=== PATIENT | male | born 1955 | race Caucasian/White ===

== ENCOUNTER 2018-05-26 10:53 | Emergency (ER) | payer MEDICAID, SELFPAY ==
[2018-05-26 10:54] VITALS: BP 149/95; PULSE 96; RESP 16; TEMP 36.6; O2SAT 98; BMI 25.0
--- NOTE | 2018-05-26 11:01 | RAD_ITS ---
STUDY: X-RAY - LEFT HAND REASON FOR EXAM: Cut hand this morning. TECHNIQUE: 3 view(s) of the hand. COMPARISON: None. FINDINGS: Normal radiocarpal articulation. Normal distal radioulnar joint. Normal visualized carpal bones. Normal carpal articulations Normal carpometacarpal articulation of the thumb. Normal second through fifth carpometacarpal joints. Normal metacarpi. Normal metacarpophalangeal joint of the thumb. Normal interphalangeal joint of the thumb. Normal proximal and distal phalanges of the thumb. Normal metacarpophalangeal joints of the second through fifth fingers. There are small marginal osteophytes and mild joint space narrowing of the second and third distal interphalangeal joints. Normal phalanges of the second through fifth fingers. There is a small metallic foreign body at the radial aspect of the fourth distal interphalangeal joint. RAD/Hand Min 3 Views IMPRESSION: Small metallic foreign body in the fourth digit. Mild arthrosis of the second and third distal interphalangeal joints. Electronically Signed: Louis Zepeda MD at 13:00 EDT Tel , Service support ,
--- NOTE | 2018-05-26 11:04 | ED.VISSUMM ---
- ER Visit Summary Date of Service: 05/26/18 Chief Complaint: Left hand injury History of Present Illness: The patient is a 63 M who is right-hand dominant presents with injury to his left thumb. Patient was using a table saw to cut through countertop. The blade went through and then incised his thumb. His tetanus is up-to-date. He is not on anticoagulants. He presented here immediately. He denies other injury. He is otherwise healthy. Physical Examination: Exam relatively unremarkable. Patient does have a flap style laceration distal aspect of the thumb. It is mostly involving the pad of the finger. His pulses are normal. Flexion and extension are intact. Test Results: [] Emergency Department Course and Treatment: The patient has a avulsion of the distal pad of his thumb. There is no evidence of nailbed injury. Plain films are unremarkable. Patient's tetanus is up-to-date. Digital block was performed. I did explore the flap. It does not communicate with the nail bed at all. The flap is devascularized, but given the amount of tissue loss I am going to use it to cover the exposed tissue. It was cleaned and aggressively irrigated. It was closed loosely. Patient was placed in a AlumaFoam splint with bacitracin dressing. I will place him on Keflex. I did correctional counselor/case manager him this needs to be reevaluated within 48 hours and if he cannot get into see his primary care physician to come back to the emergency department. He is comfortable with this plan of care. Treatment Plan: [] Disposition: Discharge Impression: 1. 1 cm ovoid fingertip avulsion with repair This note was generated with [employer] dictation software. It may contain incorrect words, spelling, and punctuation that were not noted in review of the chart prior to signing ED Disposition - Plan for ED Patient: Instructions: ED Laceration Hand Prescriptions: Cephalexin [Keflex] 500 mg PO Q6 #40 cap Referrals: Renan Joel MD [Primary Care Provider] - 2 Days for wound check
[2018-05-26] MEDS: Bupivacaine Mpf 0.5% 30 ML VIAL INFILT (11:17)
[2018-05-26 12:07] VITALS: BP 142/79; PULSE 82; RESP 16; O2SAT 100
== END 2018-05-26 12:20 | disposition home or self-care (01) ==
LOC: ED 12:15
PROVIDERS: Emergency Provider Emergency Medicine; Family Provider Family Medicine; PCP Family Medicine
DX: S61.012A Laceration without foreign body of left thumb without damage to nail, initial encounter (principal); W29.8XXA Contact with other powered hand tools and household machinery, initial encounter; Y93.9 Activity, unspecified; Y92.9 Unspecified place or not applicable; Y99.9 Unspecified external cause status; I10 Essential (primary) hypertension; Z79.899 Other long term (current) drug therapy
CPT/HCPCS: 12001; 73130; 99284

== ENCOUNTER 2018-08-25 16:56 | Inpatient (IN) | payer MEDICAID, SELFPAY ==
[2018-08-25 17:26] VITALS: BMI 22.6
[2018-08-25 17:27] VITALS: BP 107/66; PULSE 128; RESP 18; TEMP 36.8; O2SAT 96
--- NOTE | 2018-08-25 18:43 | PCM.HP.STD ---
<Sybil Cho - Last Filed: 08/25/18 19:04> Problem List (1) HTN (hypertension) Status: Chronic (2) Depression Status: Chronic (3) Tobacco dependence Status: Chronic (4) Alcohol abuse Status: Acute History of Present Illness Date of Admission: 08/25/18 Chief Complaint: Alcohol withdrawal. The patient is a 63 year old M who presents through [facility] service requesting detox for alcohol withdrawal. He reports he was sober for 19 months and relapsed 2 weeks ago where he has been drinking 24 beers a day since that time. He had 5 beers this morning with his last drink at 10 AM. He states he has a counselor at [facility] and also follows with AA. He states he has been under increased stress lately as he is taking care of his mother who recently had a knee replacement and also has dementia. 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 He reports history of multiple detox programs. He has had seizures in the past due to alcohol withdrawal although he reports this was a long time ago. He reports he has been drinking alcohol heavily since he was a teenager. His recent 19-month sobriety was the longest he has ever gone without drinking alcohol. He currently complains of tremors, anxiety and abdominal cramping. He is a current pack per day smoker and also has a past medical history of hypertension, anxiety and depression. Past Medical History Past Medical History (Chronic Problems): Chronic Problems HTN (hypertension) (Chronic) Depression (Chronic) Tobacco dependence (Chronic) Allergies No Known Allergies Allergy (Verified 05/26/18 10:54) Home Medications: Ambulatory Orders Medication Instructions Recorded Lisinopril [Zestril] 10 mg PO DAILY 06/22/16 Sertraline HCl [Zoloft] 100 mg PO DAILY 06/22/16 Surgical History: - - Right ankle repair following traumatic injury, left shoulder rotator cuff surgery, right wrist surgery. Lives: - - With his mother Smoking Status: Current every day smoker Tobacco Use: Cigarettes - 1 pack/day Alcohol: Heavy Drugs: None - *Family History Maternal History Items: Dementia, - - Hypothyroidism Paternal History Items: - - States he does not know his father or any of his father's medical history. Review of Systems Constitutional: Reports: Chills. Denies: Fever HEENT: Denies: Head Aches, Sinus Congestion, Sinus Drainage Cardiovascular: Denies: Chest Pain, Palpitations Respiratory: Denies: Cough, Shortness of breath at rest, Sputum production Gastrointestinal: Reports: Nausea, - - Abdominal cramping. Denies: Abdominal Pain, Vomiting Genitourinary: Denies: Dysuria Musculoskeletal: Denies: Joint Pain, Joint Tenderness Skin: Denies: Rash, Wounds Neurological: Denies: Numbness, Tingling, Focal weakness Psychiatric: Reports: Anxiety, Depression Hematologic/ Lymphatic: Denies: Easy Bruising, Easy Bleeding VTE Information - Inpt Only VTE Present on Admission: No VTE Mechan Device Prophylaxis: None VTE Pharm Prophylaxis ordered?: No Reason prophylaxis not ordered:: Treatment Not Indicated Patient Problems: Active and Suspected Problems Alcohol abuse (Acute) - Physical Exam General: Alert, Oriented x3, Cooperative HEENT: Atraumatic, PERRLA, EOMI, Normocephalic Neck: Supple, No JVD, Negative Carotid Bruits Lungs: Clear to auscultation, Normal air movement Cardiovascular: Regular rate, Regular Rhythm, Normal S1, Normal S2, No murmurs Abdomen: Bowel Sounds Present, Soft, Non Tender, Non-Distended Extremities: No clubbing, No cyanosis, No edema, Capillary Refill Less than 3 Seconds Skin: No rashes, No breakdown Musculoskeletal: No Tenderness to Palpation of Joints or Extremities Neurological: Cranial nerves II-XII grossly intact, Neuro grossly intact Psych/Mental Status: Normal Affect, Appropriate Vital Signs Temp Pulse Resp BP Pulse Ox 98.2 F 128 H 18 107/66 96 08/25/18 17:27 08/25/18 17:27 08/25/18 17:27 08/25/18 17:27 08/25/18 17:27 Oxygen Delivery Method Room Air Weight: 140 lb Body Mass Index (BMI) 22.6 Assessment/Plan All Active Problems Alcohol abuse (Acute) 1. Acute alcohol withdrawal on chronic alcohol abuse-medical stabilization per [facility] protocol. CIWA/Ativan protocol. Folic acid, thiamine, multivitamin supplementation. PRN regimen for somatic complaints. Obtain EtOH level, tox screen, CMP, CBC. 2. Tobacco dependence-encourage smoking cessation. Nicotine replacement patch. 3. Hypertension-continue home lisinopril regimen. 4. Depression/anxiety-continue home sertraline regimen. DVT prophylaxis-not indicated, encourage early ambulation. This patient was seen by AGUSTÍN Sinclair under the supervision of Dr. Jones. <Gauri Jones - Last Filed: 08/25/18 21:41> History of Present Illness The patient is a 63 year old M [] Past Medical History Allergies No Known Allergies Allergy (Verified 05/26/18 10:54) - Physical Exam Vital Signs Temp Pulse Resp BP Pulse Ox 98.2 F 128 H 18 107/66 96 08/25/18 17:27 08/25/18 17:27 08/25/18 17:27 08/25/18 17:27 08/25/18 17:27 Oxygen Delivery Method Room Air Weight: 63.503 kg Body Mass Index (BMI) 22.6 Assessment/Plan This patient was seen in conjunction with Sybil Cho. I have independently interviewed and examined the patient and reviewed pertinent historical, laboratory, and other data. I have reviewed her note and concur with her documentation CC: Alcohol withdrawal HPI: 63-year-old male with past medical history of chronic heavy alcohol use disorder, comes in with complaints of tremors, anxiety, agitation, nausea, diarrhea for medical stabilization the [facility] protocol. Admits to drinking about 24 beers a day. He last drank at 10 AM this morning and had 5 beers. He follows up with AA and has a counselor at [facility]. He last was sober for 19 months. Admitting CIWA score was 24 PMHX: History of hypertension, depression, nicotine dependence PSHx: Right ankle repair status post trauma, left shoulder rotator cuff surgery as well as right wrist surgery FHX: Mother has hypothyroidism SHX: As above in HPI, smokes 1 pack a day, denies any illicit drug use Physical Exam: Vitals: 90 8.2F, heart rate 128, blood pressure 107 over 60s, respiratory rate 18, SPO2 96% on room air. Gen: Appears anxious, tremors in upper extremity, not pale, not jaundiced CVS:HS I +II, regular, no murmurs RESP: Clinically clear to auscultation GI: BS present and normal, soft, nontender, no palpable organs EXT:No edema Labs: Pending ASSESSMENT: 1. Acute alcohol withdrawal 2. Nicotine dependence 3. Hypertension 4. Anxiety/depression 5. DVT PPx- early ambulation Plan: Admit to [facility], [facility] protocol, Continue home medications Code Visit Inpatient E&M: 32582 Init Hosp L2
[2018-08-25] MEDS: LORazepam 1 MG Tablet PO ×2 (19:57→23:24)
[2018-08-25] MEDS: Thiamine Hydrochloride 100 MG Tablet PO ×2 (19:58)
[2018-08-25] MEDS: Ibuprofen 600 MG Tablet PO (19:58)
[2018-08-25] MEDS: Multivitamins,Therapeutic Tablet 1 TABLET PO ×2 (19:58)
[2018-08-25] MEDS: Dicyclomine 10 MG Capsule 20 MG PO (19:59)
[2018-08-25] MEDS: Folic Acid 1 MG Tablet PO ×2 (19:59)
[2018-08-25 22:02] VITALS: BP 118/80; PULSE 89; RESP 16; TEMP 37
[2018-08-25] MEDS: traZODone 50 MG Tablet PO (22:05)
[2018-08-25 22:21] LABS: Absolute Lymphocyte Count 2.63 X10^3/ul (0.83-4.51); Absolute Neutrophil Count 3.7 X10^3/uL (2.0-7.7); Basophil# 0.03 X10^3/uL; Basophil% 0.4 % (0-1); Eosinophils% 2.8 % (0-5); Hematocrit 38.6 % (40-54); Lymphocyte # 2.63 X10^3/ul (4.0); Lymphocyte % 36.5 % (19-41); Mean Corp Hgb Conc 36.3 g/gl (32-36); Mean Corpuscular Volume 88.3 fL (80-94); Mean Platelet Vol. 8.8 fl (6.2-12.0); Monocyte% 8.3 % (0-10); Neutrophil # 3.73 X10^3/uL (2.7-7.7); Neutrophil % 51.9 % (47-70); POSITIVE COUNT NO; POSITIVE DIFFERENTIAL NO; POSITIVE MORPHOLOGY NO; Platelet Count 207 K/mm3 (150-450); RBC Distribution Width CV 15.7 % (11.6-14.6); RBC Distribution Width SD 50.3 fl (35.1-43.9); Red Blood Count 4.37 M/mm3 (4.6-6.2); White Blood Count 7.2 K/mm3 (4.4-11.0)
[2018-08-25 22:32] LABS: Anion Gap 4 (5-15); BUN 15 mg/dL (7-18); BUN/Creat Ratio 15.6 RATIO (10-20); Calcium,Total 8.5 mg/dL (8.5-10.1); Chloride 103 mmol/L (98-107); Creatinine, Serum 0.96 mg/dL (0.70-1.30); EST Glomerular Filtration Rate 84 mL/min (>60); Est Glom Filt Rate - Afr Amer 102 mL/min (>60); Estimated Creatinine Clearance 72.58 ml/min; Glucose 94 mg/dL (74-106); Potassium 4.4 mmol/L (3.5-5.1); Sodium Level 133 mmol/L (136-145)
[2018-08-26 02:04] VITALS: BP 107/76; PULSE 69; RESP 14; TEMP 36.3
[2018-08-26] MEDS: LORazepam 1 MG Tablet PO ×5 (02:06→21:54)
[2018-08-26 06:00] VITALS: BP 124/73; PULSE 84; RESP 16; TEMP 36.9
[2018-08-26 09:28] VITALS: BP 128/78; PULSE 92; RESP 20; TEMP 36.5
[2018-08-26] MEDS: Multivitamins,Therapeutic Tablet 1 TABLET PO (09:37)
[2018-08-26] MEDS: Folic Acid 1 MG Tablet PO (09:37)
[2018-08-26] MEDS: Thiamine Hydrochloride 100 MG Tablet PO (09:37)
[2018-08-26] MEDS: Lisinopril 10 MG Tablet PO (09:37)
[2018-08-26] MEDS: Sertraline 100 MG Tablet PO (09:38)
--- NOTE | 2018-08-26 13:39 | PN_ITS ---
<Sybil Cho - Last Filed: 08/26/18 13:39> Patient Problems: Active and Suspected Problems Alcohol abuse (Acute) Subjective: Patient seen and examined. Reports he slept well overnight. Denies current significant withdrawal symptoms. Denies nausea, vomiting. - Physical Exam General: Alert, Oriented x3, Cooperative HEENT: Atraumatic, PERRLA, EOMI, Normocephalic Neck: Supple, No JVD, Negative Carotid Bruits Lungs: Clear to auscultation, Normal air movement Cardiovascular: Regular rate, Regular Rhythm, Normal S1, Normal S2, No murmurs Abdomen: Bowel Sounds Present, Soft, Non Tender, Non-Distended Extremities: No clubbing, No cyanosis, No edema, Capillary Refill Less than 3 Seconds Skin: No rashes, No breakdown Musculoskeletal: No Tenderness to Palpation of Joints or Extremities Neurological: Cranial nerves II-XII grossly intact, Neuro grossly intact Psych/Mental Status: Anxious, Flat Affect Vital Signs Temp Pulse Resp BP Pulse Ox 97.7 F L 92 20 H 128/78 H 96 08/26/18 09:28 08/26/18 09:28 08/26/18 09:28 08/26/18 09:28 08/25/18 17:27 Oxygen Delivery Method Room Air Weight: 139 lb 15.896 oz Body Mass Index (BMI) 22.6 Intake and Output for Last 24 Hours 08/24/18 08/25/18 08/26/18 23:59 23:59 23:59 Intake Total 900 / 900 Balance 900 / 900 Laboratory Tests Past 24 Hrs 08/25/18 08/25/18 21:10 21:10 WBC 7.2 RBC 4.37 L Hgb 14.0 Hct 38.6 L MCV 88.3 MCH 32.0 MCHC 36.3 H RDW 15.7 H RDW Differential 50.3 H Plt Count 207 MPV 8.8 Immature Gran % (Auto) 0.100 Neut % (Auto) 51.9 Lymph % (Auto) 36.5 [place] % (Auto) 8.3 Eos % (Auto) 2.8 Baso % (Auto) 0.4 Absolute Neuts (auto) 3.7 Absolute Lymphs (auto) 2.63 Total Counted Not Reportable Sodium 133 L Potassium 4.4 Chloride 103 Carbon Dioxide 26.0 Anion Gap 4 L BUN 15 Creatinine 0.96 Estim Creat Clear Calc 72.58 Est GFR (MDRD) Af Amer 102 Est GFR (MDRD) Non-Af 84 BUN/Creatinine Ratio 15.6 Glucose 94 Calcium 8.5 Medical Necessity - Tobacco Use Smoking Status: Current every day smoker Tobacco Use: Cigarettes Assessment/Plan All Active Problems Alcohol abuse (Acute) 1. Acute alcohol withdrawal on chronic alcohol abuse-medical stabilization per [facility] protocol. CIWA/Ativan protocol. Folic acid, thiamine, multivitamin supplementation. PRN regimen for somatic complaints. CBC, BMP unremarkable. 2. Tobacco dependence-encourage smoking cessation. Nicotine replacement patch. 3. Hypertension-continue home lisinopril regimen. 4. Depression/anxiety-continue home sertraline regimen. This patient was seen by AGUSTÍN Sinclair under the supervision of Dr. Downey. <Wilfredo Downey E - Last Filed: 08/26/18 13:59> - Physical Exam Vital Signs Temp Pulse Resp BP Pulse Ox 97.7 F L 92 20 H 128/78 H 96 08/26/18 09:28 08/26/18 09:28 08/26/18 09:28 08/26/18 09:28 08/25/18 17:27 Oxygen Delivery Method Room Air Weight: 139 lb 15.896 oz Body Mass Index (BMI) 22.6 Intake and Output for Last 24 Hours 08/24/18 08/25/18 08/26/18 23:59 23:59 23:59 Intake Total 900 / 900 Balance 900 / 900 Laboratory Tests Past 24 Hrs 08/25/18 08/25/18 08/25/18 21:10 21:10 21:10 WBC 7.2 RBC 4.37 L Hgb 14.0 Hct 38.6 L MCV 88.3 MCH 32.0 MCHC 36.3 H RDW 15.7 H RDW Differential 50.3 H Plt Count 207 MPV 8.8 Immature Gran % (Auto) 0.100 Neut % (Auto) 51.9 Lymph % (Auto) 36.5 [place] % (Auto) 8.3 Eos % (Auto) 2.8 Baso % (Auto) 0.4 Absolute Neuts (auto) 3.7 Absolute Lymphs (auto) 2.63 Total Counted Not Reportable Sodium 133 L Potassium 4.4 Chloride 103 Carbon Dioxide 26.0 Anion Gap 4 L BUN 15 Creatinine 0.96 Estim Creat Clear Calc 72.58 Est GFR (MDRD) Af Amer 102 Est GFR (MDRD) Non-Af 84 BUN/Creatinine Ratio 15.6 Glucose 94 Calcium 8.5 Total Bilirubin Pending Direct Bilirubin Pending AST Pending ALT Pending Alkaline Phosphatase Pending Total Protein Pending Albumin Pending Assessment/Plan Hospitalist note: I am seeing this patient in conjunction with Sybil Cho. I independently seen and examined the patient. Progress note above, laboratory data reviewed and I agree with the above treatment plan. Patient seen and examined. No acute events overnight. He reported that his tremors and anxiety is getting better compared to last night. He mentioned that he was able to sleep last night. Denied abdominal pain, nausea or vomiting. His vital signs are stable. - Physical Exam General: Alert, Oriented x3, Cooperative, No apparent distress. HEENT: Atraumatic, PERRLA, EOMI. Neck: Supple, No JVD, Negative Carotid Bruits, Trachea Midline, Thyroid Normal. Lungs: Clear to auscultation, Normal air movement, No rhonchi, No wheeze, No rales. Cardiovascular: Regular rate, Regular Rhythm, Normal S1, Normal S2, PMI Normal. Abdomen: Bowel Sounds Present, Soft, Non Tender, Non-Distended, No Hepato- splenomegaly. Extremities: No clubbing, No cyanosis, No edema Skin: No rashes, No breakdown Neurological: Neuro grossly intact Vital Signs are stable. Assessment and plan: #1 acute alcohol withdrawal: He is on tapering course of Ativan, folic acid and thiamine supplement as well as multivitamins, on PRN Bentyl, Imodium, methocarbamol, Zofran and trazodone. Routine blood work reviewed, unremarkable. LFTs pending. Plan to continue same treatment. #2 other chronic medical problems: Stable, continue current medications as above. This note was generated with [employer] dictation software. It may contain incorrect words, spelling, and punctuation that were not noted in checking the note before signing. Code Visit Inpatient E&M: 78128 Subs Hosp L2
[2018-08-26 13:59] VITALS: BP 121/71; PULSE 91; RESP 18; TEMP 36.6
[2018-08-26 14:04] LABS: AST(SGOT) 23 U/L (15-37); Alanine Aminotransfer ALT/SGPT 26 U/L (16-61); Albumin, Serum 3.2 g/dL (3.2-5.0); Alkaline Phosphatase 58 U/L (45-117); Bilirubin, Direct 0.14 mg/dL (0.00-0.30); Globulin 3.7 g/dL (2.2-4.2); Protein, Total 6.9 g/dL (6.4-8.2)
[2018-08-26] MEDS: Methocarbamol 750 MG Tablet PO (14:05)
[2018-08-26] MEDS: hydrOXYzine PAM 25 MG Capsule 50 MG PO (14:05)
[2018-08-26] MEDS: Ibuprofen 600 MG Tablet PO (14:05)
[2018-08-26 21:52] VITALS: BP 127/80; PULSE 81; RESP 18; TEMP 36.6; O2SAT 96
[2018-08-26] MEDS: traZODone 50 MG Tablet PO (21:54)
[2018-08-27 02:35] VITALS: BP 108/64; PULSE 74; RESP 18; TEMP 36.5
[2018-08-27] MEDS: LORazepam 1 MG Tablet PO ×4 (02:37→23:05)
[2018-08-27 08:11] VITALS: BP 122/85; PULSE 87; RESP 18; TEMP 36.4
[2018-08-27] MEDS: Sertraline 100 MG Tablet PO (08:15)
[2018-08-27] MEDS: Folic Acid 1 MG Tablet PO (08:15)
[2018-08-27] MEDS: Lisinopril 10 MG Tablet PO (08:15)
[2018-08-27] MEDS: Multivitamins,Therapeutic Tablet 1 TABLET PO (08:15)
[2018-08-27] MEDS: Thiamine Hydrochloride 100 MG Tablet PO (08:15)
--- NOTE | 2018-08-27 09:30 | NEWVISION ---
Patient has two post discharge appointments for mental health/medications at [facility] on 08/31/18 at 9:15am, and with his [facility] counselor on 09/02/18 at 11am, or sooner if need of urgent peer support services.
[2018-08-27 11:54] VITALS: BP 136/84; PULSE 93; RESP 18; TEMP 36.4
[2018-08-27] MEDS: hydrOXYzine PAM 25 MG Capsule 50 MG PO (11:56)
--- NOTE | 2018-08-27 13:51 | PN_ITS ---
<Manuel Carrasco - Last Filed: 08/27/18 13:47> Patient Problems: Active and Suspected Problems Alcohol abuse (Acute) Subjective: Pt resting comfortably in bed NAD. He feels that his symptoms are much better today. Less anxiety, less tremor, no further diarrhea. No f/c. Pt planning for DC tomorrow - Physical Exam General: Alert, Oriented x3, Cooperative HEENT: Atraumatic, PERRLA, EOMI, Normocephalic Neck: Supple, No JVD, Negative Carotid Bruits Lungs: Clear to auscultation, Normal air movement Cardiovascular: Regular rate, No murmurs Abdomen: Bowel Sounds Present, Soft, Non Tender Extremities: No edema, Capillary Refill Less than 3 Seconds Skin: No rashes, No breakdown Musculoskeletal: No Tenderness to Palpation of Joints or Extremities Neurological: Cranial nerves II-XII grossly intact Psych/Mental Status: Normal Affect, Appropriate, Alert and oriented to time, place, person, mood and affect Vital Signs Temp Pulse Resp BP Pulse Ox 97.5 F L 93 18 136/84 H 96 08/27/18 11:54 08/27/18 11:54 08/27/18 11:54 08/27/18 11:54 08/26/18 21:52 Oxygen Delivery Method Room Air Weight: 139 lb 15.896 oz Body Mass Index (BMI) 22.6 Intake and Output for Last 24 Hours 08/25/18 08/26/18 08/27/18 23:59 23:59 23:59 Intake Total 900 / 900 524 / 524 Balance 900 / 900 524 / 524 Laboratory Tests Past 24 Hrs 08/25/18 21:10 Total Bilirubin 0.40 Direct Bilirubin 0.14 AST 23 ALT 26 Alkaline Phosphatase 58 Total Protein 6.9 Albumin 3.2 Globulin 3.7 Medical Necessity - Tobacco Use Smoking Status: Current every day smoker Tobacco Use: Cigarettes Assessment/Plan All Active Problems Alcohol abuse (Acute) 1. Alcoholism with acute withdrawal - continue medical stabilization protocol. Symptoms well controlled. Ativan taper. 2. Nicotine abuse - patch 3. HTN -stable 4. Depression - zoloft. Med stabilization day 3 of 4. DC planning: home tmrw, f/u [facility], AA, has sponsor. This patient was seen by Manuel Carrasco PA-C under the supervision of Dr. Downey <Wilfredo Downey E - Last Filed: 08/27/18 14:06> - Physical Exam Vital Signs Temp Pulse Resp BP Pulse Ox 97.5 F L 93 18 136/84 H 96 08/27/18 11:54 08/27/18 11:54 08/27/18 11:54 08/27/18 11:54 08/26/18 21:52 Oxygen Delivery Method Room Air Weight: 139 lb 15.896 oz Body Mass Index (BMI) 22.6 Intake and Output for Last 24 Hours 08/25/18 08/26/18 08/27/18 23:59 23:59 23:59 Intake Total 900 / 900 524 / 524 Balance 900 / 900 524 / 524 Laboratory Tests Past 24 Hrs 08/25/18 21:10 Total Bilirubin 0.40 Direct Bilirubin 0.14 AST 23 ALT 26 Alkaline Phosphatase 58 Total Protein 6.9 Albumin 3.2 Globulin 3.7 Assessment/Plan Hospitalist note: I am seeing this patient in conjunction with Manuel Carrasco patient is feeling better,. I independently seen and examined the patient. Progress note above reviewed and I agree with the above treatment plan. Patient seen and examined. Tremors almost gone, was able to sleep last night. His vital signs are stable. - Physical Exam General: Alert, Oriented x3, Cooperative, No apparent distress. HEENT: Atraumatic, PERRLA, EOMI. Neck: Supple, No JVD, Negative Carotid Bruits, Trachea Midline, Thyroid Normal. Lungs: Clear to auscultation, Normal air movement, No rhonchi, No wheeze, No rales. Cardiovascular: Regular rate, Regular Rhythm, Normal S1, Normal S2, PMI Normal. Abdomen: Bowel Sounds Present, Soft, Non Tender, Non-Distended, No Hepato- splenomegaly. Extremities: No clubbing, No cyanosis, No edema Skin: No rashes, No breakdown Neurological: Neuro grossly intact Vital Signs are stable. Assessment and plan: #1 acute alcohol withdrawal: Remained on tapering course of Ativan, folic acid and thiamine supplement as well as multivitamins, on PRN Bentyl, Imodium, methocarbamol, Zofran and trazodone. LFT was unremarkable. Plan to continue same treatment, DC home tomorrow. #2 other chronic medical problems: Stable, continue current medications as above. This note was generated with [employer] software. It may contain incorrect words, spelling, and punctuation that were not noted in checking the note before signing. Code Visit Inpatient E&M: 06066 Subs Hosp L2
[2018-08-27 15:15] VITALS: BP 137/91; PULSE 81; RESP 18
[2018-08-27 21:39] VITALS: BP 142/96; PULSE 75; RESP 18; TEMP 36.6; O2SAT 100
[2018-08-27 21:40] VITALS: BP 142/96; PULSE 75; RESP 18; TEMP 36.6
[2018-08-27] MEDS: traZODone 50 MG Tablet PO (21:43)
[2018-08-28 06:23] VITALS: BP 136/87; PULSE 93; RESP 18; TEMP 36.6
[2018-08-28] MEDS: LORazepam 1 MG Tablet PO (06:24)
[2018-08-28] MEDS: Multivitamins,Therapeutic Tablet 1 TABLET PO (08:35)
[2018-08-28] MEDS: Sertraline 100 MG Tablet PO (08:36)
[2018-08-28] MEDS: Folic Acid 1 MG Tablet PO (08:36)
[2018-08-28] MEDS: Thiamine Hydrochloride 100 MG Tablet PO (08:36)
[2018-08-28] MEDS: Lisinopril 10 MG Tablet PO (08:36)
--- NOTE | 2018-08-28 09:26 | DCINST_ITS ---
- Discharge Diagnoses Current Active Problems: Current Active and Chronic Problems HTN (hypertension) (Chronic) Depression (Chronic) Tobacco dependence (Chronic) Alcohol abuse (Acute) You will use the following diet at home:: Other - no alcohol at all Your food should be the consistency of: Regular Your liquids should be the consistency of: Regular/Thin Discharge Activity: Return to Normal Activity Allergies/Adverse Reactions: Allergies No Known Allergies Allergy (Verified 05/26/18 10:54) Medications to take at Discharge Lisinopril [Zestril] 10 mg PO DAILY 06/22/16 Sertraline HCl [Zoloft] 100 mg PO DAILY 06/22/16 Primary Care Physician: Renan Joel MD [Primary Care Provider] - Please follow up with your Primary Care Physician in: 1-2 weeks Test Results: Test results from this visit will be discussed in further detail at your follow- up appointment, if applicable. Please Follow Up With: [facility] Proposed Discharge Date: 08/28/18
[2018-08-28 10:13] VITALS: BP 150/90; PULSE 82; RESP 14; TEMP 36.5; O2SAT 97
--- NOTE | 2018-08-28 13:40 | PCM.DC.SUM ---
<Manuel Carrasco - Last Filed: 08/28/18 13:40> Discharge Date and Diagnosis Date of Admission: 08/25/18 Date of Discharge: 08/28/18 - Primary Discharge Diagnosis Alcoholism with acute withdrawal Nicotine abuse Depression - Secondary Discharge Diagnosis Chronic Problems HTN (hypertension) (Chronic) Depression (Chronic) Tobacco dependence (Chronic) Hospital Course and Treatment Operations: None Procedures: None Summary of Care Provided: Hospital Course: The patient is a 63 year old M past medical history of alcoholism, depression, hypertension, nicotine abuse, who presented to the hospital in alcohol withdrawal requesting assistance with detox. He had been sober for 19 months however relapsed 2 weeks prior, was drinking 24 beers per day. His last drink was 5 beers the morning of presentation at 10 AM. He reported a history of withdrawal seizure. He complained of tremors, anxiety, abdominal cramps. He was admitted to the general medical floor and started on the CIWA/Ativan protocol with folic acid, thiamine, multivitamin supplementation. He completed the program with few issues. He was discharged home after completing the medication taper. He plans to follow-up with the [facility], he has a sponsor through [employer] already. He was discharged home in stable condition. He will need to follow-up with his PCP in 1 to 2 weeks. This patient was seen by Manuel Carrasco PA-C under the supervision of Doctor Downey. [] - Physical Exam General: Alert, Oriented x3, Cooperative HEENT: Atraumatic, PERRLA, EOMI, Normocephalic Neck: Supple, No JVD, Negative Carotid Bruits Lungs: Clear to auscultation, Normal air movement Cardiovascular: Regular rate, No murmurs Abdomen: Bowel Sounds Present, Soft, Non Tender Extremities: No edema, Capillary Refill Less than 3 Seconds Skin: No rashes, No breakdown Musculoskeletal: No Tenderness to Palpation of Joints or Extremities Neurological: Cranial nerves II-XII grossly intact Psych/Mental Status: Normal Affect, Appropriate Vital Signs Temp Pulse Resp BP Pulse Ox 97.7 F L 82 14 150/90 H 97 08/28/18 10:13 08/28/18 10:13 08/28/18 10:13 08/28/18 10:13 08/28/18 10:13 Oxygen Delivery Method Room Air Weight: 139 lb 15.896 oz Body Mass Index (BMI) 22.6 Intake and Output for Last 24 Hours 08/26/18 08/27/18 08/28/18 23:59 23:59 23:59 Intake Total 900 / 900 824 / 824 200 / 200 Balance 900 / 900 824 / 824 200 / 200 Discharge Diet: - - no alcohol Discharge Activity: Return to Normal Activity Home Medications: Medications to take at Discharge Lisinopril [Zestril] 10 mg PO DAILY 06/22/16 Sertraline HCl [Zoloft] 100 mg PO DAILY 06/22/16 Primary Care Physician: Renan Joel MD [Primary Care Provider] - Please follow up with your Primary Care Physician in: 1-2 weeks Please Follow Up With: [facility] Disposition: Home Minutes spent on discharge:: 35 Patient Condition:: Stable Medical Necessity - Tobacco Use Smoking Status: Current every day smoker Tobacco Use: Cigarettes Meaningful Use Info Meaningful Use Diagnoses (Choose all that apply): None applicable <Wilfredo Downey E - Last Filed: 08/28/18 13:48> Discharge Date and Diagnosis - Secondary Discharge Diagnosis Chronic Problems HTN (hypertension) (Chronic) Depression (Chronic) Tobacco dependence (Chronic) Hospital Course and Treatment Summary of Care Provided: Hospitalist note: Discharge summary above reviewed and I concur with the above discharge and treatment plan. Patient was admitted for acute alcohol withdrawal and he was treated with [facility] protocol for alcohol withdrawal. He was treated with tapering course of Ativan, folic acid and thiamine supplement as well as multivitamins, PRN Imodium, Bentyl, Zofran and trazodone. His routine blood work was unremarkable as well as LFT. His vital signs were stable throughout admission. On admission, patient had a significant hand tremors, shakiness and restlessness as well as anxiety. With treatment, patient symptoms improved and he was able to sleep at night. He mentioned that he felt significantly better. Patient discharged home in a stable medical condition, he started back on his previous home medications without any changes, recommended follow-up with [facility] as outpatient, follow-up with PCP in 1 to 2 weeks. - Physical Exam General: Alert, Oriented x3, Cooperative, No apparent distress. HEENT: Atraumatic, PERRLA, EOMI. Neck: Supple, No JVD, Negative Carotid Bruits, Trachea Midline, Thyroid Normal. Lungs: Clear to auscultation, Normal air movement, No rhonchi, No wheeze, No rales. Cardiovascular: Regular rate, Regular Rhythm, Normal S1, Normal S2, PMI Normal. Abdomen: Bowel Sounds Present, Soft, Non Tender, Non-Distended, No Hepato-splenomegaly. Extremities: No clubbing, No cyanosis, No edema Skin: No rashes, No breakdown Neurological: Neuro grossly intact Vital Signs are stable. This note was generated with [employer] dictation software. It may contain incorrect words, spelling, and punctuation that were not noted in checking the note before signing. - Physical Exam Vital Signs Temp Pulse Resp BP Pulse Ox 97.7 F L 82 14 150/90 H 97 08/28/18 10:13 08/28/18 10:13 08/28/18 10:13 08/28/18 10:13 08/28/18 10:13 Oxygen Delivery Method Room Air Weight: 139 lb 15.896 oz Body Mass Index (BMI) 22.6 Intake and Output for Last 24 Hours 08/26/18 08/27/18 08/28/18 23:59 23:59 23:59 Intake Total 900 / 900 824 / 824 200 / 200 Balance 900 / 900 824 / 824 200 / 200 Disposition: Home Minutes spent on discharge:: 24 Patient Condition:: Stable Meaningful Use Info Meaningful Use Diagnoses (Choose all that apply): None applicable Code Visit Inpatient E&M: 96974 Disch Hosp
== END 2018-08-28 10:15 | disposition home or self-care (01) | DRG 775 ==
PROVIDERS: Nurse Practitioner Family; Admitting Provider Internal Medicine; Family Provider Family Medicine; PCP Family Medicine; Referring Provider Internal Medicine; Visit Provider Hospitalist
DX: F10.239 Alcohol dependence with withdrawal, unspecified (principal); F17.210 Nicotine dependence, cigarettes, uncomplicated; I10 Essential (primary) hypertension; F32.9 Major depressive disorder, single episode, unspecified
CPT/HCPCS: 36415; 80048; 80076; 85025; 97802; 99406

== ENCOUNTER 2019-08-24 13:25 | Inpatient (IN) | payer MEDICAID, SELFPAY ==
[2018-08-25 17:26] VITALS: BMI 22.6
[2019-08-24 13:25] VITALS: BP 115/71; PULSE 103; RESP 16; TEMP 36.6; O2SAT 95; BMI 25.0
[2019-08-24 14:37] LABS: Absolute Lymphocyte Count 2.83 X10^3/uL (0.83-4.51); Absolute Neutrophil Count 2.5 X10^3/uL (2.0-7.7); Basophil# 0.02 X10^3/uL; Basophil% 0.3 % (0-1); Eosinophil# 0.19 X10^3/uL; Eosinophils% 3.1 % (0-5); Hemoglobin 15.1 g/dL (13.0-16.5); Lymphocyte # 2.83 X10^3/ul (4.0); Lymphocyte % 46.3 % (19-41); Mean Corp Hgb Conc 36.8 g/dL (32-36); Mean Corpuscular Hgb 34.9 pg (27.0-32.0); Mean Corpuscular Volume 94.7 fL (80-94); Mean Platelet Vol. 8.6 fl (6.2-12.0); Monocyte# 0.54 X10^3/uL; Monocyte% 8.8 % (0-10); NRBC Flagged by Analyzer 0 % (0-5); Neutrophil # 2.52 X10^3/uL (2.7-7.7); Neutrophil % 41.3 % (47-70); Platelet Count 297 K/mm3 (150-450); RBC Distribution Width CV 14.4 % (11.6-14.6); RBC Distribution Width SD 50.4 fl (35.1-43.9); Red Blood Count 4.33 M/mm3 (4.6-6.2); White Blood Count 6.1 K/mm3 (4.4-11.0)
[2019-08-24 14:54] LABS: ALB/GLOB Ratio 0.9 RATIO (0.9-2.4); AST(SGOT) 24 U/L (15-37); Alanine Aminotransfer ALT/SGPT 26 U/L (16-61); Albumin, Serum 3.5 g/dL (3.2-5.0); Alkaline Phosphatase 44 U/L (45-117); Anion Gap 9 (5-15); BUN 6 mg/dL (7-18); BUN/Creat Ratio 8.3 RATIO (10-20); Calcium,Total 8.2 mg/dL (8.5-10.1); Chloride 94 mmol/L (98-107); Creatinine, Serum 0.72 mg/dL (0.70-1.30); EST Glomerular Filtration Rate 117 mL/min (>60); Est Glom Filt Rate - Afr Amer 142 mL/min (>60); Estimated Creatinine Clearance 99.46 ml/min; Glucose 84 mg/dL (74-106); Potassium 4.2 mmol/L (3.5-5.1); Protein, Total 7.5 g/dL (6.4-8.2); Sodium Level 129 mmol/L (136-145)
--- NOTE | 2019-08-24 14:54 | ED.VISSUMM ---
- ER Visit Summary Date of Service: 08/24/19 Chief Complaint: [Requesting detox from alcohol] History of Present Illness: The patient is a 64 M [presents to the emergency department requesting detox from alcohol. Patient states that his last drink was around 10 AM. Patient states that currently he drinks about 12-14 beers per day but at one point had been up to over 30 beers a day. Patient states that in the past he has had seizures when trying to detox or withdrawal from alcohol. Patient states that he has not gone through detox in many years. Patient has history of hypertension as well as depression. He denies any suicidal ideation.] Physical Examination: [HEENT-PERRLA, EOMI. Cranial nerves II through XII grossly intact. TMs clear. Mucous membranes moist. No adenopathy. Cardiovascular-regular rate and rhythm without murmur or ectopy Lungs-clear to auscultation, chest wall stable without crepitus or subcu emphysema Abdomen-normoactive bowel sounds, soft, nontender, no rebound or rigidity, no peritoneal signs. Extremities-intact ?4, normal range of motion, normal pulses, atraumatic] Test Results: [Alcohol came back at over 300. Chemistries unremarkable. LFTs were minimally elevated. CBC with differential unremarkable.] Emergency Department Course and Treatment: [An IV line established. Patient was given a dose of Librium 50 mg p.o.] Treatment Plan: [Admit] Disposition: [Admit] Impression: [Alcohol intoxication Alcohol abuse Request for detox] This note was generated with [employer] dictation software. It may contain incorrect words, spelling, and punctuation that were not noted in review of the chart prior to signing ED Disposition - Plan for ED Patient:
[2019-08-24 15:11] VITALS: BP 142/89; PULSE 88; RESP 16; O2SAT 99
--- NOTE | 2019-08-24 15:52 | NURSING ---
DR JANELLE JOSÉ
--- NOTE | 2019-08-24 15:54 | NURSING ---
MED SURG [facility] ETOH INTOXICATION, ETOH ABUSE
--- NOTE | 2019-08-24 16:10 | PCM.HP.STD ---
<Sybil Cho - Last Filed: 08/24/19 16:26> Problem List (1) HTN (hypertension) Status: Chronic (2) Depression Status: Chronic (3) Tobacco dependence Status: Chronic (4) Alcohol abuse Status: Acute History of Present Illness Date of Admission: 08/24/19 Chief Complaint: Alcohol withdrawal. The patient is a 64 year old M who presents to the emergency room due to alcohol withdrawal. Patient reports his last drink was around noon today. He typically drinks 12-14 beers per day. Denies any additional liquor. Patient was admitted 1 year ago for alcohol withdrawal in August 2018. He reports he was sober for approximately 6 months and relapsed in April due to stress. Patient states he lives with his mom and is helping care for her as she has dementia. He reports history of seizures due to alcohol withdrawal. Denies current withdrawal symptoms. He is a pack per day smoker. His other past medical history includes hypertension, depression, anxiety. Past Medical History Past Medical History (Chronic Problems): Chronic Problems HTN (hypertension) (Chronic) Depression (Chronic) Tobacco dependence (Chronic) Allergies No Known Allergies Allergy (Verified 08/24/19 13:27) Home Medications: Ambulatory Orders Medication Instructions Recorded Lisinopril [Zestril] 10 mg PO DAILY 06/22/16 Sertraline HCl [Zoloft] 100 mg PO DAILY 06/22/16 Surgical History: - - Right ankle repair following traumatic injury, left shoulder rotator cuff surgery, right wrist surgery. Lives: With Family - With his mother Smoking Status: Current every day smoker Alcohol: None Drugs: None - *Family History Maternal History Items: Dementia, - - Hypothyroidism Paternal History Items: - - States he does not know his father or any of his father's medical history. Review of Systems Constitutional: Denies: Chills, Fever, Weight Change HEENT: Denies: Head Aches, Sinus Congestion, Sinus Drainage Cardiovascular: Denies: Chest Pain, Palpitations Respiratory: Denies: Cough, Shortness of breath at rest, Sputum production Gastrointestinal: Denies: Abdominal Pain, Nausea, Vomiting Genitourinary: Denies: Dysuria Musculoskeletal: Denies: Joint Pain, Joint Tenderness Skin: Denies: Rash, Wounds Neurological: Denies: Numbness, Tingling, Focal weakness Psychiatric: Denies: Anxiety, Depression, Homicidal Ideations, Suicidal Ideations Hematologic/ Lymphatic: Denies: Easy Bruising, Easy Bleeding VTE Information - Inpt Only VTE Present on Admission: No VTE Mechan Device Prophylaxis: None VTE Pharm Prophylaxis ordered?: Yes - Physical Exam Vitals/I&O's: Vital Signs Temp Pulse Resp BP Pulse Ox 98 F 88 16 142/89 H 99 08/24/19 13:25 08/24/19 15:11 08/24/19 15:11 08/24/19 15:11 08/24/19 15:11 Oxygen Delivery Method Room Air Weight: 160 lb Body Mass Index (BMI) 25.0 General: Alert, Oriented x3, Cooperative HEENT: Atraumatic, PERRLA, EOMI, Normocephalic Neck: Supple, No JVD, Negative Carotid Bruits Lungs: Clear to auscultation, Normal air movement Cardiovascular: Regular rate, Regular Rhythm, Normal S1, Normal S2, No murmurs Abdomen: Bowel Sounds Present, Soft, Non Tender Extremities: No clubbing, No cyanosis, No edema, Capillary Refill Less than 3 Seconds Skin: No rashes, No breakdown Musculoskeletal: No Tenderness to Palpation of Joints or Extremities Neurological: Cranial nerves II-XII grossly intact, Neuro grossly intact Psych/Mental Status: Normal Affect, Appropriate Laboratory Results 08/24/19 14:30: WBC 6.1, RBC 4.33 L, Hgb 15.1, Hct 41.0, MCV 94.7 H, MCH 34.9 H, MCHC 36.8 H, RDW Std Deviation 50.4 H, RDW Coeff of Hortencia 14.4, Plt Count 297, MPV 8.6, Immature Gran % (Auto) 0.200, Neut % (Auto) 41.3 L, Lymph % (Auto) 46.3 H, [place] % (Auto) 8.8, Eos % (Auto) 3.1, Baso % (Auto) 0.3, Absolute Neuts (auto) 2.5, Absolute Lymphs (auto) 2.83, Nucleated RBC % 0 08/24/19 14:30: Sodium 129 L, Potassium 4.2, Chloride 94 L, Carbon Dioxide 26.0, Anion Gap 9, BUN 6 L, Creatinine 0.72, Estim Creat Clear Calc 99.46, Est GFR (MDRD) Af Amer 142, Est GFR (MDRD) Non-Af 117, BUN/Creatinine Ratio 8.3 L, Glucose 84, Calcium 8.2 L, Total Bilirubin 0.30, AST 24, ALT 26, Alkaline Phosphatase 44 L, Total Protein 7.5, Albumin 3.5, Globulin 4.0, Albumin/Globulin Ratio 0.9 08/24/19 14:30: Ethyl Alcohol 324.0 H* Assessment/Plan All Active Problems Alcohol abuse (Acute) 1. Acute alcohol withdrawal on chronic alcohol abuse-EtOH level on admission 324. Medical stabilization per protocol. Phenobarbital taper. CIWA/Ativan protocol. PRN regimen for somatic complaints. [employer] consult. 2. Hyponatremia, beer protomania- Gentle IV fluids, trend BMP. 3. Tobacco dependence-encouraged smoking cessation. Nicotine replacement patch. 4. Hypertension-stable, continue lisinopril regimen. 5. Depression/anxiety-continue home sertraline regimen. DVT prophylaxis-not indicated, low risk-encourage ambulation This patient was seen by AGUSTÍN Sinclair under the supervision of Dr. Mejia. <Moraima Mejia - Last Filed: 08/24/19 16:42> History of Present Illness The patient is a 64 year old M [] Past Medical History Allergies No Known Allergies Allergy (Verified 08/24/19 13:27) - Physical Exam Vitals/I&O's: Vital Signs Temp Pulse Resp BP Pulse Ox 97.6 F L 90 18 152/90 H 99 08/24/19 16:31 08/24/19 16:31 08/24/19 16:31 08/24/19 16:31 08/24/19 16:31 Oxygen Delivery Method Room Air Weight: 160 lb Body Mass Index (BMI) 25.0 Laboratory Results 08/24/19 14:30: WBC 6.1, RBC 4.33 L, Hgb 15.1, Hct 41.0, MCV 94.7 H, MCH 34.9 H, MCHC 36.8 H, RDW Std Deviation 50.4 H, RDW Coeff of Hortencia 14.4, Plt Count 297, MPV 8.6, Immature Gran % (Auto) 0.200, Neut % (Auto) 41.3 L, Lymph % (Auto) 46.3 H, [place] % (Auto) 8.8, Eos % (Auto) 3.1, Baso % (Auto) 0.3, Absolute Neuts (auto) 2.5, Absolute Lymphs (auto) 2.83, Nucleated RBC % 0 08/24/19 14:30: Sodium 129 L, Potassium 4.2, Chloride 94 L, Carbon Dioxide 26.0, Anion Gap 9, BUN 6 L, Creatinine 0.72, Estim Creat Clear Calc 99.46, Est GFR (MDRD) Af Amer 142, Est GFR (MDRD) Non-Af 117, BUN/Creatinine Ratio 8.3 L, Glucose 84, Calcium 8.2 L, Total Bilirubin 0.30, AST 24, ALT 26, Alkaline Phosphatase 44 L, Total Protein 7.5, Albumin 3.5, Globulin 4.0, Albumin/Globulin Ratio 0.9 08/24/19 14:30: Ethyl Alcohol 324.0 H* Current Medications Lisinopril (Zestril) 10 mg PO DAILY AMADO Sertraline HCl (Zoloft) 100 mg PO DAILY AMADO Assessment/Plan Patient seen by AGUSTÍN Sinclair under my supervision. Patient is a 65-year-old male with a past medical history of alcohol abuse and nicotine dependence as well as hypertension. He was admitted through the ED on 08/24/2019 for acute alcohol withdrawal. He has been drinking for many years, and says he used to drink 30 cans of beer daily, but has cut down to about 10-12 daily. He had no complaints and denied any tremors, nausea vomiting fever chills. Review of signs otherwise negative. He has been through detox 3 times in the past but after all those times, he subsequently fell off the wagon. Review of systems otherwise negative. o/e: Vital Signs Temp Pulse Resp BP Pulse Ox 97.6 F L 90 18 152/90 H 99 08/24/19 16:31 08/24/19 16:31 08/24/19 16:31 08/24/19 16:31 08/24/19 16:31 General: Alert, Oriented x3, Cooperative HEENT: Atraumatic, PERRLA, EOMI, Normocephalic Neck: Supple, No JVD, Negative Carotid Bruits Lungs: Clear to auscultation, Normal air movement Cardiovascular: Regular rate, Regular Rhythm, Normal S1, Normal S2, No murmurs Abdomen: Bowel Sounds Present, Soft, Non Tender Extremities: No clubbing, No cyanosis, No edema, Capillary Refill Less than 3 Seconds Skin: No rashes, No breakdown Musculoskeletal: No Tenderness to Palpation of Joints or Extremities Neurological: Cranial nerves II-XII grossly intact, Neuro grossly intact Psych/Mental Status: Normal Affect, Appropriate Plan is to admit to manage for acute alcohol withdrawal. Alcohol level was 324. Will put on alcohol withdrawal protocol with phenobarbital. Monitor CIWA score. Nicotine patch 21 mg daily. Continue sertraline for history of depression and anxiety. Patient sodium was 129 and this is chronic and is likely due to be able to mary from alcohol abuse. Continue lisinopril for hypertension. Rest as per AGUSTÍN Sinclair's notes which I have reviewed and endorsed. Inpatient E&M: 93211 Init Hosp L3
[2019-08-24] MEDS: chlordiazePOXIDE 25 MG Capsule 50 MG PO (16:28)
[2019-08-24 16:31] VITALS: BP 152/90; PULSE 90; RESP 18; TEMP 36.4; O2SAT 99
[2019-08-24 16:41] VITALS: BP 111/71; PULSE 95; RESP 18; TEMP 36.8; O2SAT 95; BMI 25.0; BMI 25.1
[2019-08-24] MEDS: Phenobarbital 32.4 MG Tablet 64.8 MG PO ×2 (18:18→20:37)
[2019-08-24] MEDS: 0.9% Saline Lock 10 ML Syringe IV (18:19)
[2019-08-24] MEDS: 0.9% Normal Saline 1,000 ML 125 ML IV (18:19)
[2019-08-24] MEDS: Thiamine Hydrochloride 100 MG Tablet PO (18:19)
[2019-08-24 20:37] VITALS: BP 106/70; PULSE 99; RESP 18; TEMP 36.8; O2SAT 96
[2019-08-25] MEDS: 0.9% Normal Saline 1,000 ML 125 ML IV (00:54)
[2019-08-25] MEDS: Phenobarbital 32.4 MG Tablet 64.8 MG PO ×6 (00:54→21:07)
[2019-08-25 00:56] VITALS: BP 138/95; PULSE 90; RESP 16; TEMP 37.1; O2SAT 94
[2019-08-25 05:27] VITALS: BP 149/93; PULSE 80; RESP 16; TEMP 37.3; O2SAT 94
[2019-08-25 06:45] LABS: Anion Gap 8 (5-15); BUN 11 mg/dL (7-18); BUN/Creat Ratio 14.8 RATIO (10-20); Calcium,Total 8.3 mg/dL (8.5-10.1); Chloride 100 mmol/L (98-107); Creatinine, Serum 0.74 mg/dL (0.70-1.30); EST Glomerular Filtration Rate 114 mL/min (>60); Est Glom Filt Rate - Afr Amer 138 mL/min (>60); Estimated Creatinine Clearance 96.77 ml/min; Glucose 88 mg/dL (74-106); Potassium 4.2 mmol/L (3.5-5.1); Sodium Level 134 mmol/L (136-145)
[2019-08-25 08:30] VITALS: BP 145/81; PULSE 94; RESP 18; TEMP 36.7; O2SAT 95
[2019-08-25] MEDS: Folic Acid 1 MG Tablet PO (08:33)
[2019-08-25] MEDS: Thiamine Hydrochloride 100 MG Tablet PO ×2 (08:33→16:49)
[2019-08-25] MEDS: Multivitamins,Ther W-Minerals Tablet 1 TABLET PO (08:33)
[2019-08-25] MEDS: Lisinopril 10 MG Tablet PO (08:39)
[2019-08-25] MEDS: Sertraline 100 MG Tablet PO (08:41)
--- NOTE | 2019-08-25 09:56 | CASEMGMT ---
Addendum entered by Sakshi Resendiz 08/25/19 16:49: RUFINA received message from Aquilino at [facility] stating he saw pt today, will email assessment. Original Note: Social Work Note Pt is RAMP pt. RUFINA placed a call to Kely at [facility] and left message that pt will need to be seen today by [facility]. Sakshi Resendiz [employer], [employer]ECTIVE SUPERVISOR
--- NOTE | 2019-08-25 10:38 | PN_ITS ---
<Sybil Cho - Last Filed: 08/25/19 10:42> Subjective: Patient seen and examined. Denies significant withdrawal symptoms. Denies nausea, vomiting. - Physical Exam Vitals/I&O's: Vital Signs Temp Pulse Resp BP Pulse Ox 98.1 F 94 18 145/81 H 95 08/25/19 08:30 08/25/19 08:30 08/25/19 08:30 08/25/19 08:30 08/25/19 08:30 Oxygen Delivery Method Room Air Weight: 160 lb 0.008 oz Body Mass Index (BMI) 25.0 Intake and Output for Last 24 Hours 08/23/19 08/24/19 08/25/19 23:59 23:59 23:59 Intake Total 1822.92 / 1822.92 Balance 1822.92 / 1822.92 General: Alert, Oriented x3, Cooperative HEENT: Atraumatic, PERRLA, EOMI, Normocephalic Neck: Supple, No JVD, Negative Carotid Bruits Lungs: Clear to auscultation, Normal air movement Cardiovascular: Regular rate, No murmurs Abdomen: Bowel Sounds Present, Soft, Non Tender Extremities: No clubbing, No cyanosis, No edema, Capillary Refill Less than 3 Seconds Skin: No rashes, No breakdown Musculoskeletal: No Tenderness to Palpation of Joints or Extremities Neurological: Cranial nerves II-XII grossly intact, Neuro grossly intact Psych/Mental Status: Normal Affect, Appropriate Laboratory Results 08/24/19 14:30: WBC 6.1, RBC 4.33 L, Hgb 15.1, Hct 41.0, MCV 94.7 H, MCH 34.9 H, MCHC 36.8 H, RDW Std Deviation 50.4 H, RDW Coeff of Hortencia 14.4, Plt Count 297, MPV 8.6, Immature Gran % (Auto) 0.200, Neut % (Auto) 41.3 L, Lymph % (Auto) 46.3 H, Stone % (Auto) 8.8, Eos % (Auto) 3.1, Baso % (Auto) 0.3, Absolute Neuts (auto) 2.5, Absolute Lymphs (auto) 2.83, Nucleated RBC % 0 08/24/19 14:30: Sodium 129 L, Potassium 4.2, Chloride 94 L, Carbon Dioxide 26.0, Anion Gap 9, BUN 6 L, Creatinine 0.72, Estim Creat Clear Calc 99.46, Est GFR (MDRD) Af Amer 142, Est GFR (MDRD) Non-Af 117, BUN/Creatinine Ratio 8.3 L, Glucose 84, Calcium 8.2 L, Total Bilirubin 0.30, AST 24, ALT 26, Alkaline Phosphatase 44 L, Total Protein 7.5, Albumin 3.5, Globulin 4.0, Albumin/Globulin Ratio 0.9 08/24/19 14:30: Ethyl Alcohol 324.0 H* 08/25/19 06:00: Sodium 134 L, Potassium 4.2, Chloride 100, Carbon Dioxide 26.0, Anion Gap 8, BUN 11, Creatinine 0.74, Estim Creat Clear Calc 96.77, Est GFR (MDRD) Af Amer 138, Est GFR (MDRD) Non-Af 114, BUN/Creatinine Ratio 14.8, Glucose 88, Calcium 8.3 L Current Medications Acetaminophen (Tylenol) 650 mg PO Q6H PRN PRN PRN Reason: Pain Score 1-10/Temp > 100.7 F Dextrose (D50w Syringe) 0 gm IV X1 PRN; Protocol PRN Reason: Hypoglycemia Dicyclomine HCl (Bentyl) 20 mg PO Q6H PRN PRN PRN Reason: abdominal discomfort Folic Acid (Folic Acid) 1 mg PO DAILY@0800 [facility] Stop: 08/27/19 08:01 Last Admin: 08/25/19 08:33 Dose: 1 mg Documented by: Gabapentin (Neurontin) 300 mg PO Q8H PRN PRN PRN Reason: moderate to severe anxiety Glucagon () 1 mg IM .X1 PRN PRN Reason: Hypoglycemia Hydroxyzine Pamoate (Vistaril Pamoate Capsule) 50 mg PO Q4H PRN PRN PRN Reason: mild anxiety Lisinopril (Zestril) 10 mg PO DAILY [facility] Last Admin: 08/25/19 08:39 Dose: 10 mg Documented by: Loperamide HCl (Imodium) 2 mg PO Q4H PRN PRN PRN Reason: LOOSE STOOLS Lorazepam (Ativan) 2 mg PO Q2H PRN PRN; Protocol PRN Reason: CIWA score > 8 but <15 Lorazepam (Ativan) 2 mg PO UD PRN; Protocol PRN Reason: CIWA score >/=15. Lorazepam (Ativan) 2 mg IV Q2H PRN PRN; Protocol PRN Reason: CIWA score > 8 but <15 Lorazepam (Ativan) 2 mg IV UD PRN; Protocol PRN Reason: CIWA score >/=15. Multivitamins/Minerals (Multivitamin With Minerals (Bkc)) 1 tablet PO DAILYCM [facility] Last Admin: 08/25/19 08:33 Dose: 1 tablet Documented by: Nicotine (Nicoderm Cq (Pbkc)) 21 mg TRANSDERM. DAILY [facility] Last Admin: 08/25/19 08:40 Dose: 21 mg Documented by: Ondansetron HCl (Zofran) 4 mg IV Q8H PRN PRN PRN Reason: NAUSEA/VOMITING Phenobarbital (Phenobarbital) 97.2 mg PO Q4H [facility]; Taper Stop: 08/29/19 00:59 Last Admin: 08/25/19 08:39 Dose: 97.2 mg Documented by: Sertraline HCl (Zoloft) 100 mg PO DAILY [facility] Last Admin: 08/25/19 08:41 Dose: 100 mg Documented by: Sodium Chloride () 10 - 40 ml IV UD PRN PRN Reason: SALINE FLUSH Last Admin: 08/24/19 18:19 Dose: 10 ml Documented by: Thiamine HCl (Vitamin B1) 100 mg PO BIDCM [facility] Stop: 08/27/19 08:01 Last Admin: 08/25/19 08:33 Dose: 100 mg Documented by: Trazodone HCl (Desyrel) 100 mg PO QHS PRN PRN Reason: INSOMNIA Medical Necessity - Tobacco Use Smoking Status: Current every day smoker Tobacco Use: Cigarettes Assessment/Plan All Active Problems Alcohol abuse (Acute) 1. Acute alcohol withdrawal on chronic alcohol abuse-EtOH level on admission 324. Medical stabilization per protocol. Phenobarbital taper. CIWA/Ativan protocol. PRN regimen for somatic complaints. [facility] consult. 2. Hyponatremia, beer protomania- Improved with Gentle IV fluids. 3. Tobacco dependence-encouraged smoking cessation. Nicotine replacement patch. 4. Hypertension-stable, continue lisinopril regimen. 5. Depression/anxiety-continue home sertraline regimen. DVT prophylaxis-not indicated, low risk-encourage ambulation This patient was seen by AGUSTÍN Sinclair under the supervision of Dr. Jones. <Gauri Jones - Last Filed: 08/25/19 13:03> - Physical Exam Vitals/I&O's: Vital Signs Temp Pulse Resp BP Pulse Ox 98.1 F 94 18 145/81 H 95 08/25/19 08:30 08/25/19 08:30 08/25/19 08:30 08/25/19 08:30 08/25/19 08:30 Oxygen Delivery Method Room Air Weight: 72.575 kg Body Mass Index (BMI) 25.0 Intake and Output for Last 24 Hours 08/23/19 08/24/19 08/25/19 23:59 23:59 23:59 Intake Total 2272.92 / 2272.92 Balance 2272.92 / 2272.92 Laboratory Results 08/24/19 14:30: WBC 6.1, RBC 4.33 L, Hgb 15.1, Hct 41.0, MCV 94.7 H, MCH 34.9 H, MCHC 36.8 H, RDW Std Deviation 50.4 H, RDW Coeff of Hortencia 14.4, Plt Count 297, MPV 8.6, Immature Gran % (Auto) 0.200, Neut % (Auto) 41.3 L, Lymph % (Auto) 46.3 H, Stone % (Auto) 8.8, Eos % (Auto) 3.1, Baso % (Auto) 0.3, Absolute Neuts (auto) 2.5, Absolute Lymphs (auto) 2.83, Nucleated RBC % 0 08/24/19 14:30: Sodium 129 L, Potassium 4.2, Chloride 94 L, Carbon Dioxide 26.0, Anion Gap 9, BUN 6 L, Creatinine 0.72, Estim Creat Clear Calc 99.46, Est GFR (MDRD) Af Amer 142, Est GFR (MDRD) Non-Af 117, BUN/Creatinine Ratio 8.3 L, Glucose 84, Calcium 8.2 L, Total Bilirubin 0.30, AST 24, ALT 26, Alkaline Phosphatase 44 L, Total Protein 7.5, Albumin 3.5, Globulin 4.0, Albumin/Globulin Ratio 0.9 08/24/19 14:30: Ethyl Alcohol 324.0 H* 08/25/19 06:00: Sodium 134 L, Potassium 4.2, Chloride 100, Carbon Dioxide 26.0, Anion Gap 8, BUN 11, Creatinine 0.74, Estim Creat Clear Calc 96.77, Est GFR (MDRD) Af Amer 138, Est GFR (MDRD) Non-Af 114, BUN/Creatinine Ratio 14.8, Glucose 88, Calcium 8.3 L Current Medications Acetaminophen (Tylenol) 650 mg PO Q6H PRN PRN PRN Reason: Pain Score 1-10/Temp > 100.7 F Dextrose (D50w Syringe) 0 gm IV X1 PRN; Protocol PRN Reason: Hypoglycemia Dicyclomine HCl (Bentyl) 20 mg PO Q6H PRN PRN PRN Reason: abdominal discomfort Folic Acid (Folic Acid) 1 mg PO DAILY@0800 [facility] Stop: 08/27/19 08:01 Last Admin: 08/25/19 08:33 Dose: 1 mg Documented by: Gabapentin (Neurontin) 300 mg PO Q8H PRN PRN PRN Reason: moderate to severe anxiety Glucagon () 1 mg IM .X1 PRN PRN Reason: Hypoglycemia Hydroxyzine Pamoate (Vistaril Pamoate Capsule) 50 mg PO Q4H PRN PRN PRN Reason: mild anxiety Lisinopril (Zestril) 10 mg PO DAILY [facility] Last Admin: 08/25/19 08:39 Dose: 10 mg Documented by: Loperamide HCl (Imodium) 2 mg PO Q4H PRN PRN PRN Reason: LOOSE STOOLS Lorazepam (Ativan) 2 mg PO Q2H PRN PRN; Protocol PRN Reason: CIWA score > 8 but <15 Lorazepam (Ativan) 2 mg PO UD PRN; Protocol PRN Reason: CIWA score >/=15. Lorazepam (Ativan) 2 mg IV Q2H PRN PRN; Protocol PRN Reason: CIWA score > 8 but <15 Lorazepam (Ativan) 2 mg IV UD PRN; Protocol PRN Reason: CIWA score >/=15. Multivitamins/Minerals (Multivitamin With Minerals (Bkc)) 1 tablet PO DAILYCM [facility] Last Admin: 08/25/19 08:33 Dose: 1 tablet Documented by: Nicotine (Nicoderm Cq (Pbkc)) 21 mg TRANSDERM. DAILY [facility] Last Admin: 08/25/19 08:40 Dose: 21 mg Documented by: Ondansetron HCl (Zofran) 4 mg IV Q8H PRN PRN PRN Reason: NAUSEA/VOMITING Phenobarbital (Phenobarbital) 97.2 mg PO Q4H [facility]; Taper Stop: 08/29/19 00:59 Last Admin: 08/25/19 12:49 Dose: 97.2 mg Documented by: Sertraline HCl (Zoloft) 100 mg PO DAILY [facility] Last Admin: 08/25/19 08:41 Dose: 100 mg Documented by: Sodium Chloride () 10 - 40 ml IV UD PRN PRN Reason: SALINE FLUSH Last Admin: 08/24/19 18:19 Dose: 10 ml Documented by: Thiamine HCl (Vitamin B1) 100 mg PO BIDCM [facility] Stop: 08/27/19 08:01 Last Admin: 08/25/19 08:33 Dose: 100 mg Documented by: Trazodone HCl (Desyrel) 100 mg PO QHS PRN PRN Reason: INSOMNIA Assessment/Plan This patient was seen in conjunction with Sybil Cho FURNACE UNLOADER. I have independently interviewed and examined the patient and reviewed pertinent historical, laboratory, and other data. Please refer to her note for patient's presentation, findings, and recommendations. Patient was seen and examined. Denied any new complaints. Denied any tremors or dizziness or palpitations. No acute events overnight. Vitals were reviewed -stable Physical Exam: Gen: Comfortable, not pale, not jaundiced, alert oriented x3 CVS:HS I +II, regular, no murmurs RESP: Diminished at lung bases GI: BS present and normal, nontender, no palpable organs EXT:No edema Labs reviewed: ASSESSMENT: 1. Acute alcohol withdrawal 2. Hyponatremia secondary to beer potomania 3. Hypertension 4. Nicotine dependence 5. Anxiety/depression Meds reviewed Plan: Continue to monitor on the CIWA protocol Inpatient E&M: 80734 Subs Hosp L2
[2019-08-25 14:03] VITALS: BP 143/79; PULSE 85; RESP 18; TEMP 36.7; O2SAT 94
[2019-08-25 16:50] VITALS: BP 145/100; PULSE 85; RESP 18; TEMP 36.5; O2SAT 94
[2019-08-25 20:56] VITALS: BP 144/100; PULSE 80; RESP 18; TEMP 36.6; O2SAT 97
[2019-08-26] MEDS: Phenobarbital 32.4 MG Tablet 64.8 MG PO ×3 (01:15→09:09)
[2019-08-26 03:41] VITALS: BP 130/84; PULSE 80; RESP 18; TEMP 36.8; O2SAT 93
[2019-08-26 09:07] VITALS: BP 130/88; PULSE 83; RESP 18; TEMP 36.1; O2SAT 97
[2019-08-26] MEDS: Sertraline 100 MG Tablet PO (09:10)
[2019-08-26] MEDS: Folic Acid 1 MG Tablet PO (09:10)
[2019-08-26] MEDS: Thiamine Hydrochloride 100 MG Tablet PO ×2 (09:10→17:27)
[2019-08-26] MEDS: Lisinopril 10 MG Tablet PO (09:10)
[2019-08-26] MEDS: Multivitamins,Ther W-Minerals Tablet 1 TABLET PO (09:10)
--- NOTE | 2019-08-26 10:07 | PCM.PROGNOTE ---
<Sybil Cho - Last Filed: 08/26/19 10:08> Subjective: Patient seen and examined. Feels well this morning. Continues to deny withdrawal symptoms. Patient plan for [facility] follow-up as outpatient. - Physical Exam Vitals/I&O's: Vital Signs Temp Pulse Resp BP Pulse Ox 97.0 F L 83 18 130/88 H 97 08/26/19 09:07 08/26/19 09:07 08/26/19 09:07 08/26/19 09:07 08/26/19 09:07 Oxygen Delivery Method Room Air Weight: 160 lb 0.008 oz Body Mass Index (BMI) 25.0 Intake and Output for Last 24 Hours 08/24/19 08/25/19 08/26/19 23:59 23:59 23:59 Intake Total 2622.92 / 2622.92 700 / 700 Balance 2622.92 / 2622.92 700 / 700 General: Alert, Oriented x3, Cooperative HEENT: Atraumatic, PERRLA, EOMI, Normocephalic Neck: Supple, No JVD, Negative Carotid Bruits Lungs: Clear to auscultation, Normal air movement Cardiovascular: Regular rate, Regular Rhythm, Normal S1, Normal S2, No murmurs Abdomen: Bowel Sounds Present, Soft, Non Tender, Non-Distended Extremities: No clubbing, No cyanosis, No edema Skin: No rashes, No breakdown Musculoskeletal: No Tenderness to Palpation of Joints or Extremities Neurological: Cranial nerves II-XII grossly intact, Neuro grossly intact Psych/Mental Status: Normal Affect, Appropriate Current Medications Acetaminophen (Tylenol) 650 mg PO Q6H PRN PRN PRN Reason: Pain Score 1-10/Temp > 100.7 F Dextrose (D50w Syringe) 0 gm IV X1 PRN; Protocol PRN Reason: Hypoglycemia Dicyclomine HCl (Bentyl) 20 mg PO Q6H PRN PRN PRN Reason: abdominal discomfort Folic Acid (Folic Acid) 1 mg PO DAILY@0800 [facility] Stop: 08/27/19 08:01 Last Admin: 08/26/19 09:10 Dose: 1 mg Documented by: Gabapentin (Neurontin) 300 mg PO Q8H PRN PRN PRN Reason: moderate to severe anxiety Glucagon () 1 mg IM .X1 PRN PRN Reason: Hypoglycemia Hydroxyzine Pamoate (Vistaril Pamoate Capsule) 50 mg PO Q4H PRN PRN PRN Reason: mild anxiety Lisinopril (Zestril) 10 mg PO DAILY [facility] Last Admin: 08/26/19 09:10 Dose: 10 mg Documented by: Loperamide HCl (Imodium) 2 mg PO Q4H PRN PRN PRN Reason: LOOSE STOOLS Lorazepam (Ativan) 2 mg PO Q2H PRN PRN; Protocol PRN Reason: CIWA score > 8 but <15 Lorazepam (Ativan) 2 mg PO UD PRN; Protocol PRN Reason: CIWA score >/=15. Lorazepam (Ativan) 2 mg IV Q2H PRN PRN; Protocol PRN Reason: CIWA score > 8 but <15 Lorazepam (Ativan) 2 mg IV UD PRN; Protocol PRN Reason: CIWA score >/=15. Multivitamins/Minerals ([facility] Admin: 08/26/19 09:10 Dose: 1 tablet Documented by: Nicotine (Nicoderm Cq (Pbkc)) 21 mg TRANSDERM. DAILY [facility] Last Admin: 08/26/19 09:10 Dose: 21 mg Documented by: Ondansetron HCl (Zofran) 4 mg IV Q8H PRN PRN PRN Reason: NAUSEA/VOMITING Phenobarbital (Phenobarbital) 64.8 mg PO Q4H [facility]; Taper Stop: 08/29/19 00:59 Last Admin: 08/26/19 09:09 Dose: 64.8 mg Documented by: Sertraline HCl (Zoloft) 100 mg PO DAILY [facility] Last Admin: 08/26/19 09:10 Dose: 100 mg Documented by: Sodium Chloride () 10 - 40 ml IV UD PRN PRN Reason: SALINE FLUSH Last Admin: 08/24/19 18:19 Dose: 10 ml Documented by: Thiamine HCl (Vitamin B1) 100 mg PO BIDCM [facility] Stop: 08/27/19 08:01 Last Admin: 08/26/19 09:10 Dose: 100 mg Documented by: Trazodone HCl (Desyrel) 100 mg PO QHS PRN PRN Reason: INSOMNIA Medical Necessity - Tobacco Use Smoking Status: Current every day smoker Tobacco Use: Cigarettes Assessment/Plan All Active Problems Alcohol abuse (Acute) 1. Acute alcohol withdrawal on chronic alcohol abuse-EtOH level on admission 324. Medical stabilization per protocol. Phenobarbital taper. CIWA/Ativan protocol. PRN regimen for somatic complaints. [facility] consulted, plan for outpatient follow-up. 2. Hyponatremia, beer protomania- Improved with Gentle IV fluids. 3. Tobacco dependence-encouraged smoking cessation. Nicotine replacement patch. 4. Hypertension-stable, continue lisinopril regimen. 5. Depression/anxiety-continue home sertraline regimen. DVT prophylaxis-not indicated, low risk-encourage ambulation Discharge planning: Plan for discharge tomorrow with outpatient follow-up. This patient was seen by AGUSTÍN Sinclair under the supervision of Dr. Jones. <Gauri Jones - Last Filed: 08/26/19 11:43> - Physical Exam Vitals/I&O's: Vital Signs Temp Pulse Resp BP Pulse Ox 97.0 F L 83 18 130/88 H 97 08/26/19 09:07 08/26/19 09:07 08/26/19 09:07 08/26/19 09:07 08/26/19 09:07 Oxygen Delivery Method Room Air Weight: 72.575 kg Body Mass Index (BMI) 25.0 Intake and Output for Last 24 Hours 08/24/19 08/25/19 08/26/19 23:59 23:59 23:59 Intake Total 2622.92 / 2622.92 1180 / 1180 Balance 2622.92 / 2622.92 1180 / 1180 Current Medications Acetaminophen (Tylenol) 650 mg PO Q6H PRN PRN PRN Reason: Pain Score 1-10/Temp > 100.7 F Dextrose (D50w Syringe) 0 gm IV X1 PRN; Protocol PRN Reason: Hypoglycemia Dicyclomine HCl (Bentyl) 20 mg PO Q6H PRN PRN PRN Reason: abdominal discomfort Folic Acid (Folic Acid) 1 mg PO DAILY@0800 [facility] Stop: 08/27/19 08:01 Last Admin: 08/26/19 09:10 Dose: 1 mg Documented by: Gabapentin (Neurontin) 300 mg PO Q8H PRN PRN PRN Reason: moderate to severe anxiety Glucagon () 1 mg IM .X1 PRN PRN Reason: Hypoglycemia Hydroxyzine Pamoate (Vistaril Pamoate Capsule) 50 mg PO Q4H PRN PRN PRN Reason: mild anxiety Lisinopril (Zestril) 10 mg PO DAILY [facility] Last Admin: 08/26/19 09:10 Dose: 10 mg Documented by: Loperamide HCl (Imodium) 2 mg PO Q4H PRN PRN PRN Reason: LOOSE STOOLS Lorazepam (Ativan) 2 mg PO Q2H PRN PRN; Protocol PRN Reason: CIWA score > 8 but <15 Lorazepam (Ativan) 2 mg PO UD PRN; Protocol PRN Reason: CIWA score >/=15. Lorazepam (Ativan) 2 mg IV Q2H PRN PRN; Protocol PRN Reason: CIWA score > 8 but <15 Lorazepam (Ativan) 2 mg IV UD PRN; Protocol PRN Reason: CIWA score >/=15. Multivitamins/Minerals ([facility]ivitamin With Minerals (Bkc)) [facility] Last Admin: 08/26/19 09:10 Dose: 1 tablet Documented by: Nicotine (Nicoderm Cq (Pbkc)) 21 mg TRANSDERM. DAILY [facility] Last Admin: 08/26/19 09:10 Dose: 21 mg Documented by: Ondansetron HCl (Zofran) 4 mg IV Q8H PRN PRN PRN Reason: NAUSEA/VOMITING Phenobarbital (Phenobarbital) 32.4 mg PO TID [facility] Sertraline HCl (Zoloft) 100 mg PO DAILY [facility] Last Admin: 08/26/19 09:10 Dose: 100 mg Documented by: Sodium Chloride () 10 - 40 ml IV UD PRN PRN Reason: SALINE FLUSH Last Admin: 08/24/19 18:19 Dose: 10 ml Documented by: Thiamine HCl (Vitamin B1) 100 mg PO BIDCM [facility] Stop: 08/27/19 08:01 Last Admin: 08/26/19 09:10 Dose: 100 mg Documented by: Trazodone HCl (Desyrel) 100 mg PO QHS PRN PRN Reason: INSOMNIA Assessment/Plan This patient was seen in conjunction with Sybil Cho NP. I have independently interviewed and examined the patient and reviewed pertinent historical, laboratory, and other data. Please refer to her note for patient's presentation, findings, and recommendations. Patient was seen and examined. Denied any new complaints. Denied any tremors or dizziness or palpitations. No acute events overnight. Vitals were reviewed -stable Physical Exam: Gen: Comfortable, not pale, not jaundiced, alert oriented x3 CVS:HS I +II, regular, no murmurs RESP: Diminished at lung bases GI: BS present and normal, nontender, no palpable organs EXT:No edema Labs reviewed: ASSESSMENT: 1. Acute alcohol withdrawal 2. Hyponatremia secondary to beer potomania 3. Hypertension 4. Nicotine dependence 5. Anxiety/depression Meds reviewed Plan: Continue to monitor on the CIWA protocol Inpatient E&M: 30741 Subs Hosp L2
--- NOTE | 2019-08-26 11:37 | NURSING ---
Pt states he does not wish for this nurse to call and give daily update
--- NOTE | 2019-08-26 13:16 | CASEMGMT ---
Social Work Note Pt has outpatient appointment scheduled with [facility] 09/06/2019. Sakshi HERRERA, CAR REPAIRMAN
--- NOTE | 2019-08-26 14:17 | CHAPLAIN ---
Type of Pastoral Visit _x__ Initial Visit ___ Follow-up Visit ___ On-call Visit ___ General Patient Visit ___ Spiritual Assessment ___ Family Conference ___ Bereavement ___ Rapid Response ___ Code Blue ___ Other (describe below) Pastoral Care Referral From _x__ Patient ___ Family ___ Nurse ___ Physician ___ Medical Pathologist ___ Railroad Brake Repairer ___ Other (describe below) Sacrament/Intervention _x__ Active listening ___ Anointing ___ Congregational ___ Bereavement ___ Communion _x__ [place] exploration ___ ___ Life review _x__ Prayer ___ Reconciliation ___ Sacrament of Sick _x__ Supportive presence ___ Wedding ___ Other (describe below) Pastoral Comments patient was welcoming and explained past recovery through help including AA; pt has a faith connection although not active recently; pt has plans to return to AA and his sponsor and will attempt reconnection to his faith; pt presents as optimistic about recovery and states that he has known coping skills but 'just need to use them; spiritual care and prayer welcomed
[2019-08-26] MEDS: Phenobarbital 32.4 MG Tablet PO ×2 (14:30→21:43)
[2019-08-26 14:34] VITALS: BP 130/76; PULSE 80; RESP 16; TEMP 36.8; O2SAT 99
[2019-08-26 21:40] VITALS: BP 124/89; PULSE 73; RESP 16; TEMP 36.6; O2SAT 98
[2019-08-26 21:44] VITALS: BP 124/89; PULSE 73; RESP 16; TEMP 36.6; O2SAT 98
[2019-08-26 21:55] VITALS: PULSE 73; RESP 16; O2SAT 98
[2019-08-27 05:35] VITALS: BP 132/89; PULSE 72; RESP 16; TEMP 36.5; O2SAT 98
[2019-08-27 05:37] VITALS: BP 132/89; PULSE 72; RESP 16; TEMP 36.5; O2SAT 98
[2019-08-27] MEDS: Phenobarbital 32.4 MG Tablet PO ×2 (05:39→13:02)
--- NOTE | 2019-08-27 07:33 | PN_ITS ---
Vitals/I&O's: Vital Signs Temp Pulse Resp BP Pulse Ox 97.7 F L 72 16 132/89 H 98 08/27/19 05:37 08/27/19 05:37 08/27/19 05:37 08/27/19 05:37 08/27/19 05:37 Oxygen Delivery Method Room Air Weight: 72.575 kg Body Mass Index (BMI) 25.0 Intake and Output for Last 24 Hours 08/25/19 08/26/19 08/27/19 23:59 23:59 23:59 Intake Total 2622.92 / 2622.92 1659 840 / 840 Balance 2622.92 / 2622.92 1659 840 / 840 Current Medications Acetaminophen (Tylenol) 650 mg PO Q6H PRN PRN PRN Reason: Pain Score 1-10/Temp > 100.7 F Dextrose (D50w Syringe) 0 gm IV X1 PRN; Protocol PRN Reason: Hypoglycemia Dicyclomine HCl (Bentyl) 20 mg PO Q6H PRN PRN PRN Reason: abdominal discomfort Folic Acid (Folic Acid) 1 mg PO DAILY@0800 [facility] Stop: 08/27/19 08:01 Last Admin: 08/26/19 09:10 Dose: 1 mg Documented by: Gabapentin (Neurontin) 300 mg PO Q8H PRN PRN PRN Reason: moderate to severe anxiety Glucagon () 1 mg IM .X1 PRN PRN Reason: Hypoglycemia Hydroxyzine Pamoate (Vistaril Pamoate Capsule) 50 mg PO Q4H PRN PRN PRN Reason: mild anxiety Lisinopril (Zestril) 10 mg PO DAILY [facility] Last Admin: 08/26/19 09:10 Dose: 10 mg Documented by: Loperamide HCl (Imodium) 2 mg PO Q4H PRN PRN PRN Reason: LOOSE STOOLS Lorazepam (Ativan) 2 mg PO Q2H PRN PRN; Protocol PRN Reason: CIWA score > 8 but <15 Lorazepam (Ativan) 2 mg PO UD PRN; Protocol PRN Reason: CIWA score >/=15. Lorazepam (Ativan) 2 mg IV Q2H PRN PRN; Protocol PRN Reason: CIWA score > 8 but <15 Lorazepam (Ativan) 2 mg IV UD PRN; Protocol PRN Reason: CIWA score >/=15. Multivitamins/Minerals (Multivitamin With Minerals (Bkc)) 1 tablet PO DAILYCM [facility] Last Admin: 08/26/19 09:10 Dose: 1 tablet Documented by: Nicotine (Nicoderm Cq (Pbkc)) 21 mg TRANSDERM. DAILY [facility] Last Admin: 08/26/19 09:10 Dose: 21 mg Documented by: Ondansetron HCl (Zofran) 4 mg IV Q8H PRN PRN PRN Reason: NAUSEA/VOMITING Phenobarbital (Phenobarbital) 32.4 mg PO TID [facility] Last Admin: 08/27/19 05:39 Dose: 32.4 mg Documented by: Sertraline HCl (Zoloft) 100 mg PO DAILY [facility] Last Admin: 08/26/19 09:10 Dose: 100 mg Documented by: Sodium Chloride () 10 - 40 ml IV UD PRN PRN Reason: SALINE FLUSH Last Admin: 08/24/19 18:19 Dose: 10 ml Documented by: Thiamine HCl (Vitamin B1) 100 mg PO BIDCM [facility] Stop: 08/27/19 08:01 Last Admin: 08/26/19 17:27 Dose: 100 mg Documented by: Trazodone HCl (Desyrel) 100 mg PO QHS PRN PRN Reason: INSOMNIA STROKE Vital Signs/Narrative: Vital Signs Temp Pulse Resp BP Pulse Ox 08/27/19 05:37 97.7 F L 72 16 132/89 H 98 08/27/19 05:35 97.7 F L 72 16 132/89 H 98 Medical Necessity - Tobacco Use Smoking Status: Current every day smoker Tobacco Use: Cigarettes Assessment/Plan All Active Problems Alcohol abuse (Acute)
--- NOTE | 2019-08-27 08:11 | DCINST_ITS ---
- Discharge Diagnoses Reason(s) for Visit for Discharge Instructions: Acute alcohol withdrawal You will use the following diet at home:: Cardiac Your food should be the consistency of: Regular Your liquids should be the consistency of: Regular/Thin Discharge Activity: Return to Normal Activity Additional Instructions: You are strongly advised to quit drinking alcohol and smoking. Follow-up with [facility] as scheduled. Allergies/Adverse Reactions: Allergies No Known Allergies Allergy (Verified 08/24/19 13:27) Medications to take at Discharge Lisinopril [Zestril] 10 mg PO DAILY 06/22/16 Sertraline HCl [Zoloft] 100 mg PO DAILY 06/22/16 Multivitamin [Tab-A-German] 1 ea PO DAILY 08/24/19 Nicotine [Nicoderm Cq] 21 mg TRANSDERM. DAILY 30 Days #30 patch 08/27/19 The following prescriptions were given: Nicotine [Nicoderm Cq] 21 mg TRANSDERM. DAILY 30 Days #30 patch Prescription Printed Primary Care Physician: Renan Joel MD [Primary Care Provider] - Please follow up with your Primary Care Physician in: within 1-2 weeks Test Results: Test results from this visit will be discussed in further detail at your follow- up appointment, if applicable. Proposed Discharge Date: 08/27/19
--- NOTE | 2019-08-27 08:14 | DS.PCM_ITS ---
Discharge Date and Diagnosis Date of Admission: 08/24/19 Date of Discharge: 08/27/19 - Primary Discharge Diagnosis Acute Problems: Acute alcohol withdrawal Hyponatremia secondary to beer potomania Nicotine dependence - Secondary Discharge Diagnosis Chronic Problems: Chronic Problems HTN (hypertension) (Chronic) Depression (Chronic) Tobacco dependence (Chronic) Hospital Course and Treatment None Operations: None Procedures: None Summary of Care Provided: The patient is a 64 year old M medical history of chronic alcohol use who drinks about 12-14 beers a day who comes in for medical stabilization for alcohol withdrawal. Also found to be hyponatremic sodium 129 which improved to 134. Patient was admitted to the [facility] floor and managed on the phenobarbital withdrawal protocol with improvement. He was discharged to follow-up with 180. Patient was counseled to quit drinking. Subjective: On the day of discharge, patient was seen and examined. Denied any new complaints. Objective: Physical exam: General: Alert, Oriented x3, Cooperative HEENT: Atraumatic, PERRLA, EOMI, Normocephalic Neck: Supple, No JVD, Negative Carotid Bruits Lungs: Clear to auscultation, Normal air movement Cardiovascular: Regular rate, Regular Rhythm, Normal S1, Normal S2, No murmurs Abdomen: Bowel Sounds Present, Soft, Non Tender, Non-Distended Extremities: No clubbing, No cyanosis, No edema Skin: No rashes, No breakdown Musculoskeletal: No Tenderness to Palpation of Joints or Extremities Neurological: Cranial nerves II-XII grossly intact, Neuro grossly intact Psych/Mental Status: Normal Affect, Appropriate - Physical Exam Vitals/I&O's: Vital Signs Temp Pulse Resp BP Pulse Ox 97.7 F L 72 16 132/89 H 98 08/27/19 05:37 08/27/19 05:37 08/27/19 05:37 08/27/19 05:37 08/27/19 05:37 Oxygen Delivery Method Room Air Weight: 72.575 kg Body Mass Index (BMI) 25.0 Intake and Output for Last 24 Hours 08/25/19 08/26/19 08/27/19 23:59 23:59 23:59 Intake Total 2622.92 / 2622.92 1659 840 / 840 Balance 2622.92 / 2622.92 1659 840 / 840 Current Medications Acetaminophen (Tylenol) 650 mg PO Q6H PRN PRN PRN Reason: Pain Score 1-10/Temp > 100.7 F Dextrose (D50w Syringe) 0 gm IV X1 PRN; Protocol PRN Reason: Hypoglycemia Dicyclomine HCl (Bentyl) 20 mg PO Q6H PRN PRN PRN Reason: abdominal discomfort Gabapentin (Neurontin) 300 mg PO Q8H PRN PRN PRN Reason: moderate to severe anxiety Glucagon () 1 mg IM .X1 PRN PRN Reason: Hypoglycemia Hydroxyzine Pamoate (Vistaril Pamoate Capsule) 50 mg PO Q4H PRN PRN PRN Reason: mild anxiety Lisinopril (Zestril) 10 mg PO DAILY [facility] Last Admin: 08/26/19 09:10 Dose: 10 mg Documented by: Loperamide HCl (Imodium) 2 mg PO Q4H PRN PRN PRN Reason: LOOSE STOOLS Lorazepam (Ativan) 2 mg PO Q2H PRN PRN; Protocol PRN Reason: CIWA score > 8 but <15 Lorazepam (Ativan) 2 mg PO UD PRN; Protocol PRN Reason: CIWA score >/=15. Lorazepam (Ativan) 2 mg IV Q2H PRN PRN; Protocol PRN Reason: CIWA score > 8 but <15 Lorazepam (Ativan) 2 mg IV UD PRN; Protocol PRN Reason: CIWA score >/=15. Multivitamins/Minerals (Multivitamin With Minerals (Bkc)) [facility] Admin: 08/26/19 09:10 Dose: 1 tablet Documented by: Nicotine (Nicoderm Cq (Pbkc)) 21 mg TRANSDERM. DAILY [facility] Last Admin: 08/26/19 09:10 Dose: 21 mg Documented by: Ondansetron HCl (Zofran) 4 mg IV Q8H PRN PRN PRN Reason: NAUSEA/VOMITING Phenobarbital (Phenobarbital) 32.4 mg PO TID [facility] Last Admin: 08/27/19 05:39 Dose: 32.4 mg Documented by: Sertraline HCl (Zoloft) 100 mg PO DAILY [facility] Last Admin: 08/26/19 09:10 Dose: 100 mg Documented by: Sodium Chloride () 10 - 40 ml IV UD PRN PRN Reason: SALINE FLUSH Last Admin: 08/24/19 18:19 Dose: 10 ml Documented by: Trazodone HCl (Desyrel) 100 mg PO QHS PRN PRN Reason: INSOMNIA Discharge Diet: Low fat/ Low Cholesterol, 2000 mg Sodium Diet Discharge Activity: Return to Normal Activity Home Medications: Medications to take at Discharge Lisinopril [Zestril] 10 mg PO DAILY 06/22/16 Sertraline HCl [Zoloft] 100 mg PO DAILY 06/22/16 Multivitamin [Tab-A-German] 1 ea PO DAILY 08/24/19 Nicotine [Nicoderm Cq] 21 mg TRANSDERM. DAILY 30 Days #30 patch 08/27/19 Following Prescrptions Were Given to Patient: Nicotine [Nicoderm Cq] 21 mg TRANSDERM. DAILY 30 Days #30 patch Prescription Printed Primary Care Physician: Renan Joel MD [Primary Care Provider] - Please follow up with your Primary Care Physician in: within 1-2 weeks Disposition: Home Minutes spent on discharge:: 25 Patient Condition:: Stable Medical Necessity - Tobacco Use Smoking Status: Current every day smoker Tobacco Use: Cigarettes Meaningful Use Info Meaningful Use Diagnoses (Choose all that apply): None applicable Inpatient E&M: 78490 Disch Hosp
[2019-08-27] MEDS: Multivitamins,Ther W-Minerals Tablet 1 TABLET PO (08:19)
[2019-08-27] MEDS: Sertraline 100 MG Tablet PO (08:19)
[2019-08-27] MEDS: Lisinopril 10 MG Tablet PO (08:19)
[2019-08-27] MEDS: Folic Acid 1 MG Tablet PO (08:19)
[2019-08-27] MEDS: Thiamine Hydrochloride 100 MG Tablet PO (08:19)
[2019-08-27 08:21] VITALS: BP 135/82; PULSE 82; RESP 19; TEMP 36.8; O2SAT 98
[2019-08-27 13:02] VITALS: BP 131/68; PULSE 72; RESP 18; TEMP 36.8; O2SAT 96
== END 2019-08-27 13:09 | disposition home or self-care (01) | DRG 775 ==
LOC: ED 15:54 → MS3 16:06
PROVIDERS: Nurse Practitioner Family; Admitting Provider Student in an Organized Health Care Education/Training Program; Emergency Provider Emergency Medicine; PCP Family Medicine; Visit Provider Internal Medicine
DX: F10.239 Alcohol dependence with withdrawal, unspecified (principal); F10.229 Alcohol dependence with intoxication, unspecified; Y90.8 Blood alcohol level of 240 mg/100 ml or more; E87.1 Hypo-osmolality and hyponatremia; I10 Essential (primary) hypertension; F32.9 Major depressive disorder, single episode, unspecified; F41.9 Anxiety disorder, unspecified; F17.210 Nicotine dependence, cigarettes, uncomplicated; Z79.899 Other long term (current) drug therapy
CPT/HCPCS: 36415; 80048; 80053; 80320; 85025; 97802; 99285; J7030; A4216; G0480

== ENCOUNTER 2019-09-06 15:10 | Emergency (ER) | payer MEDICAID, SELFPAY ==
[2019-08-24 16:41] VITALS: BMI 25.0
[2019-09-06 15:11] VITALS: BP 145/94; PULSE 98; RESP 18; TEMP 36.6; O2SAT 98; BMI 25.8
--- NOTE | 2019-09-06 15:35 | EKG12_ITS ---
Test Reason : MENTAL CLEARANCE Blood Pressure : / mmHG Vent. Rate : 090 BPM Atrial Rate : 090 BPM P-R Int : 154 ms QRS Dur : 104 ms QT Int : 358 ms P-R-T Axes : 073 092 064 degrees QTc Int : 437 ms Normal sinus rhythm Normal ECG Confirmed by ISMAEL MENDES ([id number]), magazine editor JOSE GARCÍA ([id number]) on 09/14/2019 8:16:47 AM Referred By: [facility] Confirmed By:ISMAEL MENDES
--- NOTE | 2019-09-06 15:45 | RAD_ITS ---
STUDY: X-RAY CHEST REASON FOR EXAM: Male, 64 years old. psych clearance TECHNIQUE: Single AP portable view of the chest. COMPARISON: 01/01/2010 FINDINGS: The lungs are clear and expanded. There is no demonstrated pleural abnormality. Normal size heart. Normal mediastinum and [place]. Normal visualized pulmonary arteries. Normal visualized aortic arch and descending thoracic aorta. Normal visualized thoracic spine. Normal visualized ribs, clavicles, and shoulders. There is no demonstrated abnormality of the visualized soft tissue structures of the upper abdomen. RAD/Chest 1 View (Portable) IMPRESSION: Normal x-ray examination of the chest. Electronically Signed: Sonu Mann MD at 16:01 EDT Tel , Service support ,
[2019-09-06 15:57] LABS: Absolute Lymphocyte Count 3.63 X10^3/uL (0.83-4.51); Absolute Neutrophil Count 4.2 X10^3/uL (2.0-7.7); Basophil# 0.05 X10^3/uL; Basophil% 0.6 % (0-1); Eosinophil# 0.23 X10^3/uL; Eosinophils% 2.7 % (0-5); Hematocrit 43.8 % (40-54); Hemoglobin 15.7 g/dL (13.0-16.5); Lymphocyte # 3.63 X10^3/ul (4.0); Lymphocyte % 42.6 % (19-41); Mean Corp Hgb Conc 35.8 g/dL (32-36); Mean Corpuscular Hgb 33.8 pg (27.0-32.0); Mean Corpuscular Volume 94.2 fL (80-94); Mean Platelet Vol. 8.3 fl (6.2-12.0); Monocyte# 0.44 X10^3/uL; Monocyte% 5.2 % (0-10); NRBC Flagged by Analyzer 0 % (0-5); Neutrophil # 4.16 X10^3/uL (2.7-7.7); Neutrophil % 48.7 % (47-70); Platelet Count 453 K/mm3 (150-450); RBC Distribution Width CV 14.7 % (11.6-14.6); RBC Distribution Width SD 50.7 fl (35.1-43.9); Red Blood Count 4.65 M/mm3 (4.6-6.2); White Blood Count 8.5 K/mm3 (4.4-11.0)
[2019-09-06 16:06] LABS: Anion Gap 6 (5-15); BUN 7 mg/dL (7-18); BUN/Creat Ratio 10.8 RATIO (10-20); Calcium,Total 8.5 mg/dL (8.5-10.1); Chloride 90 mmol/L (98-107); Creatinine, Serum 0.65 mg/dL (0.70-1.30); EST Glomerular Filtration Rate 132 mL/min (>60); Est Glom Filt Rate - Afr Amer 160 mL/min (>60); Estimated Creatinine Clearance 106.33 ml/min; Glucose 100 mg/dL (74-106); Sodium Level 125 mmol/L (136-145)
--- NOTE | 2019-09-06 16:09 | ED.VIS.PSYCH ---
History of Present Illness Chief Complaint: Mental Health Informant: Patient, Family Onset: Days Context: Gradual Onset Timing: Continuous Worsened by: Alcohol intoxication Associated Symptoms: Depressed. Negative for: Hopelessness, Suicidal Thoughts, Agitated, Angry, Visual Hallucinations, Auditory Hallucinations Narrative: Patient is a 64-year-old male history of alcohol abuse presenting with feeling overwhelmed. Patient states he is tired and depressed and feeling is too much pressure on him. Patient states he has a lot of pressure on him about work, taking care of his elderly demented mother and other situations. He states recently his mind just snapped and he feels that he cannot take it anymore. He is seeking psychiatric help. He adamantly denies any depression or suicidal ideations. He does not feel that he would be better off if he was not around anymore. He states he is never felt this way before however. Patient does have a history of alcohol abuse and drinks 8-10 beers daily. He was just in detox at the beginning of this month but then started drinking again. He does not feel like the alcohol is his problem at this point. Patient is hoping to go somewhere with inpatient psychiatric care to help get himself straighten out. Patient has any other complaints at this time. Patient was brought in by family members because he came to them asking for help. Past Medical History - Allergies and Home Meds Allergies/Adverse Reactions: Allergies No Known Allergies Allergy (Verified 09/06/19 15:13) Primary Care Physician: Renan Joel MD [Primary Care Provider] - Past Medical History: - - Alcohol abuse Surgical History: - - Right ankle repair following traumatic injury, left shoulder rotator cuff surgery, right wrist surgery. Lives: With Family Smoking Status: Current every day smoker Alcohol: Heavy Drugs: None - Family History Maternal Family History: Reports: Dementia, - - Hypothyroidism Paternal Family History: Reports: - - States he does not know his father or any of his father's medical history. Review of Systems General: Denies: Chills, Fever, Sweats Eyes: Denies: Visual changes - bilaterally, Diplopia ENT: Denies: Rhinorrhea, Sore throat Cardiovascular: Denies: Chest pain, Palpitations Respiratory: Denies: Dyspnea, Cough, Dyspnea on exertion Gastrointestinal: Denies: Abdominal pain, Nausea, Vomiting, Diarrhea, Melena, Hematochezia Genitourinary: Denies: Dysuria, Hematuria, Frequency Musculoskeletal: Denies: Back pain, Extremity Pain Skin: Denies: Rash, Wounds Neurological: Denies: Headache, Weakness, Numbness Psych: Reports: Depression. Denies: Anxiety, Suicidal thoughts, Suicidal ideations Physical Exam Vital Signs/Narrative: Vital Signs Temp Pulse Resp BP Pulse Ox 09/06/19 15:11 98 F 98 18 145/94 H 98 Inital Vital Signs reviewed: Yes General: Well nourished, Well developed Head: Normocephalic, Atraumatic Eyes: Perrl, EOMI ENT: Moist mucous membranes, No rhinorrhea Neck: Supple, Nontender Cardiovascular: Regular rate, Regular rhythm, No murmurs Respiratory: No distress, CTA bilaterally, Chest nontender Abdomen: Soft, Nontender, Nondistended, Normal bowel sounds Back: Nontender, Normal Inspection Extremities: Nontender, No Edema Skin: Normal color, No rash Neurological: Alert, Oriented x3, Cranial nerves II-XII grossly intact, Normal Strength, Normal Sensation, - - Clear speech Psych: Normal Speech Pattern, Logical sequential goal directed thoughts, Normal Stable Appropriate Affect, Good Insight, Depressed. Negative for: Suicidal thoughts, Hallucinations, Delusions Diagnostic/Tx/Re-eval Clinical Impression(s) from Imaging Studies Chest X-Ray 09/06/19 15:45 IMPRESSION: Normal x-ray examination of the chest. Electronically Signed: Sonu Mann MD at 16:01 EDT Tel , Service support , Laboratory Data 09/06/19 09/06/19 09/06/19 15:26 15:26 15:41 WBC 8.5 RBC 4.65 Hgb 15.7 Hct 43.8 MCV 94.2 H MCH 33.8 H MCHC 35.8 RDW Std Deviation 50.7 H RDW Coeff of Hortencia 14.7 H Plt Count 453 H MPV 8.3 Immature Gran % (Auto) 0.200 Neut % (Auto) 48.7 Lymph % (Auto) 42.6 H [place] % (Auto) 5.2 Eos % (Auto) 2.7 Baso % (Auto) 0.6 Absolute Neuts (auto) 4.2 Absolute Lymphs (auto) 3.63 Nucleated RBC % 0 Sodium 125 L Potassium 4.0 Chloride 90 L Carbon Dioxide 29.0 Anion Gap 6 BUN 7 Creatinine 0.65 L Estim Creat Clear Calc 106.33 Est GFR (MDRD) Af Amer 160 Est GFR (MDRD) Non-Af 132 BUN/Creatinine Ratio 10.8 Glucose 100 Calcium 8.5 Ur Drug Screen Comment - Rhythm Strip Rhythm Strip: Sinus Rhythm Rate: 90 Ectopy: None - EKG Initial EKG Interpretation: Sinus Rhythm, - - Sinus rhythm at a rate of [address] segments Normal axis Patient is evaluated for concern of depression. He states he feels like there is a lot of pressure and he just cannot take it anymore. He does have a history of alcohol abuse but is not concerned about this currently. Patiently will be medically cleared and evaluated by case management to see if he is a candidate for inpatient psychiatric care. Patient is agreeable this plan. He is appropriate while in the emergency room. Patient to be signed out to oncoming provider pending lab results for medical clearance and psych eval for final disposition. ED Disposition - Plan for ED Patient: Diagnosis: Alcohol abuse, Depression Referrals: Renan Joel MD [Primary Care Provider] -
[2019-09-06 16:41] LABS: Amphetamine Urine VISTA NEGATIVE (<1000 ng/mL); Barbiturate Urine VISTA POSITIVE (< 200 ng/mL); Benzodiazepine Urine VISTA NEGATIVE (< 200 ng/mL); Cocaine Urine VISTA NEGATIVE (< 300 ng/mL); Ecstacy Urine VISTA NEGATIVE (< 500 ng/mL); Methadone Urine VISTA NEGATIVE (< 300 ng/mL); PCP Urine VISTA NEGATIVE (< 25 ng/mL); THC Urine VISTA NEGATIVE (< 50 ng/mL); Vista UDS pH Range 6
[2019-09-06 16:43] LABS: Bacteria 0 SEEN /hpf (None Seen); Mucous, Urine 0 SEEN /hpf (<or=2+); Red Blood Cells-Urine 0 SEEN /hpf (0-5); White Blood Cells 0 SEEN /hpf (0-5)
[2019-09-06 17:04] LABS: Color, Urine Straw (Yellow); Glucose, Dipstick Normal (Normal); Ketone-Dipstick Negative (Negative); Leukocyte Esterase-Dipstick Negative /ul (Negative); Nitrite-Dipstick Negative (Negative); Occult Blood-Urine Negative /ul (Negative); Protein-Dipstick Negative (Negative); Urine Bilirubin Dipstick Negative (Negative); Urine Clarity Clear (Clear); Urine Urobilinogen Normal (Normal)
[2019-09-06 17:52] LABS: Squamous Epithelial Cells - UA 0-5 SEEN /hpf (0-5)
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
[2019-09-06 19:35] VITALS: BP 146/90; PULSE 114; RESP 16; O2SAT 96
--- NOTE | 2019-09-06 20:13 | CM.ED ---
SOCIAL WORK Referral has been called and faxed to [facility]. Per worker, if patient accepted, alcohol level must be under 100 for patient to legally consent to treatment. Awaiting acceptance at this time. Erlin Alegria, NEEDLE LEADER, SLUBBER RUNNER
[2019-09-06 20:36] VITALS: RESP 16
--- NOTE | 2019-09-06 21:05 | CM.ED ---
SOCIAL WORK Call to [facility] to check on status of referral. Worker reports still reviewing referral, will call this worker back once reviewed with doctor. Erlin Alegria, PARADICHLOROBENZENE MACHINE OPERATOR, BRAND ANALYST
--- NOTE | 2019-09-06 21:46 | CM.ED ---
SOCIAL WORK Call to [facility] to update on end of shift for this worker and request to call main ED line with any updates. Contact number provided. Erlin Alegria MSW, COLLEGE SCOUTING COORDINATOR
--- NOTE | 2019-09-06 22:00 | CM.ED ---
SOCIAL WORK Received call from Rosibel with [facility]. Patient accepted by Dr. Shaikh to the Dual Diagnosis Unit. Report to be called to option 1. Rosibel reports faxing over voluntary paperwork for patient to fill out and fax back prior to transportation arrangement. Staff and patient updated. Erlin Alegria MSW, SENIOR STATISTICIAN
[2019-09-06 22:26] VITALS: RESP 16
--- NOTE | 2019-09-06 23:11 | ED.RN ---
report called to BEHZAD Warner RN on DDX unit.
[2019-09-07] VITALS (8 sets, daily range): BP systolic 151–165; BP diastolic 97–111; PULSE 88–102; RESP 16; O2SAT 94–97
--- NOTE | 2019-09-07 07:11 | NURSING ---
CALLED PHYSICANS FOR TRANSPORT. NO AVAILABILITY
--- NOTE | 2019-09-07 07:19 | NURSING ---
CALLED [facility], ETA IS FROM [place]
== END 2019-09-07 07:47 ==
LOC: ED 15:42
PROVIDERS: Emergency Provider Emergency Medicine; PCP Family Medicine
DX: F10.129 Alcohol abuse with intoxication, unspecified (principal); Y90.9 Presence of alcohol in blood, level not specified; F32.9 Major depressive disorder, single episode, unspecified; Z79.899 Other long term (current) drug therapy; F17.200 Nicotine dependence, unspecified, uncomplicated
CPT/HCPCS: 36415; 71045; 80048; 80307; 80320; 81001; 85025; 93005; 99283; G0480

== ENCOUNTER 2020-06-01 14:55 | Inpatient (IN) | payer MEDICAID, SELFPAY ==
[2020-06-01 14:56] VITALS: BP 130/83; PULSE 94; RESP 16; TEMP 36.2; O2SAT 97; BMI 24.3
--- NOTE | 2020-06-01 16:01 | ED.DCSUM_ITS ---
History of Present Illness Chief Complaint: Substance Abuse Informant: Patient Onset: Weeks Timing: Continuous Current Severity: Moderate Maximum Severity: Moderate Narrative: Patient is a 65-year-old male with medical history significant for depression and alcohol abuse who presents to the emergency department questing alcohol detox. Patient states he drinks every day. He states he drinks approximately 24 beers daily. He states he has been drinking for years. He last went through detox about a year and a half ago. He states long as he is never been sober has been about 2 years. He does have history of withdrawal seizure. He does admit to drinking today. He denies being suicidal or homicidal. He is otherwise been in his normal state of health. Prior similar symptoms: Yes Recent Illness/Hospitalization: No Past Medical History - Allergies and Home Meds Allergies/Adverse Reactions: Allergies No Known Allergies Allergy (Verified 06/01/20 14:57) Primary Care Physician: Renan Joel MD [Primary Care Provider] - Prior records reviewed: Yes Past Medical History: - - Depression, alcohol abuse Surgical History: - - Right ankle repair following traumatic injury, left shoulder rotator cuff surgery, right wrist surgery. Smoking Status: Current every day smoker Alcohol: Heavy - Family History Maternal Family History: Reports: Dementia, - - Hypothyroidism Paternal Family History: Reports: - - States he does not know his father or any of his father's medical history. Review of Systems General: Denies: Chills, Fever, Sweats Eyes: Denies: Visual changes - bilaterally, Diplopia ENT: Denies: Rhinorrhea, Sore throat Cardiovascular: Denies: Chest pain, Palpitations Respiratory: Denies: Dyspnea, Cough, Dyspnea on exertion Gastrointestinal: Denies: Abdominal pain, Nausea, Vomiting, Diarrhea, Melena, Hematochezia Genitourinary: Denies: Dysuria, Hematuria, Frequency Musculoskeletal: Denies: Back pain, Extremity Pain Skin: Denies: Rash, Wounds Neurological: Denies: Headache, Weakness, Numbness Physical Exam Vital Signs/Narrative: Vital Signs Temp Pulse Resp BP Pulse Ox 06/01/20 14:56 97.2 F L 94 16 130/83 H 97 Inital Vital Signs reviewed: Yes General: Well nourished, Well developed, No Acute Distress Head: Normocephalic, Atraumatic Eyes: Perrl, EOMI ENT: Moist mucous membranes, No rhinorrhea Neck: Supple, Nontender Cardiovascular: Regular rate, Regular rhythm, No murmurs Respiratory: No distress, CTA bilaterally, Chest nontender Abdomen: Soft, Nontender, Nondistended, Normal bowel sounds Back: Nontender, Normal Inspection Extremities: Nontender, No edema Skin: Normal color, No rash Neurological: Alert, Oriented x3, Cranial nerves II-XII grossly intact, Normal Strength, Normal Sensation Psychological: Normal affect, Normal Mood Diagnostic/Tx/Re-eval Abnormal Lab Results 06/01/20 06/01/20 16:25 16:25 WBC 7.8 RBC 4.46 L Hgb 14.9 Hct 41.7 MCV 93.5 MCH 33.4 H MCHC 35.7 RDW Std Deviation 53.5 H RDW Coeff of Hortencia 15.3 H Plt Count 305 MPV 8.4 Immature Gran % (Auto) 0.300 Neut % (Auto) 57.0 Lymph % (Auto) 32.0 [place] % (Auto) 8.6 Eos % (Auto) 1.3 Baso % (Auto) 0.8 Absolute Neuts (auto) 4.5 Absolute Lymphs (auto) 2.50 Nucleated RBC % 0 Sodium 130 L Potassium 4.2 Chloride 96 L Carbon Dioxide 28.0 Anion Gap 6 BUN 5 L Creatinine 0.87 Estim Creat Clear Calc 81.25 Est GFR (MDRD) Af Amer 114 Est GFR (MDRD) Non-Af 95 BUN/Creatinine Ratio 5.8 L Glucose 82 Calcium 8.4 L Total Bilirubin 0.30 AST 32 ALT 33 Alkaline Phosphatase 50 Total Protein 8.3 H Albumin 3.6 Globulin 4.7 H Albumin/Globulin Ratio 0.8 L - Medical Decision Making The patient presents requesting alcohol detox. He is not tremulous. He is not hypertensive. Metabolic work-up was pursued and was unremarkable. Patient was given thiamine and folate. He was discussed with the hospitalist and will be admitted under detox protocol. Impression 1. Alcohol dependence ED Disposition - Plan for ED Patient: Referrals: Renan Joel MD [Primary Care Provider] -
[2020-06-01 16:36] VITALS: BMI 24.4
[2020-06-01 16:44] LABS: Absolute Neutrophil Count 4.5 X10^3/uL (2.0-7.7); Basophil# 0.06 X10^3/uL; Basophil% 0.8 % (0-1); Eosinophils% 1.3 % (0-5); Hematocrit 41.7 % (40-54); Hemoglobin 14.9 g/dL (13.0-16.5); Mean Corp Hgb Conc 35.7 g/dL (32-36); Mean Corpuscular Hgb 33.4 pg (27.0-32.0); Mean Corpuscular Volume 93.5 fL (80-94); Mean Platelet Vol. 8.4 fl (6.2-12.0); Monocyte# 0.67 X10^3/uL; Monocyte% 8.6 % (0-10); NRBC Flagged by Analyzer 0 % (0-5); Neutrophil # 4.47 X10^3/uL (2.7-7.7); Platelet Count 305 K/mm3 (150-450); RBC Distribution Width CV 15.3 % (11.6-14.6); RBC Distribution Width SD 53.5 fl (35.1-43.9); Red Blood Count 4.46 M/mm3 (4.6-6.2); White Blood Count 7.8 K/mm3 (4.4-11.0)
[2020-06-01 16:55] VITALS: BP 141/83; PULSE 82; RESP 20; O2SAT 95
[2020-06-01 17:00] LABS: ALB/GLOB Ratio 0.8 RATIO (0.9-2.4); AST(SGOT) 32 U/L (15-37); Alanine Aminotransfer ALT/SGPT 33 U/L (16-61); Albumin, Serum 3.6 g/dL (3.2-5.0); Alkaline Phosphatase 50 U/L (45-117); Anion Gap 6 (5-15); BUN 5 mg/dL (7-18); BUN/Creat Ratio 5.8 RATIO (10-20); Calcium,Total 8.4 mg/dL (8.5-10.1); Chloride 96 mmol/L (98-107); Creatinine, Serum 0.87 mg/dL (0.70-1.30); EST Glomerular Filtration Rate 95 mL/min (>60); Est Glom Filt Rate - Afr Amer 114 mL/min (>60); Estimated Creatinine Clearance 81.25 ml/min; Globulin 4.7 g/dL (2.2-4.2); Glucose 82 mg/dL (74-106); Potassium 4.2 mmol/L (3.5-5.1); Protein, Total 8.3 g/dL (6.4-8.2); Sodium Level 130 mmol/L (136-145)
[2020-06-01 17:23] VITALS: BP 146/86; PULSE 94; RESP 20; TEMP 36.6; O2SAT 97
--- NOTE | 2020-06-01 17:47 | CM.ED ---
Social Work Consult: Substance Abuse Referral Source: Self referral due to reason for visit Met with patient in room. Introduced self and social services aide role. Patient agreeable to speak with this social services aide. Patient reports to be seeking medical management of withdrawal symptoms, [facility] Patient reports substance of choice as beer. Patient reports to drink 25-30 cans day. Patient denies any mental health history of treatment. Patient reports history of abusing alcohol on and off for the past 50 years. Patient reports prior to 3 months ago patient was sober for 2 years. Patient reports to have support from sponsor and local substance abuse resources, [facility]. Patient verbally agreeing to [facility] contract. Will notify [facility] of patient admission when patient is admitted. Marcela HERRERA, NINA-S
--- NOTE | 2020-06-01 18:16 | CM.ED ---
Social Work Telephone call to Rhiannon Burk. Updated on patient admission to [facility] program. Marcela Jorge MSW, PRECIOUS
[2020-06-01 18:55] VITALS: BP 149/105; PULSE 98; RESP 20; TEMP 36.9; O2SAT 99
[2020-06-01 19:15] VITALS: BP 152/88; PULSE 104; RESP 18; TEMP 36.6; O2SAT 98
[2020-06-01 19:32] VITALS: BMI 22.5
--- NOTE | 2020-06-01 21:19 | PCM.HP.STD ---
Problem List (1) HTN (hypertension) Status: Chronic Qualifiers: Hypertension type: essential hypertension Qualified Code(s): I10 - Essential (primary) hypertension (2) Depression Status: Chronic Qualifiers: Depression Type: unspecified Qualified Code(s): F32.9 - Major depressive disorder, single episode, unspecified (3) Tobacco dependence Status: Chronic (4) Alcohol abuse Status: Chronic History of Present Illness Date of Admission: 06/01/20 Chief Complaint: Alcohol detox The patient is a 65 year old M past medical history of alcohol use disorder, hypertension, nicotine dependence who comes in requesting for medical stabilization. Patient admits that he drinks every day, about 24 beers a day. He was recently here in August 2019 for detox. He said he was sober for 6-1/2 months and relapsed because he allowed things to give to him. He requests for medical stabilization for acute withdrawal. His vitals in the ED were stable except for slight elevation in his blood pressure. His admitting blood work is unremarkable with chronic hyponatremia. Sodium is 130. Admitting alcohol level is 33 4.0. Past Medical History Past Medical History (Chronic Problems): Chronic Problems HTN (hypertension) (Chronic) Depression (Chronic) Tobacco dependence (Chronic) Alcohol abuse (Chronic) Allergies No Known Allergies Allergy (Verified 06/01/20 14:57) Home Medications: Ambulatory Orders Medication Instructions Recorded Lisinopril [Zestril] 10 mg PO DAILY 06/22/16 Esomeprazole Mag Trihydrate 20 mg PO DAILY PRN PRN 06/01/20 [Nexium] Fluoxetine [Prozac] 10 mg PO DAILY 06/01/20 Surgical History: - - Right ankle repair following traumatic injury, left shoulder rotator cuff surgery, right wrist surgery. Psychiatric History: Depression Lives: Alone Smoking Status: Current every day smoker Tobacco Use: Cigarettes Alcohol: Heavy Drugs: None - *Family History Maternal History Items: Dementia, - - Hypothyroidism Paternal History Items: - - States he does not know his father or any of his father's medical history. Review of Systems Constitutional: Denies: Anorexia, Chills, Fever, Malaise, Weakness, Weight Change Eyes: Denies: Blurred vision, Cataracts HEENT: Denies: Dysphasia, Head Aches, Hearing Changes, Sinus Congestion, Sinus Drainage Cardiovascular: Denies: Chest Pain, Claudication, Orthopnea, Palpitations Respiratory: Denies: Cough, Hemoptysis, Shortness of breath at rest, Shortness of breath upon exertion, Sputum production Gastrointestinal: Denies: Abdominal Pain, Hematemesis, Hematochezia, Nausea, Vomiting Genitourinary: Denies: Dysuria, Frequency, Incontinence Musculoskeletal: Denies: Joint Pain, Joint stiffness, Joint swelling, Joint Tenderness Skin: Denies: Rash, Wounds Neurological: Denies: Numbness, Tingling, Focal weakness Psychiatric: Denies: Anxiety, Depression, Homicidal Ideations, Suicidal Ideations Hematologic/ Lymphatic: Denies: Easy Bruising, Easy Bleeding VTE Information - Inpt Only VTE Present on Admission: No VTE Pharm Prophylaxis ordered?: Yes - Physical Exam Vitals/I&O's: Vital Signs Temp Pulse Resp BP Pulse Ox 97.9 F 104 H 18 152/88 H 98 06/01/20 19:15 06/01/20 19:15 06/01/20 19:15 06/01/20 19:15 06/01/20 19:15 Oxygen Delivery Method Room Air Weight: 65.181 kg Body Mass Index (BMI) 22.5 Intake and Output for Last 24 Hours 05/30/20 05/31/20 06/01/20 23:59 23:59 23:59 Intake Total 101.2 / 101.2 Balance 101.2 / 101.2 General: Alert, Oriented x3, Cooperative, No apparent distress HEENT: Atraumatic, PERRLA, EOMI, Normocephalic Oral: Moist Mucosa Neck: Supple Lungs: Clear to auscultation, Normal air movement Cardiovascular: Regular rate, Regular Rhythm, Normal S1, Normal S2, No murmurs Abdomen: Bowel Sounds Present, Soft, Non Tender, Non-Distended, No Hepato-splenomegaly Extremities: No edema Skin: No rashes, No breakdown Musculoskeletal: No Tenderness to Palpation of Joints or Extremities Lymphatic: No Cervical, Supraclavicular, or Inguinal Adenopathy Neurological: Cranial nerves II-XII grossly intact, Neuro grossly intact, - - Slight tremors of the extremities Psych/Mental Status: Normal Affect, Appropriate Laboratory Results 06/01/20 16:25: WBC 7.8, RBC 4.46 L, Hgb 14.9, Hct 41.7, MCV 93.5, MCH 33.4 H, MCHC 35.7, RDW Std Deviation 53.5 H, RDW Coeff of Hortencia 15.3 H, Plt Count 305, MPV 8.4, Immature Gran % (Auto) 0.300, Neut % (Auto) 57.0, Lymph % (Auto) 32.0, [place] % (Auto) 8.6, Eos % (Auto) 1.3, Baso % (Auto) 0.8, Absolute Neuts (auto) 4.5, Absolute Lymphs (auto) 2.50, Nucleated RBC % 0 06/01/20 16:25: Sodium 130 L, Potassium 4.2, Chloride 96 L, Carbon Dioxide 28.0, Anion Gap 6, BUN 5 L, Creatinine 0.87, Estim Creat Clear Calc 81.25, Est GFR (MDRD) Af Amer 114, Est GFR (MDRD) Non-Af 95, BUN/Creatinine Ratio 5.8 L, Glucose 82, Calcium 8.4 L, Total Bilirubin 0.30, AST 32, ALT 33, Alkaline Phosphatase 50, Total Protein 8.3 H, Albumin 3.6, Globulin 4.7 H, Albumin/Globulin Ratio 0.8 L 06/01/20 16:25: Ethyl Alcohol 334.0 H* Current Medications Nutritional Formula (Lactose Free) (Ensure Enlive 120 Ml Liquid) 120 ml PO 4X/DAY AMADO Sodium Chloride (0.9% Saline Lock 10 Ml Syringe) 10 - 40 ml IV UD PRN PRN Reason: SALINE FLUSH Assessment/Plan 1. Chronic alcohol use disorder with impending acute alcohol withdrawal Request for medical stabilization We will admit and monitor on the phenobarbital withdrawal protocol Addiction social work consult 2. Hypertension, fairly controlled, continue on home lisinopril 3. Depression, continue on Prozac 4. Chronic hyponatremia likely secondary to alcohol use 5. DVT prophylaxis with heparin subcu Inpatient E&M: 51066 Init Hosp L2
[2020-06-01] MEDS: 0.9% Saline Lock 10 ML Syringe IV (22:26)
[2020-06-01] MEDS: traZODone 100 MG Tablet PO (22:27)
[2020-06-01] MEDS: Acetaminophen 500 MG Tablet PO (22:27)
[2020-06-01] MEDS: Phenobarbital 32.4 MG Tablet 64.8 MG PO (22:27)
[2020-06-01 23:04] LABS: Amphetamine Urine VISTA NEGATIVE (<1000 ng/mL); Barbiturate Urine VISTA NEGATIVE (< 200 ng/mL); Benzodiazepine Urine VISTA NEGATIVE (< 200 ng/mL); Cocaine Urine VISTA NEGATIVE (< 300 ng/mL); Ecstacy Urine VISTA NEGATIVE (< 500 ng/mL); Methadone Urine VISTA NEGATIVE (< 300 ng/mL); PCP Urine VISTA NEGATIVE (< 25 ng/mL); THC Urine VISTA NEGATIVE (< 50 ng/mL); Vista UDS pH Range 6
[2020-06-02 01:54] VITALS: BP 142/91; PULSE 87; RESP 18; TEMP 36.8; O2SAT 96
[2020-06-02] MEDS: Phenobarbital 32.4 MG Tablet 64.8 MG PO ×6 (01:58→22:06)
[2020-06-02 09:00] VITALS: BP 151/100; PULSE 80; RESP 16; TEMP 36.7; O2SAT 100
[2020-06-02] MEDS: Thiamine Hydrochloride 100 MG Tablet PO (09:05)
[2020-06-02] MEDS: Lisinopril 10 MG Tablet PO (09:05)
[2020-06-02] MEDS: Folic Acid 1 MG Tablet PO (09:05)
[2020-06-02] MEDS: FLUoxetine 10 MG Capsule PO (09:05)
--- NOTE | 2020-06-02 11:10 | ADDICTION ---
This procedure writer met with PT to complete ASAM, MSE and AUDIT assessments and to plan for d/c. All assessments completed, faxed to [facility] and placed in PT chart. PT to f/u with [facility] after d/c for counseling. No transportation needs identified.
--- NOTE | 2020-06-02 12:28 | PCM.PN.HOSP ---
<Aquilino Mejía PA - Last Filed: 06/02/20 12:28> Subjective: Patient is a 65-year-old male who is asleep in bed upon entering the room, pleasant upon awakening, alert and oriented x3. Patient reports desire to quit using alcohol, has had prolonged quitting attempts in the past. Denies any illicit drug use. Endorses a [id number] history. Objective: Laboratory Tests Past 24 Hrs 06/01/20 06/01/20 06/01/20 16:25 16:25 16:25 WBC 7.8 RBC 4.46 L Hgb 14.9 Hct 41.7 MCV 93.5 MCH 33.4 H MCHC 35.7 RDW Std Deviation 53.5 H RDW Coeff of Hortencia 15.3 H Plt Count 305 MPV 8.4 Immature Gran % (Auto) 0.300 Neut % (Auto) 57.0 Lymph % (Auto) 32.0 [place] % (Auto) 8.6 Eos % (Auto) 1.3 Baso % (Auto) 0.8 Absolute Neuts (auto) 4.5 Absolute Lymphs (auto) 2.50 Nucleated RBC % 0 Sodium 130 L Potassium 4.2 Chloride 96 L Carbon Dioxide 28.0 Anion Gap 6 BUN 5 L Creatinine 0.87 Estim Creat Clear Calc 81.25 Est GFR (MDRD) Af Amer 114 Est GFR (MDRD) Non-Af 95 BUN/Creatinine Ratio 5.8 L Glucose 82 Calcium 8.4 L Total Bilirubin 0.30 AST 32 ALT 33 Alkaline Phosphatase 50 Total Protein 8.3 H Albumin 3.6 Globulin 4.7 H Albumin/Globulin Ratio 0.8 L Urine Opiates Screen Urine Methadone Screen Ur Barbiturates Screen Ur Phencyclidine Scrn Ur Amphetamines Screen U Methamphetamin-MDMA U Benzodiazepines Scrn Urine Cocaine Screen U Cannabinoids Screen Ur Drug Screen Comment Ethyl Alcohol 334.0 H* 06/01/20 22:30 WBC RBC Hgb Hct MCV MCH MCHC RDW Std Deviation RDW Coeff of Hortencia Plt Count MPV Immature Gran % (Auto) Neut % (Auto) Lymph % (Auto) [place] % (Auto) Eos % (Auto) Baso % (Auto) Absolute Neuts (auto) Absolute Lymphs (auto) Nucleated RBC % Sodium Potassium Chloride Carbon Dioxide Anion Gap BUN Creatinine Estim Creat Clear Calc Est GFR (MDRD) Af Amer Est GFR (MDRD) Non-Af BUN/Creatinine Ratio Glucose Calcium Total Bilirubin AST ALT Alkaline Phosphatase Total Protein Albumin Globulin Albumin/Globulin Ratio Urine Opiates Screen NEGATIVE Urine Methadone Screen NEGATIVE Ur Barbiturates Screen NEGATIVE Ur Phencyclidine Scrn NEGATIVE Ur Amphetamines Screen NEGATIVE U Methamphetamin-MDMA NEGATIVE U Benzodiazepines Scrn NEGATIVE Urine Cocaine Screen NEGATIVE U Cannabinoids Screen NEGATIVE Ur Drug Screen Comment Ethyl Alcohol Vitals/I&O's: Vital Signs Temp Pulse Resp BP Pulse Ox 98.0 F 80 16 151/100 H 100 06/02/20 09:00 06/02/20 09:00 06/02/20 09:00 06/02/20 09:00 06/02/20 09:00 Oxygen Delivery Method Room Air Weight: 143 lb 11.2 oz Body Mass Index (BMI) 22.5 Intake and Output for Last 24 Hours 05/31/20 06/01/20 06/02/20 23:59 23:59 23:59 Intake Total 601.2 / 601.2 950 / 950 Balance 601.2 / 601.2 950 / 950 General: Alert, Oriented x3, Cooperative HEENT: Atraumatic, PERRLA, EOMI, Normocephalic Neck: Supple, No JVD, Negative Carotid Bruits Lungs: Clear to auscultation, Normal air movement Cardiovascular: Regular rate, No murmurs Abdomen: Bowel Sounds Present, Soft, Non Tender Extremities: No edema, Capillary Refill Less than 3 Seconds Skin: No rashes, No breakdown Musculoskeletal: No Tenderness to Palpation of Joints or Extremities Neurological: Cranial nerves II-XII grossly intact Psych/Mental Status: Normal Affect, Appropriate Laboratory Results 06/01/20 16:25: WBC 7.8, RBC 4.46 L, Hgb 14.9, Hct 41.7, MCV 93.5, MCH 33.4 H, MCHC 35.7, RDW Std Deviation 53.5 H, RDW Coeff of Hortencia 15.3 H, Plt Count 305, MPV 8.4, Immature Gran % (Auto) 0.300, Neut % (Auto) 57.0, Lymph % (Auto) 32.0, [place] % (Auto) 8.6, Eos % (Auto) 1.3, Baso % (Auto) 0.8, Absolute Neuts (auto) 4.5, Absolute Lymphs (auto) 2.50, Nucleated RBC % 0 06/01/20 16:25: Sodium 130 L, Potassium 4.2, Chloride 96 L, Carbon Dioxide 28.0, Anion Gap 6, BUN 5 L, Creatinine 0.87, Estim Creat Clear Calc 81.25, Est GFR (MDRD) Af Amer 114, Est GFR (MDRD) Non-Af 95, BUN/Creatinine Ratio 5.8 L, Glucose 82, Calcium 8.4 L, Total Bilirubin 0.30, AST 32, ALT 33, Alkaline Phosphatase 50, Total Protein 8.3 H, Albumin 3.6, Globulin 4.7 H, Albumin/Globulin Ratio 0.8 L 06/01/20 16:25: Ethyl Alcohol 334.0 H* 06/01/20 22:30: Urine Opiates Screen NEGATIVE, Urine Methadone Screen NEGATIVE, Ur Barbiturates Screen NEGATIVE, Ur Phencyclidine Scrn NEGATIVE, Ur Amphetamines Screen NEGATIVE, U Methamphetamin-MDMA NEGATIVE, U Benzodiazepines Scrn NEGATIVE, Urine Cocaine Screen NEGATIVE, U Cannabinoids Screen NEGATIVE, Ur Drug Screen Comment Current Medications Acetaminophen (Acetaminophen 500 Mg Tablet) 500 mg PO Q4H PRN PRN PRN Reason: Temp > 100.4 F Last Admin: 06/01/20 22:27 Dose: 500 mg Documented by: Al Hydroxide/Mg Hydroxide (Mag Hydrox/Al Hydrox/Simeth 30 Ml Udc) 30 ml PO Q6H PRN PRN PRN Reason: dyspesia Dicyclomine HCl (Dicyclomine 10 Mg Capsule) 20 mg PO Q6H PRN PRN PRN Reason: abdominal discomfort Fluoxetine HCl (Fluoxetine 10 Mg Capsule) 10 mg PO DAILY [facility] Last Admin: 06/02/20 09:05 Dose: 10 mg Documented by: Folic Acid (Folic Acid 1 Mg Tablet) 1 mg PO DAILY@0800 [facility] Last Admin: 06/02/20 09:05 Dose: 1 mg Documented by: Gabapentin (Gabapentin 300 Mg Capsule) 300 mg PO Q8H PRN PRN PRN Reason: moderate to severe anxiety Hydroxyzine Pamoate (Hydroxyzine Adelaida 25 Mg Capsule) 50 mg PO Q4H PRN PRN PRN Reason: mild anxiety Lisinopril (Lisinopril 10 Mg Tablet) 10 mg PO DAILY [facility] Last Admin: 06/02/20 09:05 Dose: 10 mg Documented by: Loperamide HCl (Loperamide 2 Mg Capsule) 2 mg PO Q4H PRN PRN PRN Reason: LOOSE STOOLS Nicotine (Nicotine 21 Mg Patch) 21 mg TD DAILY [facility] Last Admin: 06/02/20 09:05 Dose: 21 mg Documented by: Nutritional Formula (Lactose Free) (Ensure Enlive 120 Ml Liquid) 120 ml PO 4X/DAY [facility] Last Admin: 06/02/20 09:10 Dose: 120 ml Documented by: Ondansetron HCl (Ondansetron 8 Mg Tablet) 8 mg PO Q8H PRN PRN PRN Reason: NAUSEA Pantoprazole Sodium (Pantoprazole Sodium 20 Mg Tablet) 20 mg PO DAILY PRN PRN PRN Reason: reflux Phenobarbital (Phenobarbital 32.4 Mg Tablet) 97.2 mg PO Q4H [facility]; Taper Stop: 06/06/20 06:29 Last Admin: 06/02/20 10:36 Dose: 97.2 mg Documented by: Senna (Senna Tablet) 2 tablet PO QHS PRN PRN Reason: Constipation Sodium Chloride (0.9% Saline Lock 10 Ml Syringe) 10 - 40 ml IV UD PRN PRN Reason: SALINE FLUSH Last Admin: 06/01/20 22:26 Dose: 10 ml Documented by: Thiamine HCl (Thiamine Hydrochloride 100 Mg Tablet) 100 mg PO DAILYCM [facility] Last Admin: 06/02/20 09:05 Dose: 100 mg Documented by: Trazodone HCl (Trazodone 100 Mg Tablet) 100 mg PO QHS PRN PRN Reason: INSOMNIA Last Admin: 06/01/20 22:27 Dose: 100 mg Documented by: STROKE Vital Signs/Narrative: Vital Signs Temp Pulse Resp BP Pulse Ox 06/02/20 09:00 98.0 F 80 16 151/100 H 100 Medical Necessity - Tobacco Use Smoking Status: Current every day smoker Tobacco Use: Cigarettes Assessment/Plan Patient is a 65-year-old male who reported to the ED on 06/01/2020 requesting medical stabilization while with going through alcohol detox. Patient endorses drinking about 24 beers a day, occasionally drinking more beer. Patient denies drinking any other form of alcohol. Patient has already had his initial consult with addiction medicine, is familiar with the addiction medicine specialist. Patient endorses prolonged quitting attempts in the past, however certain stressors trigger him to start drinking again. CBC unremarkable. BMP revealed a sodium of 130, this is a chronic issue. Ethyl alcohol 334 mg/dL on admission. Toxicology negative for any other substance use. 1) Chronic alcohol use disorder with possible acute alcohol withdrawal Assessment - Patient denies tremors, hallucinations, seizure-like activity - Ethyl alcohol 334 mg/dL on admission - Currently on phenobarbital withdrawal protocol, as well as folic acid and thiamine repletion - Addiction medicine consult completed Plan - Next phenobarbital dose scheduled for 06/03/2020 -Continue to monitor for any change in symptoms 2) Hypertesnion Assessment -151/100, stable Plan - Continue home lisinopril 3) Depression Assessment - Stable - Patient denies any suicidal ideation Plan - Prozac continued 4) Chronic hyponatremia Assessment - Likely due to chronic alcohol abuse Plan - Continue to monitor BMP DVT prophylaxis ? SC heparin Patient seen by Aquilino Mejía PA-C, under the supervision of Dr. Downey. <Wilfredo Downey E - Last Filed: 06/02/20 15:01> Vitals/I&O's: Vital Signs Temp Pulse Resp BP Pulse Ox 98.4 F 103 H 16 128/77 H 98 06/02/20 12:45 06/02/20 12:45 06/02/20 12:45 06/02/20 12:45 06/02/20 12:45 Oxygen Delivery Method Room Air Weight: 143 lb 11.2 oz Body Mass Index (BMI) 22.5 Intake and Output for Last 24 Hours 05/31/20 06/01/20 06/02/20 23:59 23:59 23:59 Intake Total 601.2 / 601.2 950 / 950 Balance 601.2 / 601.2 950 / 950 Laboratory Results 06/01/20 16:25: WBC 7.8, RBC 4.46 L, Hgb 14.9, Hct 41.7, MCV 93.5, MCH 33.4 H, MCHC 35.7, RDW Std Deviation 53.5 H, RDW Coeff of Hortencia 15.3 H, Plt Count 305, MPV 8.4, Immature Gran % (Auto) 0.300, Neut % (Auto) 57.0, Lymph % (Auto) 32.0, [place] % (Auto) 8.6, Eos % (Auto) 1.3, Baso % (Auto) 0.8, Absolute Neuts (auto) 4.5, Absolute Lymphs (auto) 2.50, Nucleated RBC % 0 06/01/20 16:25: Sodium 130 L, Potassium 4.2, Chloride 96 L, Carbon Dioxide 28.0, Anion Gap 6, BUN 5 L, Creatinine 0.87, Estim Creat Clear Calc 81.25, Est GFR (MDRD) Af Amer 114, Est GFR (MDRD) Non-Af 95, BUN/Creatinine Ratio 5.8 L, Glucose 82, Calcium 8.4 L, Total Bilirubin 0.30, AST 32, ALT 33, Alkaline Phosphatase 50, Total Protein 8.3 H, Albumin 3.6, Globulin 4.7 H, Albumin/Globulin Ratio 0.8 L 06/01/20 16:25: Ethyl Alcohol 334.0 H* 06/01/20 22:30: Urine Opiates Screen NEGATIVE, Urine Methadone Screen NEGATIVE, Ur Barbiturates Screen NEGATIVE, Ur Phencyclidine Scrn NEGATIVE, Ur Amphetamines Screen NEGATIVE, U Methamphetamin-MDMA NEGATIVE, U Benzodiazepines Scrn NEGATIVE, Urine Cocaine Screen NEGATIVE, U Cannabinoids Screen NEGATIVE, Ur Drug Screen Comment Current Medications Acetaminophen (Acetaminophen 500 Mg Tablet) 500 mg PO Q4H PRN PRN PRN Reason: Temp > 100.4 F Last Admin: 06/01/20 22:27 Dose: 500 mg Documented by: Al Hydroxide/Mg Hydroxide (Mag Hydrox/Al Hydrox/Simeth 30 Ml Udc) 30 ml PO Q6H PRN PRN PRN Reason: dyspesia Dicyclomine HCl (Dicyclomine 10 Mg Capsule) 20 mg PO Q6H PRN PRN PRN Reason: abdominal discomfort Fluoxetine HCl (Fluoxetine 10 Mg Capsule) 10 mg PO DAILY [facility] Last Admin: 06/02/20 09:05 Dose: 10 mg Documented by: Folic Acid (Folic Acid 1 Mg Tablet) 1 mg PO DAILY@0800 [facility] Last Admin: 06/02/20 09:05 Dose: 1 mg Documented by: Gabapentin (Gabapentin 300 Mg Capsule) 300 mg PO Q8H PRN PRN PRN Reason: moderate to severe anxiety Hydroxyzine Pamoate (Hydroxyzine Adelaida 25 Mg Capsule) 50 mg PO Q4H PRN PRN PRN Reason: mild anxiety Lisinopril (Lisinopril 10 Mg Tablet) 10 mg PO DAILY [facility] Last Admin: 06/02/20 09:05 Dose: 10 mg Documented by: Loperamide HCl (Loperamide 2 Mg Capsule) 2 mg PO Q4H PRN PRN PRN Reason: LOOSE STOOLS Nicotine (Nicotine 21 Mg Patch) 21 mg TD DAILY [facility] Last Admin: 06/02/20 09:05 Dose: 21 mg Documented by: Nutritional Formula (Lactose Free) (Ensure Enlive 120 Ml Liquid) 120 ml PO 4X/DAY [facility] Last Admin: 06/02/20 14:29 Dose: 120 ml Documented by: Ondansetron HCl (Ondansetron 8 Mg Tablet) 8 mg PO Q8H PRN PRN PRN Reason: NAUSEA Pantoprazole Sodium (Pantoprazole Sodium 20 Mg Tablet) 20 mg PO DAILY PRN PRN PRN Reason: reflux Phenobarbital (Phenobarbital 32.4 Mg Tablet) 97.2 mg PO Q4H [facility]; Taper Stop: 06/06/20 06:29 Last Admin: 06/02/20 14:29 Dose: 97.2 mg Documented by: Senna (Senna Tablet) 2 tablet PO QHS PRN PRN Reason: Constipation Sodium Chloride (0.9% Saline Lock 10 Ml Syringe) 10 - 40 ml IV UD PRN PRN Reason: SALINE FLUSH Last Admin: 06/01/20 22:26 Dose: 10 ml Documented by: Thiamine HCl ([facility] Hydrochloride 100 Mg [facility]t) [facility] Last Admin: 06/02/20 09:05 Dose: 100 mg Documented by: Trazodone HCl (Trazodone 100 Mg Tablet) 100 mg PO QHS PRN PRN Reason: INSOMNIA Last Admin: 06/01/20 22:27 Dose: 100 mg Documented by: STROKE Vital Signs/Narrative: Vital Signs Temp Pulse Resp BP Pulse Ox 06/02/20 12:45 98.4 F 103 H 16 128/77 H 98 Assessment/Plan Hospitalist note: I am seeing this patient in conjunction with Aquilino Mejía. I independently seen and examined the patient. Progress note above and laboratory data reviewed and I concur with the above treatment plan. Patient seen and examined. Today, is feeling better. Last drink was yesterday before admission. Today, denies any significant withdrawal symptoms. His vital signs are stable. - Physical Exam General: Alert, Oriented x3, Cooperative, No apparent distress. HEENT: Atraumatic, PERRLA, EOMI. Neck: Supple, No JVD, Negative Carotid Bruits, Trachea Midline, Thyroid Normal. Lungs: Clear to auscultation, Normal air movement, No rhonchi, No wheeze, No rales. Cardiovascular: Regular rate, Regular Rhythm, Normal S1, Normal S2, PMI Normal. Abdomen: Bowel Sounds Present, Soft, Non Tender, Non-Distended, No Hepato-splenomegaly. Extremities: No clubbing, No cyanosis, No edema Skin: No rashes, No breakdown Neurological: Cranial nerves are intact, neuro grossly intact Vital Signs are stable. Assessment and plan: #1 acute alcohol intoxication/withdrawal: Admission alcohol was 334. Urine drug screen was negative. LFT was unremarkable. Patient is on phenobarbital taper, thiamine folic acid, as needed Bentyl, gabapentin, Imodium, Vistaril, Zofran and trazodone. His vital signs are stable. Plan to continue same treatment, consult 180 program. #2 hyponatremia: It is chronic secondary to chronic liver disease. Sodium is at baseline. #3 other chronic medical problems: Stable, continue current medications as above. This note was generated with [employer] dictation software. It may contain incorrect words, spelling, and punctuation that were not noted in checking the note before signing. Inpatient E&M: 44807 Subs Hosp L2
[2020-06-02 12:45] VITALS: BP 128/77; PULSE 103; RESP 16; TEMP 36.9; O2SAT 98
[2020-06-02 18:00] VITALS: BP 150/90; PULSE 86; RESP 16; TEMP 36.7; O2SAT 98
[2020-06-02 20:00] VITALS: BP 138/86; PULSE 102; RESP 18; TEMP 36.8; O2SAT 97
[2020-06-02] MEDS: 0.9% Saline Lock 10 ML Syringe IV (20:03)
[2020-06-03 02:26] VITALS: BP 129/90; PULSE 80; RESP 16; TEMP 36.7; O2SAT 94
[2020-06-03] MEDS: Phenobarbital 32.4 MG Tablet 64.8 MG PO ×6 (02:31→22:54)
[2020-06-03] MEDS: Thiamine Hydrochloride 100 MG Tablet PO (08:23)
[2020-06-03] MEDS: Folic Acid 1 MG Tablet PO (08:23)
[2020-06-03] MEDS: FLUoxetine 10 MG Capsule PO (08:25)
[2020-06-03] MEDS: Lisinopril 10 MG Tablet PO (08:25)
[2020-06-03 08:28] VITALS: BP 131/79; PULSE 100; RESP 18; TEMP 36.6; O2SAT 98
--- NOTE | 2020-06-03 10:28 | PCM.PN.HOSP ---
<Aquilino Mejía PA - Last Filed: 06/03/20 10:28> Subjective: Patient is a pleasant 65-year-old male who is resting comfortably in bed, alert and oriented x3. Patient reports no change in symptoms from yesterday; denies fever, N/V/D, chills, seizure-like activity, hallucinations, shortness of breath, chest pain. Patient has treatment plan in place at discharge and is eager to implement plan. Vitals/I&O's: Vital Signs Temp Pulse Resp BP Pulse Ox 97.8 F 100 18 131/79 H 98 06/03/20 08:28 06/03/20 08:28 06/03/20 08:28 06/03/20 08:28 06/03/20 08:28 Oxygen Delivery Method Room Air Weight: 143 lb 11.2 oz Body Mass Index (BMI) 22.5 Intake and Output for Last 24 Hours 06/01/20 06/02/20 06/03/20 23:59 23:59 23:59 Intake Total 601.2 / 601.2 1350 / 1950 900 / 900 Balance 601.2 / 601.2 1350 / 1950 900 / 900 General: Alert, Oriented x3, Cooperative HEENT: Atraumatic, PERRLA, EOMI, Normocephalic Neck: Supple, No JVD, Negative Carotid Bruits Lungs: Clear to auscultation, Normal air movement Cardiovascular: Regular rate, No murmurs Abdomen: Bowel Sounds Present, Soft, Non Tender Extremities: No edema, Capillary Refill Less than 3 Seconds, - - Slight tremor observed in the hands Skin: No rashes, No breakdown Musculoskeletal: No Tenderness to Palpation of Joints or Extremities Neurological: Cranial nerves II-XII grossly intact Psych/Mental Status: Normal Affect, Appropriate Current Medications Acetaminophen (Acetaminophen 500 Mg Tablet) 500 mg PO Q4H PRN PRN PRN Reason: Temp > 100.4 F Last Admin: 06/01/20 22:27 Dose: 500 mg Documented by: Al Hydroxide/Mg Hydroxide (Mag Hydrox/Al Hydrox/Simeth 30 Ml Udc) 30 ml PO Q6H PRN PRN PRN Reason: dyspesia Dicyclomine HCl (Dicyclomine 10 Mg Capsule) 20 mg PO Q6H PRN PRN PRN Reason: abdominal discomfort Fluoxetine HCl (Fluoxetine 10 Mg Capsule) 10 mg PO DAILY [facility] Last Admin: 06/03/20 08:25 Dose: 10 mg Documented by: Folic Acid (Folic Acid 1 Mg Tablet) 1 mg PO DAILY@0800 [facility] Last Admin: 06/03/20 08:23 Dose: 1 mg Documented by: Gabapentin (Gabapentin 300 Mg Capsule) 300 mg PO Q8H PRN PRN PRN Reason: moderate to severe anxiety Hydroxyzine Pamoate (Hydroxyzine Adelaida 25 Mg Capsule) 50 mg PO Q4H PRN PRN PRN Reason: mild anxiety Lisinopril (Lisinopril 10 Mg Tablet) 10 mg PO DAILY [facility] Last Admin: 06/03/20 08:25 Dose: 10 mg Documented by: Loperamide HCl (Loperamide 2 Mg Capsule) 2 mg PO Q4H PRN PRN PRN Reason: LOOSE STOOLS Nicotine (Nicotine 21 Mg Patch) 21 mg TD DAILY [facility] Last Admin: 06/03/20 08:24 Dose: 21 mg Documented by: Nutritional Formula (Lactose Free) (Ensure Enlive 120 Ml Liquid) 120 ml PO 4X/DAY [facility] Last Admin: 06/03/20 08:23 Dose: 120 ml Documented by: Ondansetron HCl (Ondansetron 8 Mg Tablet) 8 mg PO Q8H PRN PRN PRN Reason: NAUSEA Pantoprazole Sodium (Pantoprazole Sodium 20 Mg Tablet) 20 mg PO DAILY PRN PRN PRN Reason: reflux Phenobarbital (Phenobarbital 32.4 Mg Tablet) 64.8 mg PO Q4H [facility]; Taper Stop: 06/06/20 06:29 Last Admin: 06/03/20 06:17 Dose: 64.8 mg Documented by: Senna (Senna Tablet) 2 tablet PO QHS PRN PRN Reason: Constipation Sodium Chloride (0.9% Saline Lock 10 Ml Syringe) 10 - 40 ml IV UD PRN PRN Reason: SALINE FLUSH Last Admin: 06/02/20 20:03 Dose: 10 ml Documented by: Thiamine HCl ([facility]) [facility] Last Admin: 06/03/20 08:23 Dose: 100 mg Documented by: Trazodone HCl (Trazodone 100 Mg Tablet) 100 mg PO QHS PRN PRN Reason: INSOMNIA Last Admin: 06/01/20 22:27 Dose: 100 mg Documented by: STROKE Vital Signs/Narrative: Vital Signs Temp Pulse Resp BP Pulse Ox 06/03/20 08:28 97.8 F 100 18 131/79 H 98 Medical Necessity - Tobacco Use Smoking Status: Current every day smoker Tobacco Use: Cigarettes Assessment/Plan Patient is a 65-year-old male who reported to the ED on 06/01/2020 requesting medical stabilization while with going through alcohol detox. Patient reports no change in symptoms from yesterday denies fever, chills, N/V/D, hallucinations. Slight tremor observed on physical exam, although patient does not notice tremor. Patient spoke to [facility] addiction medicine specialist yesterday after I saw him and has a plan in place upon discharge to enroll in therapy. Possible discharge tomorrow, if not, the following day. 1) Chronic alcohol use disorder with possible acute alcohol withdrawal Assessment - Patient denies hallucinations, seizure-like activity, Fever, N/V/D - Slight tremor in the hands observed on physical exam - Patient appears comfortable and stable Plan - Continue phenobarb taper - Continue to monitor for any change in symptoms 2) Hypertesnion Assessment -131/79, stable Plan - Continue home lisinopril 3) Depression Assessment - Stable - Patient denies any suicidal ideation Plan - Prozac continued 4) Chronic hyponatremia Assessment - Likely due to chronic alcohol abuse Plan - Continue to monitor BMP DVT prophylaxis ? SC heparin Patient seen by Aquilino Mejía PA-C, under the supervision of Dr. Downey. <Wilfredo Downey E - Last Filed: 06/03/20 10:47> Vitals/I&O's: Vital Signs Temp Pulse Resp BP Pulse Ox 97.8 F 100 18 131/79 H 98 06/03/20 08:28 06/03/20 08:28 06/03/20 08:28 06/03/20 08:28 06/03/20 08:28 Oxygen Delivery Method Room Air Weight: 143 lb 11.2 oz Body Mass Index (BMI) 22.5 Intake and Output for Last 24 Hours 06/01/20 06/02/20 06/03/20 23:59 23:59 23:59 Intake Total 601.2 / 601.2 1350 / 1950 900 / 900 Balance 601.2 / 601.2 1350 / 1950 900 / 900 Current Medications Acetaminophen (Acetaminophen 500 Mg Tablet) 500 mg PO Q4H PRN PRN PRN Reason: Temp > 100.4 F Last Admin: 06/01/20 22:27 Dose: 500 mg Documented by: Al Hydroxide/Mg Hydroxide (Mag Hydrox/Al Hydrox/Simeth 30 Ml Udc) 30 ml PO Q6H PRN PRN PRN Reason: dyspesia Dicyclomine HCl (Dicyclomine 10 Mg Capsule) 20 mg PO Q6H PRN PRN PRN Reason: abdominal discomfort Fluoxetine HCl (Fluoxetine 10 Mg Capsule) 10 mg PO DAILY [facility] Last Admin: 06/03/20 08:25 Dose: 10 mg Documented by: Folic Acid (Folic Acid 1 Mg Tablet) 1 mg PO DAILY@0800 [facility] Last Admin: 06/03/20 08:23 Dose: 1 mg Documented by: Gabapentin (Gabapentin 300 Mg Capsule) 300 mg PO Q8H PRN PRN PRN Reason: moderate to severe anxiety Hydroxyzine Pamoate (Hydroxyzine Adelaida 25 Mg Capsule) 50 mg PO Q4H PRN PRN PRN Reason: mild anxiety Lisinopril (Lisinopril 10 Mg Tablet) 10 mg PO DAILY [facility] Last Admin: 06/03/20 08:25 Dose: 10 mg Documented by: Loperamide HCl (Loperamide 2 Mg Capsule) 2 mg PO Q4H PRN PRN PRN Reason: LOOSE STOOLS Nicotine (Nicotine 21 Mg Patch) 21 mg TD DAILY [facility] Last Admin: 06/03/20 08:24 Dose: 21 mg Documented by: Nutritional Formula (Lactose Free) (Ensure Enlive 120 Ml Liquid) 120 ml PO 4X/DAY [facility] Last Admin: 06/03/20 08:23 Dose: 120 ml Documented by: Ondansetron HCl (Ondansetron 8 Mg Tablet) 8 mg PO Q8H PRN PRN PRN Reason: NAUSEA Pantoprazole Sodium (Pantoprazole Sodium 20 Mg Tablet) 20 mg PO DAILY PRN PRN PRN Reason: reflux Phenobarbital (Phenobarbital 32.4 Mg Tablet) 64.8 mg PO Q4H [facility]; Taper Stop: 06/06/20 06:29 Last Admin: 06/03/20 10:38 Dose: 64.8 mg Documented by: Senna (Senna Tablet) 2 tablet PO QHS PRN PRN Reason: Constipation Sodium Chloride (0.9% Saline Lock 10 Ml Syringe) 10 - 40 ml IV UD PRN PRN Reason: SALINE FLUSH Last Admin: 06/02/20 20:03 Dose: 10 ml Documented by: Thiamine HCl (Thiamine Hydrochloride 100 Mg Tablet) [facility] mg PO [facility] Last Admin: 06/03/20 08:23 Dose: 100 mg Documented by: Trazodone HCl (Trazodone 100 Mg Tablet) 100 mg PO QHS PRN PRN Reason: INSOMNIA Last Admin: 06/01/20 22:27 Dose: 100 mg Documented by: STROKE Vital Signs/Narrative: Vital Signs Temp Pulse Resp BP Pulse Ox 06/03/20 08:28 97.8 F 100 18 131/79 H 98 Assessment/Plan Hospitalist note: I am seeing this patient in conjunction with Aquilino Mejía. I independently seen and examined the patient. Progress note above and laboratory data reviewed and I concur with the above treatment plan. Patient is feeling better but still have some hand tremors, minimal shakiness. No other complaints. His vital signs are stable. - Physical Exam General: Alert, Oriented x3, Cooperative, No apparent distress. HEENT: Atraumatic, PERRLA, EOMI. Neck: Supple, No JVD, Negative Carotid Bruits, Trachea Midline, Thyroid Normal. Lungs: Clear to auscultation, Normal air movement, No rhonchi, No wheeze, No rales. Cardiovascular: Regular rate, Regular Rhythm, Normal S1, Normal S2, PMI Normal. Abdomen: Bowel Sounds Present, Soft, Non Tender, Non-Distended, No Hepato-splenomegaly. Extremities: No clubbing, No cyanosis, No edema Skin: No rashes, No breakdown Neurological: Cranial nerves are intact, neuro grossly intact. Hand tremors. Vital Signs are stable. Assessment and plan: #1 acute alcohol intoxication/withdrawal: Admission alcohol was 334. Urine drug screen was negative. LFT was unremarkable. Patient is on phenobarbital taper, thiamine folic acid, as needed Bentyl, gabapentin, Imodium, Vistaril, Zofran and trazodone. His vital signs are stable. He is feeling better but still having some hand tremors and minimal shakiness. Plan to continue same treatment. #2 hyponatremia: It is chronic secondary to chronic liver disease. Sodium is at baseline. #3 other chronic medical problems: Stable, continue current medications as above. This note was generated with [employer] software. It may contain incorrect words, spelling, and punctuation that were not noted in checking the note before signing. Inpatient E&M: 53164 Subs Hosp L2
[2020-06-03 14:30] VITALS: BP 132/93; PULSE 94; RESP 18; TEMP 36.4; O2SAT 97
[2020-06-03 22:43] VITALS: BP 148/89; PULSE 87; RESP 17; TEMP 36.6; O2SAT 95
[2020-06-04] MEDS: Phenobarbital 32.4 MG Tablet 64.8 MG PO ×3 (02:45→11:37)
[2020-06-04 03:10] VITALS: BP 126/84; PULSE 77; RESP 17; TEMP 36.6; O2SAT 95
[2020-06-04 09:10] VITALS: BP 130/84; PULSE 88; RESP 20; TEMP 36.5; O2SAT 96
--- NOTE | 2020-06-04 09:19 | DCINST_ITS ---
- Discharge Diagnoses Current Active Problems: Current Active and Chronic Problems HTN (hypertension) (Chronic) Depression (Chronic) Tobacco dependence (Chronic) Alcohol abuse (Chronic) You will use the following diet at home:: No restrictions Your food should be the consistency of: Regular Your liquids should be the consistency of: Regular/Thin Discharge Activity: Return to Normal Activity Allergies/Adverse Reactions: Allergies No Known Allergies Allergy (Verified 06/01/20 14:57) Medications to take at Discharge Lisinopril [Zestril] 10 mg PO DAILY 06/22/16 Esomeprazole Mag Trihydrate [Nexium] 20 mg PO DAILY PRN PRN 06/01/20 Fluoxetine [Prozac] 10 mg PO DAILY 06/01/20 Primary Care Physician: Renan Joel MD [Primary Care Provider] - Please follow up with your Primary Care Physician in: Within the next week Test Results: Test results from this visit will be discussed in further detail at your follow- up appointment, if applicable. Please Follow Up With: [facility] When: Your scheduled appointment 06/05/2020 Proposed Discharge Date: 06/04/20
--- NOTE | 2020-06-04 09:21 | DS.PCM_ITS ---
<Aquilino Mejía - Last Filed: 06/04/20 09:21> Discharge Date and Diagnosis Date of Admission: 06/01/20 Date of Discharge: 06/04/20 - Secondary Discharge Diagnosis Chronic Problems: Chronic Problems HTN (hypertension) (Chronic) Depression (Chronic) Tobacco dependence (Chronic) Alcohol abuse (Chronic) Hospital Course and Treatment Note from [facility] behavioral medicine specialist Met with patient in room. Introduced self and social insurance administrator role. Patient agreeable to speak with this social insurance administrator. Patient reports to be seeking medical management of withdrawal symptoms, [facility] ([facility] Patient reports substance of choice as beer. Patient reports to drink 25-30 cans day. Patient denies any mental health history of treatment. Patient reports history of abusing alcohol on and off for the past 50 years. Patient reports prior to 3 months ago patient was sober for 2 years. Patient reports to have support from sponsor and local substance abuse resources, [facility]. Patient verbally agreeing to [facility] contract. Will notify [facility] of patient admission when patient is admitted. Marcela HERRERA, PRECIOUS Operations: None Summary of Care Provided: Patient is a 65-year-old male who reported to the ED on 06/01/2020 requesting medical stabilization while with going through alcohol detox. Patient reports no change in symptoms from yesterday denies fever, chills, N/V/D, hallucinations. Tremor observed yesterday not evident on physical exam today. Patient confident that if he is discharged today he will enroll into the [facility] program through [facility] behavioral medicine specialist on 06/05/2020 as scheduled. Patient admits to a strong support network outside the hospital to include his alcohol abuse sponsor and his ex-. Patient can be discharged today after he is seen by Dr. Downey. 1) Chronic alcohol use disorder with possible acute alcohol withdrawal Assessment - Patient has plan in place upon discharge to enroll into addiction medicine program - No tremor or seizure-like activity observed on physical exam - Patient appears comfortable and stable - CIWA-Ar score of 0 Plan - Discharge today - Enroll into [facility] program through [facility] on Friday (06/05/2020) 2) Hypertesnion Assessment -126/84, stable Plan - Lisinopril continued upon discharge 3) Depression Assessment - Stable - Patient denies any suicidal ideation Plan - Prozac continued upon discharge 4) Chronic hyponatremia Assessment - Likely due to chronic alcohol abuse - Stable DVT prophylaxis ? SC heparin Patient seen by Aquilino Mejía PA-C, under the supervision of Dr. Downey. Subjective: Patient is a 65-year-old male comfortably resting in bed and in good spirits, alert and oriented x3. Patient has a plan in place upon discharge to enroll into [facility] program through [facility] specialist. Patient is confident that he will follow through with plan upon discharge. Reports a strong support network through his alcohol abuse sponsor and his ex-. - Physical Exam Vitals/I&O's: Vital Signs Temp Pulse Resp BP Pulse Ox 97.8 F 77 17 126/84 H 95 06/04/20 03:10 06/04/20 03:10 06/04/20 03:10 06/04/20 03:10 06/04/20 03:10 Oxygen Delivery Method Room Air Weight: 143 lb 11.2 oz Body Mass Index (BMI) 22.5 Intake and Output for Last 24 Hours 06/02/20 06/03/20 06/04/20 23:59 23:59 23:59 Intake Total 1350 / 1950 900 / 900 1330 / 1330 Balance 1350 / 1950 900 / 900 1330 / 1330 General: Alert, Oriented x3, Cooperative HEENT: Atraumatic, PERRLA, EOMI, Normocephalic Neck: Supple, No JVD, Negative Carotid Bruits Lungs: Clear to auscultation, Normal air movement Cardiovascular: Regular rate, No murmurs Abdomen: Bowel Sounds Present, Soft, Non Tender Extremities: No edema, Capillary Refill Less than 3 Seconds Skin: No rashes, No breakdown Musculoskeletal: No Tenderness to Palpation of Joints or Extremities Neurological: Cranial nerves II-XII grossly intact Psych/Mental Status: Normal Affect, Appropriate Current Medications Acetaminophen (Acetaminophen 500 Mg Tablet) 500 mg PO Q4H PRN PRN PRN Reason: Temp > 100.4 F Last Admin: 06/01/20 22:27 Dose: 500 mg Documented by: Al Hydroxide/Mg Hydroxide (Mag Hydrox/Al Hydrox/Simeth 30 Ml Udc) 30 ml PO Q6H PRN PRN PRN Reason: dyspesia Dicyclomine HCl (Dicyclomine 10 Mg Capsule) 20 mg PO Q6H PRN PRN PRN Reason: abdominal discomfort Fluoxetine HCl (Fluoxetine 10 Mg Capsule) 10 mg PO DAILY [facility] Last Admin: 06/03/20 08:25 Dose: 10 mg Documented by: Folic Acid (Folic Acid 1 Mg Tablet) 1 mg PO DAILY@0800 [facility] Last Admin: 06/03/20 08:23 Dose: 1 mg Documented by: Gabapentin (Gabapentin 300 Mg Capsule) 300 mg PO Q8H PRN PRN PRN Reason: moderate to severe anxiety Hydroxyzine Pamoate (Hydroxyzine Adelaida 25 Mg Capsule) 50 mg PO Q4H PRN PRN PRN Reason: mild anxiety Lisinopril (Lisinopril 10 Mg Tablet) 10 mg PO DAILY [facility] Last Admin: 06/03/20 08:25 Dose: 10 mg Documented by: Loperamide HCl (Loperamide 2 Mg Capsule) 2 mg PO Q4H PRN PRN PRN Reason: LOOSE STOOLS Nicotine (Nicotine 21 Mg Patch) 21 mg TD DAILY [facility] Last Admin: 06/03/20 08:24 Dose: 21 mg Documented by: Nutritional Formula (Lactose Free) (Ensure Enlive 120 Ml Liquid) 120 ml PO 4X/DAY [facility] Last Admin: 06/03/20 22:54 Dose: 120 ml Documented by: Ondansetron HCl (Ondansetron 8 Mg Tablet) 8 mg PO Q8H PRN PRN PRN Reason: NAUSEA Pantoprazole Sodium (Pantoprazole Sodium 20 Mg Tablet) 20 mg PO DAILY PRN PRN PRN Reason: reflux Phenobarbital (Phenobarbital 32.4 Mg Tablet) 64.8 mg PO Q6H [facility]; Taper Stop: 06/06/20 06:29 Last Admin: 06/04/20 06:18 Dose: 64.8 mg Documented by: Senna (Senna Tablet) 2 tablet PO QHS PRN PRN Reason: Constipation Sodium Chloride (0.9% Saline Lock 10 Ml Syringe) 10 - 40 ml IV UD PRN PRN Reason: SALINE FLUSH Last Admin: 06/02/20 20:03 Dose: 10 ml Documented by: Thiamine HCl ([facility] Hydro[facility] Last Admin: 06/03/20 08:23 Dose: 100 mg Documented by: Trazodone HCl (Trazodone 100 Mg Tablet) 100 mg PO QHS PRN PRN Reason: INSOMNIA Last Admin: 06/01/20 22:27 Dose: 100 mg Documented by: Discharge Diet: No Restrictions Discharge Activity: Return to Normal Activity Home Medications: Medications to take at Discharge Lisinopril [Zestril] 10 mg PO DAILY 06/22/16 Esomeprazole Mag Trihydrate [Nexium] 20 mg PO DAILY PRN PRN 06/01/20 Fluoxetine [Prozac] 10 mg PO DAILY 06/01/20 Primary Care Physician: Renan Joel MD [Primary Care Provider] - Please follow up with your Primary Care Physician in: Within the next week Please Follow Up With: [facility] When: Your scheduled appointment 06/05/2020 Disposition: Home Minutes spent on discharge:: 35 Patient Condition:: Good Medical Necessity - Tobacco Use Smoking Status: Current every day smoker Tobacco Use: Cigarettes Meaningful Use Info Meaningful Use Diagnoses (Choose all that apply): None applicable <EugenepilloelianeRustyvitaly E - Last Filed: 06/04/20 10:41> Discharge Date and Diagnosis - Secondary Discharge Diagnosis Chronic Problems: Chronic Problems HTN (hypertension) (Chronic) Depression (Chronic) Tobacco dependence (Chronic) Alcohol abuse (Chronic) Hospital Course and Treatment Summary of Care Provided: Hospitalist note: Discharge summary above reviewed and I concur with above discharge treatment plan. Patient was admitted for acute alcohol intoxication/withdrawal for medical stabilization. On admission, blood alcohol level was 334. Urine drug screen was negative. Routine blood work was unremarkable except for hyponatremia which is chronic secondary to alcohol abuse. LFT was normal. Patient was admitted to [facility] floor, started on alcohol withdrawal protocol wi th tapering phenobarbital, thiamine and folic acid supplement, as needed Bentyl, gabapentin, Imodium, Vistaril, Zofran and trazodone. Patient did very well. Initially, he had significant amount of hand tremors and shakiness but there was no delirium tremens. With treatment, his symptoms improved. And there was improved. Patient feels much better and he feels confident that he will go home and stay sober. Patient was evaluated by [facility] program and plan to follow-up with them as outpatient. Patient discharged home in a stable medical condition, continued on his previous home medications without any changes, plan to follow- up with [facility] program as outpatient, recommended follow-up with PCP in 1 week. - Physical Exam General: Alert, Oriented x3, Cooperative, No apparent distress. HEENT: Atraumatic, PERRLA, EOMI. Neck: Supple, No JVD, Negative Carotid Bruits, Trachea Midline, Thyroid Normal. Lungs: Clear to auscultation, Normal air movement, No rhonchi, No wheeze, No rales. Cardiovascular: Regular rate, Regular Rhythm, Normal S1, Normal S2, PMI Normal. Abdomen: Bowel Sounds Present, Soft, Non Tender, Non-Distended, No Hepato- splenomegaly. Extremities: No clubbing, No cyanosis, No edema Skin: No rashes, No breakdown Neurological: Cranial nerves are intact, neuro grossly intact Vital Signs are stable. This note was generated with [employer] dictation software. It may contain incorrect words, spelling, and punctuation that were not noted in checking the note before signing. - Physical Exam Vitals/I&O's: Vital Signs Temp Pulse Resp BP Pulse Ox 97.7 F L 88 20 H 130/84 H 96 06/04/20 09:53 06/04/20 09:56 06/04/20 09:56 06/04/20 09:53 06/04/20 09:56 Oxygen Delivery Method Room Air Weight: 143 lb 11.2 oz Body Mass Index (BMI) 22.5 Intake and Output for Last 24 Hours 06/02/20 06/03/20 06/04/20 23:59 23:59 23:59 Intake Total 1350 / 1950 900 / 900 1330 / 1330 Balance 1350 / 1950 900 / 900 1330 / 1330 Current Medications Acetaminophen (Acetaminophen 500 Mg Tablet) 500 mg PO Q4H PRN PRN PRN Reason: Temp > 100.4 F Last Admin: 06/01/20 22:27 Dose: 500 mg Documented by: Al Hydroxide/Mg Hydroxide (Mag Hydrox/Al Hydrox/Simeth 30 Ml Udc) 30 ml PO Q6H PRN PRN PRN Reason: dyspesia Dicyclomine HCl (Dicyclomine 10 Mg Capsule) 20 mg PO Q6H PRN PRN PRN Reason: abdominal discomfort Fluoxetine HCl (Fluoxetine 10 Mg Capsule) 10 mg PO DAILY [facility] Last Admin: 06/04/20 09:43 Dose: 10 mg Documented by: Folic Acid (Folic Acid 1 Mg Tablet) 1 mg PO DAILY@0800 [facility] Last Admin: 06/04/20 09:42 Dose: 1 mg Documented by: Gabapentin (Gabapentin 300 Mg Capsule) 300 mg PO Q8H PRN PRN PRN Reason: moderate to severe anxiety Hydroxyzine Pamoate (Hydroxyzine Adelaida 25 Mg Capsule) 50 mg PO Q4H PRN PRN PRN Reason: mild anxiety Lisinopril (Lisinopril 10 Mg Tablet) 10 mg PO DAILY [facility] Last Admin: 06/04/20 09:43 Dose: 10 mg Documented by: Loperamide HCl (Loperamide 2 Mg Capsule) 2 mg PO Q4H PRN PRN PRN Reason: LOOSE STOOLS Nicotine (Nicotine 21 Mg Patch) 21 mg TD DAILY [facility] Last Admin: 06/04/20 09:42 Dose: 21 mg Documented by: Nutritional Formula (Lactose Free) (Ensure Enlive 120 Ml Liquid) 120 ml PO 4X/DAY [facility] Last Admin: 06/04/20 09:42 Dose: 120 ml Documented by: Ondansetron HCl (Ondansetron 8 Mg Tablet) 8 mg PO Q8H PRN PRN PRN Reason: NAUSEA Pantoprazole Sodium (Pantoprazole Sodium 20 Mg Tablet) 20 mg PO DAILY PRN PRN PRN Reason: reflux Phenobarbital (Phenobarbital 32.4 Mg Tablet) 64.8 mg PO Q6H [facility]; Taper Stop: 06/06/20 06:29 Last Admin: 06/04/20 06:18 Dose: 64.8 mg Documented by: Senna (Senna Tablet) 2 tablet PO QHS PRN PRN Reason: Constipation Sodium Chloride (0.9% Saline Lock 10 Ml Syringe) 10 - 40 ml IV UD PRN PRN Reason: SALINE FLUSH Last Admin: 06/02/20 20:03 Dose: 10 ml Documented by: Thiamine HCl ([facility] Hydrochloride 100 Mg [facility]t) [facility] Last Admin: 06/04/20 09:42 Dose: 100 mg Documented by: Trazodone HCl (Trazodone 100 Mg Tablet) 100 mg PO QHS PRN PRN Reason: INSOMNIA Last Admin: 06/01/20 22:27 Dose: 100 mg Documented by: Disposition: Home Minutes spent on discharge:: 27 Patient Condition:: Stable Meaningful Use Info Meaningful Use Diagnoses (Choose all that apply): None applicable Inpatient E&M: 22625 [facility]
[2020-06-04] MEDS: Folic Acid 1 MG Tablet PO (09:42)
[2020-06-04] MEDS: Thiamine Hydrochloride 100 MG Tablet PO (09:42)
[2020-06-04] MEDS: FLUoxetine 10 MG Capsule PO (09:43)
[2020-06-04] MEDS: Lisinopril 10 MG Tablet PO (09:43)
[2020-06-04 09:53] VITALS: BP 130/84; PULSE 88; RESP 20; TEMP 36.5; O2SAT 96
[2020-06-04 09:56] VITALS: PULSE 88; RESP 20; O2SAT 96
[2020-06-04 11:25] VITALS: BP 149/88; PULSE 88; RESP 20; TEMP 36.4; O2SAT 97
== END 2020-06-04 11:49 | disposition home or self-care (01) | DRG 775 ==
LOC: ED 16:42 → MS3 18:08
PROVIDERS: Admitting Provider Internal Medicine; Emergency Provider Emergency Medicine; PCP Family Medicine; Visit Provider Hospitalist
DX: F10.139 Alcohol abuse with withdrawal, unspecified (principal); Y90.9 Presence of alcohol in blood, level not specified; E87.1 Hypo-osmolality and hyponatremia; I10 Essential (primary) hypertension; F32.9 Major depressive disorder, single episode, unspecified; Z79.899 Other long term (current) drug therapy; F17.210 Nicotine dependence, cigarettes, uncomplicated
CPT/HCPCS: 80053; 80307; 82077; 85025; 97802; 99285; 99406; J7030; A4216; J3490

== ENCOUNTER 2020-11-17 16:51 | Observation (INO) | payer MEDICAID, SELFPAY ==
[2020-11-17 16:52] VITALS: BP 105/79; PULSE 109; RESP 16; TEMP 37.3; O2SAT 98; BMI 24.3
--- NOTE | 2020-11-17 17:11 | EX.ED.SAOD ---
HPI History of Present Illness Chief Complaint: Substance Abuse Informant: patient and friend Onset/Context/Timing Onset: Month(s) Context: Sudden Onset Timing: Continuous Quality: Consuming 18 to 30 cans of beer per day Location: Not applicable Current Severity: Severe Maximum Severity: Severe Worsened by: Patient is uncertain what made him resume drinking Relieved by: Nothing Associated Symptoms Associated Symptoms: Positive for tremor (In the morning) and palpatations (The morning); Negative for vomiting*, diarrhea*, fever*, rash*, seizure, change in mental status, trauma, sex for drugs*, suicidal ideation, homicidal ideation and *HIV Risk Factors:Consider testing if last test > 6 months Narrative Narrative: Patient is a 65-year-old male who admits he is an alcoholic. Last detox program was 9 months ago. He was seen at [facility]. He was doing well until 1 month ago. He does not know what precipitated him to start drinking again. He discontinued his Prozac 3 weeks ago. He does report palpitations and tremors in the morning upon awakening. He states he drinks between 18 and 3012 ounce cans of beer per day. He denies hematemesis, melena or hematochezia. He denies hematuria. He denies bruising easily. He denies headache, visual, ocular auditory symptoms. He denies cardiac or respiratory symptoms. He denies paresthesia, anesthesia or motor weakness. Prior similar symptoms: Yes Recent Illness/Hospitalization: No PFSH PFSH Home Medications lisinopril [Zestril] 10 mg PO DAILY 06/22/16 [History Last Taken 05/31/20] esomeprazole magnesium 20 mg PO DAILY PRN PRN 06/01/20 [History Last Taken 05/31/20] fluoxetine 10 mg PO DAILY 06/01/20 [History Last Taken 05/31/20] Allergy/AdvReac Type Severity Reaction Status Date / Time No Known Allergies Allergy Verified 11/17/20 16:52 Social History (Updated 11/17/20 @ 17:[address] Merlin Cortez MD) household members: none housing: apartment Smoking Status: Current every day smoker alcohol intake: current alcohol intake frequency: 3 or more drinks per day substance use type: does not use ROS ROS ED Constitutional Constitutional ED: Reports sweats; Denies chills, fever(s), subjective or weight loss Eyes Eyes: Denies blurry vision, change in vision or diplopia ENT ENT ED: Denies ear pain, rhinorrhea or sore throat Cardiovascular Cardiovascular: Denies chest pain, orthopnea, palpitations or racing heartbeat Respiratory/Chest Respiratory/Chest: Denies cough, dyspnea, dyspnea on exertion or orthopnea Gastrointestinal Gastrointestinal: Denies abdominal pain, diarrhea, melena, nausea or vomiting Genitourinary Genitourinary ED: Denies dysuria, LMP (females 10-50) or urinary frequency Musculoskeletal Musculoskeletal: Denies arthralgias, back pain or myalgias Integumentary Denies rash Neurologic Neurologic: Denies headache(s), paresthesias or weakness Psychiatric Psychiatric: Reports depression; Denies suicidal ideation Hematologic/Lymphatic Hematologic/Lymphatic: Denies easy bleeding or easy bruising EXAM Physical Exam Const Vital Signs: 11/17/20 16:52 Temperature 99.1 F Temperature Source Temporal Pulse Rate 109 H Respiratory Rate 16 Blood Pressure 105/79 Blood Pressure Mean 87 Pulse Ox 98 Oxygen Delivery Method Room Air Positive well nourished and well developed General Appearance ED: well developed HEENT Reports TM's clear and moist mucous membranes HEENT Narrative: Nares patent. Ears normal. atraumatic Tympanic Membrane ED: Yes TM's clear Eyes PERRL and EOMs intact bilaterally General Eye ED: Negative for pale conjunctiva or scleral icterus Neck no lymphadenopathy, supple and no JVD Lymph Lymphatic: no lymphadenopathy noted and lymphadenopathy Chest Wall inspection of chest normal Resp normal respiratory effort and clear to auscultation bilaterally Cardio regular rhythm, S1 normal heart sound, S2 normal heart sound and no murmurs Rate: tachycardic GI soft to palpation, non-tender, non-distended and no masses Palpation: tender Back/Spine no CVA tenderness Cervical Spine: Negative for cervical spine tenderness Thoracic Spine / Upper Back: Negative for thoracic spinal tenderness Extremity General Extremety ED: Negative for edema or tenderness General Extremity: Negative for edema Neuro oriented x3, CN's II-XII intact bilaterally and no sensory deficits noted Sensorium / Orientation: alert Psych mental status grossly normal and thought process normal Skin General Skin Exam: jaundice Lesions: no lesions Rashes: no rashes MDM MDM MDM Narrative Medical decision making narrative: Patient here for alcohol detox. Patient does have symptoms of withdrawal in the morning. Patient was treated with phenobarb. Admitting labs were ordered. Spoke with the hospitalist Dr. Marquez who will see patient admit to addiction medicine for/unit. Rhythm Strip Rhythm Strip: Sinus Tach Rate: 106 Discharge Plan Triage Chief Complaint: Substance Abuse ED Provider: Merlin Cortez Dx/Rx/DC Orders Clinical Impression: Alcohol addiction, Alcohol withdrawal Prescriptions: No Action lisinopril [Zestril] 10 MG tablet 10 mg PO DAILY RF: 0 fluoxetine 10 MG capsule 10 mg PO DAILY RF: 0 esomeprazole magnesium 20 MG capsule 20 mg PO DAILY PRN PRN (Reason: reflux) RF: 0 Primary Care Provider: Renan Joel Referrals: Renan Joel MD [Primary Care Provider] - Disposition Disposition: Acute Care Hospital [facility]
[2020-11-17 17:26] VITALS: BP 139/100; PULSE 107; RESP 12; TEMP 36.8; O2SAT 97
--- NOTE | 2020-11-17 17:32 | HP.PCM.HOS_ITS ---
HPI - General HPI Narrative WOODROW GIBBONS, is a 65 M who presented to the emergency department at [facility] on 11/17/2020 with request for alcohol detox. The patient states he has been through detox before, most recently in May of this year. He states he maintained sobriety for a period of time but then started drinking for no apparent reason. He states he is unclear why he started again but is currently drinking anywhere from 18 to 3012 ounce beers daily. He also smokes a pack of cigarettes a day. He denies any other substance abuse. His last drink was approximately 2 hours before presentation. He is currently having some tachycardia and mild tremor. He had been on Prozac up until 3 weeks ago but stopped this spontaneously and again is not clear why he did he just stopped taking it. He reports daily palpitations and tremors in the morning upon wakening secondary to withdrawal. He would like inpatient admission at discharge if possible. He was given a dose of phenobarbital in the emergency department and will be admitted to medical surgical floor for continued therapy for acute alcohol withdrawal. All lab is pending on admission. [facility] Medical History (Updated 11/17/20 @ 17:36 by Denia Marquez) Alcohol addiction Depression GERD (gastroesophageal reflux disease) HTN (hypertension) Tobacco dependence Home Medications lisinopril [Zestril] 10 mg PO DAILY 06/22/16 [History Last Taken 05/31/20] esomeprazole magnesium 20 mg PO DAILY PRN PRN 06/01/20 [History Last Taken 05/31/20] fluoxetine [Prozac] 30 mg PO DAILY 11/17/20 [History Last Taken Unknown] Allergy/AdvReac Type Severity Reaction Status Date / Time No Known Allergies Allergy Verified 11/17/20 16:52 Family History (Updated 11/17/20 @ 17:[address] Marcy Marquez DO) Other Dementia Thyroid disorder Social History household members: none housing: apartment Smoking Status: Current every day smoker tobacco type: cigarettes alcohol intake: current alcohol intake frequency: 3 or more drinks per day substance use type: does not use ROS Constitutional Constitutional: Denies anorexia, change in weight, chills, fatigue, fever(s), malaise, night sweats, weakness or other Eyes Eyes: Denies blurry vision, change in eye color, change in vision, discharge from eye(s), double vision, erythema, eye pain, loss of vision or other ENT HEENT: Denies abnormal hearing, dysphagia, ear pain, epistaxis, headache(s), hearing loss, nasal congestion, nasal discharge, post nasal drip, sinus pressure, sore throat or other Cardiovascular Cardiovascular: Denies chest pain, claudication, dyspnea on exertion, edema, lightheadedness, orthopnea, palpitations, paroxysmal nocturnal dyspnea, rapid heart rate, syncope or other Respiratory/Chest Respiratory/Chest: Reports cough and productive cough; Denies dyspnea, excessive phlegm production, hemoptysis, shortness of breath at rest, shortness of breath with exertion, wheezing or other Gastrointestinal Gastrointestinal: Reports nausea; Denies abdominal pain, coffee ground emesis, constipation, diarrhea, dyspepsia, hematemesis, hematochezia, loose stools, melena, vomiting or other Genitourinary Genitourinary: Denies burning urination, difficulty urinating, dysuria, hematuria, nocturia, urinary frequency, urinary hesitancy, urinary incontinence, urinary urgency or other Musculoskeletal Musculoskeletal: Denies arthralgias, back pain, joint pain, joint stiffness, joint swelling, myalgias, neck pain or other Neurologic Neurologic: Reports tremor(s); Denies abnormal gait, abnormal speech, confusion, disequilibrium, dizziness, focal weakness, headache(s), numbness, paresthesias, seizure-like activity, seizures, syncope, tingling or other Psychiatric Psychiatric: Reports depression; Denies anxiety, homicidal ideation, suicidal ideation or other Endocrine Endocrinology: Denies change in body appearance, cold intolerance, excessive sweating, heat intolerance, polydipsia, polyuria or other Hematologic/Lymphatic Hematologic/Lymphatic: Denies anemia, easy bleeding, easy bruising, lymphadenopathy or other Allergic/Immunologic Allergic/Immunologic: Denies rhinitis, hives, eczemia, asthma or other Vital Signs Vital Signs Vital Signs: 11/17/20 16:52 Temperature 99.1 F Temperature Source Temporal Pulse Rate 109 H Respiratory Rate 16 Blood Pressure 105/79 Blood Pressure Mean 87 Pulse Ox 98 Oxygen Delivery Method Room Air Weight Weight: 68.3 kg Body Mass Index (BMI) 24.3 Physical Exam Const alert, oriented x3, no apparent distress and average body habitus Constitutional Narrative: Upper middle-aged white male who appears older than stated age, sitting up in bed, appears comfortable, has 2 visitors at the bedside, nursing at the bedside, nontoxic, very minimally tremulous General Appearance: cooperative HEENT normocephalic, head/scalp atraumatic, hearing grossly normal bilaterally and moist oral mucous membranes HEENT Narrative: Dentition fair, Mallampati 2 Eyes PERRL, EOMs intact bilaterally and conjunctivae normal Neck no lymphadenopathy, supple and no JVD Resp normal respiratory effort, no retractions and no use of accessory muscles Resp Narrative: Diffusely diminished with occasional end expiratory wheeze Auscultation: wheezes; Negative for crackles, rales or rhonchi Cardio regular rhythm, S1 normal heart sound, S2 normal heart sound, no murmurs, no rub, no gallops, no clicks and no JVD Cardio Narrative: Mild tachycardia GI normal to inspection, nondistended, normoactive bowel sounds, soft to palpation, non-tender, non-distended and hepatosplenomegaly Extremity Extremity Narrative: Bilateral clubbing with nicotine stains on bilateral hands, no cyanosis or edema Peripheral Pulses: Yes pulses 2+ throughout Skin no wounds, skin turgor normal, no jaundice, no petechiae and no mottling Skin Narrative: Bilateral feet with tinea pedis Neuro oriented x3, CN's II-XII intact bilaterally, moves all extremities and no focal motor deficits Sensorium / Orientation: awake, alert, oriented to person, oriented to place and oriented to time Speech: speech normal Motor Exam: strength 5/5 throughout Psych Mood & Affect: anxious Results Rhythm Strip Rhythm Strip: Sinus Tach Rate: 106 Assessment & Plan Assessment/Plan (1) Alcohol withdrawal: (2) Alcohol abuse: (3) HTN (hypertension): QUALIFIERS: Hypertension type: essential hypertension Qualified Code(s): I10 - Essential (primary) hypertension (4) Tobacco dependence: (5) Depression: QUALIFIERS: Depression Type: unspecified Qualified Code(s): F32.9 - Major depressive disorder, single episode, unspecified PLAN: Acute alcohol withdrawal -Phenobarbital taper--> first dose given in emergency department -Supportive medications -Thiamine and folate -Last drink was 2 hours prior to presentation and patient states he typically drinks 18 to 3012 ounce beers daily -Patient would like residential treatment -180 consultation Hypertension -Continue home lisinopril Depression -Patient had been on Prozac -We will restart Prozac at this time Tobacco abuse -Recommend cessation -Nicotine patch available DVT prophylaxis -Early ambulation protocol -Low risk CODE STATUS -Full code
[2020-11-17] MEDS: Phenobarbital 32.4 MG Tablet 97.2 MG PO (17:33)
[2020-11-17 17:34] VITALS: BP 139/100; PULSE 107; RESP 16; TEMP 36.8; O2SAT 97
[2020-11-17 17:36] LABS: Absolute Lymphocyte Count 2.33 X10^3/uL (0.83-4.51); Absolute Neutrophil Count 4.7 X10^3/uL (2.0-7.7); Basophil# 0.05 X10^3/uL; Basophil% 0.6 % (0-1); Eosinophil# 0.08 X10^3/uL; Hematocrit 41.6 % (40-54); Hemoglobin 15.2 g/dL (13.0-16.5); Lymphocyte # 2.33 X10^3/ul (0.83-4.51); Lymphocyte % 29.8 % (19-41); Mean Corp Hgb Conc 36.5 g/dL (32-36); Mean Corpuscular Hgb 32.9 pg (27.0-32.0); Mean Platelet Vol. 7.6 fl (6.2-12.0); Monocyte# 0.62 X10^3/uL; Monocyte% 7.9 % (0-10); NRBC Flagged by Analyzer 0 % (0-5); Neutrophil # 4.71 X10^3/uL (2.7-7.7); Neutrophil % 60.4 % (47-70); Platelet Count 418 K/mm3 (150-450); RBC Distribution Width CV 14.5 % (11.6-14.6); RBC Distribution Width SD 47.6 fl (35.1-43.9); Red Blood Count 4.62 M/mm3 (4.6-6.2); White Blood Count 7.8 K/mm3 (4.4-11.0)
--- NOTE | 2020-11-17 17:48 | CM.ED ---
SOCIAL WORK Reason for Consult: Substance abuse-requesting detox from alcohol Patient completed [facility] agreement with nursing. Patient has been through detox before and relapsed. Patient denies any questions or concerns. Call to Treatment Navigator, Gisel to update on admission to [facility]. Gisel to be in tomorr or Friday to complete assessment. Plan: LUIS A Alegria MSW, PRINCIPAL CLOUD ARCHITECT
[2020-11-17 17:53] LABS: ALB/GLOB Ratio 0.8 RATIO (0.9-2.4); AST(SGOT) 27 U/L (15-37); Alanine Aminotransfer ALT/SGPT 30 U/L (16-61); Albumin, Serum 3.8 g/dL (3.2-5.0); Alkaline Phosphatase 66 U/L (45-117); Anion Gap 7 (5-15); BUN 7 mg/dL (7-18); BUN/Creat Ratio 8.8 RATIO (10-20); Calcium,Total 8.6 mg/dL (8.5-10.1); Chloride 94 mmol/L (98-107); EST Glomerular Filtration Rate 104 mL/min (>60); Est Glom Filt Rate - Afr Amer 125 mL/min (>60); Estimated Creatinine Clearance 85.29 ml/min; Globulin 4.6 g/dL (2.2-4.2); Glucose 101 mg/dL (74-106); Potassium 4.3 mmol/L (3.5-5.1); Protein, Total 8.4 g/dL (6.4-8.2); Sodium Level 128 mmol/L (136-145)
[2020-11-17] MEDS: 0.9% Normal Saline 1,000 ML 100 ML IV (20:49)
[2020-11-17 20:52] VITALS: BMI 24.3
[2020-11-17] MEDS: 0.9% Saline Lock 10 ML Syringe IV (21:14)
[2020-11-17] MEDS: Nystatin Powder 15gm Bottle 1 APPLIC TOPICAL (21:14)
[2020-11-17] MEDS: Phenobarbital 32.4 MG Tablet PO (21:15)
[2020-11-17 21:20] VITALS: PULSE 116
[2020-11-17 21:21] VITALS: BP 132/74; PULSE 100; RESP 24; TEMP 36.8; O2SAT 95
--- NOTE | 2020-11-17 22:31 | PCS.PANDOC ---
PANDEMIC DOCUMENTATION INITIATED: Date: 11/17/2020 Time: 1830
[2020-11-18] VITALS (7 sets, daily range): BP systolic 131–147; BP diastolic 70–95; PULSE 88–100; RESP 18–24; TEMP 36.8–36.9; O2SAT 92–97
[2020-11-18] MEDS: Phenobarbital 32.4 MG Tablet PO ×6 (01:41→20:55)
[2020-11-18 06:07] LABS: Amphetamine Urine VISTA NEGATIVE (<1000 ng/mL); Barbiturate Urine VISTA POSITIVE (< 200 ng/mL); Benzodiazepine Urine VISTA NEGATIVE (< 200 ng/mL); Cocaine Urine VISTA NEGATIVE (< 300 ng/mL); Ecstacy Urine VISTA NEGATIVE (< 500 ng/mL); Methadone Urine VISTA NEGATIVE (< 300 ng/mL); PCP Urine VISTA NEGATIVE (< 25 ng/mL); THC Urine VISTA NEGATIVE (< 50 ng/mL); Vista UDS pH Range 7
[2020-11-18 06:50] LABS: Absolute Lymphocyte Count 1.45 X10^3/uL (0.83-4.51); Absolute Neutrophil Count 6.7 X10^3/uL (2.0-7.7); Basophil# 0.05 X10^3/uL; Basophil% 0.6 % (0-1); Eosinophil# 0.07 X10^3/uL; Eosinophils% 0.8 % (0-5); Hematocrit 38.4 % (40-54); Lymphocyte # 1.45 X10^3/ul (0.83-4.51); Lymphocyte % 16.2 % (19-41); Mean Corp Hgb Conc 36.5 g/dL (32-36); Mean Corpuscular Hgb 32.9 pg (27.0-32.0); Mean Corpuscular Volume 90.1 fL (80-94); Monocyte# 0.65 X10^3/uL; Monocyte% 7.3 % (0-10); NRBC Flagged by Analyzer 0 % (0-5); Neutrophil # 6.68 X10^3/uL (2.7-7.7); Neutrophil % 74.7 % (47-70); Platelet Count 372 K/mm3 (150-450); RBC Distribution Width CV 14.6 % (11.6-14.6); RBC Distribution Width SD 48.2 fl (35.1-43.9); Red Blood Count 4.26 M/mm3 (4.6-6.2); White Blood Count 8.9 K/mm3 (4.4-11.0)
[2020-11-18] MEDS: 0.9% Saline Lock 10 ML Syringe IV (07:10)
[2020-11-18] MEDS: Folic Acid 1 MG Tablet PO (08:04)
[2020-11-18] MEDS: Thiamine Hydrochloride 100 MG Tablet PO (08:04)
[2020-11-18 08:17] LABS: ALB/GLOB Ratio 0.8 RATIO (0.9-2.4); AST(SGOT) 25 U/L (15-37); Alanine Aminotransfer ALT/SGPT 29 U/L (16-61); Albumin, Serum 3.3 g/dL (3.2-5.0); Alkaline Phosphatase 61 U/L (45-117); Anion Gap 3 (5-15); BUN 10 mg/dL (7-18); BUN/Creat Ratio 13.6 RATIO (10-20); Calcium,Total 8.6 mg/dL (8.5-10.1); Chloride 97 mmol/L (98-107); Creatinine, Serum 0.74 mg/dL (0.70-1.30); EST Glomerular Filtration Rate 114 mL/min (>60); Est Glom Filt Rate - Afr Amer 138 mL/min (>60); Globulin 4.3 g/dL (2.2-4.2); Glucose 103 mg/dL (74-106); Magnesium 2.1 mg/dL (1.6-2.6); Phosphorus 3.9 mg/dL (2.5-4.9); Potassium 4.4 mmol/L (3.5-5.1); Protein, Total 7.6 g/dL (6.4-8.2); Sodium Level 129 mmol/L (136-145)
--- NOTE | 2020-11-18 08:58 | PCM.PN.HOSP ---
Subjective Subjective Patient was seen and examined. Denied any new complaints. Objective Data Objective Data Vital Signs: Vital Signs Temp Pulse Resp BP Pulse Ox 98.4 F 98 18 146/82 H 96 11/18/20 07:59 11/18/20 07:59 11/18/20 07:59 11/18/20 07:59 11/18/20 07:59 Oxygen Delivery Method Room Air Weight: 69.6 kg Body Mass Index (BMI) 24.3 Intake & Output: Intake and Output for Last 24 Hours 11/16/20 11/17/20 11/18/20 23:59 23:59 23:59 Intake Total 1000 / 1000 Balance 1000 / 1000 Lab / Micro Data Result Diagrams: 11/18/20 06:23 11/18/20 06:23 Labs: Laboratory Results - last 24 hr 11/17/20 17:20: WBC 7.8, RBC 4.62, Hgb 15.2, Hct 41.6, MCV 90.0, MCH 32.9 H, MCHC 36.5 H, RDW Std Deviation 47.6 H, RDW Coeff of Hortencia 14.5, Plt Count 418, MPV 7.6, Immature Gran % (Auto) 0.300, Neut % (Auto) 60.4, Lymph % (Auto) 29.8, [place] % (Auto) 7.9, Eos % (Auto) 1.0, Baso % (Auto) 0.6, Absolute Neuts (auto) 4.7, Absolute Lymphs (auto) 2.33, Nucleated RBC % 0 11/17/20 17:20: Sodium 128 L, Potassium 4.3, Chloride 94 L, Carbon Dioxide 27.0, Anion Gap 7, BUN 7, Creatinine 0.80, Estim Creat Clear Calc 85.29, Est GFR (MDRD) Af Amer 125, Est GFR (MDRD) Non-Af 104, BUN/Creatinine Ratio 8.8 L, Glucose 101, Calcium 8.6, Total Bilirubin 0.40, AST 27, ALT 30, Alkaline Phosphatase 66, Total Protein 8.4 H, Albumin 3.8, Globulin 4.6 H, Albumin/Globulin Ratio 0.8 L 11/17/20 17:20: Ethyl Alcohol 302.0 H* 11/18/20 05:47: Urine Opiates Screen NEGATIVE, Urine Methadone Screen NEGATIVE, Ur Barbiturates Screen POSITIVE H, Ur Phencyclidine Scrn NEGATIVE, Ur Amphetamines Screen NEGATIVE, U Methamphetamin-MDMA NEGATIVE, U Benzodiazepines Scrn NEGATIVE, Urine Cocaine Screen NEGATIVE, U Cannabinoids Screen NEGATIVE, Ur Drug Screen Comment 11/18/20 06:23: WBC 8.9, RBC 4.26 L, Hgb 14.0, Hct 38.4 L, MCV 90.1, MCH 32.9 H, MCHC 36.5 H, RDW Std Deviation 48.2 H, RDW Coeff of Hortencia 14.6, Plt Count 372, MPV 8.0, Immature Gran % (Auto) 0.400, Neut % (Auto) 74.7 H, Lymph % (Auto) 16.2 L, [place] % (Auto) 7.3, Eos % (Auto) 0.8, Baso % (Auto) 0.6, Absolute Neuts (auto) 6.7, Absolute Lymphs (auto) 1.45, Nucleated RBC % 0 11/18/20 06:23: Sodium 129 L, Potassium 4.4, Chloride 97 L, Carbon Dioxide 29.0, Anion Gap 3 L, BUN 10, Creatinine 0.74, Estim Creat Clear Calc 92.20, Est GFR (MDRD) Af Amer 138, Est GFR (MDRD) Non-Af 114, BUN/Creatinine Ratio 13.6, Glucose 103, Calcium 8.6, Phosphorus 3.9, Magnesium 2.1, Total Bilirubin 1.00, AST 25, ALT 29, Alkaline Phosphatase 61, Total Protein 7.6, Albumin 3.3, Globulin 4.3 H, Albumin/Globulin Ratio 0.8 L, TSH 1.00 Micro: Microbiology 11/17/20 17:20 Nasal Secretion SARS-CoV-2 Antigen (Rapid) - Final Rhythm Strip Rhythm Strip: Sinus Tach Rate: 106 Physical Exam Narrative Physical exam: General: Alert, Oriented x3, Cooperative, No apparent distress, Well developed HEENT: Atraumatic Oral: Moist Mucosa Neck: Supple Lungs: Clear to auscultation Cardiovascular: HS I+II, regular, no murmurs Abdomen: Bowel Sounds Present, Soft, Non Tender Extremities: No edema Assessment & Plan Assessment/Plan (1) Alcohol abuse: (2) Alcohol withdrawal: QUALIFIERS: Complication of substance-induced condition: uncomplicated Qualified Code(s): F10.230 - Alcohol dependence with withdrawal, uncomplicated (3) Tobacco dependence: (4) Depression: QUALIFIERS: Depression Type: unspecified Qualified Code(s): F32.9 - Major depressive disorder, single episode, unspecified (5) HTN (hypertension): QUALIFIERS: Hypertension type: essential hypertension Qualified Code(s): I10 - Essential (primary) hypertension PLAN: 1. Acute alcohol withdrawal, continue on the phenobarbital withdrawal protocol 2. Hypertension, continue lisinopril 3. Nicotine abuse, on replacement Charges/Coding Visit Charges Inpatient E&M: 22283 Subs Hosp L2
[2020-11-18] MEDS: Lisinopril 10 MG Tablet PO (10:06)
[2020-11-18] MEDS: FLUoxetine 10 MG Capsule PO (10:09)
[2020-11-19] MEDS: Phenobarbital 32.4 MG Tablet PO ×6 (01:47→21:13)
[2020-11-19 02:05] VITALS: BP 143/84; PULSE 88; RESP 16; TEMP 36.8; O2SAT 95
[2020-11-19 08:47] VITALS: BP 120/85; PULSE 81; RESP 16; TEMP 36.8; O2SAT 93
[2020-11-19] MEDS: Thiamine Hydrochloride 100 MG Tablet PO (08:51)
[2020-11-19] MEDS: Folic Acid 1 MG Tablet PO (08:51)
[2020-11-19] MEDS: FLUoxetine 10 MG Capsule PO (08:57)
[2020-11-19] MEDS: Lisinopril 10 MG Tablet PO (08:57)
--- NOTE | 2020-11-19 09:19 | PCM.PN.HOSP ---
Subjective Subjective Patient was seen and examined. No new complains. Objective Data Objective Data Vital Signs: Vital Signs Temp Pulse Resp BP Pulse Ox 98.3 F 81 16 120/85 H 93 11/19/20 08:47 11/19/20 08:47 11/19/20 08:47 11/19/20 08:47 11/19/20 08:47 Oxygen Delivery Method Room Air Weight: 69.6 kg Body Mass Index (BMI) 24.3 Intake & Output: Intake and Output for Last 24 Hours 11/17/20 11/18/20 11/19/20 23:59 23:59 23:59 Intake Total 1600 / 1999 700 / 700 Balance 1600 / 1999 700 / 700 Medical Nutrition Assessment Dietitian: Malnutrition Criteria Met Start: 11/18/20 12:01 Freq: Status: Active Protocol: Document 11/18/20 12:02 JOYCELYN (Rec: 11/18/20 12:02 JOYCELYN [id number]) Nutrition Malnutrition Evidence of Malnutrition Exists Yes Malnutrition (severe): Social/Behavioral/ Environmental Evidenced By Suboptimal Energy Intake ( Severe),Weight Loss (Severe) Clinical Problem Acute Disease or Injury Related Malnutrition Etiology related to alcohol addiction and inadequate nutrition intake to meet est nutritional needs Signs/Symptoms as evidenced by 4.1% wt loss x 3 weeks and <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 Problem Recommendation Dietitian Recommendations/Changes Will continue regular diet w/ snacks tid between meals Will continue oral nutrition supplement w/ medpass 4x/day Lab / Micro Data Result Diagrams: 11/18/20 06:23 11/18/20 06:23 Micro: Microbiology 11/17/20 17:20 Nasal Secretion SARS-CoV-2 Antigen (Rapid) - Final Rhythm Strip Rhythm Strip: Sinus Tach Rate: 106 Physical Exam Narrative Physical exam: General: Alert, Oriented x3, Cooperative, No apparent distress, Well developed HEENT: Atraumatic Oral: Moist Mucosa Neck: Supple Lungs: Clear to auscultation Cardiovascular: HS I+II, regular, no murmurs Abdomen: Bowel Sounds Present, Soft, Non Tender Extremities: No edema GI normal to inspection, nondistended, normoactive bowel sounds, soft to palpation, non-tender, non-distended and hepatosplenomegaly Assessment & Plan Assessment/Plan (1) Alcohol abuse: (2) Alcohol withdrawal: QUALIFIERS: Complication of substance-induced condition: uncomplicated Qualified Code(s): F10.230 - Alcohol dependence with withdrawal, uncomplicated (3) Tobacco dependence: (4) Depression: QUALIFIERS: Depression Type: unspecified Qualified Code(s): F32.9 - Major depressive disorder, single episode, unspecified (5) HTN (hypertension): QUALIFIERS: Hypertension type: essential hypertension Qualified Code(s): I10 - Essential (primary) hypertension PLAN: 1. Acute alcohol withdrawal, continue on the phenobarbital withdrawal protocol 2. Hypertension, continue lisinopril 3. Nicotine abuse, on replacement Charges/Coding Visit Charges Inpatient E&M: 25953 Subs Hosp L2
[2020-11-19 13:34] VITALS: BP 122/74; PULSE 76; RESP 18; TEMP 36.8; O2SAT 99
[2020-11-19 17:54] VITALS: BP 119/80; PULSE 94; RESP 20; TEMP 36.9; O2SAT 98
[2020-11-19 21:12] VITALS: BP 127/86; PULSE 74; RESP 18; TEMP 37.1; O2SAT 96
[2020-11-20 00:52] VITALS: BP 118/71; PULSE 78; RESP 18; TEMP 36.9; O2SAT 95
[2020-11-20] MEDS: Phenobarbital 32.4 MG Tablet PO ×5 (00:53→22:41)
[2020-11-20 05:29] VITALS: BP 112/85; PULSE 81; RESP 18; TEMP 36.8; O2SAT 98
[2020-11-20 06:31] LABS: Absolute Lymphocyte Count 2.28 X10^3/uL (0.83-4.51); Absolute Neutrophil Count 6.2 X10^3/uL (2.0-7.7); Basophil# 0.06 X10^3/uL; Basophil% 0.6 % (0-1); Eosinophil# 0.36 X10^3/uL; Eosinophils% 3.8 % (0-5); Hematocrit 36.9 % (40-54); Hemoglobin 12.9 g/dL (13.0-16.5); Lymphocyte # 2.28 X10^3/ul (0.83-4.51); Lymphocyte % 24.1 % (19-41); Mean Corpuscular Hgb 32.7 pg (27.0-32.0); Mean Corpuscular Volume 93.4 fL (80-94); Mean Platelet Vol. 8.9 fl (6.2-12.0); Monocyte% 5.3 % (0-10); NRBC Flagged by Analyzer 0 % (0-5); Neutrophil # 6.22 X10^3/uL (2.7-7.7); Neutrophil % 65.7 % (47-70); Platelet Count 264 K/mm3 (150-450); RBC Distribution Width CV 15.1 % (11.6-14.6); RBC Distribution Width SD 51.9 fl (35.1-43.9); Red Blood Count 3.95 M/mm3 (4.6-6.2); White Blood Count 9.5 K/mm3 (4.4-11.0)
[2020-11-20 06:43] LABS: ALB/GLOB Ratio 0.7 RATIO (0.9-2.4); AST(SGOT) 19 U/L (15-37); Alanine Aminotransfer ALT/SGPT 24 U/L (16-61); Albumin, Serum 2.7 g/dL (3.2-5.0); Alkaline Phosphatase 62 U/L (45-117); Anion Gap 5 (5-15); BUN 20 mg/dL (7-18); BUN/Creat Ratio 29.1 RATIO (10-20); Calcium,Total 8.5 mg/dL (8.5-10.1); Chloride 95 mmol/L (98-107); Creatinine, Serum 0.69 mg/dL (0.70-1.30); EST Glomerular Filtration Rate 123 mL/min (>60); Est Glom Filt Rate - Afr Amer 149 mL/min (>60); Estimated Creatinine Clearance 98.88 ml/min; Globulin 4.1 g/dL (2.2-4.2); Glucose 83 mg/dL (74-106); Protein, Total 6.8 g/dL (6.4-8.2); Sodium Level 129 mmol/L (136-145)
[2020-11-20 08:33] VITALS: BP 119/73; PULSE 78; RESP 18; TEMP 36.6; O2SAT 93
[2020-11-20] MEDS: Folic Acid 1 MG Tablet PO (08:40)
[2020-11-20] MEDS: FLUoxetine 10 MG Capsule PO (08:41)
[2020-11-20] MEDS: Thiamine Hydrochloride 100 MG Tablet PO (08:41)
[2020-11-20] MEDS: Lisinopril 10 MG Tablet PO (08:41)
--- NOTE | 2020-11-20 09:54 | PCM.PN.HOSP ---
Subjective Subjective Patient states he is feeling well today. Much better than he did on presentation when I initially evaluated him. He acknowledges that the plan is for residential treatment at discharge. He has no specific complaints this morning. Objective Data Objective Data Vital Signs: Vital Signs Temp Pulse Resp BP Pulse Ox 97.9 F 78 18 119/73 93 11/20/20 08:33 11/20/20 08:33 11/20/20 08:33 11/20/20 08:33 11/20/20 08:33 Oxygen Delivery Method Room Air Weight: 69.6 kg Body Mass Index (BMI) 24.3 Intake & Output: Intake and Output for Last 24 Hours 11/18/20 11/19/20 11/20/20 23:59 23:59 23:59 Intake Total 1599 1060 / 1060 Balance 1599 1060 / 1060 Medical Nutrition Assessment Dietitian: Malnutrition Criteria Met Start: 11/18/20 12:01 Freq: Status: Active Protocol: Document 11/18/20 12:02 JOYCELYN (Rec: 11/18/20 12:02 JOYCELYN [id number]) Nutrition Malnutrition Evidence of Malnutrition Exists Yes Malnutrition (severe): Social/Behavioral/ Environmental Evidenced By Suboptimal Energy Intake ( Severe),Weight Loss (Severe) Clinical Problem Acute Disease or Injury Related Malnutrition Etiology related to alcohol addiction and inadequate nutrition intake to meet est nutritional needs Signs/Symptoms as evidenced by 4.1% wt loss x 3 weeks and <50% po intake x >1 week 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 Active Problem Recommendation Dietitian Recommendations/Changes Will continue regular diet w/ snacks tid between meals Will continue oral nutrition supplement w/ medpass 4x/day Lab / Micro Data Result Diagrams: 11/20/20 05:27 11/20/20 05:27 Labs: Laboratory Results - last 24 hr 11/20/20 05:27: WBC 9.5, RBC 3.95 L, Hgb 12.9 L, Hct 36.9 L, MCV 93.4, MCH 32.7 H, MCHC 35.0, RDW Std Deviation 51.9 H, RDW Coeff of Hortencia 15.1 H, Plt Count 264, MPV 8.9, Immature Gran % (Auto) 0.500, Neut % (Auto) 65.7, Lymph % (Auto) 24.1, [place] % (Auto) 5.3, Eos % (Auto) 3.8, Baso % (Auto) 0.6, Absolute Neuts (auto) 6.2, Absolute Lymphs (auto) 2.28, Nucleated RBC % 0 11/20/20 05:27: Sodium 129 L, Potassium 5.0, Chloride 95 L, Carbon Dioxide 29.0, Anion Gap 5, BUN 20 H, Creatinine 0.69 L, Estim Creat Clear Calc 98.88, Est GFR (MDRD) Af Amer 149, Est GFR (MDRD) Non-Af 123, BUN/Creatinine Ratio 29.1 H, Glucose 83, Calcium 8.5, Total Bilirubin 0.50, AST 19, ALT 24, Alkaline Phosphatase 62, Total Protein 6.8, Albumin 2.7 L, Globulin 4.1, Albumin/Globulin Ratio 0.7 L Micro: Microbiology 11/17/20 17:20 Nasal Secretion SARS-CoV-2 Antigen (Rapid) - Final Rhythm Strip Rhythm Strip: Sinus Tach Rate: 106 Physical Exam Narrative Physical exam: General: Alert, Oriented x3, Cooperative, No apparent distress, Well developed HEENT: Atraumatic Oral: Moist Mucosa Neck: Supple Lungs: Clear to auscultation Cardiovascular: HS I+II, regular, no murmurs Abdomen: Bowel Sounds Present, Soft, Non Tender Extremities: No edema Const alert, oriented x3, no apparent distress and average body habitus Constitutional Narrative: Upper middle-aged white male who appears older than stated age, sitting up in bed, appears comfortable, watching television, nontoxic, no tremor noted General Appearance: cooperative Exam Limitations: no limitations HEENT normocephalic, head/scalp atraumatic and hearing grossly normal bilaterally Head and Scalp: normocephalic Resp normal respiratory effort, no retractions and no use of accessory muscles Resp Narrative: Diffusely diminished Auscultation: Negative for crackles, rales, rhonchi or wheezes Cardio regular rate, regular rhythm, S1 normal heart sound, S2 normal heart sound, no murmurs, no rub, no gallops, no clicks and no JVD GI normal to inspection, nondistended, normoactive bowel sounds, soft to palpation, non-tender, non-distended and hepatosplenomegaly Extremity Extremity Narrative: Bilateral clubbing with nicotine stains on bilateral hands, no cyanosis or edema Neuro oriented x3, moves all extremities and no focal motor deficits Sensorium / Orientation: awake and alert Speech: speech normal Psych Psych Narrative: Calm and very pleasant Assessment & Plan Assessment/Plan (1) Alcohol withdrawal: QUALIFIERS: Complication of substance-induced condition: uncomplicated Qualified Code(s): F10.230 - Alcohol dependence with withdrawal, uncomplicated (2) Alcohol abuse: (3) Tobacco dependence: (4) Depression: QUALIFIERS: Depression Type: unspecified Qualified Code(s): F32.9 - Major depressive disorder, single episode, unspecified (5) HTN (hypertension): QUALIFIERS: Hypertension type: essential hypertension Qualified Code(s): I10 - Essential (primary) hypertension PLAN: Acute alcohol withdrawal -Continue phenobarbital taper -Continue supportive medications -Continue thiamine and folate -Last drink was 2 hours prior to presentation and patient states he typically drinks 18 to 30 12 ounce beers daily -180 has evaluated the patient and the plan is for admission to residential treatment at discharge -Anticipate patient will be able to discharge in the next 24 hours--> will discuss further with case management in the a.m. Hypertension -Continue home lisinopril Depression -Continue Prozac Tobacco abuse -Recommend cessation -Nicotine patch available DVT prophylaxis -Early ambulation protocol -Low risk CODE STATUS -Full code Charges/Coding Visit Charges Inpatient E&M: 20163 Subs Hosp L2
[2020-11-20 15:55] VITALS: BP 121/81; PULSE 84; RESP 16; TEMP 36.3; O2SAT 97
[2020-11-20 21:35] VITALS: BP 123/85; PULSE 85; RESP 16; TEMP 36.7; O2SAT 96
[2020-11-21 04:52] VITALS: BP 129/66; PULSE 67; RESP 18; TEMP 36.6; O2SAT 99
[2020-11-21] MEDS: Phenobarbital 32.4 MG Tablet PO (04:56)
--- NOTE | 2020-11-21 10:13 | DS.PCM_ITS ---
Providers Date of Admission: 11/17/20 Primary Care Physician: Dr. Renan Joel MD Reason For Visit: ALCOHOL ADDICTION WITH MILD WITHDRAWAL Diagnosis Discharge Diagnosis (1) Alcohol withdrawal: Status: Acute Code(s): F10.239 - Alcohol dependence with withdrawal, unspecified Qualifiers: Complication of substance-induced condition: uncomplicated Qualified Code(s): F10.230 - Alcohol dependence with withdrawal, uncomplicated (2) Alcohol abuse: Status: Chronic Code(s): F10.10 - Alcohol abuse, uncomplicated (3) Tobacco dependence: Status: Chronic Code(s): F17.200 - Nicotine dependence, unspecified, uncomplicated (4) Depression: Status: Chronic Code(s): F32.9 - Major depressive disorder, single episode, unspecified Qualifiers: Depression Type: unspecified Qualified Code(s): F32.9 - Major depressive disorder, single episode, unspecified (5) HTN (hypertension): Status: Chronic Code(s): I10 - Essential (primary) hypertension Qualifiers: Hypertension type: essential hypertension Qualified Code(s): I10 - Essential (primary) hypertension Medications at Discharge Home Medications lisinopril [Zestril] 10 mg PO DAILY 06/22/16 esomeprazole magnesium 20 mg PO DAILY PRN PRN 06/01/20 fluoxetine [Prozac] 30 mg PO DAILY #90 cap 11/21/20 Hospital Course Operations None Procedures None Summary of Care Provided Minutes Spent on Discharge: 39 Hospital Course: WOODROW GIBBONS, is a 65 M who presented to the emergency department at [facility] on 11/17/2020 with request for alcohol detox. The patient stated he had been through detox before, most recently in May of this past year. He stated he maintained sobriety for a period of time but then started drinking for no apparent reason. He stated he is unclear why he started again but is currently drinking anywhere from 18 to 30 12 ounce beers daily. He also smokes a pack of cigarettes a day. He denies any other substance abuse. His last drink was approximately 2 hours before presentation. In the [facility] department prior to admission he was having some tachycardia and mild tremor. He had been on Prozac up until 3 weeks ago but stopped this spontaneously and again is not clear why he did he just stopped taking it. He reportd daily palpitations and tremors in the morning upon wakening secondary to withdrawal in the subsided with drinking. He was admitted to the medical surgical floor and placed on a phenobarbital taper, thiamine and folate, and other supportive medications. His withdrawal was fairly uneventful and he did very well. He expressed interest in residential treatment which was obtained and he was cleared for discharge on 11/21/2020. His sponsor was taking him to residential treatment today at noon. I have also instructed him to follow-up within the next month with his PCP. Discharge diagnoses: Acute alcohol withdrawal-resolved Alcohol dependence Hypertension Depression GERD Tobacco abuse Physical Exam Narrative Physical exam: General: Alert, Oriented x3, Cooperative, No apparent distress, Well developed HEENT: Atraumatic Oral: Moist Mucosa Neck: Supple Lungs: Clear to auscultation Cardiovascular: HS I+II, regular, no murmurs Abdomen: Bowel Sounds Present, Soft, Non Tender Extremities: No edema Const alert, oriented x3, no apparent distress and average body habitus Constitutional Narrative: Upper middle-aged white male who appears older than stated age, sitting up in bed, appears comfortable, watching television, nontoxic, no tremor noted General Appearance: cooperative, comfortable, well kempt and well developed Orientation / Consciousness: awake Exam Limitations: no limitations HEENT normocephalic, head/scalp atraumatic, hearing grossly normal bilaterally, moist oral mucous membranes and oropharynx normal HEENT Narrative: Mallampati 2, no thrush Mouth: oral and palatal mucosa normal Eyes PERRL, EOMs intact bilaterally and conjunctivae normal Neck no lymphadenopathy, supple and no JVD Neck Narrative: Trachea midline, no thyroid enlargement noted Resp normal respiratory effort, no retractions and no use of accessory muscles Resp Narrative: Diffusely diminished but clear Auscultation: Negative for crackles, rales, rhonchi or wheezes Cardio regular rate, regular rhythm, S1 normal heart sound, S2 normal heart sound, no murmurs, no rub, no gallops, no clicks and no JVD Cardio Narrative: Mild tachycardia GI normal to inspection, nondistended, normoactive bowel sounds, soft to palpation, non-tender, non-distended and hepatosplenomegaly Extremity Extremity Narrative: Bilateral clubbing, no cyanosis or edema Skin no wounds, skin turgor normal, no jaundice, no petechiae and no mottling Skin Narrative: Bilateral feet with tinea pedis Neuro oriented x3, moves all extremities and no focal motor deficits Sensorium / Orientation: awake and alert Speech: speech normal Motor Exam: strength 5/5 throughout Psych affect normal Psych Narrative: Calm and very pleasant Medical Records Data Medical Nutrition Assessment Dietitian: Malnutrition Criteria Met Start: 11/18/20 12:01 Freq: Status: Active Protocol: Document 11/18/20 12:02 [facility] (Rec: 11/18/20 12:02 [facility] [id number]) Nutrition Malnutrition Evidence of Malnutrition Exists Yes Malnutrition (severe): Social/Behavioral/ Environmental Evidenced By Suboptimal Energy Intake ( Severe),Weight Loss (Severe) Clinical Problem Acute Disease or Injury Related Malnutrition Etiology related to alcohol addiction and inadequate nutrition intake to meet est nutritional needs Signs/Symptoms as evidenced by 4.1% wt loss x 3 weeks and <50% po intake x >1 week 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 Problem Recommendation Dietitian Recommendations/Changes Will continue regular diet w/ snacks tid between meals Will continue oral nutrition supplement w/ medpass 4x/day Weight / BMI Weight Weight: 69.6 kg Body Mass Index (BMI) 24.3 ABG / Lab / Microbiology Data Result Diagrams: 11/20/20 05:27 11/20/20 05:27 Microbiology: Microbiology 11/17/20 17:20 Nasal Secretion SARS-CoV-2 Antigen (Rapid) - Final D/C Instructions Discharge Diet: No restrictions Discharge Activity: Return to Normal Activity Meaningful Use Info Meaningful Use Diagnoses (Choose all that apply): None applicable Discharge Plan Admission Admit Date/Time: 11/17/20 17:16 Primary Reason for Your Visit: Acute EtOH Detox Attending Provider: Marcy Marquez Primary Care Provider: Renan Joel Discharge Orders/Prescriptions Prescriptions: Continued lisinopril [Zestril] 10 MG tablet 10 mg PO DAILY RF: 0 esomeprazole magnesium 20 MG capsule 20 mg PO DAILY PRN PRN (Reason: reflux) RF: 0 fluoxetine [Prozac] 10 mg Capsule 30 mg PO DAILY Qty: 90 RF: 0 Referrals / Follow Up: Renan Joel MD [Primary Care Provider] - Within 1 Month Disposition Disposition (needs filled in before D/C Order can be placed): Inpatient Rehab Unit/Facility Charges/Coding Visit Charges Inpatient E&M: 97428 Disch Hosp
--- NOTE | 2020-11-21 10:33 | PHA.DC.MR ---
Pharmacy Service has performed discharge medication reconciliation for this patient. The patient's discharge medication list was reviewed for discrepancies and discrepancies were resolved. Home Medications lisinopril [Zestril] 10 mg PO DAILY 06/22/16 esomeprazole magnesium 20 mg PO DAILY PRN PRN 06/01/20 fluoxetine [Prozac] 30 mg PO DAILY #90 cap 11/21/20
[2020-11-21] MEDS: FLUoxetine 10 MG Capsule PO (10:36)
[2020-11-21] MEDS: Folic Acid 1 MG Tablet PO (10:37)
[2020-11-21] MEDS: Thiamine Hydrochloride 100 MG Tablet PO (10:37)
[2020-11-21] MEDS: Lisinopril 10 MG Tablet PO (10:37)
[2020-11-21 10:39] VITALS: BP 136/86; PULSE 85; RESP 16; TEMP 36.6; O2SAT 99
--- NOTE | 2020-11-21 11:56 | ADDICTION ---
TW met with pt to discuss d/c planning. PT is admitting to residential treatment, [facility]. ASAM, AUDIT, DUDIT, MSE, and ROIs were completed over the weekend on paper by [facility] treatment navigator. PT reported that he has his own transportation to residential tx so no transportation was set up at this time. TW offered supportive counseling.
== END 2020-11-21 12:12 | disposition home or self-care (01) | DRG 775 ==
LOC: ED 17:35 → MS3 11-18 07:22
PROVIDERS: Internal Medicine; Admitting Provider Internal Medicine; Emergency Provider Emergency Medicine; PCP Family Medicine; Visit Provider Internal Medicine
DX: F10.230 Alcohol dependence with withdrawal, uncomplicated (principal); F32.9 Major depressive disorder, single episode, unspecified; I10 Essential (primary) hypertension; K21.9 Gastro-esophageal reflux disease without esophagitis; F17.210 Nicotine dependence, cigarettes, uncomplicated; Z79.899 Other long term (current) drug therapy
CPT/HCPCS: 36415; 80053; 80307; 82077; 83735; 84100; 84443; 85025; 87426; 96360; 96361; 97802; 99218; 99251; 99283; 99406; J7030; A4216; G0378; G0463

== ENCOUNTER 2022-01-20 12:25 | Emergency (ER) | payer MEDICAID, SELFPAY ==
[2022-01-20 12:25] VITALS: BP 137/92; PULSE 94; RESP 24; TEMP 36.4; O2SAT 99; BMI 25.2
--- NOTE | 2022-01-20 12:52 | RAD_ITS ---
STUDY: X-RAY CHEST REASON FOR EXAM: Male, 66 years old. Fever and cough TECHNIQUE: Single AP portable view of the chest. COMPARISON: 09/06/2019 FINDINGS: EKG leads overlie the chest The lungs are clear and expanded. There is no demonstrated pleural abnormality. Normal size heart. Normal mediastinum and [place]. Normal visualized pulmonary arteries. Normal visualized aortic arch and descending thoracic aorta. Normal visualized thoracic spine. Normal visualized ribs, clavicles, and shoulders. There is no demonstrated abnormality of the visualized soft tissue structures of the upper abdomen. RAD/Chest 1 View (Portable) IMPRESSION: No acute pulmonary process Electronically Signed: Antonio Stern MD at 13:51 EST ,
--- NOTE | 2022-01-20 12:52 | ED.VIS.DYS ---
HPI History of Present Illness Chief Complaint: Shortness of Breath Narrative Narrative: 66-year-old male with generalized weakness, slight cough for a week. He denies having a fever. He states he has been eating a lot of food and drinking plenty of water and does not think he is dehydrated. He does feel little bit short of breath. He is a smoker but states he is not sure if he is wheezing. He states that prior to the cough he had some diarrhea which is improved. He does not have any abdominal pain. No black or bloody stools. Patient denies chest pain. [facility] Medical History Alcohol abuse Alcohol addiction Depression GERD (gastroesophageal reflux disease) HTN (hypertension) Seizures Sleep apnea Smoker Tobacco dependence Home Medications lisinopril 10 mg tablet (Zestril) 10 mg PO DAILY HTN 06/22/16 [History Last Taken 11/16/20 08:00] albuterol sulfate 90 mcg/actuation aerosol inhaler (Ventolin HFA) 1 - 2 puff inhalation Q4H PRN PRN Wheezing #6.7 grams 01/20/22 [Rx Last Taken Unknown] fluoxetine 10 mg capsule 10 mg PO DAILY 01/20/22 [History Last Taken Unknown] fluoxetine 10 mg capsule (Prozac) 20 mg PO DAILY mood 01/20/22 [History Last Taken Unknown] prednisone 50 mg tablet 50 mg PO DAILY #5 tabs 01/20/22 [Rx Last Taken Unknown] Allergy/AdvReac Type Severity Reaction Status Date / Time No Known Allergies Allergy Verified 01/20/22 12:25 Family History Other Dementia Thyroid disorder Social History household members: none housing: apartment Smoking Status: Current every day smoker tobacco type: cigarettes alcohol intake: current alcohol intake frequency: 3 or more drinks per day substance use type: does not use ROS ROS ED Constitutional Constitutional ED: Reports other Details: Generalized weak ; Denies chills or fever(s) Eyes Eyes: Denies diplopia ENT ENT ED: Reports sore throat; Denies rhinorrhea Cardiovascular Cardiovascular: Denies chest pain or palpitations Respiratory/Chest Respiratory/Chest: Reports cough and dyspnea Gastrointestinal Gastrointestinal: Reports diarrhea; Denies abdominal pain, constipation, melena, nausea or vomiting Genitourinary Genitourinary ED: Denies dysuria or hematuria Musculoskeletal Musculoskeletal: Denies arthralgias, back pain or myalgias Integumentary Denies abscess or Abrasions Neurologic Neurologic: Denies headache(s) Psychiatric Psychiatric: Denies anxiety or depression EXAM Physical Exam Const Vital Signs: 01/20/22 12:25 01/20/22 12:53 01/20/22 13:08 Temperature 97.6 F L Temperature Source Temporal Pulse Rate 94 84 Respiratory Rate 24 H 20 H Respiratory Effort Short of Breath Respiratory Pattern Tachypnea Blood Pressure 137/92 H Blood Pressure Mean 107 Pulse Ox 99 Oxygen Delivery Method Room Air Positive well nourished General Appearance ED: NAD; Negative for pallor HEENT Reports moist mucous membranes Eyes PERRL and EOMs intact bilaterally General Eye ED: Negative for pale conjunctiva or scleral icterus Resp Resp Narrative: Slightly tachypneic. No accessory muscle use. Patient speaking in full sentences. Faint expiratory wheezes throughout. Auscultation: wheezes Cardio regular rate and regular rhythm GI non-tender Neuro oriented x3 and CN's II-XII intact bilaterally Psych mental status grossly normal Skin no wounds General Skin Exam: Negative for jaundice or pallor MDM MDM MDM Narrative Medical decision making narrative: Patient presenting with shortness of breath. He does complain of generalized fatigue. He is able to ambulate and he was able to drive here. No fevers at home. He is eating and drinking normally. He is making normal urine and stool. He denies chest pain. Patient found to have faint expiratory wheezes on exam. He states he is a smoker. He is given breathing treatments and prednisone. I will obtain a chest x-ray. I feel since his symptoms have been going on for a week that viral testing unnecessary. I did obtain a chest x-ray and on my interpretation there is no acute cardiopulmonary process. The radiologist are persistent degrees. CBC shows minimal leukocytosis of 11.3. Hemoglobin stable 11.5. Platelets high at 479. Renal function and electrolytes unremarkable. Glucose 110. Patient reevaluated at 2:05 PM and is feeling somewhat improved. I will put him on a prednisone burst and given albuterol inhaler. Return precautions discussed. Impression: 1. Acute bronchitis 2. Generalized weakness 3. Cough Lab Data Labs: Laboratory Results - last 24 hr 01/20/22 01/20/22 13:04 13:04 WBC 11.3 H RBC 3.66 L Hgb 11.5 L Hct 34.1 L MCV 93.2 MCH 31.4 MCHC 33.7 RDW Std Deviation 49.9 H RDW Coeff of Hortencia 14.8 H Plt Count 479 H MPV 7.9 Immature Gran % (Auto) 1.400 H Neut % (Auto) 84.5 H Lymph % (Auto) 12.0 L [place] % (Auto) 1.9 Eos % (Auto) 0.0 Baso % (Auto) 0.2 Absolute Neuts (auto) 9.6 H Absolute Lymphs (auto) 1.35 Nucleated RBC % 0 Sodium 133 L Potassium 4.6 Chloride 97 L Carbon Dioxide 29.0 Anion Gap 7 BUN 15 Creatinine 0.80 Estim Creat Clear Calc 87.22 Est GFR (MDRD) Af Amer 125 Est GFR (MDRD) Non-Af 103 BUN/Creatinine Ratio 18.7 Glucose 110 H Calcium 9.2 Radiography Diagnostic Testing: Clinical Impression(s) from Imaging Studies Chest X-Ray 01/20/22 12:52 IMPRESSION: No acute pulmonary process Electronically Signed: Antonio Stern MD at 13:51 EST Reading Location ID and State: [facility] / [place] , Service support , Discharge Plan Triage Chief Complaint: Shortness of Breath ED Provider: Carlin Toro Dx/Rx/DC Orders Instructions: ED Bronchitis with Wheezing (Adult) Prescriptions: New prednisone 50 mg tablet 50 mg PO DAILY Qty: 5 0RF albuterol sulfate [Ventolin HFA] 90 mcg/actuation HFA aerosol inhaler 1 - 2 puff inhalation Q4H PRN PRN (Reason: Wheezing) Qty: 6.7 0RF No Action lisinopril [Zestril] 10 MG tablet 10 mg PO DAILY fluoxetine 10 mg capsule 10 mg PO DAILY Label Comments: Take 1 capsule by mouth once daily. In addition to 20 mg a day. fluoxetine [Prozac] 10 mg capsule 20 mg PO DAILY Primary Care Provider: Renan Joel Referrals: Renan Joel MD [Primary Care Provider] - Disposition Disposition: Home, Self Care
[2022-01-20] MEDS: predniSONE 20 MG Tablet 60 MG PO (13:00)
[2022-01-20 13:08] VITALS: PULSE 84; RESP 20
[2022-01-20] MEDS: Albuterol 2.5 MG/3 ML VIAL.NEB. INHALATION (13:08)
[2022-01-20] MEDS: Ipratropium/Albuterol Sulfate 3 ML AMPUL.NEB INHALATION (13:08)
[2022-01-20 13:14] LABS: Absolute Lymphocyte Count 1.35 X10^3/uL (0.83-4.51); Absolute Neutrophil Count 9.6 X10^3/uL (2.0-7.7); Basophil# 0.02 X10^3/uL; Basophil% 0.2 % (0-1); Hematocrit 34.1 % (40-54); Hemoglobin 11.5 g/dL (13.0-16.5); Lymphocyte # 1.35 X10^3/ul (0.83-4.51); Mean Corp Hgb Conc 33.7 g/dL (32-36); Mean Corpuscular Hgb 31.4 pg (27.0-32.0); Mean Corpuscular Volume 93.2 fL (80-94); Mean Platelet Vol. 7.9 fl (6.2-12.0); Monocyte# 0.21 X10^3/uL; Monocyte% 1.9 % (0-10); NRBC Flagged by Analyzer 0 % (0-5); Neutrophil # 9.55 X10^3/uL (2.7-7.7); Neutrophil % 84.5 % (47-70); Platelet Count 479 K/mm3 (150-450); RBC Distribution Width CV 14.8 % (11.6-14.6); RBC Distribution Width SD 49.9 fl (35.1-43.9); Red Blood Count 3.66 M/mm3 (4.6-6.2); White Blood Count 11.3 K/mm3 (4.4-11.0)
[2022-01-20 13:35] LABS: Anion Gap 7 (5-15); BUN 15 mg/dL (7-18); BUN/Creat Ratio 18.7 RATIO (10-20); Calcium,Total 9.2 mg/dL (8.5-10.1); Chloride 97 mmol/L (98-107); EST Glomerular Filtration Rate 103 mL/min (>60); Est Glom Filt Rate - Afr Amer 125 mL/min (>60); Estimated Creatinine Clearance 87.22 ml/min; Glucose 110 mg/dL (74-106); Potassium 4.6 mmol/L (3.5-5.1); Sodium Level 133 mmol/L (136-145)
[2022-01-20 14:04] VITALS: PULSE 99; RESP 20; O2SAT 98
[2022-01-20 14:19] VITALS: BP 125/77; PULSE 109; RESP 22; O2SAT 100
--- NOTE | 2022-01-21 12:31 | EKG12_ITS ---
Test Reason : CP Blood Pressure : / mmHG Vent. Rate : 079 BPM Atrial Rate : 079 BPM P-R Int : 136 ms QRS Dur : 086 ms QT Int : 382 ms P-R-T Axes : 046 058 054 degrees QTc Int : 438 ms Normal sinus rhythm Normal ECG Confirmed by MARTINE HARRIS, LUL ([id number]), web editor JOSE GARCÍA ([id number]) on 01/23/2022 11:31:39 AM Referred By: ANASTASIA Confirmed By:LUL FARLEY MD
== END 2022-01-20 14:20 | disposition home or self-care (01) ==
PROVIDERS: Emergency Provider Student in an Organized Health Care Education/Training Program; PCP Family Medicine; Visit Provider Student in an Organized Health Care Education/Training Program
DX: J20.9 Acute bronchitis, unspecified (principal); R53.1 Weakness; I10 Essential (primary) hypertension; R19.7 Diarrhea, unspecified; F17.210 Nicotine dependence, cigarettes, uncomplicated; Z79.52 Long term (current) use of systemic steroids
CPT/HCPCS: 71045; 80048; 85025; 93005; 94640; 99284; A4216

== ENCOUNTER 2023-01-15 15:38 | Observation (INO) | payer MEDICARE, MEDICAID, SELFPAY ==
[2023-01-15 15:39] VITALS: BP 127/83; PULSE 91; RESP 18; TEMP 36; O2SAT 98; BMI 23.8
--- NOTE | 2023-01-15 15:53 | EX.ED.DYSGE1 ---
HPI <DARIRUS Thomas - Last Filed: 01/15/23 17:20> History of Present Illness Chief Complaint: ETOH Intox Narrative Narrative: 67-year-old male states he started drinking alcohol again about 3 weeks ago approximately 12 beers a day. Last drink was this morning and he is here requesting detox. Prior to this he was sober for a year. He denies any recent stressors and has not suicidal or homicidal. He is asymptomatic and has no complaints. He smokes 1 PPD and denies other drug use. He states years ago he had one alcohol withdrawal seizure. PFSH <DARRIUS Thomas - Last Filed: 01/15/23 17:20> PFSH Medical History Alcohol abuse Alcohol addiction Depression GERD (gastroesophageal reflux disease) HTN (hypertension) Seizures Sleep apnea Smoker Tobacco dependence Home Medications lisinopril 10 mg tablet (Zestril) 10 mg PO DAILY HTN 06/22/16 [History Last Taken 11/16/20 08:00] albuterol sulfate 90 mcg/actuation aerosol inhaler (Ventolin HFA) 1 - 2 puff inhalation Q4H PRN PRN Wheezing #6.7 grams 01/20/22 [Rx Last Taken Unknown] fluoxetine 10 mg capsule 10 mg PO DAILY 01/20/22 [History Last Taken Unknown] fluoxetine 10 mg capsule (Prozac) 20 mg PO DAILY mood 01/20/22 [History Last Taken Unknown] prednisone 50 mg tablet 50 mg PO DAILY #5 tabs 01/20/22 [Rx Last Taken Unknown] Allergy/AdvReac Type Severity Reaction Status Date / Time No Known Allergies Allergy Verified 01/15/23 15:39 Family History Other Dementia Thyroid disorder Social History household members: none housing: apartment Smoking Status: Current every day smoker tobacco type: cigarettes alcohol intake: current alcohol intake frequency: 3 or more drinks per day substance use type: does not use ROS <DARRIUS Thomas - Last Filed: 01/15/23 17:20> ROS ED ROS Narrative Constitutional: Negative for fever, chills, malaise. CVS: Negative for palpitations, chest pain. Respiratory: Positive for cough. Negative for shortness of breath. GI: Negative for abdominal pain, nausea, vomiting. Neuro: Negative for headache. EXAM <DARRIUS Thomas - Last Filed: 01/15/23 17:20> Physical Exam Narrative Exam Narrative: CONST: Patient sitting in no acute distress. EYES: Normal inspection. NECK: Normal inspection. RESP: No respiratory distress, expiratory wheezing throughout CVS: Regular rate and rhythm, no murmur, no gallop. ABD: Soft and nontender, no guarding or rebound, nondistended, no hepatosplenomegaly. SKIN: Color normal, no rash, warm, dry, intact. EXTREMITIES: Normal appearance, no pedal edema. NEURO: Oriented x4. PSYCH: Normal affect. Const Vital Signs: 01/15/23 15:39 01/15/23 16:23 Temperature 96.8 F L Temperature Source Temporal Pulse Rate 91 Respiratory Rate 18 Blood Pressure 127/83 H 133/81 H Blood Pressure Mean 97 98 Pulse Ox 98 Oxygen Delivery Method Room Air <Dr. Sherman Wilkes DO - Last Filed: 01/15/23 16:53> Physical Exam Const Vital Signs: 01/15/23 15:39 01/15/23 16:23 Temperature 96.8 F L Temperature Source Temporal Pulse Rate 91 Respiratory Rate 18 Blood Pressure 127/83 H 133/81 H Blood Pressure Mean 97 98 Pulse Ox 98 Oxygen Delivery Method Room Air MDM <DARRIUS Thomas - Last Filed: 01/15/23 17:20> [facility] MDM Narrative Medical decision making narrative: Patient is here for alcohol detox with last drink this morning. Currently asymptomatic, pleasant, stable vital signs. CBC is unremarkable. BMP shows sodium of 126 around his baseline. CXR was obtained due to cough and is unremarkable. He has a chronic cough from smoking was given a nicotine patch. Urine tox negative. Case was discussed with the hospitalist for admission. I have personally performed a face to face assessment of the patient and have reviewed the SERA Note. I performed a substantive portion of the visit including all aspects of the following. My [place] findings include: History is [patient presents to the emergency department requesting detox from alcohol. Patient states that he he last went through detox about a year ago. Patient normally drinks about 12 beers a day. His last drink was about an hour ago. Remote history of seizure related to detox. He denies chest pain or abdominal pain. Denies recent illness.] Exam is [HEENT-PERRLA, EOMI. Cranial nerves II through XII grossly intact. TMs clear. Mucous membranes moist. No adenopathy. Cardiovascular-regular rate and rhythm without murmur or ectopy Lungs-clear to auscultation, chest wall stable without crepitus or subcu emphysema Abdomen-normoactive bowel sounds, soft, nontender, no rebound or rigidity, no peritoneal signs. Extremities-intact ?4, normal range of motion, normal pulses, atraumatic] Medical Decison Making [patient presents requesting detox from alcohol. We will obtain basic labs and toxicology screen as well as alcohol level. We will discuss case with hospitalist to evaluate patient for admission] Other additions or changes: [None] Lab Data Labs: Laboratory Results - last 24 hr 01/15/23 16:10 WBC 5.8 RBC 4.39 L Hgb 14.6 Hct 40.1 MCV 91.3 MCH 33.3 H MCHC 36.4 H RDW Std Deviation 49.2 H RDW Coeff of [place] 14.6 Plt Count 240 MPV 8.5 Immature Gran % (Auto) 0.300 Neut % (Auto) 44.9 L Lymph % (Auto) 44.8 H [place] % (Auto) 8.8 Eos % (Auto) 0.7 Baso % (Auto) 0.5 Absolute Neuts (auto) 2.6 Absolute Lymphs (auto) 2.60 Nucleated RBC % 0 Sodium 126 L Potassium 4.0 Chloride 91 L Carbon Dioxide 26.0 Anion Gap 9 BUN 5 L Creatinine 0.68 L Estim Creat Clear Calc 101.26 Est GFR (MDRD) Af Amer 150 Est GFR (MDRD) Non-Af 124 BUN/Creatinine Ratio 7.4 L Glucose 95 Calcium 8.4 L Total Bilirubin 0.30 AST 35 ALT 32 Alkaline Phosphatase 34 L Total Protein 7.3 Albumin 3.3 Globulin 4.0 Albumin/Globulin Ratio 0.8 L Urine Opiates Screen NEGATIVE Urine Methadone Screen NEGATIVE Ur Barbiturates Screen NEGATIVE Ur Phencyclidine Scrn NEGATIVE Ur Amphetamines Screen NEGATIVE MDMA (Ecstasy) Screen NEGATIVE U Benzodiazepines Scrn NEGATIVE Urine Cocaine Screen NEGATIVE U Cannabinoids Screen NEGATIVE Ur Drug Screen Comment Radiography Diagnostic Testing: Clinical Impression(s) from Imaging Studies Chest X-Ray 01/15/23 16:30 IMPRESSION: No acute cardiopulmonary abnormality. Electronically Signed: John Turner MD at 16:42 EDT , <Dr. Sherman Wilkes, DO - Last Filed: 01/15/23 16:53> [facility] MDM Narrative Medical decision making narrative: I have personally performed a face to face assessment of the patient and have reviewed the SERA Note. I performed a substantive portion of the visit including all aspects of the following. My aguillon findings include: History is [patient presents to the emergency department requesting detox from alcohol. Patient states that he he last went through detox about a year ago. Patient normally drinks about 12 beers a day. His last drink was about an hour ago. Remote history of seizure related to detox. He denies chest pain or abdominal pain. Denies recent illness.] Exam is [HEENT-PERRLA, EOMI. Cranial nerves II through XII grossly intact. TMs clear. Mucous membranes moist. No adenopathy. Cardiovascular-regular rate and rhythm without murmur or ectopy Lungs-clear to auscultation, chest wall stable without crepitus or subcu emphysema Abdomen-normoactive bowel sounds, soft, nontender, no rebound or rigidity, no peritoneal signs. Extremities-intact ?4, normal range of motion, normal pulses, atraumatic] Medical Decison Making [patient presents requesting detox from alcohol. We will obtain basic labs and toxicology screen as well as alcohol level. We will discuss case with hospitalist to evaluate patient for admission] Other additions or changes: [None] Lab Data Attestation: I reviewed the patient's lab results. Labs: Laboratory Results - last 24 hr 01/15/23 16:10 WBC 5.8 RBC 4.39 L Hgb 14.6 Hct 40.1 MCV 91.3 MCH 33.3 H MCHC 36.4 H RDW Std Deviation 49.2 H RDW Coeff of [place] 14.6 Plt Count 240 MPV 8.5 Immature Gran % (Auto) 0.300 Neut % (Auto) 44.9 L Lymph % (Auto) 44.8 H [place] % (Auto) 8.8 Eos % (Auto) 0.7 Baso % (Auto) 0.5 Absolute Neuts (auto) 2.6 Absolute Lymphs (auto) 2.60 Nucleated RBC % 0 Sodium 126 L Potassium 4.0 Chloride 91 L Carbon Dioxide 26.0 Anion Gap 9 BUN 5 L Creatinine 0.68 L Estim Creat Clear Calc 101.26 Est GFR (MDRD) Af Amer 150 Est GFR (MDRD) Non-Af 124 BUN/Creatinine Ratio 7.4 L Glucose 95 Calcium 8.4 L Total Bilirubin 0.30 AST 35 ALT 32 Alkaline Phosphatase 34 L Total Protein 7.3 Albumin 3.3 Globulin 4.0 Albumin/Globulin Ratio 0.8 L Urine Opiates Screen NEGATIVE Urine Methadone Screen NEGATIVE Ur Barbiturates Screen NEGATIVE Ur Phencyclidine Scrn NEGATIVE Ur Amphetamines Screen NEGATIVE MDMA (Ecstasy) Screen NEGATIVE U Benzodiazepines Scrn NEGATIVE Urine Cocaine Screen NEGATIVE U Cannabinoids Screen NEGATIVE Ur Drug Screen Comment Radiography Diagnostic Testing: Clinical Impression(s) from Imaging Studies Chest X-Ray 01/15/23 16:30 IMPRESSION: No acute cardiopulmonary abnormality. Electronically Signed: John Turner MD at 16:42 EDT , 1 view chest x-ray obtained interpreted by myself as no evidence of infiltrate or pneumothorax or acute disease process. Radiology in agreement. Discharge Plan Dx/Rx/DC Orders Clinical Impression: Admitted to alcohol detoxification center, ETOH abuse, Acute hyponatremia Disposition Disposition: Acute Care Hospital [facility]
[2023-01-15 16:23] VITALS: BP 133/81
[2023-01-15 16:24] LABS: Absolute Neutrophil Count 2.6 X10^3/uL (2.0-7.7); Basophil# 0.03 X10^3/uL; Basophil% 0.5 % (0-1); Eosinophil# 0.04 X10^3/uL; Eosinophils% 0.7 % (0-5); Hematocrit 40.1 % (40-54); Hemoglobin 14.6 g/dL (13.0-16.5); Lymphocyte % 44.8 % (19-41); Mean Corp Hgb Conc 36.4 g/dL (32-36); Mean Corpuscular Hgb 33.3 pg (27.0-32.0); Mean Corpuscular Volume 91.3 fL (80-94); Mean Platelet Vol. 8.5 fl (6.2-12.0); Monocyte# 0.51 X10^3/uL; Monocyte% 8.8 % (0-10); NRBC Flagged by Analyzer 0 % (0-5); Neutrophil % 44.9 % (47-70); Platelet Count 240 K/mm3 (150-450); RBC Distribution Width CV 14.6 % (11.6-14.6); RBC Distribution Width SD 49.2 fl (35.1-43.9); Red Blood Count 4.39 M/mm3 (4.6-6.2); White Blood Count 5.8 K/mm3 (4.4-11.0)
--- NOTE | 2023-01-15 16:30 | RAD_ITS ---
EXAM: XR CHEST, 1 VIEW CLINICAL INDICATION: cough TECHNIQUE: Frontal view of the chest. COMPARISON: XR Chest dated 01/20/2022 FINDINGS: LUNGS AND PLEURAL SPACES: No consolidation or edema. No pneumothorax. No effusion. HEART: Normal heart size. MEDIASTINUM: No mediastinal or hilar mass. BONES/JOINTS: No acute abnormality. TUBES, LINES AND DEVICES: Stimulator wire extends to the right side of the neck. RAD/Chest 1 View (Portable) IMPRESSION: No acute cardiopulmonary abnormality. Electronically Signed: John Turner MD at 16:42 EDT ,
[2023-01-15 16:40] LABS: ALB/GLOB Ratio 0.8 RATIO (0.9-2.4); AST(SGOT) 35 U/L (15-37); Alanine Aminotransfer ALT/SGPT 32 U/L (16-61); Albumin, Serum 3.3 g/dL (3.2-5.0); Alkaline Phosphatase 34 U/L (45-117); Anion Gap 9 (5-15); BUN 5 mg/dL (7-18); BUN/Creat Ratio 7.4 RATIO (10-20); Calcium,Total 8.4 mg/dL (8.5-10.1); Chloride 91 mmol/L (98-107); Creatinine, Serum 0.68 mg/dL (0.70-1.30); EST Glomerular Filtration Rate 124 mL/min (>60); Est Glom Filt Rate - Afr Amer 150 mL/min (>60); Estimated Creatinine Clearance 101.26 ml/min; Glucose 95 mg/dL (74-106); Protein, Total 7.3 g/dL (6.4-8.2); Sodium Level 126 mmol/L (136-145)
--- OUTSIDE RECORDS SUMMARY | 2023-01-15 16:57 | XMS RPT_ITS | CCD ---
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 and dry. Findings: No erythema or rash. Neurological: Cranial Nerves: No cranial nerve deficit. Sensory: No sensory deficit. Coordination: Coordination normal. Extremities: No significant peripheral edema or varicosities Psychiatric: Mood and Affect: Mood and affect normal. Cognition and Memory: Cognition and memory normal. documented in this encounter [facility] 11-04-2022 Note Patient: Woodrow silva Procedure Summary Date: 11/04/22 Room / Location: [facility] OR [address] [place] [address] Operating Room Anesthesia Start: 1010 Anesthesia Stop: 112 Procedure: Hypoglossal nerve stimulator placement (Inspire) Diagnosis: Obstructive sleep apnea (adult) (pediatric) (Obstructive sleep apnea (adult) (pediatric) [G47.33]) Surgeons: Helio Quintero MD Responsible Provider: Ranulfo Gracia MD Anesthesia Type: general ASA Status: 3 Anesthesia Type: general Vitals Value Taken Time BP 139/90 11/04/22 1200 Temp 36.6 ?C (97.9 ?F) 11/04/22 1135 Pulse 66 11/04/22 1215 Resp 12 11/04/22 1215 SpO2 95 % 11/04/22 1215 Vitals shown include unvalidated device data. Anesthesia Post Evaluation Patient location during evaluation: PACU Patient participation: complete - patient participated Level of consciousness: awake and alert Pain management: satisfactory to patient Airway patency: patent Dental Injury: no Cardiovascular status: acceptable, blood pressure returned to baseline and hemodynamically stable Respiratory status: acceptable and spontaneous ventilation Hydration status: euvolemic Nausea/Vomiting: controlled No notable events documented. Patient can be discharged once all PACU criteria has been met. [facility] 11-04-2022 Note Patient: Woodrow silva Procedure Summary Date: 11/04/22 Room / Location: [facility] OR [address] [place] [address] Operating Room Anesthesia Start: 0 Anesthesia Stop: 112 Procedure: Hypoglossal nerve stimulator placement (Inspire) Diagnosis: Obstructive sleep apnea (adult) (pediatric) (Obstructive sleep apnea (adult) (pediatric) [G47.33]) Surgeons: Helio Quintero MD Responsible Provider: Ranulfo Gracia MD Anesthesia Type: general ASA Status: 3 Anesthesia Type: general Vitals Value Taken Time BP 139/90 11/04/22 1200 Temp 36.6 ?C (97.9 ?F) 11/04/22 1135 Pulse 66 11/04/22 1215 Resp 12 11/04/22 1215 SpO2 95 % 11/04/22 1215 Vitals shown include unvalidated device data. Anesthesia Post Evaluation Patient location during evaluation: PACU Patient participation: complete - patient participated Level of consciousness: awake and alert Pain management: satisfactory to patient Multimodal analgesia pain management approach Airway patency: patent Two or more strategies used to mitigate risk of obstructive sleep apnea Cardiovascular status: acceptable and hemodynamically stable Respiratory status: acceptable Hydration status: acceptable No notable events documented. MIPS #[phone] PONV Patient received an inhalational anesthetic (4554F) Patient exhibits three or more risk factors for PONV (4556F) Patient received at leaset 2 prophylactic Rx PONV anti-emtic agents of different classes preop and/or intraop (G9775) MIPS # 424 Perioperative Temperature Management Anesthesia time was less than 60 minutes (4256F) MIPS #477 Multimodal Pain Management Not emergent case Patient was administered multimodal pain management (two or more drugs and/or interventions excluding systemic opioids) in the periopeartive period occurring at some time between 6 hours prior to anesthesia start time until discharged from PACU (G2148) MIPS #404 Anesthesiology Smoking Abstinence The patient is not a current smoker (e.g. cigarette, cigar, pipe, e-cigarette/vaping/marijuana) If no stop here (G9644) I completed my handoff to the receiving clinician during which we: 1. Identified the patient 2. Identified the responsible provider 3. Reviewed the pertinent medical history 4. Discussed the surgical course 5. Reviewed intra-op anesthesia management and issues during anesthesia 6. Set expectations for post-procedure period 7. Allowed opportunity for questions and acknowledgement of understanding. [facility] 11-04-2022 Miscellaneous Notes Patient ambulated to bathroom and voided with no difficulties. Discharge instructions reviewed with patient and family. Instructions handed to family. No questions at this time. Family/visitor at bedside with patient. Date: 11/04/2022 Location: [facility] OR Name: Woodrow Alcala, : 1955, Diagnosis Pre-op Diagnosis * Obstructive sleep apnea (adult) (pediatric) [G47.33] Post-op Diagnosis * Obstructive sleep apnea (adult) (pediatric) [G47.33] Procedures Hypoglossal nerve stimulator placement (Inspire) 56000 - IN OPEN IMPLANTATION CRANIAL NERVE ELLY & PULSE GEN Surgeons * Helio Quintero - Primary Procedure Summary Anesthesia: General ASA: III Estimated Blood Loss: Minimal Drains: * None in log * Implants Type Name Action Serial No. Neuro Interventional Implant GENERATOR PULSE INSPIRE - [id number] - [id number] Implanted [id number] Implant LEAD SENSING RESP INSPIRE - [id number] - [id number] Implanted [id number] Neuro Interventional Implant LEAD STIM INSPIRE - [id number] - [id number] Implanted [id number] Staff: Supervisor Industrial [employer] Education: Franchesca Jones RN Scrub Person: Ernesto [employer] Hardware Design Engineer Orienting: Marc Medel Findings: hypoglossal nerve placed successfully Complications: None; patient tolerated the procedure well. Specimens Collected: Order Name Source Comment Collection Info Order Time POTASSIUM WITH MG REFLEX For patients on dialysis to draw potassium day of surgery 11/04/2022 8:43 AM PROTHROMBIN TIME If patient on coumadin within 4 days prior. 11/04/2022 8:43 AM Wound Class: Class I: Clean Blood Products: None Prophylactic Antibiotics: Procedure appropriate prophylactic antibiotic(s) given within 1 hour of surgical incision (two hours if receiving Vancomycin or flouroquinolone) Procedure in Detail: Patient was seen and evaluated in the pre-operative area. Informed consent was obtained after discussing the risks, benefits and indications for the procedure. The patient was taken back to the operating room by the anesthesia team. General anesthesia was induced and patient was orotracheally intubated. Appropriate timeout was performed. Table was turned 180 degrees and patient appropriately positioned. Patient was prepped and draped in the usual fashion. A shoulder roll was placed and the patient was prepped and draped in usual sterile fashion with the head turned to the left. Prior to prepping and draping, electrodes were placed in the genioglossus and styloglossus muscle and connected to the NIM box for intraoperative nerve monitoring. A modified sub-mandibular incision was made in the right upper neck approximately 2 cm below the mandible in the natural skin crease. Dissection was carried down through the subcutaneous tissue and platysma. The inferior border of the submandibular gland was identified as well as the digastric tendon. The submandibular gland and the overlying fascia with the marginal mandibular nerve were retracted superiorly. The digastric was retracted inferiorly. Dissection was carried down into the digastric triangle where the hypoglossal nerve was identified in its usual fashion. The mylohyoid muscle was retracted anteriorly, and the hypoglossal nerve was dissected up towards the floor of the mouth. The lateral branches to retrusor muscles were identified, and tested intra-operatively using the NIM stimulator. The cuff electrode for the hypoglossal nerve stimulator was placed distally to these branches on the medial nerve branch to the genioglossus muscle. The stimulation electrode was then looped under and secured to the digastric tendon on its lateral surface with the provided anchor. Extra lead length was tucked deep to the SMG. A second 5 cm incision was made in the right upper chest approximately 5 cm below the clavicle and 3 cm lateral to the sternum. Dissection was carried down through skin and subcutaneous tissue to the pectoralis muscle. An inferior pocket was created deep to the subcutaneous layer and superficial to the pectoralis muscle. 2 2-0 silk sutures were placed superiorly overlying the 2nd rib approximately 3 cm apart for later use to secure the IPG. Dissection was then performed bluntly through the pectoralis major muscle to the fat overlying the external intercostal muscles. The fat was swept off until we were able to visualize the external intercostals and the internal intercostals medially. Careful blunt dissection through the externals ~5 mm posterior to the anterior edge of the external intercostal was performed until the fiber change was seen. The sense lead was then held in the grasping zone and advanced between the external and internals. A 2-0 silk was sutured into the anterior aspect of the externals and tied to the groove around the anchor. 2 2-0 silk sutures were then used to suture the wings of the anchor to the surrounding tissue. The pectoralis major muscle was then gently released covering the sense lead and first anchor. The second anchor was then sutured to the fascia overlying the pectoralis major. We then tunneled the stimulation lead from the neck into the chest. Blunt dissection was first performed in a subplatysmal plane from the neck down to the level of the clavicle. The stimulation lead was then tunneled in a subplatysmal plane and brought out into the chest incision above the clavicle. Both the sense lead and the stimulation lead were carefully cleaned with a clean wet and dry sponge. The IPG was removed from its packaging and the sense lead and stimulation lead were each inserted separately into the IPG and secured into place and noted to be secure. Examination of the lead showed that it was in proper position past the second block. The excess lead was then carefully gathered together and placed deep to the IPG and the IPG was placed into the pocket above the pec fascia inferior to the incision. At least 4 cm of extra slack was left within the neck to allow for movement. The IPG was gently sutured into place with the previous silk stitches using air knots. Diagnostic evaluation confirmed activation of the genioglossus nerve, resulting in genioglossal activation and tongue protrusion, confirmed visually. This was first stimulated at 1.5 mA and then decreased until 0.5 with good tongue protrusion at each step. Assessment of the sense lead showed excellent waveforms with respiration. The wounds were then closed in layers with deep 3-0 vicryl sutures and a 4-0 running subcuticular monocryl for the skin. Mastasol was applied followed by steri strips. This concluded the procedure and the patient was turned over to anesthesia for wake up. Patient was extubated and sent to the PACU in stable condition having tolerated the procedure well. All counts were correct at the end of case. A postop CXR was obtained in PACU noting no pneumothorax. Date: 11/04/2022 Location: [facility] OR Name: Woodrow Alcala, : 1955, Diagnosis Pre-op Diagnosis * Obstructive sleep apnea (adult) (pediatric) [G47.33] Post-op Diagnosis * Obstructive sleep apnea (adult) (pediatric) [G47.33] Procedures Hypoglossal nerve stimulator placement (Inspire) 44728 - IN OPEN IMPLANTATION CRANIAL NERVE ELLY & PULSE GEN Surgeons * Helio Quintero - Primary Procedure Summary Anesthesia: General ASA: III Estimated Blood Loss: Minimal Drains: * None in log * Implants Type Name Action Serial No. Neuro Interventional Implant GENERATOR PULSE INSPIRE - [id number] - [id number] Implanted [id number] Implant LEAD SENSING RESP INSPIRE - [id number] - [id number] Implanted [id number] Neuro Interventional Implant LEAD STIM INSPIRE - [id number] - [id number] Implanted [id number] Staff: Supervisor Industrial Arts Education: Franchesca Jones RN Scrub Person: Ernesto Greenberg [employer] Hardware Design Engineer Orienting: Marc Medel Findings: hypoglossal nerve placed successfully Complications: None; patient tolerated the procedure well. Specimens Collected: Order Name Source Comment Collection Info Order Time POTASSIUM WITH MG REFLEX For patients on dialysis to draw potassium day of surgery 11/04/2022 8:43 AM PROTHROMBIN TIME If patient on coumadin within 4 days prior. 11/04/2022 8:43 AM Wound Class: Class I: Clean Blood Products: None Prophylactic Antibiotics: Procedure appropriate prophylactic antibiotic(s) given within 1 hour of surgical incision (two hours if receiving Vancomycin or flouroquinolone) documented in this encounter [facility] 11-04-2022 Note Formatting of this n ote might be different from the original. Patient ambulated to bathroom and voided with no difficulties. Discharge instructions reviewed with patient and family. Instructions handed to family. No questions at this time. [facility] 11-04-2022 Note Airway Date/Time: 11/04/2022 10:17 AM Urgency: scheduled Airway not difficult General Information and Staff Patient location during procedure: Procedural Resident/DIAGRAM CLERK: MAGALI Brewer CRNA Performed: DIAGRAM CLERK Performed by: MAGALI Brewer CRNA Authorized by: MAGALI Brewer CRNA Indications and Patient Condition Indications for airway management: anesthesia Sedation level: Asleep Preoxygenated: yes Mask difficulty assessment: 1 - vent by mask Final Airway Details Final airway type: endotracheal airway Successful airway: ETT Cuffed: yes Successful intubation technique: direct laryngoscopy Facilitating devices/methods: intubating stylet Endotracheal tube insertion site: oral Blade: Raj Blade size: #3 ETT size (mm): 8.0 Cormack-Lehane Classification: grade IIa - partial view of glottis Placement verified by: chest auscultation and capnometry Measured from: gums ETT to gums (cm): 21 Number of attempts at approach: 1 [facility] 11-04-2022 Note Formatting of this n ote might be different from the original. Family/visitor at bedside with patient. [facility] 11-04-2022 Hospital Discharge instructions Helio Quintero MD - 11/04/2022 11:26 AM EDT [facility] [place] INSPIRE / Hypoglossal Nerve Stimulator Post-Operative Instructions What to expect for your procedure: Implantation procedure: The procedure to implant Inspire is typically an outpatient procedure lasting about 3 hours. For some special circumstances, your physician may recommend a single night stay in the hospital. Pain after the procedure varies but for most patients is not severe. Pain will usually resolve within 7-14 days after the procedure and pain medication will be provided along with a prescription for antibiotic and sometimes a steroid to help reduce swelling if the physicians deems appropriate. (This is not required- up to physician discretion) Two incisions will be made: one at the upper neck and one just below the collarbone. All wounds will have Steri strips placed over them which can be left in place until you are seen for your first postoperative appointment. Additionally, pressure dressings will be placed on the chest incision and should be left place for 48 hours after the procedure after which they may be removed (leaving the Steri strips in place). You may shower after the pressure dressings are removed. An arm sling may be placed at the time of surgery. This is to provide comfort and limit arm movement. You may remove the sling 24 hours after surgery but may continue to use it if it is more comfortable to do so. Swelling at incision sites is expected and will typically improve over the first 2 weeks. Most patients can expect some swelling under the jaw that will give the appearance of a double chin. This will improve over 2-4 weeks. For the first week after surgery please do not perform any strenuous activity or heavy lifting. Your physician also asks that you do not lift the right arm above your shoulder for 1 month after surgery. You may resume a normal diet after surgery. Please call the office if you have any of the following symptoms: fever higher than 100.5, excessive swelling at any of the incision sites, bleeding from incisions, slurred speech, difficulty swallowing, or shortness of breath. A physician can be reached at all times at the main office number. A postoperative appointment should be made for 1 week following the procedure. If one has not been previously scheduled, please call the office to arrange. It is important to know that the stimulator device will NOT be active in the immediate postoperative period. Therefore, no sensations of stimulation should be expected. 2 What to expect in the time period after the procedure: Week 1: At the first postoperative visit, sutures that were placed will be removed and incisions will be checked by the physician. Please note that the device will still remain inactive. Between Weeks 4-6: Patient Remote At the 1-month visit post-surgery, you will come to the sleep medicine office for activation of the device. You will need no special preparation but please wear a shirt/blouse that can be unbuttoned so that the physician can check all incisions and access the implant. Your physician will use a machine programmer to check the device for proper function and turn it on for you to begin using it. The process of activation is not painful and typically takes less than hour. At this visit you will be given a remote control and given instructions on how to use it. A range of therapy will be programmed for you to start at a low level of stimulation and gradually increase it over the next several weeks. Usually, it is advisable to increase the stimulation every 3 days. If you find that the stimulation level is too high, you may decrease the setting to one that is more comfortable and then try to increase again after several days. A manual for details about the remote will be provided. 3 Once activated, you should begin using the device every time you go to sleep (including naps). When you turn the device on, you should expect an initial pulse of tongue motion to let you know that the device is working. The device will then delay any further stimulation for hour; allowing you to fall asleep without feeling any sensations. Your physician can modify this delay period at any time if you require more or less time to fall asleep. There is also a pause feature that allows the device to be temporarily shut off for 15 minutes. This can be used if you need to get up in the middle of the night. Between weeks 4-12 You will receive several check-in calls from the office to check on your acclimation to Inspire Therapy. They will assist with any questions you may have as well as helping to assure that you are utilizing the therapy All Night, Every Night, as well as increasing the amplitude as appropriate. If you have any questions or feedback, do not hesitate to call the office at any time. Between Weeks 12-18: 2-3 months post activation, you will return to the sleep center for a sleep study and additional programming of the device. This will consist of a routine sleep study (without a CPAP mask) where the device will be set to a level to optimize control of your sleep apnea. A limited range of stimulation will be programmed to allow you to adjust your device to your comfort. You should continue to use the device every time you sleep. A visit will be set up with your physician shortly after this study to go over the results, to follow up on how you are doing, and make any necessary adjustments. Please note that at any time, your physician can reprogram the device for your comfort. Subsequent visits: Your physician will want to see you periodically. In the first year, there will be several visits scheduled to check in on how you are doing with your Inspire treatment. At each visit, the device will be checked to see how often you are using your device and to trouble shoot any problems. If you have any technical problems, you may also call Inspire at any time [phone] Option #3 The battery life on the Inspire device is roughly 10 years. When the battery is low, there will be indicators on your remote to let you know to come in to see your physician. The battery change will require a minor procedure, which can be performed under local anesthesia (or sedation). The battery on the remote control is a 9-volt standard battery. Please make sure to use a high quality non-rechargeable battery. Because of changes in sleep and changes in weight that may occur over time, adjustments may need to be made periodically. If you experience changes in how the device seems to be functioning for you should call your physician and potentially arrange a follow up appointment. If at any time you have any concerns or questions, please call your physician. Timeline Overview: Initial evaluation: Office assessment of sleep apnea. Drug induced sleep endoscopy: Diagnostic procedure to identify the mechanism and sites of airway collapse. This is a critical component to the evaluation, to determine candidacy for Inspire. Implantation: Surgical procedure to place the implant. First postop visit (1-week post implantation): First visit in the office after implantation to check incisions and recovery. THIS VISIT WILL BE IN THE ENT OFFICE. Activation (1 month post implantation): Office visit to turn device on and assess for proper function. THIS VISIT WILL BE SCHEDULED at the Sleep Medicine office Sleep study with device adjustment (2-3 months post implantation): Routine sleep study at which time the device will be adjusted to identify the best settings to control the sleep apnea. THIS OVERNIGHT VISIT WILL BE IN THE SLEEP LAB. Routine follow up visits: visits to monitor status of sleep apnea, sleep quality and assess for device function and use. Throughout the process the Inspire Reimbursement team will be working on the Insurance approvals needed for your procedure. If at anytime you have a question specific to the status of the submission, please call the prior authorization team at: If there are any issues at any time, either send Dr. Quintero a message at [employer] or call the office at [phone] during business hours. If after hours and there is concern, go to the emergency room. documented in this encounter [facility] 11-04-2022 Note H&P reviewed. The pa tient was examined and there are no changes to the H&P. [facility] 11-04-2022 Note Formatting of this n ote is different from the original. Date: 11/04/2022 Location: [facility] OR Name: Woodrow Alcala, : 1955, Diagnosis Pre-op Diagnosis * Obstructive sleep apnea (adult) (pediatric) [G47.33] Post-op Diagnosis * Obstructive sleep apnea (adult) (pediatric) [G47.33] Procedures Hypoglossal nerve stimulator placement (Inspire) 91629 - IN OPEN IMPLANTATION CRANIAL NERVE ELLY & PULSE GEN Surgeons * Helio Quintero - Primary Procedure Summary Anesthesia: General ASA: III Estimated Blood Loss: Minimal Drains: * None in log * Implants Type Name Action Serial No. Neuro Interventional Implant GENERATOR PULSE INSPIRE - [id number] - [id number] Implanted [id number] Implant LEAD SENSING RESP INSPIRE - [id number] - [id number] Implanted [id number] Neuro Interventional Implant LEAD STIM INSPIRE - [id number] - [id number] Implanted [id number] Staff: Supervisor Industrial Arts Education: Franchesca Jones RN Scrub Person: Ernesto Greenberg [employer] Hardware Design Engineer Orienting: Marc Medel Findings: hypoglossal nerve placed successfully Complications: None; patient tolerated the procedure well. Specimens Collected: Order Name Source Comment Collection Info Order Time POTASSIUM WITH MG REFLEX For patients on dialysis to draw potassium day of surgery 11/04/2022 8:43 AM PROTHROMBIN TIME If patient on coumadin within 4 days prior. 11/04/2022 8:43 AM Wound Class: Class I: Clean Blood Products: None Prophylactic Antibiotics: Procedure appropriate prophylactic antibiotic(s) given within 1 hour of surgical incision (two hours if receiving Vancomycin or flouroquinolone) Procedure in Detail: Patient was seen and evaluated in the pre-operative area. Informed consent was obtained after discussing the risks, benefits and indications for the procedure. The patient was taken back to the operating room by the anesthesia team. General anesthesia was induced and patient was orotracheally intubated. Appropriate timeout was performed. Table was turned 180 degrees and patient appropriately positioned. Patient was prepped and draped in the usual fashion. A shoulder roll was placed and the patient was prepped and draped in usual sterile fashion with the head turned to the left. Prior to prepping and draping, electrodes were placed in the genioglossus and styloglossus muscle and connected to the NIM box for intraoperative nerve monitoring. A modified sub-mandibular incision was made in the right upper neck approximately 2 cm below the mandible in the natural skin crease. Dissection was carried down through the subcutaneous tissue and platysma. The inferior border of the submandibular gland was identified as well as the digastric tendon. The submandibular gland and the overlying fascia with the marginal mandibular nerve were retracted superiorly. The digastric was retracted inferiorly. Dissection was carried down into the digastric triangle where the hypoglossal nerve was identified in its usual fashion. The mylohyoid muscle was retracted anteriorly, and the hypoglossal nerve was dissected up towards the floor of the mouth. The lateral branches to retrusor muscles were identified, and tested intra-operatively using the NIM stimulator. The cuff electrode for the hypoglossal nerve stimulator was placed distally to these branches on the medial nerve branch to the genioglossus muscle. The stimulation electrode was then looped under and secured to the digastric tendon on its lateral surface with the provided anchor. Extra lead length was tucked deep to the SMG. A second 5 cm incision was made in the right upper chest approximately 5 cm below the clavicle and 3 cm lateral to the sternum. Dissection was carried down through skin and subcutaneous tissue to the pectoralis muscle. An inferior pocket was created deep to the subcutaneous layer and superficial to the pectoralis muscle. 2 2-0 silk sutures were placed superiorly overlying the 2nd rib approximately 3 cm apart for later use to secure the IPG. Dissection was then performed bluntly through the pectoralis major muscle to the fat overlying the external intercostal muscles. The fat was swept off until we were able to visualize the external intercostals and the internal intercostals medially. Careful blunt dissection through the externals ~5 mm posterior to the anterior edge of the external intercostal was performed until the fiber change was seen. The sense lead was then held in the grasping zone and advanced between the external and internals. A 2-0 silk was sutured into the anterior aspect of the externals and tied to the groove around the anchor. 2 2-0 silk sutures were then used to suture the wings of the anchor to the surrounding tissue. The pectoralis major muscle was then gently released covering the sense lead and first anchor. The second anchor was then sutured to the fascia overlying the pectoralis major. We then tunneled the stimulation lead from the neck into the chest. Blunt dissection was first performed in a subplatysmal plane from the neck down to the level of the clavicle. The stimulation lead was then tunneled in a subplatysmal plane and brought out into the chest incision above the clavicle. Both the sense lead and the stimulation lead were carefully cleaned with a clean wet and dry sponge. The IPG was removed from its packaging and the sense lead and stimulation lead were each inserted separately into the IPG and secured into place and noted to be secure. Examination of the lead showed that it was in proper position past the second block. The excess lead was then carefully gathered together and placed deep to the IPG and the IPG was placed into the pocket above the pec fascia inferior to the incision. At least 4 cm of extra slack was left within the neck to allow for movement. The IPG was gently sutured into place with the previous silk stitches using air knots. Diagnostic evaluation confirmed activation of the genioglossus nerve, resulting in genioglossal activation and tongue protrusion, confirmed visually. This was first stimulated at 1.5 mA and then decreased until 0.5 with good tongue protrusion at each step. Assessment of the sense lead showed excellent waveforms with respiration. The wounds were then closed in layers with deep 3-0 vicryl sutures and a 4-0 running subcuticular monocryl for the skin. Mastasol was applied followed by steri strips. This concluded the procedure and the patient was turned over to anesthesia for wake up. Patient was extubated and sent to the PACU in stable condition having tolerated the procedure well. All counts were correct at the end of case. A postop CXR was obtained in PACU noting no pneumothorax. [facility] 11-04-2022 Note Formatting of this n ote is different from the original. Date: 11/04/2022 Location: [facility] OR Name: Woodrow Alcala, : 1955, Diagnosis Pre-op Diagnosis * Obstructive sleep apnea (adult) (pediatric) [G47.33] Post-op Diagnosis * Obstructive sleep apnea (adult) (pediatric) [G47.33] Procedures Hypoglossal nerve stimulator placement (Inspire) 17642 - IN OPEN IMPLANTATION CRANIAL NERVE ELLY & PULSE GEN Surgeons * Helio Quintero - Primary Procedure Summary Anesthesia: General ASA: III Estimated Blood Loss: Minimal Drains: * None in log * Implants Type Name Action Serial No. Neuro Interventional Implant GENERATOR PULSE INSPIRE - [id number] - [id number] Implanted [id number] Implant LEAD SENSING RESP INSPIRE - [id number] - [id number] Implanted [id number] Neuro Interventional Implant LEAD STIM INSPIRE - [id number] - [id number] Implanted [id number] Staff: Supervisor Industrial Arts Education: Franchesca Jones RN Scrub Person: Ernesto Greenberg Electronics Hardware Design Engineer Orienting: Marc Medel Findings: hypoglossal nerve placed successfully Complications: None; patient tolerated the procedure well. Specimens Collected: Order Name Source Comment Collection Info Order Time POTASSIUM WITH MG REFLEX For patients on dialysis to draw potassium day of surgery 11/04/2022 8:43 AM PROTHROMBIN TIME If patient on coumadin within 4 days prior. 11/04/2022 8:43 AM Wound Class: Class I: Clean Blood Products: None Prophylactic Antibiotics: Procedure appropriate prophylactic antibiotic(s) given within 1 hour of surgical incision (two hours if receiving Vancomycin or flouroquinolone) [facility] 11-04-2022 Attending History and physical note H&P reviewed. The patient was examined and there are no changes to the H&P. Source Note - Cheryl Blankenship APRN - PROJECTION WELDING MACHINE OPERATOR - 10/28/2022 2:00 PM EDT Comprehensive Pre Surgical History and Physical ? Name: Woodrow Alcala : 1955 (Age-67 y.o.) Date of Service: Pt seen/examined on 10/28/2022 Procedure Information Date/Time: 11/04/22 1130 Procedure: Hypoglossal nerve stimulator placement (Inspire) - 120 mins Location: [address] Operating Room Surgeons: Helio Quintero MD Chief Complaint: Obstructive sleep apnea (adult) (pediatric) [G47.33] ASSESSMENT/PLAN: Patient is considered intermediate risk for this low/intermediate risk procedure/surgery () with no reducible risk factors. Based on the above evaluation, the benefits of the planned procedure likely exceed the risks. The patient is medically optimized to proceed with the planned procedure without any further cardiopulmonary testing. 1) Obstructive sleep apnea (adult) (pediatric) [G47.33] - Managed per surgery - Orders per PAT protocol: EKG, CBC, BMP - EKG completed 10/28/2022 reviewed: Sinus Rhythm - METS >4. No further evaluation is required today 2) HTN BP Readings from Last 3 Encounters: 10/28/22 (!) 155/99 09/04/22 128/80 08/05/22 139/87 - Elevated today, he is asymptomatic - Encouraged follow up with PCP for continued monitoring and management - Managed with lisinopril 3) Hx of ETOH abuse - Sober for 2 1/2-3 years 4) Hx of Seizures - Secondary to ETOH withdrawal - Last seizure 2 1/2-3 years ago - He is not on medication therapy - No longer consuming ETOH 5) GERD - No medication management 6) Depression - Managed with fluoxetine 7 Smoker - Cessation is encouraged - Patient counseled to avoid smoking/nicotine or THC products 24 hours prior to scheduled procedure 8) Recent Root Canal - Reports 2 root canals ~1 week ago, currently managed with Pen VK - Will completed therapy 10/31/22 - Reports no infections, but placed on antibiotics preventatively 9) Allergies - Managed with loratadine prn Visit Type: Pre-Admission Testing Visit Labs Ordered: YES - PER PAT PROTOCOL Sleep Referral Ordered: No, does not tolerate CPAP Total time spent (which include face to face and non face to face encounters) : 40 minutes Toxic drug monitoring/narrow therapeutic index drug monitoring : # Drug name : lisinopril # Route administered : PO # Method of monitoring : BMP PAT Protocol referenced includes: 1. Anesthesia Lab Protocol Orders 2. Perioperative Cardiovascular Risk Assessment 3. Anesthesia Assessment 4. Pain Assessment and Acute Pain Service Consult (if appropriate) 5. Medical Clearance/Consult from Internal Medicine ([facility]) 6. Shower/Wash Order (for designated surgeries) 7. HORTENCIA Screen and Sleep Clinic Referral (if appropriate) History Of Present Illness: 67 y.o. male who we are asked to see/evaluate by Dr. Quintero for pre-operative evaluation prior to . ? Case: [id number] Date/Time: 11/04/22 1130 Procedure: Hypoglossal nerve stimulator placement (Inspire) [77273 CPT(R)] - 120 mins Anesthesia type: General Diagnosis: Obstructive sleep apnea (adult) (pediatric) [G47.33] Pre-op diagnosis: Obstructive sleep apnea (adult) (pediatric) [G47.33] Location: [address] Operating Room Surgeons: Helio Quintero MD From last office visit with Dr. Quintero on 07/18/22: Woodrow Alcala is a 67 y.o. yo male who presents to clinic today for evaluation of sleep apnea. Patient has been ongoing for approximately 5 years he was evaluated by the [facility] he states that I do not have a sleep medicine study to review however he states he was diagnosed with severe sleep apnea AHI of 60. He did try to utilize CPAP however he did not tolerate it has significant history of claustrophobia and did not tolerate the mask. Subsequently was seen underwent drug-induced sleep endoscopy was clear to receive the inspire implant at the [facility] however the day before surgery he was called and said that his insurance declined it and he was unable to have the procedure. He is here to establish care and to work towards getting the inspire device no previous history of head neck surgery. Patient denies exertional chest pain/shortness of breath. Denies dizziness, syncope, lightheadedness. Denies fever, chills, weakness or fatigue. Patient denies any recent illness, infections, or wounds. Patient denies abdominal pain, nausea, vomiting, diarrhea, or constipation. Patient denies hx of CAD, CHF, VA, TIA/CVA, diabetes, COPD, asthma,DVT/PE. Past Medical History: Past Medical History: 09/11/2018: Alcohol dependence, uncomplicated ([facility]) No date: Depression No date: GERD (gastroesophageal reflux disease) Comment: gastritis No date: Hypertension No date: Seizures ([facility]) Comment: seizures with withdrawal, last one 2 years ago Past Surgical History: Past Surgical History: No date: ANKLE SURGERY No date: BACK SURGERY No date: COLONOSCOPY No date: FRACTURE SURGERY Comment: left shoulder (2 torn tendon, sewed bursitis); right ankle (steel and 2 plates); right wrist-pins No date: SHOULDER SURGERY No date: WRIST SURGERY Medications Prior to Admission: Current Outpatient Medications on File Prior to Visit Medication Sig Dispense Refill FLUoxetine (PROzac) 10 MG capsule Take 30 mg by mouth in the morning. lisinopril 10 MG tablet Take 10 mg by mouth daily. loratadine (Claritin) 10 MG tablet Take 10 mg by mouth Daily as needed for allergies. penicillin V (Veetid) 250 MG tablet Take 250 mg by mouth in the morning and 250 mg at noon and 250 mg in the evening and 250 mg before bedtime. Taking for 3 more days. FLUoxetine (PROzac) 20 MG capsule Take 20 mg by mouth in the morning. No current facility-administered medications on file prior to visit. CHRONIC NARCOTIC USE: No Allergies: Patient has no known allergies. If patient has opioid allergy, is it okay to take Acetaminophen: Yes Social History: TOBACCO: reports that he has been smoking cigarettes. He has a 50.00 pack-year smoking history. He has never used smokeless tobacco. ETOH: reports that he does not currently use alcohol. Social History Substance and Sexual Activity Drug Use No Family History: No family history on file. REVIEW OF SYSTEMS: Review of Systems Constitutional: Negative. HENT: Negative. Respiratory: Negative. Cardiovascular: Negative. Gastrointestinal: Negative. Endocrine: Negative. Genitourinary: Negative. Musculoskeletal: Negative. Skin: Negative. Allergic/Immunologic: Negative. Neurological: Negative. Hematological: Negative. Psychiatric/Behavioral: Negative. Physical Exam: Physical Exam Vitals reviewed. Constitutional: Appearance: Normal appearance. HENT: Head: Normocephalic. Mouth/Throat: Mouth: Mucous membranes are moist. Pharynx: Oropharynx is clear. Eyes: Conjunctiva/sclera: Conjunctivae normal. Cardiovascular: Rate and Rhythm: Normal rate and regular rhythm. Pulses: Normal pulses. Heart sounds: Normal heart sounds. Pulmonary: Effort: Pulmonary effort is normal. Breath sounds: Normal breath sounds. Abdominal: General: Abdomen is flat. Bowel sounds are normal. Palpations: Abdomen is soft. Musculoskeletal: General: Normal range of motion. Cervical back: Normal range of motion. Skin: General: Skin is warm and dry. Capillary Refill: Capillary refill takes less than 2 seconds. Neurological: General: No focal deficit present. Mental Status: He is alert and oriented to person, place, and time. Psychiatric: Mood and Affect: Mood normal. Behavior: Behavior normal. Vitals: Vitals Value Taken Time BP 155/99 10/28/22 1410 Temp 36 C (96.8 F) 10/28/22 1410 Pulse 78 10/28/22 1410 Resp 20 10/28/22 1410 SpO2 97 % 10/28/22 1410 Labs: No results found for: WBC, HGB, HCT, MCV, PLT No results found for: NA, K, CL, CO2, BUN, CREATININE, GLUCOSE, CALCIUM, PROT, BILIRUBINFL, ALKPHOS, AST, ALT, EGFR, GLOB Joie's Simple Cardiac Risk Index: JOIE'S SIMPLE CARDIAC RISK SCORE: 0 Interpretation: 0 Points Class I 0.5% 1 Point Class II 1.3% 2 Points Class III 3.6% 3+ Points Class IV 9.1% PAT Pain Score: Postop Pain Management Plan (Pain consult ordered?): Pain consult not indicated at this time ? EKG: Yes, completed 10/28/2022 IMPRESSION: Sinus Rhythm ECHO and EF:None on file METS: Yes, >4 Electronically signed by: MAGALI Olivo CNP Date: 10/28/2022 at 2:30 PM [facility] 11-04-2022 History and physical note H&P reviewed. The patient was examined and there are no changes to the H&P. Source Note - MAGALI Olivo CNP - 10/28/2022 2:00 PM EDT Comprehensive Pre Surgical History and Physical ? Name: Woodrow Alcala : 1955 (Age-67 y.o.) Date of Service: Pt seen/examined on 10/28/2022 Procedure Information Date/Time: 11/04/22 1130 Procedure: Hypoglossal nerve stimulator placement (Inspire) - 120 mins Location: [address] Operating Room Surgeons: Helio Quintero MD Chief Complaint: Obstructive sleep apnea (adult) (pediatric) [G47.33] ASSESSMENT/PLAN: Patient is considered intermediate risk for this low/intermediate risk procedure/surgery () with no reducible risk factors. Based on the above evaluation, the benefits of the planned procedure likely exceed the risks. The patient is medically optimized to proceed with the planned procedure without any further cardiopulmonary testing. 1) Obstructive sleep apnea (adult) (pediatric) [G47.33] - Managed per surgery - Orders per PAT protocol: EKG, CBC, BMP - EKG completed 10/28/2022 reviewed: Sinus Rhythm - METS >4. No further evaluation is required today 2) HTN BP Readings from Last 3 Encounters: 10/28/22 (!) 155/99 09/04/22 128/80 08/05/22 139/87 - Elevated today, he is asymptomatic - Encouraged follow up with PCP for continued monitoring and management - Managed with lisinopril 3) Hx of ETOH abuse - Sober for 2 1/2-3 years 4) Hx of Seizures - Secondary to ETOH withdrawal - Last seizure 2 1/2-3 years ago - He is not on medication therapy - No longer consuming ETOH 5) GERD - No medication management 6) Depression - Managed with fluoxetine 7 Smoker - Cessation is encouraged - Patient counseled to avoid smoking/nicotine or THC products 24 hours prior to scheduled procedure 8) Recent Root Canal - Reports 2 root canals ~1 week ago, currently managed with Pen VK - Will completed therapy 10/31/22 - Reports no infections, but placed on antibiotics preventatively 9) Allergies - Managed with loratadine prn Visit Type: Pre-Admission Testing Visit Labs Ordered: YES - PER PAT PROTOCOL Sleep Referral Ordered: No, does not tolerate CPAP Total time spent (which include face to face and non face to face encounters) : 40 minutes Toxic drug monitoring/narrow therapeutic index drug monitoring : # Drug name : lisinopril # Route administered : PO # Method of monitoring : BMP PAT Protocol referenced includes: 1. Anesthesia Lab Protocol Orders 2. Perioperative Cardiovascular Risk Assessment 3. Anesthesia Assessment 4. Pain Assessment and Acute Pain Service Consult (if appropriate) 5. Medical Clearance/Consult from Internal Medicine ([facility]) 6. Shower/Wash Order (for designated surgeries) 7. HORTENCIA Screen and Sleep Clinic Referral (if appropriate) History Of Present Illness: 67 y.o. male who we are asked to see/evaluate by Dr. Quintero for pre-operative evaluation prior to . ? Case: [id number] Date/Time: 11/04/22 1130 Procedure: Hypoglossal nerve stimulator placement (Inspire) [13668 CPT(R)] - 120 mins Anesthesia type: General Diagnosis: Obstructive sleep apnea (adult) (pediatric) [G47.33] Pre-op diagnosis: Obstructive sleep apnea (adult) (pediatric) [G47.33] Location: [address] Operating Room Surgeons: Helio Quintero MD From last office visit with Dr. Quintero on 07/18/22: Woodrow Alcala is a 67 y.o. yo male who presents to clinic today for evaluation of sleep apnea. Patient has been ongoing for approximately 5 years he was evaluated by the [facility] he states that I do not have a sleep medicine study to review however he states he was diagnosed with severe sleep apnea AHI of 60. He did try to utilize CPAP however he did not tolerate it has significant history of claustrophobia and did not tolerate the mask. Subsequently was seen underwent drug-induced sleep endoscopy was clear to receive the inspire implant at the [facility] however the day before surgery he was called and said that his insurance declined it and he was unable to have the procedure. He is here to establish care and to work towards getting the inspire device no previous history of head neck surgery. Patient denies exertional chest pain/shortness of breath. Denies dizziness, syncope, lightheadedness. Denies fever, chills, weakness or fatigue. Patient denies any recent illness, infections, or wounds. Patient denies abdominal pain, nausea, vomiting, diarrhea, or constipation. Patient denies hx of CAD, CHF, VA, TIA/CVA, diabetes, COPD, asthma,DVT/PE. Past Medical History: Past Medical History: 09/11/2018: Alcohol dependence, uncomplicated ([facility]) No date: Depression No date: GERD (gastroesophageal reflux disease) Comment: gastritis No date: Hypertension No date: Seizures ([facility]) Comment: seizures with withdrawal, last one 2 years ago Past Surgical History: Past Surgical History: No date: ANKLE SURGERY No date: BACK SURGERY No date: COLONOSCOPY No date: FRACTURE SURGERY Comment: left shoulder (2 torn tendon, sewed bursitis); right ankle (steel and 2 plates); right wrist-pins No date: SHOULDER SURGERY No date: WRIST SURGERY Medications Prior to Admission: Current Outpatient Medications on File Prior to Visit Medication Sig Dispense Refill FLUoxetine (PROzac) 10 MG capsule Take 30 mg by mouth in the morning. lisinopril 10 MG tablet Take 10 mg by mouth daily. loratadine (Claritin) 10 MG tablet Take 10 mg by mouth Daily as needed for allergies. penicillin V (Veetid) 250 MG tablet Take 250 mg by mouth in the morning and 250 mg at noon and 250 mg in the evening and 250 mg before bedtime. Taking for 3 more days. FLUoxetine (PROzac) 20 MG capsule Take 20 mg by mouth in the morning. No current facility-administered medications on file prior to visit. CHRONIC NARCOTIC USE: No Allergies: Patient has no known allergies. If patient has opioid allergy, is it okay to take Acetaminophen: Yes Social History: TOBACCO: reports that he has been smoking cigarettes. He has a 50.00 pack-year smoking history. He has never used smokeless tobacco. ETOH: reports that he does not currently use alcohol. Social History Substance and Sexual Activity Drug Use No Family History: No family history on file. REVIEW OF SYSTEMS: Review of Systems Constitutional: Negative. HENT: Negative. Respiratory: Negative. Cardiovascular: Negative. Gastrointestinal: Negative. Endocrine: Negative. Genitourinary: Negative. Musculoskeletal: Negative. Skin: Negative. Allergic/Immunologic: Negative. Neurological: Negative. Hematological: Negative. Psychiatric/Behavioral: Negative. Physical Exam: Physical Exam Vitals reviewed. Constitutional: Appearance: Normal appearance. HENT: Head: Normocephalic. Mouth/Throat: Mouth: Mucous membranes are moist. Pharynx: Oropharynx is clear. Eyes: Conjunctiva/sclera: Conjunctivae normal. Cardiovascular: Rate and Rhythm: Normal rate and regular rhythm. Pulses: Normal pulses. Heart sounds: Normal heart sounds. Pulmonary: Effort: Pulmonary effort is normal. Breath sounds: Normal breath sounds. Abdominal: General: Abdomen is flat. Bowel sounds are normal. Palpations: Abdomen is soft. Musculoskeletal: General: Normal range of motion. Cervical back: Normal range of motion. Skin: General: Skin is warm and dry. Capillary Refill: Capillary refill takes less than 2 seconds. Neurological: General: No focal deficit present. Mental Status: He is alert and oriented to person, place, and time. Psychiatric: Mood and Affect: Mood normal. Behavior: Behavior normal. Vitals: Vitals Value Taken Time BP 155/99 10/28/22 1410 Temp 36 C (96.8 F) 10/28/22 1410 Pulse 78 10/28/22 1410 Resp 20 10/28/22 1410 SpO2 97 % 10/28/22 1410 Labs: No results found for: WBC, HGB, HCT, MCV, PLT No results found for: NA, K, CL, CO2, BUN, CREATININE, GLUCOSE, CALCIUM, PROT, BILIRUBINFL, ALKPHOS, AST, ALT, EGFR, GLOB Joie's Simple Cardiac Risk Index: JOIE'S SIMPLE CARDIAC RISK SCORE: 0 Interpretation: 0 Points Class I 0.5% 1 Point Class II 1.3% 2 Points Class III 3.6% 3+ Points Class IV 9.1% PAT Pain Score: Postop Pain Management Plan (Pain consult ordered?): Pain consult not indicated at this time ? EKG: Yes, completed 10/28/2022 IMPRESSION: Sinus Rhythm ECHO and EF:None on file METS: Yes, >4 Electronically signed by: Cheryl Blankenship APRN - JUDY Date: 10/28/2022 at 2:30 PM documented in this encounter [facility] 10-28-2022 Note Patient: Woodrow silva Procedure Information Date/Time: 11/04/22 1130 Procedure: Hypoglossal nerve stimulator placement (Inspire) - 120 mins Location: [address] Operating Room Surgeons: Helio Quintero MD Past Medical History: Past Medical History: 09/11/2018: Alcohol dependence, uncomplicated (HCC) No date: Depression No date: GERD (gastroesophageal reflux disease) Comment: gastritis No date: Hypertension No date: Seizures (HCC) Comment: seizures with withdrawal, last one 2 years ago Past Surgical History: Past Surgical History: No date: ANKLE SURGERY No date: BACK SURGERY No date: COLONOSCOPY No date: FRACTURE SURGERY Comment: left shoulder (2 torn tendon, sewed bursitis); right ankle (steel and 2 plates); right wrist-pins No date: SHOULDER SURGERY No date: WRIST SURGERY Social History: TOBACCO: reports that he has been smoking cigarettes. He has a 50.00 pack-year smoking history. He has never used smokeless tobacco. ETOH: reports that he does not currently use alcohol. Social History Substance and Sexual Activity Drug Use No Family History: No family history on file. Screening: unknown Clinical information reviewed: Tobacco Allergies Meds Med Hx Surg Hx Fam Hx Soc Hx Physical Exam Airway Mallampati: III TM distance: >3 FB Neck ROM: full Mouth Open: normalendotracheal tube not in place Cardiovascular Dental (+) Upper Dentures, Lower Partials Pulmonary Abdominal Anesthesia Plan patient is NPO appropriate Any family history or previous problems with anesthesia no ASA 3 general Any family history or previous problems with anesthesia no The patient is a current smoker. Patient was previously instructed to abstain from smoking on day of procedure. Patient did not smoke on day of procedure. Anesthetic plan and risks discussed with patient (ex-). Anesthesia Pride Considerations Micrognathia Sober 2 1/2yrs Recent Root Canal - Reports 2 root canals ~1 week ago, currently managed with Pen VK - Will completed therapy 10/31/22 ERAS Type General ERAS HORTENCIA Screening does not tolerate CPAP Labs: No results found for: WBC, HGB, HCT, MCV, PLT No results found for: NA, K, CL, CO2, BUN, CREATININE, GLUCOSE, CALCIUM, PROT, BILIRUBINFL, ALKPHOS, AST, ALT, EGFR, GLOB No echocardiogram results found for the past 14 days No results found for this or any previous visit. [facility] 10-28-2022 Note Comprehensive Pre Chan rgical History and Physical ? Name: Woodrow Alcala : 1955 (Age-67 y.o.) Date of Service: Pt seen/examined on 10/28/2022 Procedure Information Date/Time: 11/04/22 1130 Procedure: Hypoglossal nerve stimulator placement (Inspire) - 120 mins Location: [address] Operating Room Surgeons: Helio Quintero MD Chief Complaint: Obstructive sleep apnea (adult) (pediatric) [G47.33] ASSESSMENT/PLAN: Patient is considered intermediate risk for this low/intermediate risk procedure/surgery () with no reducible risk factors. Based on the above evaluation, the benefits of the planned procedure likely exceed the risks. The patient is medically optimized to proceed with the planned procedure without any further cardiopulmonary testing. 1) Obstructive sleep apnea (adult) (pediatric) [G47.33] - Managed per surgery - Orders per PAT protocol: EKG, CBC, BMP - EKG completed 10/28/2022 reviewed: Sinus Rhythm - METS >4. No further evaluation is required today 2) HTN BP Readings from Last 3 Encounters: 10/28/22 (!) 155/99 09/04/22 128/80 08/05/22 139/87 - Elevated today, he is asymptomatic - Encouraged follow up with PCP for continued monitoring and management - Managed with lisinopril 3) Hx of ETOH abuse - Sober for 2 1/2-3 years 4) Hx of Seizures - Secondary to ETOH withdrawal - Last seizure 2 1/2-3 years ago - He is not on medication therapy - No longer consuming ETOH 5) GERD - No medication management 6) Depression - Managed with fluoxetine 7 Smoker - Cessation is encouraged - Patient counseled to avoid smoking/nicotine or THC products 24 hours prior to scheduled procedure 8) Recent Root Canal - Reports 2 root canals ~1 week ago, currently managed with Pen VK - Will completed therapy 10/31/22 - Reports no infections, but placed on antibiotics preventatively 9) Allergies - Managed with loratadine prn Visit Type: Pre-Admission Testing Visit Labs Ordered: YES - PER PAT PROTOCOL Sleep Referral Ordered: No, does not tolerate CPAP Total time spent (which include face to face and non face to face encounters) : 40 minutes Toxic drug monitoring/narrow therapeutic index drug monitoring : # Drug name : lisinopril # Route administered : PO # Method of monitoring : BMP PAT Protocol referenced includes: 1. Anesthesia Lab Protocol Orders 2. Perioperative Cardiovascular Risk Assessment 3. Anesthesia Assessment 4. Pain Assessment and Acute Pain Service Consult (if appropriate) 5. Medical Clearance/Consult from Internal Medicine ([facility]) 6. Shower/Wash Order (for designated surgeries) 7. HORTENCIA Screen and Sleep Clinic Referral (if appropriate) History Of Present Illness: 67 y.o. male who we are asked to see/evaluate by Dr. Quintero for pre-operative evaluation prior to . ? Case: [id number] Date/Time: 11/04/22 1130 Procedure: Hypoglossal nerve stimulator placement (Inspire) [97652 CPT(R)] - 120 mins Anesthesia type: General Diagnosis: Obstructive sleep apnea (adult) (pediatric) [G47.33] Pre-op diagnosis: Obstructive sleep apnea (adult) (pediatric) [G47.33] Location: [address] Operating Room Surgeons: Helio Quintero MD From last office visit with Dr. Quintero on 07/18/22: Woodrow Alcala is a 67 y.o. yo male who presents to clinic today for evaluation of sleep apnea. Patient has been ongoing for approximately 5 years he was evaluated by the [facility] he states that I do not have a sleep medicine study to review however he states he was diagnosed with severe sleep apnea AHI of 60. He did try to utilize CPAP however he did not tolerate it has significant history of claustrophobia and did not tolerate the mask. Subsequently was seen underwent drug-induced sleep endoscopy was clear to receive the inspire implant at the [facility] however the day before surgery he was called and said that his insurance declined it and he was unable to have the procedure. He is here to establish care and to work towards getting the inspire device no previous history of head neck surgery. Patient denies exertional chest pain/shortness of breath. Denies dizziness, syncope, lightheadedness. Denies fever, chills, weakness or fatigue. Patient denies any recent illness, infections, or wounds. Patient denies abdominal pain, nausea, vomiting, diarrhea, or constipation. Patient denies hx of CAD, CHF, VA, TIA/CVA, diabetes, COPD, asthma,DVT/PE. Past Medical History: Past Medical History: 09/11/2018: Alcohol dependence, uncomplicated (HCC) No date: Depression No date: GERD (gastroesophageal reflux disease) Comment: gastritis No date: Hypertension No date: Seizures (HCC) Comment: seizures with withdrawal, last one 2 years ago Past Surgical History: Past Surgical History: No date: ANKLE SURGERY No date: B (more content not included)... [facility] 10-28-2022 Note Comprehensive Pre Chan rgical History and Physical ? Name: Woodrow Alcala : 1955 (Age-67 y.o.) Date of Service: Pt seen/examined on 10/28/2022 Procedure Information Date/Time: 11/04/22 1130 Procedure: Hypoglossal nerve stimulator placement (Inspire) - 120 mins Location: [address] Operating Room Surgeons: Helio Quintero MD Chief Complaint: Obstructive sleep apnea (adult) (pediatric) [G47.33] ASSESSMENT/PLAN: Patient is considered intermediate risk for this low/intermediate risk procedure/surgery () with no reducible risk factors. Based on the above evaluation, the benefits of the planned procedure likely exceed the risks. The patient is medically optimized to proceed with the planned procedure without any further cardiopulmonary testing. 1) Obstructive sleep apnea (adult) (pediatric) [G47.33] - Managed per surgery - Orders per PAT protocol: EKG, CBC, BMP - EKG completed 10/28/2022 reviewed: Sinus Rhythm - METS >4. No further evaluation is required today 2) HTN BP Readings from Last 3 Encounters: 10/28/22 (!) 155/99 09/04/22 128/80 08/05/22 139/87 - Elevated today, he is asymptomatic - Encouraged follow up with PCP for continued monitoring and management - Managed with lisinopril 3) Hx of ETOH abuse - Sober for 2 1/2-3 years 4) Hx of Seizures - Secondary to ETOH withdrawal - Last seizure 2 1/2-3 years ago - He is not on medication therapy - No longer consuming ETOH 5) GERD - No medication management 6) Depression - Managed with fluoxetine 7 Smoker - Cessation is encouraged - Patient counseled to avoid smoking/nicotine or THC products 24 hours prior to scheduled procedure 8) Recent Root Canal - Reports 2 root canals ~1 week ago, currently managed with Pen VK - Will completed therapy 10/31/22 - Reports no infections, but placed on antibiotics preventatively 9) Allergies - Managed with loratadine prn Visit Type: Pre-Admission Testing Visit Labs Ordered: YES - PER PAT PROTOCOL Sleep Referral Ordered: No, does not tolerate CPAP Total time spent (which include face to face and non face to face encounters) : 40 minutes Toxic drug monitoring/narrow therapeutic index drug monitoring : # Drug name : lisinopril # Route administered : PO # Method of monitoring : BMP PAT Protocol referenced includes: 1. Anesthesia Lab Protocol Orders 2. Perioperative Cardiovascular Risk Assessment 3. Anesthesia Assessment 4. Pain Assessment and Acute Pain Service Consult (if appropriate) 5. Medical Clearance/Consult from Internal Medicine ([facility]) 6. Shower/Wash Order (for designated surgeries) 7. HORTENCIA Screen and Sleep Clinic Referral (if appropriate) History Of Present Illness: 67 y.o. male who we are asked to see/evaluate by Dr. Quintero for pre-operative evaluation prior to . ? Case: [id number] Date/Time: 11/04/22 1130 Procedure: Hypoglossal nerve stimulator placement (Inspire) [13299 CPT(R)] - 120 mins Anesthesia type: General Diagnosis: Obstructive sleep apnea (adult) (pediatric) [G47.33] Pre-op diagnosis: Obstructive sleep apnea (adult) (pediatric) [G47.33] Location: [address] Operating Room Surgeons: Helio Quintero MD From last office visit with Dr. Quintero on 07/18/22: Woodrow Alcala is a 67 y.o. yo male who presents to clinic today for evaluation of sleep apnea. Patient has been ongoing for approximately 5 years he was evaluated by the [facility] he states that I do not have a sleep medicine study to review however he states he was diagnosed with severe sleep apnea AHI of 60. He did try to utilize CPAP however he did not tolerate it has significant history of claustrophobia and did not tolerate the mask. Subsequently was seen underwent drug-induced sleep endoscopy was clear to receive the inspire implant at the [facility] however the day before surgery he was called and said that his insurance declined it and he was unable to have the procedure. He is here to establish care and to work towards getting the inspire device no previous history of head neck surgery. Patient denies exertional chest pain/shortness of breath. Denies dizziness, syncope, lightheadedness. Denies fever, chills, weakness or fatigue. Patient denies any recent illness, infections, or wounds. Patient denies abdominal pain, nausea, vomiting, diarrhea, or constipation. Patient denies hx of CAD, CHF, VA, TIA/CVA, diabetes, COPD, asthma,DVT/PE. Past Medical History: Past Medical History: 09/11/2018: Alcohol dependence, uncomplicated (HCC) No date: Depression No date: GERD (gastroesophageal reflux disease) Comment: gastritis No date: Hypertension No date: Seizures (HCC) Comment: seizures with withdrawal, last one 2 years ago Past Surgical History: Past Surgical History: No date: ANKLE SURGERY No date: B (more content not included)... [facility] 10-01-2022 Telephone encounter Note Pt calling back re: completed PSG and DISE, interested in scheduling surgery. Please advise and if needed, complete surgery scheduling sheet. [facility] 10-01-2022 Miscellaneous Notes Pt calling back re: completed PSG and DISE, interested in scheduling surgery. Please advise and if needed, complete surgery scheduling sheet. Appt cancelled. Called and spoke with patient. Advised that HST showed he is still within range for Inspire (AHI 51.5; SpO2 avg 92%; minimum was artifact). As he has already had DISE, will forward to Dr. Quintero to move forward with scheduling surgery. Jose, please cancel pt's upcoming appt with me to review results. documented in this encounter [facility] 09-23-2022 Note HNO ID: [id number] Author: Yue Cruz APRN.PROJECTION WELDING MACHINE OPERATOR Service: ? Author Type: Nurse Practitioner Type: Progress Notes Filed: 09/23/2022 6:03 PM Note Text: Subjective Eye Problem Associated symptoms include congestion and coughing. Pertinent negatives include no fever, headaches or sore throat. Woodrow Alcala is a 67 year old male who presents with right eye discharge and blurring for the past 3 or 4 days. He notes occasional floaters in his visual field. He denies eye pain, dizziness or headache. He has also had increased sinus congestion and drainage, post nasal drainage for the past week. He has taken Claritin but it does not seem to be working. Review of Systems Constitutional: Negative for fever. HENT: Positive for congestion. Negative for ear pain and sore throat. Eyes: Positive for blurred vision and discharge. Negative for double vision, photophobia, pain and redness. Respiratory: Positive for cough and sputum production. Cardiovascular: Negative. Skin: Negative. Neurological: Negative for dizziness and headaches. BP 124/76 Pulse 96 Temp 36.2 ?C (97.1 ?F) Resp 16 Wt 69.9 kg (154 lb) SpO2 98% BMI 24.86 kg/m? . PAST MEDICAL HISTORY Diagnosis Date Alcohol abuse, in remission 2011 Alcohol withdrawal seizure (HCC) Depression GERD (gastroesophageal reflux disease) HTN (hypertension) Tobacco use PAST SURGICAL HISTORY Procedure Laterality Date COLONOSCOPY FLX DX W/COLLJ SPEC WHEN PFRMD 05/19/2012 Colonoscopy COLONOSCOPY SCREENING 04/22/2022 suboptimal prep, hyperplastic polyp. repeat in 5 years due to prep DIAGNOSTIC ARTHROSCOPY SHOULDER +- SYNOVIAL BX Left 06/21/2016 Left shoulder arthroscopic biceps tenotomy, labral debridement PAST SURGICAL HISTORY OF repair of buldging disc in Lumbar spine RECONSTRUCTION ROTATOR CUFF AVULSION CHRONIC Left 06/21/2016 Rotator cuff repair, SAD and bursectomy REPAIR OF ANKLE FRACTURE 1988 1 plate and 9 screws right ankle REPAIR WRIST BONE FRACTURE 1981 1991 bone graft ALLERGIES Patient has no known allergies. MEDICATIONS FLUoxetine (PROZAC) 20 mg capsule Take 1 capsule by mouth once daily. In addition to 10 mg a day meclizine (ANTIVERT) 25 mg tab Take 1 tablet by mouth three times daily as needed (dizziness). FLUoxetine (PROZAC) 10 mg capsule Take 1 capsule by mouth once daily. In addition to 20 mg a day. lisinopril (ZESTRIL, PRINIVIL) 10 mg tablet Take 1 tablet by mouth once daily. clotrimazole 1 % oint Apply to affected area twice daily. esomeprazole (NEXIUM) 20 mg capsule Take 2 capsules by mouth once daily. Prn loratadine (CLARITIN ORAL) Take by mouth. nicotine (NICODERM) 21 mg/24 hr Apply 1 Patch as directed every 24 hours. (Patient not taking: Reported on 05/29/2022) nicotine (NICODERM) 14 mg/24 hr Apply 1 Patch as directed every 24 hours. No smoking with patch. (Patient not taking: Reported on 05/29/2022) nicotine (NICODERM) 7 mg/24 hr Apply 1 Patch as directed every 24 hours. (Patient not taking: Reported on 05/29/2022) FAMILY HISTORY Problem Relation Age of Onset other (dementia) Mother other (unknown) Father other (lung cancer) Brother Social History Tobacco Use Smoking status: Former Packs/day: 0.75 Years: 40.00 Total pack years: 30.00 Types: Cigarettes Smokeless tobacco: Never Tobacco comments: Currently using nicotine patch. Vaping Use Vaping Use: Never used Substance Use Topics Alcohol use: No Comment: sober since 2011 Drug use: No Types: Cocaine, Marijuana Comment: 2001- quit Objective Physical Exam Vitals and nursing note reviewed. Constitutional: Appearance: Normal appearance. HENT: Right Ear: Tympanic membrane, ear canal and external ear normal. Left Ear: Tympanic membrane, ear canal and external ear normal. Nose: Mucosal edema, congestion and rhinorrhea present. Eyes: General: Lids are normal. Vision grossly intact. Right eye: No foreign body, discharge or hordeolum. Extraocular Movements: Right eye: Normal extraocular motion and no nystagmus. Conjunctiva/sclera: Right eye: Right conjunctiva is not injected. No chemosis, exudate or hemorrhage. Cardiovascular: Rate and Rhythm: Normal rate and regular rhythm. Heart sounds: Normal heart sounds. Pulmonary: Effort: Pulmonary effort is normal. No respiratory distress. Breath sounds: Normal breath sounds. No wheezing or rales. Lymphadenopathy: Cervical: No cervical adenopathy. Neurological: Mental Status: He is alert. ASSESSMENT/PLAN: 1. Acute sinusitis, recurrence not specified, unspecified location - ICD9: 461.9, ICD10: J01.90 (primary diagnosis) - Will begin treatment with Augmentin - Supportive care with plenty of fluids, rest, and analgesia prn. 2. Eye drainage - ICD9: 379.93, ICD10: H57.89 - likely related to sinusitis, low suspicion for conjunctivitis 3. Floaters in visual field, right - ICD9: 379.24, ICD10: H43.391 - follow up with ophtha (more content not included)... [facility] 09-23-2022 Instructions Yue Cruz APRN.JUDY - 09/23/2022 6:02 PM EDT ASSESSMENT/PLAN: 1. Acute sinusitis, recurrence not specified, unspecified location - ICD9: 461.9, ICD10: J01.90 (primary diagnosis) - Will begin treatment with Augmentin - Supportive care with plenty of fluids, rest, and analgesia prn. 2. Eye drainage - ICD9: 379.93, ICD10: H57.89 - likely related to sinusitis, low suspicion for conjunctivitis 3. Floaters in visual field, right - ICD9: 379.24, ICD10: H43.391 - follow up with industrial maintenance technician if persisting. - Follow-up with your PCP in 3-5 days if symptoms have not improved or sooner if symptoms worsen - Discussed red flags and need for immediate medical evaluation if any occur. - Discussed supportive care treatment with fluids, rest and analgesia. - Discussed expected course of illness Yue Cruz APRN.PROJECTION WELDING MACHINE OPERATOR documented in this encounter [facility] 09-23-2022 History of Present illness Narrative Subjective Eye Problem Associated symptoms include congestion and coughing. Pertinent negatives include no fever, headaches or sore throat. Woodrow Alcala is a 67 year old male who presents with right eye discharge and blurring for the past 3 or 4 days. He notes occasional floaters in his visual field. He denies eye pain, dizziness or headache. He has also had increased sinus congestion and drainage, post nasal drainage for the past week. He has taken Claritin but it does not seem to be working. Review of Systems Constitutional: Negative for fever. HENT: Positive for congestion. Negative for ear pain and sore throat. Eyes: Positive for blurred vision and discharge. Negative for double vision, photophobia, pain and redness. Respiratory: Positive for cough and sputum production. Cardiovascular: Negative. Skin: Negative. Neurological: Negative for dizziness and headaches. BP 124/76 Pulse 96 Temp 36.2 C (97.1 F) Resp 16 Wt 69.9 kg (154 lb) SpO2 98% BMI 24.86 kg/m . PAST MEDICAL HISTORY Diagnosis Date Alcohol abuse, in remission 2011 Alcohol withdrawal seizure (HCC) Depression GERD (gastroesophageal reflux disease) HTN (hypertension) Tobacco use PAST SURGICAL HISTORY Procedure Laterality Date COLONOSCOPY FLX DX W/COLLJ SPEC WHEN PFRMD 05/19/2012 Colonoscopy COLONOSCOPY SCREENING 04/22/2022 suboptimal prep, hyperplastic polyp. repeat in 5 years due to prep DIAGNOSTIC ARTHROSCOPY SHOULDER +- SYNOVIAL BX Left 06/21/2016 Left shoulder arthroscopic biceps tenotomy, labral debridement PAST SURGICAL HISTORY OF repair of buldging disc in Lumbar spine RECONSTRUCTION ROTATOR CUFF AVULSION CHRONIC Left 06/21/2016 Rotator cuff repair, SAD and bursectomy REPAIR OF ANKLE FRACTURE 1988 1 plate and 9 screws right ankle REPAIR WRIST BONE FRACTURE 1981 1991 bone graft ALLERGIES Patient has no known allergies. MEDICATIONS FLUoxetine (PROZAC) 20 mg capsule Take 1 capsule by mouth once daily. In addition to 10 mg a day meclizine (ANTIVERT) 25 mg tab Take 1 tablet by mouth three times daily as needed (dizziness). FLUoxetine (PROZAC) 10 mg capsule Take 1 capsule by mouth once daily. In addition to 20 mg a day. lisinopril (ZESTRIL, PRINIVIL) 10 mg tablet Take 1 tablet by mouth once daily. clotrimazole 1 % oint Apply to affected area twice daily. esomeprazole (NEXIUM) 20 mg capsule Take 2 capsules by mouth once daily. Prn loratadine (CLARITIN ORAL) Take by mouth. nicotine (NICODERM) 21 mg/24 hr Apply 1 Patch as directed every 24 hours. (Patient not taking: Reported on 05/29/2022) nicotine (NICODERM) 14 mg/24 hr Apply 1 Patch as directed every 24 hours. No smoking with patch. (Patient not taking: Reported on 05/29/2022) nicotine (NICODERM) 7 mg/24 hr Apply 1 Patch as directed every 24 hours. (Patient not taking: Reported on 05/29/2022) FAMILY HISTORY Problem Relation Age of Onset other (dementia) Mother other (unknown) Father other (lung cancer) Brother Social History Tobacco Use Smoking status: Former Packs/day: 0.75 Years: 40.00 Total pack years: 30.00 Types: Cigarettes Smokeless tobacco: Never Tobacco comments: Currently using nicotine patch. Vaping Use Vaping Use: Never used Substance Use Topics Alcohol use: No Comment: sober since 2011 Drug use: No Types: Cocaine, Marijuana Comment: 2001- quit Objective Physical Exam Vitals and nursing note reviewed. Constitutional: Appearance: Normal appearance. HENT: Right Ear: Tympanic membrane, ear canal and external ear normal. Left Ear: Tympanic membrane, ear canal and external ear normal. Nose: Mucosal edema, congestion and rhinorrhea present. Eyes: General: Lids are normal. Vision grossly intact. Right eye: No foreign body, discharge or hordeolum. Extraocular Movements: Right eye: Normal extraocular motion and no nystagmus. Conjunctiva/sclera: Right eye: Right conjunctiva is not injected. No chemosis, exudate or hemorrhage. Cardiovascular: Rate and Rhythm: Normal rate and regular rhythm. Heart sounds: Normal heart sounds. Pulmonary: Effort: Pulmonary effort is normal. No respiratory distress. Breath sounds: Normal breath sounds. No wheezing or rales. Lymphadenopathy: Cervical: No cervical adenopathy. Neurological: Mental Status: He is alert. ASSESSMENT/PLAN: 1. Acute sinusitis, recurrence not specified, unspecified location - ICD9: 461.9, ICD10: J01.90 (primary diagnosis) - Will begin treatment with Augmentin - Supportive care with plenty of fluids, rest, and analgesia prn. 2. Eye drainage - ICD9: 379.93, ICD10: H57.89 - likely related to sinusitis, low suspicion for conjunctivitis 3. Floaters in visual field, right - ICD9: 379.24, ICD10: H43.391 - follow up with industrial maintenance technician if persisting. - Follow-up with your PCP in 3-5 days if symptoms have not improved or sooner if symptoms worsen - Discussed red flags and need for immediate medical evaluation if any occur. - Discussed supportive care treatment with fluids, rest and analgesia. - Discussed expected course of illness Yue Cruz APRN.PROJECTION WELDING MACHINE OPERATOR documented in this encounter [facility] 09-18-2022 Miscellaneous Notes Patient last visit with PCP 05/29/22 Follow up appointment scheduled none Nicole Chaap Ma Patient has been identified by name and date of : Yes Last office visit in this department: 05/29/2022 RX INSTRUCTIONS: Patient aware RX will be sent to pharmacy. No need to notify patient. Patient phones requesting refills as follows: Requested Prescriptions Pending Prescriptions Disp Refills FLUoxetine (PROZAC) 20 mg capsule 90 capsule 3 Sig: Take 1 capsule by mouth once daily. In addition to 10 mg a day Please review and advise. Olive Cade Pss documented in this encounter [facility] 09-16-2022 Telephone encounter Note Appt cancelled. [facility] [employer] 09-16-2022 Miscellaneous Notes Appt cancelled. Called and spoke with patient. Advised that HST showed he is still within range for Inspire (AHI 51.5; SpO2 avg 92%; minimum was artifact). As he has already had DISE, will forward to Dr. Quintero to move forward with scheduling surgery. Jose, please cancel pt's upcoming appt with me to review results. documented in this encounter [facility] 09-16-2022 Telephone encounter Note Called and spoke with patient. Advised that HST showed he is still within range for Inspire (AHI 51.5; SpO2 avg 92%; minimum was artifact). As he has already had DISE, will forward to Dr. Quintero to move forward with scheduling surgery. Jose, please cancel pt's upcoming appt with me to review results. [facility] 09-09-2022 Note HNO ID: [id number] Author: Sybil Mcmullen APRN.JUDY Service: ? Author Type: Nurse Practitioner Type: Progress Notes Filed: 09/09/2022 10:43 AM Note Text: Patient seen during down time. Please see scanned document. [facility] 09-09-2022 History of Present illness Narrative Patient seen during down time. Please see scanned document. documented in this encounter [facility] 09-04-2022 History of Present illness Narrative Images from the original note were not included. [facility] NEW PATIENT OFFICE VISIT-SLEEP MEDICINE 09/04/2022 REFERRING PHYSICIAN: Helio Quintero MD REASON FOR REFERRAL: Chief Complaint Patient presents with New Patient HPI: Woodrow Alcala is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 medicine study to review however he states he was diagnosed with severe sleep apnea AHI of 60. He did try to utilize CPAP however he did not tolerate it has significant history of claustrophobia and did not tolerate the mask. Subsequently was seen underwent drug-induced sleep endoscopy was clear to receive the inspire implant at the [facility] however the day before surgery he was called and said that his insurance declined it and he was unable to have the procedure. He is here to establish care and to work towards getting the inspire device no previous history of head neck surgery. PMH: Past Medical History: Diagnosis Date Alcohol dependence, uncomplicated ([facility]) 09/11/2018 Depression GERD (gastroesophageal reflux disease) gastritis Hypertension Seizures ([facility]) seizures with withdrawal, last one 2 years ago Allergies: No Known Allergies Medications: Current Outpatient Medications: FLUoxetine (PROzac) 10 MG capsule, Take 10 mg by mouth in the morning., Disp: , Rfl: FLUoxetine (PROzac) 20 MG capsule, Take 20 mg by mouth in the morning., Disp: , Rfl: lisinopril 10 MG tablet, Take 10 mg by mouth daily., Disp: , Rfl: PSH: Past Surgical History: Procedure Laterality Date ANKLE SURGERY BACK SURGERY COLONOSCOPY FRACTURE SURGERY left shoulder (2 torn tendon, sewed bursitis); right ankle (steel and 2 plates); right wrist-pins SHOULDER SURGERY WRIST SURGERY FH: No family history on file. SH: Social History Socioeconomic History Marital status: Single Spouse name: Not on file Number of children: Not on file Years of education: Not on file Highest education level: Not on file Occupational History Not on file Tobacco Use Smoking status: Every Day Packs/day: 1.00 Types: Cigarettes Smokeless tobacco: Never Substance and Sexual Activity Alcohol use: Yes Drug use: No Sexual activity: Not on file Other Topics Concern Not on file Social History Narrative Not on file Social Determinants of Health Financial Resource Strain: Not on file Food Insecurity: Not on file Transportation Needs: Not on file Physical Activity: Not on file Stress: Not on file Social Connections: Not on file Intimate Partner Violence: Not on file Housing Stability: Not on file Physical Exam: Constitutional: General: Patient is not in acute distress. Appearance: Patient is well-developed. Eyes: Conjunctiva/sclera: Conjunctivae normal. Pupils: Pupils are equal, round, and reactive to light. HENT: Jaw: No trismus. Ears: Clear bilaterally TMs are within normal limits Nose: No nasal deformity, mucosal edema or rhinorrhea. Mouth: Mucous membranes are not pale, not dry and not cyanotic. No oral lesions. Pharynx: Uvula midline. No oropharyngeal exudate or uvula swelling. Tonsils: No tonsillar exudate. No abnormal masses or lesions Thyroid: No significant thyromegaly. Trachea: Trachea and phonation normal. No tracheal deviation. Pulmonary: Effort: Pulmonary effort is normal. No respiratory distress. Breath sounds: No stridor. Musculoskeletal: Head: Normocephalic and atraumatic. Neck: Full passive range of motion without pain, neck supple. Skin: General: Skin is warm and dry. Findings: No erythema or rash. Neurological: Cranial Nerves: No cranial nerve deficit. Sensory: No sensory deficit. Coordination: Coordination normal. Extremities: No significant peripheral edema or varicosities Psychiatric: Mood and Affect: Mood and affect normal. Cognition and Memory: Cognition and memory normal. Laryngoscopy for revealing no masses or lesions piriform sinuses are clear epiglottis crisp base tongue movements vocal cord motion is normal symmetric bilaterally [facility] 07-18-2022 History of Present illness Narrative Assessment and Recommendations: Woodrow Alcala is a 67 y.o. male here for obstructive sleep apnea -I do agree patient would be an ideal candidate for inspire however does not have recent sleep study does not have sleep medicine physician he is following with but he would like to restart this process and getting going. We will place referral to Dr. Alas's team with the goal of getting the patient clear for inspire. In addition we will send lipase for drug-induced sleep endoscopy here in the next coming month or so- -This question concerns were answered and expressed understanding Otolaryngology Head and Neck Surgery Clinic Note HPI: Woodrow Alcala is a 67 y.o. yo male who presents to clinic today for evaluation of sleep apnea. Patient has been ongoing for approximately 5 years he was evaluated by the [facility] he states that I do not have a sleep medicine study to review however he states he was diagnosed with severe sleep apnea AHI of 60. He did try to utilize CPAP however he did not tolerate it has significant history of claustrophobia and did not tolerate the mask. Subsequently was seen underwent drug-induced sleep endoscopy was clear to receive the inspire implant at the [facility] however the day before surgery he was called and said that his insurance declined it and he was unable to have the procedure. He is here to establish care and to work towards getting the inspire device no previous history of head neck surgery. PMH: Past Medical History: Diagnosis Date Alcohol dependence, uncomplicated ([facility]) 09/11/2018 Depression GERD (gastroesophageal reflux disease) gastritis Hypertension Seizures ([facility]) seizures with withdrawal, last one 2 years ago Allergies: No Known Allergies Medications: Current Outpatient Medications: FLUoxetine (PROzac) 10 MG capsule, Take 10 mg by mouth in the morning., Disp: , Rfl: FLUoxetine (PROzac) 20 MG capsule, Take 20 mg by mouth in the morning., Disp: , Rfl: lisinopril 10 MG tablet, Take 10 mg by mouth daily., Disp: , Rfl: PSH: Past Surgical History: Procedure Laterality Date ANKLE SURGERY BACK SURGERY COLONOSCOPY FRACTURE SURGERY left shoulder (2 torn tendon, sewed bursitis); right ankle (steel and 2 plates); right wrist-pins SHOULDER SURGERY WRIST SURGERY FH: No family history on file. SH: Social History Socioeconomic History Marital status: Single Spouse name: Not on file Number of children: Not on file Years of education: Not on file Highest education level: Not on file Occupational History Not on file Tobacco Use Smoking status: Every Day Packs/day: 1.00 Types: Cigarettes Smokeless tobacco: Never Substance and Sexual Activity Alcohol use: Yes Drug use: No Sexual activity: Not on file Other Topics Concern Not on file Social History Narrative Not on file Social Determinants of Health Financial Resource Strain: Not on file Food Insecurity: Not on file Transportation Needs: Not on file Physical Activity: Not on file Stress: Not on file Social Connections: Not on file Intimate Partner Violence: Not on file Housing Stability: Not on file Physical Exam: Constitutional: General: Patient is not in acute distress. Appearance: Patient is well-developed. Eyes: Conjunctiva/sclera: Conjunctivae normal. Pupils: Pupils are equal, round, and reactive to light. HENT: Jaw: No trismus. Ears: Clear bilaterally TMs are within normal limits Nose: No nasal deformity, mucosal edema or rhinorrhea. Mouth: Mucous membranes are not pale, not dry and not cyanotic. No oral lesions. Pharynx: Uvula midline. No oropharyngeal exudate or uvula swelling. Tonsils: No tonsillar exudate. No abnormal masses or lesions Thyroid: No significant thyromegaly. Trachea: Trachea and phonation normal. No tracheal deviation. Pulmonary: Effort: Pulmonary effort is normal. No respiratory distress. Breath sounds: No stridor. Musculoskeletal: Head: Normocephalic and atraumatic. Neck: Full passive range of motion without pain, neck supple. Skin: General: Skin is warm and dry. Findings: No erythema or rash. Neurological: Cranial Nerves: No cranial nerve deficit. Sensory: No sensory deficit. Coordination: Coordination normal. Extremities: No significant peripheral edema or varicosities Psychiatric: Mood and Affect: Mood and affect normal. Cognition and Memory: Cognition and memory normal. Laryngoscopy for revealing no masses or lesions piriform sinuses are clear epiglottis crisp base tongue movements vocal cord motion is normal symmetric bilaterally documented in this encounter [facility] 05-30-2022 Miscellaneous Notes Patient informed and verbalized understanding. Anastasiya Reynoso Let him know his labs are ok. documented in this encounter [facility] 05-29-2022 Note HNO ID: [id number] Author: Zoë Joel MD Service: ? Author Type: Physician Type: Progress Notes Filed: 05/29/2022 4:33 PM Note Text: Patient presents with: Dizziness HPI: Patient presents today for office visit for intermittent positional dizziness X 2 days. When he turns his head left to right or looks up and down. Also when he goes from laying to sitting or sitting to standing. Causes him to stagger a little bit. States he has to grab on to something until it subsides. Was working on a ladder for instance and noticed dizzy and moved his neck. Not noticed it when lying down. No syncope or near syncope. No nausea or vomiting. No vision or speech issues. No numbness or weakness. No headaches. Lasts only a few seconds when it happens. Was on antivert in the remote past. No chest pain or shortness of breath. No headaches. No palpitations. Plantars wart on right foot. Starting to hurt when walking for a while. MEDICATIONS: Current Outpatient Medications Medication Sig FLUoxetine (PROZAC) 10 mg capsule Take 1 capsule by mouth once daily. In addition to 20 mg a day. lisinopril (ZESTRIL, PRINIVIL) 10 mg tablet Take 1 tablet by mouth once daily. nicotine (NICODERM) 21 mg/24 hr Apply 1 Patch as directed every 24 hours. nicotine (NICODERM) 14 mg/24 hr Apply 1 Patch as directed every 24 hours. No smoking with patch. FLUoxetine (PROZAC) 20 mg capsule Take 1 capsule by mouth once daily. In addition to 10 mg a day clotrimazole 1 % oint Apply to affected area twice daily. nicotine (NICODERM) 7 mg/24 hr Apply 1 Patch as directed every 24 hours. esomeprazole (NEXIUM) 20 mg capsule Take 2 capsules by mouth once daily. Prn No current facility-administered medications for this visit. ALLERGIES: ALLERGIES No Known Allergies PAST MEDICAL HISTORY Diagnosis Date Alcohol abuse, in remission 2011 Alcohol withdrawal seizure (HCC) Depression GERD (gastroesophageal reflux disease) HTN (hypertension) Tobacco use PAST SURGICAL HISTORY Procedure Laterality Date COLONOSCOPY FLX DX W/COLLJ SPEC WHEN PFRMD 05/19/2012 Colonoscopy COLONOSCOPY SCREENING 04/22/2022 suboptimal prep, hyperplastic polyp. repeat in 5 years due to prep DIAGNOSTIC ARTHROSCOPY SHOULDER +- SYNOVIAL BX Left 06/21/2016 Left shoulder arthroscopic biceps tenotomy, labral debridement PAST SURGICAL HISTORY OF repair of buldging disc in Lumbar spine RECONSTRUCTION ROTATOR CUFF AVULSION CHRONIC Left 06/21/2016 Rotator cuff repair, SAD and bursectomy REPAIR OF ANKLE FRACTURE 1988 1 plate and 9 screws right ankle REPAIR WRIST BONE FRACTURE 1981 1991 bone graft FAMILY HISTORY Problem Relation Age of Onset other (dementia) Mother other (unknown) Father other (lung cancer) Brother Social History Tobacco Use Smoking status: Former Packs/day: 0.75 Years: 40.00 Pack years: 30.00 Types: Cigarettes Smokeless tobacco: Never Tobacco comments: Currently using nicotine patch. Vaping Use Vaping Use: Never used Substance Use Topics Alcohol use: No Comment: sober since 2011 Drug use: No Types: Cocaine, Marijuana Comment: 2001- quit Reviewed current medications, allergies, past medical history, surgical history, family history and social history today. REVIEW OF SYSTEMS No vomiting or diarrhea or bowel changes. All other reviewed and negative other than HPI. VITALS: Ht 167.6 cm (5' 6 ) Wt 73.5 kg (162 lb) SpO2 98% BMI 26.15 kg/m? BP w/Orthostatic Vitals Date and Time Orthostatic BP Orthostatic Pulse BP Pulse BP Position BP Site BP Cuff Size 05/29/22 1615 132/80 93 -- -- Standing -- Regular Adult 05/29/22 1613 138/82 87 -- -- Sitting Left Arm -- Last 4 Encounter Wt Readings: Date: Wt: 04/30/2022 73.5 kg (162 lb) 04/22/2022 73.9 kg (163 lb) 03/26/2022 73.9 kg (163 lb) 03/21/2022 73 kg (161 lb) PHYSICAL EXAMINATION: General appearance: Well appearing, alert, in no acute distress, well-hydrated, well nourished. Skin: Skin color, texture, turgor normal, no suspicious rashes or lesions Head: Normocephalic, no masses, lesions, tenderness or abnormalities Eyes: Anicteric sclera. Pupils are equally round and reactive to light. Extraocular movements are intact. , nystagmus with far gaze to the left. Ears: External ears normal, canals clear Nose/Sinuses: Nares normal, septum midline, mucosa normal, no drainage or sinus tenderness Oropharynx: Lips, mucosa, and tongue normal, teeth and gums normal, oropharynx normal Neck: Supple, no adenopathy; thyroid symmetric, normal size, no bruits Lungs: Lungs clear to auscultation. No wheezing, rhonchi, rales Heart: RRR without murmur, gallop, or rubs. No ectopy Abdomen: Normal abdominal exam, Abdomen soft, non-tender. Bowel sounds normal. No masses, organomegaly Extremities: No deformities, edema, skin discoloration, clubbing or cyanosis. Good capillary refill. Musculoskeletal: No joint swelling, deformit (more content not included)... [facility] 05-29-2022 Miscellaneous Notes Patient calling with new symptom of dizziness. Concerned because he was on a ladder today for his job and had an episode of dizziness. Episode resolved within minutes. He has no other symptoms. Disposition: see PCP within 24 hours. Scheduled today. Mattie Ruffin RN Reason for Disposition [1] MODERATE dizziness (e.g., interferes with normal activities) AND [2] has NOT been evaluated by physician for this (Exception: dizziness caused by heat exposure, sudden standing, or poor fluid intake) Answer Assessment - Initial Assessment Questions 1. DESCRIPTION: intermittent episodes of dizziness x 2 days 2. LIGHTHEADED: does not feel like he is going to pass out or very weak 3. VERTIGO: does not feel like room is spinning 4. SEVERITY: - MILD: Feels slightly dizzy, but walking normally. 5. ONSET: couple days ago 6. AGGRAVATING FACTORS: standing up too fast, changing head position 7. HEART RATE: 8. CAUSE: unknown, says he is drinking plenty of fluid, has not checked BP 9. RECURRENT SYMPTOM: No 10. OTHER SYMPTOMS: No other symptoms. No recent illness Protocols used: Dizziness - [id number] documented in this encounter [facility] 04-30-2022 Note HNO ID: [id number] Author: Jose Colin PA-C Service: ? Author Type: Physician Occupational Therapy Professor Type: Progress Notes Filed: 04/30/2022 4:47 PM Note Text: FOLLOW UP VISIT - ENDOSCOPY NAME: Woodrow Dominguez [facility] NO.: [id number] DATE OF SERVICE: 04/30/2022 : 1955 REFERRING PHYSICIAN: Zoë Joel MD Woodrow is a patient I am following with Dr. Kee for screening colonoscopy. Dr. Kee performed lower endoscopy on 04/22/22 at [facility]. The patient was found to have suboptimal bowel preparation, as well as a subcentimeter rectal polyp which was removed. Pathology demonstrated: FINAL DIAGNOSIS A. Rectum, polyp, biopsy: - Hyperplastic polyp. The patient notes no complaints since the procedure. VITALS: Blood pressure 132/78, pulse 95, temperature 36.5 ?C (97.7 ?F), height 167.6 cm (5' 6 ), weight 73.5 kg (162 lb), SpO2 96 %. General: patient is alert, cooperative, pleasant and in no acute distress On examination, the abdomen is benign. Assessment IMPRESSION: s/p colonoscopy with polypectomy-benign hyperplastic rectal polyp. Suboptimal bowel prep. Diverticulosis, hemorrhoids PLAN: The operative findings and pathology report were reviewed with the patient, and the patient has had the opportunity to ask questions and have questions answered. If the patient notes any problems or changes in bowel function, the patient should contact me immediately. Otherwise I recommend follow up endoscopy in 5 years due to suboptimal bowel prep. HM updated and recall letter generated. Patient verbalized understanding of all above and agreed with the plan Diagnoses: (K62.1) Hyperplastic rectal polyp (primary encounter diagnosis) I spent a total of 23 minutes on the date of the service which included preparing to see the patient, [id number] patient care, completing clinical documentation, obtaining and/or reviewing separately obtained history, counseling and educating the patient/family/caregiver, independently interpreting results (not separately reported), and communicating results to the patient/family/caregiver. Jose Colin PA-C [facility] 04-30-2022 Instructions Jose Cloin PA-C - 04/30/2022 11:46 AM EST The following instructions are important for you related to your office visit today with the [facility]. INSTRUCTIONS FOLLOWING A POLYP FOUND AT COLONOSCOPY You were found to have a hyperplastic colon polyp. I recommend you undergo repeat endoscopy in 5 years based on prep. If you note bleeding, change in bowel habits, or other suspicious colon related symptoms before that time, those symptoms should be evaluated as necessary. If you have any difficulties or concerns, you should contact our office immediately. If you note any additional difficulties, questions, or concerns, you should contact our office immediately @ [phone] and ask to be transferred to the General Surgery department. documented in this encounter [facility] 04-30-2022 History of Present illness Narrative FOLLOW UP VISIT - ENDOSCOPY NAME: Woodrow Alcala [facility] NO.: [id number] DATE OF SERVICE: 04/30/2022 : 1955 REFERRING PHYSICIAN: Zoë Joel MD Woodrow is a patient I am following with Dr. Kee for screening colonoscopy. Dr. Kee performed lower endoscopy on 04/22/22 at [facility]. The patient was found to have suboptimal bowel preparation, as well as a subcentimeter rectal polyp which was removed. Pathology demonstrated: FINAL DIAGNOSIS A. Rectum, polyp, biopsy: - Hyperplastic polyp. The patient notes no complaints since the procedure. VITALS: Blood pressure 132/78, pulse 95, temperature 36.5 C (97.7 F), height 167.6 cm (5' 6 ), weight 73.5 kg (162 lb), SpO2 96 %. General: patient is alert, cooperative, pleasant and in no acute distress On examination, the abdomen is benign. Assessment IMPRESSION: s/p colonoscopy with polypectomy-benign hyperplastic rectal polyp. Suboptimal bowel prep. Diverticulosis, hemorrhoids PLAN: The operative findings and pathology report were reviewed with the patient, and the patient has had the opportunity to ask questions and have questions answered. If the patient notes any problems or changes in bowel function, the patient should contact me immediately. Otherwise I recommend follow up endoscopy in 5 years due to suboptimal bowel prep. HM updated and recall letter generated. Patient verbalized understanding of all above and agreed with the plan Diagnoses: (K62.1) Hyperplastic rectal polyp (primary encounter diagnosis) I spent a total of 23 minutes on the date of the service which included preparing to see the patient, [id number] patient care, completing clinical documentation, obtaining and/or reviewing separately obtained history, counseling and educating the patient/family/caregiver, independently interpreting results (not separately reported), and communicating results to the patient/family/caregiver. Jose Colin PA-C documented in this encounter [facility] 04-22-2022 Note HNO ID: [id number] Author: Ernesto Meléndez RN Service: ? Author Type: Registered Nurse Type: Nursing Progress Note Filed: 04/22/2022 2:22 PM Note Text: Upon discharge patient's abdomen is soft. Patient denies pain. [facility] 04-22-2022 Note HNO ID: [id number] Author: Kimberli Carrillo RN Service: Nursing Author Type: Registered Nurse Type: Nursing Progress Note Filed: 04/22/2022 11:55 AM Note Text: Other: Patient ready for procedure. Patient education completed. [facility] 04-02-2022 Miscellaneous Notes Patient has been identified by name and date of : Yes Requested Prescriptions Pending Prescriptions Disp Refills FLUoxetine (PROZAC) 10 mg capsule 90 capsule 3 Sig: Take 1 capsule by mouth once daily. In addition to 20 mg a day. lisinopril (ZESTRIL, PRINIVIL) 10 mg tablet 90 tablet 3 Sig: Take 1 tablet by mouth once daily. RX INSTRUCTIONS: Patient aware RX will be sent to pharmacy. No need to notify patient. [facility] documented in this encounter [facility] 03-26-2022 Note HNO ID: [id number] Author: Genet Kee MD Service: ? Author Type: Physician Type: Progress Notes Filed: 03/30/2022 2:16 PM Note Text: HISTORY AND PHYSICAL Woodrow Alcala 1955 REFERRING PHYSICIAN: Zoë Joel MD CHIEF COMPLAINT: Consult (colonoscopy) HPI: The patient is a 66 year old male referred for endoscopy. Woodrow notes no history of colon complaints. The patient denies blood in stools, denies abdominal pain, and denies changes in bowel habits. The patient notes no colon cancer in immediate family. The patient has had previous colonoscopy 10 years ago. Was not advanced to cecum and ACBE was done for completion. This was done under [facility]. PAST MEDICAL HISTORY Diagnosis Date Alcohol abuse, in remission 2011 Alcohol withdrawal seizure (HCC) Depression GERD (gastroesophageal reflux disease) HTN (hypertension) Tobacco use PAST SURGICAL HISTORY Procedure Laterality Date COLONOSCOPY FLX DX W/COLLJ SPEC WHEN PFRMD 05/19/12 Colonoscopy DIAGNOSTIC ARTHROSCOPY SHOULDER +- SYNOVIAL BX Left 06/21/2016 Left shoulder arthroscopic biceps tenotomy, labral debridement PAST SURGICAL HISTORY OF repair of buldging disc in Lumbar spine RECONSTRUCTION ROTATOR CUFF AVULSION CHRONIC Left 06/21/2016 Rotator cuff repair, SAD and bursectomy REPAIR OF ANKLE FRACTURE 1988 1 plate and 9 screws right ankle REPAIR WRIST BONE FRACTURE 1981 1991 bone graft Current Outpatient Medications Medication Sig methylPREDNISolone (MEDROL, MARIELENA,) 4 mg Dose-Pack Follow dosing instructions, take with food. nicotine (NICODERM) 21 mg/24 hr Apply 1 Patch as directed every 24 hours. nicotine (NICODERM) 14 mg/24 hr Apply 1 Patch as directed every 24 hours. No smoking with patch. FLUoxetine (PROZAC) 20 mg capsule Take 1 capsule by mouth once daily. In addition to 10 mg a day clotrimazole 1 % oint Apply to affected area twice daily. sildenafil (VIAGRA) 100 mg tablet Take 1 tablet by mouth as needed. lisinopril (ZESTRIL, PRINIVIL) 10 mg tablet Take 1 tablet by mouth once daily. FLUoxetine (PROZAC) 10 mg capsule Take 1 capsule by mouth once daily. In addition to 20 mg a day. nicotine (NICODERM) 7 mg/24 hr Apply 1 Patch as directed every 24 hours. esomeprazole (NEXIUM) 20 mg capsule Take 2 capsules by mouth once daily. Prn peg 3350-Electrolytes (GOLYTELY) 236-22.74-6.74 -5.86 gram suspension Take 4,000 mL by mouth one time only for 1 dose. Refer to printed prep instructions from your provider. ALLERGIES: Patient has no known allergies. PERSONAL HISTORY: Social History Tobacco Use Smoking status: Former Packs/day: 0.75 Years: 40.00 Pack years: 30.00 Types: Cigarettes Smokeless tobacco: Never Tobacco comments: Currently using nicotine patch. Vaping Use Vaping Use: Never used Substance Use Topics Alcohol use: No Comment: sober since 2011 Drug use: No Types: Cocaine, Marijuana Comment: 2001- FAMILY HISTORY: FAMILY HISTORY Problem Relation Age of Onset other (dementia) Mother other (unknown) Father other (lung cancer) Brother The review of systems data was entered by the nurse and reviewed by ks Nursing Notes: Bruna Rae RN 03/26/2022 9:55 AM Signed REVIEW OF SYSTEMS: General: The patient denies fatigue, denies weight loss, denies weight gain, denies feeling hot, and denies feelings of cold. Eyes: The patient denies glaucoma, denies eye injury/surgery, wears glasses or contacts. Ear/Nose/Throat: The patient denies allergies, denies hayfever, denies ear infections, and denies bloody noses. Cardiovascular: The patient denies chest pain, denies heart disease, NOTES high blood pressure,denies cardiac stent, denies prior heart attack, denies irregular heart beat, denies high cholesterol, denies poor circulation, denies heart failure, other cardiac issues, denies claudication, denies cold feet, denies peripheral arterial stent. Respiratory: The patient denies tuberculosis, denies pneumonia, denies frequent cough, denies pulmonary embolism, denies shortness of breath, and denies coughing up blood. Gastrointestinal: The patient denies difficulty swallowing, denies acid reflux, denies ulcers, denies vomiting, denies jaundice/hepatitis, denies gallbladder problems, denies black or tarry stools, denies hemorrhoids, denies bleeding from rectum, denies diverticulitis, denies constipation, denies diarrhea, denies loss of stool control, and denies hernias. Kidney/Bladder: The patient denies kidney stones, denies urine infections, and denies bloody urine. Skin: The patient denies a history of skin cancer, denies bleeding/changing moles, and denies a history of skin rash. Neurologic: The patient denies a history of epilepsy/convulsions, denies headaches, denies head/spinal injuries, and denies stroke/TIA. Psychiatric: The patient denies psychiatric medications, NOTES depression, and denies voices, NOTES substance abuse. Endocri (more content not included)... [facility] 03-26-2022 History of Present illness Narrative HISTORY AND PHYSICAL Woodrow Alcala 1955 REFERRING PHYSICIAN: Zoë Joel MD CHIEF COMPLAINT: Consult (colonoscopy) HPI: The patient is a 66 year old male referred for endoscopy. Woodrow notes no history of colon complaints. The patient denies blood in stools, denies abdominal pain, and denies changes in bowel habits. The patient notes no colon cancer in immediate family. The patient has had previous colonoscopy 10 years ago. Was not advanced to cecum and ACBE was done for completion. This was done under [facility]. PAST MEDICAL HISTORY Diagnosis Date Alcohol abuse, in remission 2011 Alcohol withdrawal seizure (HCC) Depression GERD (gastroesophageal reflux disease) HTN (hypertension) Tobacco use PAST SURGICAL HISTORY Procedure Laterality Date COLONOSCOPY FLX DX W/COLLJ SPEC WHEN PFRMD 05/19/12 Colonoscopy DIAGNOSTIC ARTHROSCOPY SHOULDER +- SYNOVIAL BX Left 06/21/2016 Left shoulder arthroscopic biceps tenotomy, labral debridement PAST SURGICAL HISTORY OF repair of buldging disc in Lumbar spine RECONSTRUCTION ROTATOR CUFF AVULSION CHRONIC Left 06/21/2016 Rotator cuff repair, SAD and bursectomy REPAIR OF ANKLE FRACTURE 1988 1 plate and 9 screws right ankle REPAIR WRIST BONE FRACTURE 1981 1991 bone graft Current Outpatient Medications Medication Sig methylPREDNISolone (MEDROL, MARIELENA,) 4 mg Dose-Pack Follow dosing instructions, take with food. nicotine (NICODERM) 21 mg/24 hr Apply 1 Patch as directed every 24 hours. nicotine (NICODERM) 14 mg/24 hr Apply 1 Patch as directed every 24 hours. No smoking with patch. FLUoxetine (PROZAC) 20 mg capsule Take 1 capsule by mouth once daily. In addition to 10 mg a day clotrimazole 1 % oint Apply to affected area twice daily. sildenafil (VIAGRA) 100 mg tablet Take 1 tablet by mouth as needed. lisinopril (ZESTRIL, PRINIVIL) 10 mg tablet Take 1 tablet by mouth once daily. FLUoxetine (PROZAC) 10 mg capsule Take 1 capsule by mouth once daily. In addition to 20 mg a day. nicotine (NICODERM) 7 mg/24 hr Apply 1 Patch as directed every 24 hours. esomeprazole (NEXIUM) 20 mg capsule Take 2 capsules by mouth once daily. Prn peg 3350-Electrolytes (GOLYTELY) 236-22.74-6.74 -5.86 gram suspension Take 4,000 mL by mouth one time only for 1 dose. Refer to printed prep instructions from your provider. ALLERGIES: Patient has no known allergies. PERSONAL HISTORY: Social History Tobacco Use Smoking status: Former Packs/day: 0.75 Years: 40.00 Pack years: 30.00 Types: Cigarettes Smokeless tobacco: Never Tobacco comments: Currently using nicotine patch. Vaping Use Vaping Use: Never used Substance Use Topics Alcohol use: No Comment: sober since 2011 Drug use: No Types: Cocaine, Marijuana Comment: 2001- quit FAMILY HISTORY: FAMILY HISTORY Problem Relation Age of Onset other (dementia) Mother other (unknown) Father other (lung cancer) Brother The review of systems data was entered by the nurse and reviewed by ks Nursing Notes: Bruna Rae RN 03/26/2022 9:55 AM Signed REVIEW OF SYSTEMS: General: The patient denies fatigue, denies weight loss, denies weight gain, denies feeling hot, and denies feelings of cold. Eyes: The patient denies glaucoma, denies eye injury/surgery, wears glasses or contacts. Ear/Nose/Throat: The patient denies allergies, denies hayfever, denies ear infections, and denies bloody noses. Cardiovascular: The patient denies chest pain, denies heart disease, NOTES high blood pressure,denies cardiac stent, denies prior heart attack, denies irregular heart beat, denies high cholesterol, denies poor circulation, denies heart failure, other cardiac issues, denies claudication, denies cold feet, denies peripheral arterial stent. Respiratory: The patient denies tuberculosis, denies pneumonia, denies frequent cough, denies pulmonary embolism, denies shortness of breath, and denies coughing up blood. Gastrointestinal: The patient denies difficulty swallowing, denies acid reflux, denies ulcers, denies vomiting, denies jaundice/hepatitis, denies gallbladder problems, denies black or tarry stools, denies hemorrhoids, denies bleeding from rectum, denies diverticulitis, denies constipation, denies diarrhea, denies loss of stool control, and denies hernias. Kidney/Bladder: The patient denies kidney stones, denies urine infections, and denies bloody urine. Skin: The patient denies a history of skin cancer, denies bleeding/changing moles, and denies a history of skin rash. Neurologic: The patient denies a history of epilepsy/convulsions, denies headaches, denies head/spinal injuries, and denies stroke/TIA. Psychiatric: The patient denies psychiatric medications, NOTES depression, and denies voices, NOTES substance abuse. Endocrine: The patient denies thyroid disorders, denies diabetes, and denies hormonal problems. Hematologic: The patient denies a history of bruising, denies bleeding, and denies anemia, denies blood clots. Infections: The patient denies a history of measles and mumps, denies rheumatic fever, and denies sexually transmitted diseases. Musculoskeletal: The patient denies back pain/injury, denies back problems, denies sciatica, denies knee/foot trouble, denies arthritis, or denies gout. When was patient's last Mammogram screening? N/A Last Colonoscopy: 2012 Bruna Rae RN PHYSICAL EXAMINATION: General: The patient is 66 year old male, well nourished, well hydrated in no acute distress. The patient is oriented to time, place, and person. VITALS: Blood pressure 140/82, pulse 96, temperature 36.6 C (97.9 F), height 167.6 cm (5' 6 ), weight 73.9 kg (163 lb), SpO2 96 %. Body mass index is 26.31 kg/m . Head: Normal cephalic, atraumatic Eyes: pupils are equally round, sclera are clear/anicteric Neck is supple with no tracheal deviation Respiratory: Normal respiratory excursion and pattern. Abdominal exam: benign Extremities: no clubbing, cyanosis or edema. Neuro: non focal Psych: normal mood Assessment IMPRESSION: screening for colon cancer PLAN: I have discussed the above with the patient. I have offered colonoscopy , possible biopsies I have explained the procedure to the patient. I have counseled the patient as to the risks of the procedure, including but not limited to: infection, bleeding, injury to any intrabdominal organs such as liver/spleen, perforation of the GI tract, inability to complete the procedure, complications of anesthesia, etc. - the patient understands. The patient was offered a surgery/procedure at a [facility]. The provider and patient have discussed in detail the risk of exposure to and/or potential harm posed by the COVID-19 virus with having a surgery/procedure at this time versus the risk of delaying the surgery/procedure. It is not possible to know either the risk of delaying the surgery or procedure or chance of getting an infection with perfect accuracy, but a joint decision was made between the patient and the provider to proceed at this time with the scheduled surgery/procedure. The patient wishes to proceed. I have answered all questions to the patient s satisfaction and the patient has no further questions. Diagnoses: (Z12.11) Screening for colon cancer I have confirmed and edited as necessary, the PFSH and ROS obtained by others. Consultation requested by Dr. Zoë Joel for an opinion regarding patient's screening for colon cancer. My final recommendations will be communicated back to the requesting physician by way of shared Medical record or letter to requesting physician via US mail. Return to Clinic: The patient will be scheduled for colonoscopy at [facility] on 04/22/2022. Medical Decision Making: Risk: Low: Low risk from testing/treatment Medical Decision Making Level: 2 - Straightforward Genet Kee MD documented in this encounter [facility] 03-26-2022 Instructions Genet Kee MD - 03/26/2022 10:04 AM EST Images from the original note were not included. Bowel Preparation Instructions for: Golytely, Nulytely, Trilyte or Colyte (polyethylene glycol 3350 and electrolytes) IF YOU DO NOT FOLLOW THESE DIRECTIONS, YOUR COLONOSCOPY WILL BE CANCELLED. Pride Instructions: Your bowel must be empty so that your doctor can clearly view your colon. Follow all of the instructions in this handout EXACTLY as they are written. Do NOT eat any solid food the ENTIRE day before your colonoscopy. Drink only clear liquids. Buy your bowel preparation at least 5 days before your colonoscopy. TRANSPORTATION on the Day of Your Exam A responsible person MUST be present with you at Check In prior to your colonoscopy and REMAIN in the endoscopy area until you are discharged. You are NOT ALLOWED to drive, take a taxi or bus, or leave the Endoscopy Center ALONE. If you do not have a responsible taxicab driver (family member or friend) with you to take you home, your exam cannot be done with sedation and will be cancelled. Please bring a list of all of your current medications, including any Over-the Counter medications with you. Medications If you take insulin, diabetic medications or blood thinners such as Coumadin (warfarin), Plavix (clopidogrel), Ticlid (ticlopidine hydrochloride), Agrylin (anagrelide), Xarelto (Rivaroxaban), Pradaxa (Dabigatran), Eliquis (Apixaban), and Effient (Prasugrel). You MUST call the doctors who orders those medicines for instructions on altering the dosage before your colonoscopy. All other medications should be taken the day of the exam with a sip of water including ASPIRIN. Five (5) Days Before Your Colonoscopy Do NOT take medicines that stop diarrhea - such as Imodium, Kaopectate, or Pepto Bismol. Do NOT take fiber supplements - such as Metamucil, Citrucel, or Perdiem. Do NOT take products that contain iron - such as multi-vitamins (the label lists what is in the products). Do NOT take Vitamin E. Buy the prescription bowel preparation solution at your local pharmacy or drugstore pharmacy. 02/2019 Bowel Preparation Instructions for: Golytely, Nulytely, Trilyte or Colyte (polyethylene glycol 3350 and electrolytes) Three (3) Days Before Your Colonoscopy Do NOT eat high-fiber foods - such as popcorn, beans, seeds (flax, sunflower, quinoa), multigrain bread, nuts, salad/vegetables, or fresh and dried fruit. One (1) Day Before Your Colonoscopy Only drink clear liquids the ENTIRE DAY before your colonoscopy. Do NOT eat any solid foods. Drink at least 8 ounces of clear liquids every hour after waking up. The clear liquids you can drink include: Clear Liquid (NO RED LIQUIDS) DO NOT DRINK Gatorade, Pedialyte or Powerade Clear broth or bouillon Coffee or tea (no milk or non-dairy creamer) Carbonated and non-carbonated soft drinks Miles-A[employer] or other fruit flavored drinks Strained fruit juices (no pulp) Jell-O, popsicles, hard candy Water Alcohol Milk or non-dairy creamers Noodles or vegetables in soup Juice with pulp Liquid you cannot see through Do not use tobacco/vaping products The bowel preparation solution will be consumed in two parts. Mix the solution the evening before your colonoscopy and refrigerate before drinking. You may add the flavor pack that came with the bowel preparation. Do NOT add ice, sugar or any other flavorings to the solution. Part 1 At 6:00 PM - Evening before your colonoscopy Drink an 8-oz glass of bowel preparation every 10 minutes for a total of 8 glasses. You may continue to drink clear liquids until midnight. Part 2 On the day of your colonoscopy you may drink clear liquids up to (three) 3 hours before your procedure. 4 1/2 hours before your colonoscopy Drink an 8-oz glass of bowel preparation every 10 minutes for a total of 8 glasses. Fifteen (15) minutes later, drink an 8-oz glass of clear liquids every 15 minutes for a total of 2 glasses. You may continue to drink clear liquids up to (three) 3 hours before your exam. 2 02/2019 documented in this encounter [facility] 03-26-2022 Nurse Note REVIEW OF SYSTEMS: General: The patient denies fatigue, denies weight loss, denies weight gain, denies feeling hot, and denies feelings of cold. Eyes: The patient denies glaucoma, denies eye injury/surgery, wears glasses or contacts. Ear/Nose/Throat: The patient denies allergies, denies hayfever, denies ear infections, and denies bloody noses. Cardiovascular: The patient denies chest pain, denies heart disease, NOTES high blood pressure,denies cardiac stent, denies prior heart attack, denies irregular heart beat, denies high cholesterol, denies poor circulation, denies heart failure, other cardiac issues, denies claudication, denies cold feet, denies peripheral arterial stent. Respiratory: The patient denies tuberculosis, denies pneumonia, denies frequent cough, denies pulmonary embolism, denies shortness of breath, and denies coughing up blood. Gastrointestinal: The patient denies difficulty swallowing, denies acid reflux, denies ulcers, denies vomiting, denies jaundice/hepatitis, denies gallbladder problems, denies black or tarry stools, denies hemorrhoids, denies bleeding from rectum, denies diverticulitis, denies constipation, denies diarrhea, denies loss of stool control, and denies hernias. Kidney/Bladder: The patient denies kidney stones, denies urine infections, and denies bloody urine. Skin: The patient denies a history of skin cancer, denies bleeding/changing moles, and denies a history of skin rash. Neurologic: The patient denies a history of epilepsy/convulsions, denies headaches, denies head/spinal injuries, and denies stroke/TIA. Psychiatric: The patient denies psychiatric medications, NOTES depression, and denies voices, NOTES substance abuse. Endocrine: The patient denies thyroid disorders, denies diabetes, and denies hormonal problems. Hematologic: The patient denies a history of bruising, denies bleeding, and denies anemia, denies blood clots. Infections: The patient denies a history of measles and mumps, denies rheumatic fever, and denies sexually transmitted diseases. Musculoskeletal: The patient denies back pain/injury, denies back problems, denies sciatica, denies knee/foot trouble, denies arthritis, or denies gout. When was patient's last Mammogram screening? N/A Last Colonoscopy: 2012 Bruna Rae RN documented in this encounter [facility] 03-25-2022 Miscellaneous Notes Pt notified of provider's message below. Pt states he will hold off on seeing ORTHO at this time and will give the prednisone some time to work and then he will decide. Gissel Ybarra RN Xrays show degenerative changes. Nothing acute. Recommend he see ortho if pain continues. documented in this encounter [facility] 03-21-2022 Note HNO ID: [id number] Author: Lili Santiago RT(R) Service: Radiology Author Type: Technologist Type: Progress Notes Filed: 03/21/2022 11:02 AM Note Text: Radiology Service Progress Note PATIENT NAME: Woodrow Alcala DATE OF SERVICE: March 21, 2022 TIME: 10:46 AM PATIENT IDENTITY VERIFICATION COMPLETED USING TWO (2) IDENTIFIERS: Name and Date of confirmed by patient verbally. FALL SCREENING: Has the patient had 2 falls in the last year or 1 fall with injury or currently using an Ambulatory Assistive Device (Walker, Cane, Wheelchair, Crutches, etc.)? No PATIENT GENDER DATA: Male PATIENT RELEVANT IMPLANT DATA REVIEWED: Yes RADIOLOGY DEPARTMENT: General X-ray: Exam(s) Completed: Upper Extremity X-Ray(s): Shoulder, AP / TRUE AP / AXILLARY bilateral PERIPHERAL IV DATA: Not applicable SIGNED BY: RT Cynthia(R) March 21, 2022 10:[address] [facility] 03-21-2022 Note HNO ID: [id number] Author: Zoë Joel MD Service: ? Author Type: Physician Type: Progress Notes Filed: 03/21/2022 11:51 AM Note Text: Patient presents with: Pain (Shoulder Pain) HPI: Patient presents today for office visit for shoulder pain Patient complains of: shoulder pain. Bilateral left worse than right. Thinks bursitis. Duration: couple of weeks. Associated Symptoms: pain when raising arms especially when picking something up Things that improve symptoms :ibuprofen Had previous shoulder surgery. No trauma. Uses them a lot moving things. No neck pain. No swelling or numbness or weakness. Stopped smoking currently using nicotine patch. Fluoxetine is working. No chest pain or shortness of breath. MEDICATIONS: Current Outpatient Medications Medication Sig nicotine (NICODERM) 21 mg/24 hr Apply 1 Patch as directed every 24 hours. nicotine (NICODERM) 14 mg/24 hr Apply 1 Patch as directed every 24 hours. No smoking with patch. FLUoxetine (PROZAC) 20 mg capsule Take 1 capsule by mouth once daily. In addition to 10 mg a day clotrimazole 1 % oint Apply to affected area twice daily. sildenafil (VIAGRA) 100 mg tablet Take 1 tablet by mouth as needed. lisinopril (ZESTRIL, PRINIVIL) 10 mg tablet Take 1 tablet by mouth once daily. FLUoxetine (PROZAC) 10 mg capsule Take 1 capsule by mouth once daily. In addition to 20 mg a day. nicotine (NICODERM) 7 mg/24 hr Apply 1 Patch as directed every 24 hours. (Patient not taking: Reported on 04/18/2021 ) esomeprazole (NEXIUM) 20 mg capsule Take 2 capsules by mouth once daily. Prn No current facility-administered medications for this visit. ALLERGIES: ALLERGIES No Known Allergies PAST MEDICAL HISTORY Diagnosis Date Alcohol abuse, in remission 2011 Alcohol withdrawal seizure (HCC) Depression GERD (gastroesophageal reflux disease) HTN (hypertension) Tobacco use PAST SURGICAL HISTORY Procedure Laterality Date COLONOSCOPY FLX DX W/COLLJ SPEC WHEN PFRMD 05/19/12 Colonoscopy DIAGNOSTIC ARTHROSCOPY SHOULDER +- SYNOVIAL BX Left 06/21/2016 Left shoulder arthroscopic biceps tenotomy, labral debridement PAST SURGICAL HISTORY OF repair of buldging disc in Lumbar spine RECONSTRUCTION ROTATOR CUFF AVULSION CHRONIC Left 06/21/2016 Rotator cuff repair, SAD and bursectomy REPAIR OF ANKLE FRACTURE 1988 1 plate and 9 screws right ankle REPAIR WRIST BONE FRACTURE 1981 1991 bone graft FAMILY HISTORY Problem Relation Age of Onset other (dementia) Mother other (unknown) Father other (lung cancer) Brother Social History Tobacco Use Smoking status: Every Day Packs/day: 0.75 Years: 40.00 Pack years: 30.00 Types: Cigarettes Smokeless tobacco: Never Vaping Use Vaping Use: Never used Substance Use Topics Alcohol use: No Comment: sober since 2011 Drug use: No Types: Cocaine, Marijuana Comment: 2001- quit Reviewed current medications, allergies, past medical history, surgical history, family history and social history today. REVIEW OF SYSTEMS All other reviewed and negative other than HPI. HEALTH MAINTENANCE: Reviewed health maintenance issues today and recommended the following in detail. COVID-19 VACCINE(1) Never done LUNG CANCER SCREENING Never done SHINGRIX VACCINE(1 of 2) Never done PNEUMOCOCCAL(2 - PCV) due on 01/24/2018 DTAP,TDAP,TD(2 - Td or Tdap) due on 06/15/2021 INFLUENZA(1) due on 11/15/2021 COLORECTAL CANCER SCREENING -is due in May Had discussion with patient regarding risks and benefits of prostate screening. Allowed them to decide if they wished to proceed with screening including LEX and PSA. VITALS: BP 138/72 Pulse 97 Wt 73 kg (161 lb) SpO2 98% BMI 25.57 kg/m? Last 4 Encounter Wt Readings: Date: Wt: 01/17/2022 72.8 kg (160 lb 6.4 oz) 08/27/2021 77.6 kg (171 lb) 04/18/2021 78.2 kg (172 lb 6.4 oz) 04/07/2021 78.8 kg (173 lb 12.8 oz) PHYSICAL EXAMINATION: General appearance: Well appearing, alert, in no acute distress, well-hydrated, well nourished. Skin: Skin color, texture, turgor normal, no suspicious rashes or lesions Head: Normocephalic, no masses, lesions, tenderness or abnormalities Lungs: Lungs clear to auscultation. No wheezing, rhonchi, rales Heart: RRR without murmur, gallop, or rubs. No ectopy Abdomen: Normal abdominal exam, Abdomen soft, non-tender. Bowel sounds normal. No masses, organomegaly Shoulder: Location: bilateral Redness: No. Warmth: No. Tenderness to palpation: negative. . Swelling: No. Range of motion: normal but with pain. . Empty can test: positive. ASSESSMENT/PLAN: 1. Primary hypertension - ICD9: 401.9, ICD10: I10 (primary diagnosis) - good control - Goal of BP <130/80 - CBC + DIFF - COMP METABOLIC PANEL - LIPID PANEL BASIC 2. HORTENCIA (obstructive sleep apnea) - ICD9: 327.23, ICD10: G47.33 - does not treat 3. Depression, unspecified depression type - ICD9: 311, ICD10: F32.A - stable. (more content not included)... [facility] 03-21-2022 History of Present illness Narrative Patient presents with: Pain (Shoulder Pain) HPI: Patient presents today for office visit for shoulder pain Patient complains of: shoulder pain. Bilateral left worse than right. Thinks bursitis. Duration: couple of weeks. Associated Symptoms: pain when raising arms especially when picking something up Things that improve symptoms :ibuprofen Had previous shoulder surgery. No trauma. Uses them a lot moving things. No neck pain. No swelling or numbness or weakness. Stopped smoking currently using nicotine patch. Fluoxetine is working. No chest pain or shortness of breath. MEDICATIONS: Current Outpatient Medications Medication Sig nicotine (NICODERM) 21 mg/24 hr Apply 1 Patch as directed every 24 hours. nicotine (NICODERM) 14 mg/24 hr Apply 1 Patch as directed every 24 hours. No smoking with patch. FLUoxetine (PROZAC) 20 mg capsule Take 1 capsule by mouth once daily. In addition to 10 mg a day clotrimazole 1 % oint Apply to affected area twice daily. sildenafil (VIAGRA) 100 mg tablet Take 1 tablet by mouth as needed. lisinopril (ZESTRIL, PRINIVIL) 10 mg tablet Take 1 tablet by mouth once daily. FLUoxetine (PROZAC) 10 mg capsule Take 1 capsule by mouth once daily. In addition to 20 mg a day. nicotine (NICODERM) 7 mg/24 hr Apply 1 Patch as directed every 24 hours. (Patient not taking: Reported on 04/18/2021 ) esomeprazole (NEXIUM) 20 mg capsule Take 2 capsules by mouth once daily. Prn No current facility-administered medications for this visit. ALLERGIES: ALLERGIES No Known Allergies PAST MEDICAL HISTORY Diagnosis Date Alcohol abuse, in remission 2011 Alcohol withdrawal seizure (HCC) Depression GERD (gastroesophageal reflux disease) HTN (hypertension) Tobacco use PAST SURGICAL HISTORY Procedure Laterality Date COLONOSCOPY FLX DX W/COLLJ SPEC WHEN PFRMD 05/19/12 Colonoscopy DIAGNOSTIC ARTHROSCOPY SHOULDER +- SYNOVIAL BX Left 06/21/2016 Left shoulder arthroscopic biceps tenotomy, labral debridement PAST SURGICAL HISTORY OF repair of buldging disc in Lumbar spine RECONSTRUCTION ROTATOR CUFF AVULSION CHRONIC Left 06/21/2016 Rotator cuff repair, SAD and bursectomy REPAIR OF ANKLE FRACTURE 1988 1 plate and 9 screws right ankle REPAIR WRIST BONE FRACTURE 1981 1991 bone graft FAMILY HISTORY Problem Relation Age of Onset other (dementia) Mother other (unknown) Father other (lung cancer) Brother Social History Tobacco Use Smoking status: Every Day Packs/day: 0.75 Years: 40.00 Pack years: 30.00 Types: Cigarettes Smokeless tobacco: Never Vaping Use Vaping Use: Never used Substance Use Topics Alcohol use: No Comment: sober since 2011 Drug use: No Types: Cocaine, Marijuana Comment: 2001- quit Reviewed current medications, allergies, past medical history, surgical history, family history and social history today. REVIEW OF SYSTEMS All other reviewed and negative other than HPI. HEALTH MAINTENANCE: Reviewed health maintenance issues today and recommended the following in detail. COVID-19 VACCINE(1) Never done LUNG CANCER SCREENING Never done SHINGRIX VACCINE(1 of 2) Never done PNEUMOCOCCAL(2 - PCV) due on 01/24/2018 DTAP,TDAP,TD(2 - Td or Tdap) due on 06/15/2021 INFLUENZA(1) due on 11/15/2021 COLORECTAL CANCER SCREENING -is due in May Had discussion with patient regarding risks and benefits of prostate screening. Allowed them to decide if they wished to proceed with screening including LEX and PSA. VITALS: BP 138/72 Pulse 97 Wt 73 kg (161 lb) SpO2 98% BMI 25.57 kg/m Last 4 Encounter Wt Readings: Date: Wt: 01/17/2022 72.8 kg (160 lb 6.4 oz) 08/27/2021 77.6 kg (171 lb) 04/18/2021 78.2 kg (172 lb 6.4 oz) 04/07/2021 78.8 kg (173 lb 12.8 oz) PHYSICAL EXAMINATION: General appearance: Well appearing, alert, in no acute distress, well-hydrated, well nourished. Skin: Skin color, texture, turgor normal, no suspicious rashes or lesions Head: Normocephalic, no masses, lesions, tenderness or abnormalities Lungs: Lungs clear to auscultation. No wheezing, rhonchi, rales Heart: RRR without murmur, gallop, or rubs. No ectopy Abdomen: Normal abdominal exam, Abdomen soft, non-tender. Bowel sounds normal. No masses, organomegaly Shoulder: Location: bilateral Redness: No. Warmth: No. Tenderness to palpation: negative. . Swelling: No. Range of motion: normal but with pain. . Empty can test: positive. ASSESSMENT/PLAN: 1. Primary hypertension - ICD9: 401.9, ICD10: I10 (primary diagnosis) - good control - Goal of BP <130/80 - CBC + DIFF - COMP METABOLIC PANEL - LIPID PANEL BASIC 2. HORTENCIA (obstructive sleep apnea) - ICD9: 327.23, ICD10: G47.33 - does not treat 3. Depression, unspecified depression type - ICD9: 311, ICD10: F32.A - stable. 4. Acute pain of both shoulders - ICD9: 719.41, ICD10: M25.511, M25.512 Discussed risks and benefits of new medication with the patient. Advised them to call if any side effects or questions. Red flags for re-assessment reviewed with patient in detail. Call if symptoms worsen at all or if not better in one to two weeks Reviewed diagnosis and treatment options in detail. Questions were answered. Patient expressed understanding of treatment plan. - XR SHOULDER GENERAL 3V OR MORE AP/TRUE AP/OTHER RIGHT - XR SHOULDER GENERAL 3V OR MORE AP/TRUE AP/OTHER LEFT - METHYLPREDNISOLONE 4 MG TABLETS IN A DOSE PACK 5. Screening for colon cancer - ICD9: V76.51, ICD10: Z12.11 - CONSULT TO GENERAL SURGERY 6. Tobacco use - ICD9: 305.1, ICD10: Z72.0 - Cessation encouraged. - Physiologic and physical aspects of tobacco addiction as well as strategies for quitting were discussed. - Counseling was given focusing on the harmful effects of this addiction especially given the patient's medical condition(s) which will be worsened because of the chemicals in tobacco. - CONSULT LUNG CANCER SCREENING CLINIC 7. Need for influenza vaccination - ICD9: V04.81, ICD10: Z23 - INFLUENZA VACCINE QUADRIVALENT 6 MO - 64 YRS IM Zoë Joel MD documented in this encounter [facility] 03-15-2022 Miscellaneous Notes Patient has been identified by name and date of : Yes, Provider ZOË JOEL Date 03/15/22 Time 0922 Patient phones for refill(s): Requested Prescriptions Pending Prescriptions Disp Refills nicotine (NICODERM) 21 mg/24 hr 30 Patch 0 Sig: Apply 1 Patch as directed every 24 hours. nicotine (NICODERM) 14 mg/24 hr 30 Patch 0 Sig: Apply 1 Patch as directed every 24 hours. No smoking with patch. Date of last office visit in primary care: 04/18/21 Last 2 Encounter Wt Readings: Date: Wt: 01/17/2022 72.8 kg (160 lb 6.4 oz) 08/27/2021 77.6 kg (171 lb) Previous labs/tests for medication: Not applicable Please advise. Thank you. Denise Butler documented in this encounter [facility] 01-17-2022 Note HNO ID: [id number] Author: Elsi Jose APRN.PROJECTION WELDING MACHINE OPERATOR Service: ? Author Type: Nurse Practitioner Type: Progress Notes Filed: 01/17/2022 2:07 PM Note Text: CC: Patient presents with: Sore Throat: Cough, chest congestion x 2 weeks HPI: Woodrow Alcala is a 66 year old male who presents to the office with complaint of head congestion and cough, nonproductive for 2 weeks. Symptoms are staying the same. Associated symptoms includes sinus pressure and cough. Denies nausea, vomiting , and diarrhea. Treatments tried include nothing so far. with no relief of symptoms. Sick contacts: unknown. History of asthma, frequent episodes of bronchitis, chronic bronchitis, bronchiectasis or COPD: No Smoker: No Seasonal/environmental allergies: No The ROS is otherwise negative. The patient's pmh, medications, allergies, and past visits are reviewed. PHYSICAL EXAM: BP 112/64 Pulse 100 Temp 36.7 ?C (98.1 ?F) Resp 21 Wt 72.8 kg (160 lb 6.4 oz) SpO2 98% BMI 25.47 kg/m? General appearance: alert, cooperative, pleasant, in no acute distress Head: Normocephalic Eyes: EOM's intact, conjunctiva pink and moist, no icterus, sclera white, non-injected Oropharynx:moist without lesions, No erythema, exudates or tonsillar hypertrophy. Heart: Negative. RRR without obvious murmur, gallop, or rubs. No ectopy. Lungs: clear to auscultation, without rales or wheeze, good air exchange PAST MEDICAL HISTORY Diagnosis Date Alcohol abuse, in remission 2011 Alcohol withdrawal seizure (HCC) Depression GERD (gastroesophageal reflux disease) HTN (hypertension) Tobacco use PAST SURGICAL HISTORY Procedure Laterality Date COLONOSCOPY FLX DX W/COLLJ SPEC WHEN PFRMD 05/19/12 Colonoscopy DIAGNOSTIC ARTHROSCOPY SHOULDER +- SYNOVIAL BX Left 06/21/2016 Left shoulder arthroscopic biceps tenotomy, labral debridement PAST SURGICAL HISTORY OF repair of buldging disc in Lumbar spine RECONSTRUCTION ROTATOR CUFF AVULSION CHRONIC Left 06/21/2016 Rotator cuff repair, SAD and bursectomy REPAIR OF ANKLE FRACTURE 1988 1 plate and 9 screws right ankle REPAIR WRIST BONE FRACTURE 1981 1991 bone graft ALLERGIES Patient has no known allergies. MEDICATIONS FLUoxetine (PROZAC) 20 mg capsule Take 1 capsule by mouth once daily. In addition to 10 mg a day clotrimazole 1 % oint Apply to affected area twice daily. sildenafil (VIAGRA) 100 mg tablet Take 1 tablet by mouth as needed. lisinopril (ZESTRIL, PRINIVIL) 10 mg tablet Take 1 tablet by mouth once daily. FLUoxetine (PROZAC) 10 mg capsule Take 1 capsule by mouth once daily. In addition to 20 mg a day. esomeprazole (NEXIUM) 20 mg capsule Take 2 capsules by mouth once daily. Prn doxycycline (VIBRA-TABS) 100 mg tablet Take 1 tablet by mouth twice daily for 7 days. predniSONE (DELTASONE) 20 mg tablet Take 2 tablets by mouth once daily for 5 days. nicotine (NICODERM) 21 mg/24 hr Apply 1 Patch as directed every 24 hours. (Patient not taking: Reported on 04/18/2021 ) nicotine (NICODERM) 14 mg/24 hr Apply 1 Patch as directed every 24 hours. No smoking with patch. (Patient not taking: Reported on 04/18/2021 ) nicotine (NICODERM) 7 mg/24 hr Apply 1 Patch as directed every 24 hours. (Patient not taking: Reported on 04/18/2021 ) FAMILY HISTORY Problem Relation Age of Onset other (dementia) Mother other (unknown) Father other (lung cancer) Brother Social History Tobacco Use Smoking status: Every Day Packs/day: 0.75 Years: 40.00 Pack years: 30.00 Types: Cigarettes Smokeless tobacco: Never Vaping Use Vaping Use: Never used Substance Use Topics Alcohol use: No Comment: sober since 2011 Drug use: No Types: Cocaine, Marijuana Comment: 2001- quit ASSESSMENT/PLAN: 1. Rhinosinusitis - ICD9: 473.9, ICD10: J31.0, J32.9 See cyclin twice a day for 7 days and prednisone daily for 5. Prescription instructions reviewed with patient as applicable. Potential red flag symptoms discussed with the patient. Reviewed appropriate action plan to take if red flag symptoms occur. Patient agreeable to treatment plan. Elsi Jose APRN.[facility] 10-03-2021 Miscellaneous Notes Patient wants to know if this can be written for 90 day supply. He also takes a 10 mg dose of the same medication and that script was written for 90 day supply with refills. Patient has been identified by name and date of : Yes Pending Prescriptions Disp Refills FLUOXETINE 20 MG CAPSULE 90 5 Sig: Take 1 capsule by mouth once daily. In addition to 10 mg a day ROSY: No BILL-04/18/21 Labs-10/21/20 NOV-10/16/21 med filled 03/19/21 RX INSTRUCTIONS: Patient aware RX will be sent to pharmacy. No need to notify patient. Marianne Jeffers Pss documented in this encounter [facility] 08-27-2021 Instructions Sybil Mcmullen APRN.PROJECTION WELDING MACHINE OPERATOR - 08/27/2021 3:44 PM EDT Your exam shows you have a common, superficial fungus infection of the buttocks. Jock itch causes a pink, scaly, itchy rash. It is made worse by moisture and friction, so treatment requires that you keep the area clean, dry, and free from friction. Wear loose fitting cotton shorts, be sure to dry well after showering, and wash all soiled or sweaty athletic shorts frequently. Use anti-fungal medicine for at least one week. Do not scratch the area as this can damage the skin further. See your doctor if you are not better within one week. documented in this encounter [facility] 08-27-2021 History of Present illness Narrative This note was created using [employer]. Subjective Woodrow Alcala is a 66 year old male. 66 year old male with PMH HTN presents for complaints of rash. Acute onset several months ago, citing started in winter. Endorses that it is located to both buttocks Itchy and scaly per patient. + itches like crazy Denies that it is painful. Denies concerns for STI. Denies fever or chills. Denies sx. Denies using homeopathic or OTC medications. Denies seeking medical treatment BACK TUFTER. The history is provided by the patient. No speech language pathologist was used. Rash This is a recurrent problem. The current episode started more than 1 month ago. The problem has been gradually worsening since onset. Location: buttocks. The rash is characterized by scaling, itchiness and dryness. It is unknown if there was an exposure to a precipitant. Pertinent negatives include no anorexia, congestion, cough, diarrhea, eye pain, facial edema, fatigue, fever, joint pain, nail changes, rhinorrhea, shortness of breath, sore throat or vomiting. Past treatments include nothing. The treatment provided no relief. There is no history of allergies, asthma, eczema or varicella. PAST MEDICAL HISTORY Diagnosis Date Alcohol abuse, in remission 2011 Alcohol withdrawal seizure (HCC) Depression GERD (gastroesophageal reflux disease) HTN (hypertension) Tobacco use PAST SURGICAL HISTORY Procedure Laterality Date COLONOSCOPY FLX DX W/COLLJ SPEC WHEN PFRMD 05/19/12 Colonoscopy DIAGNOSTIC ARTHROSCOPY SHOULDER +- SYNOVIAL BX Left 06/21/2016 Left shoulder arthroscopic biceps tenotomy, labral debridement PAST SURGICAL HISTORY OF repair of buldging disc in Lumbar spine RECONSTRUCTION ROTATOR CUFF AVULSION CHRONIC Left 06/21/2016 Rotator cuff repair, SAD and bursectomy REPAIR OF ANKLE FRACTURE 1988 1 plate and 9 screws right ankle REPAIR WRIST BONE FRACTURE 1981 1991 bone graft ALLERGIES Patient has no known allergies. MEDICATIONS sildenafil (VIAGRA) 100 mg tablet Take 1 tablet by mouth as needed. lisinopril (ZESTRIL, PRINIVIL) 10 mg tablet Take 1 tablet by mouth once daily. FLUoxetine (PROZAC) 20 mg capsule Take 1 capsule by mouth once daily. In addition to 10 mg a day FLUoxetine (PROZAC) 10 mg capsule Take 1 capsule by mouth once daily. In addition to 20 mg a day. esomeprazole (NEXIUM) 20 mg capsule Take 2 capsules by mouth once daily. Prn clotrimazole 1 % oint Apply to affected area twice daily. nicotine (NICODERM) 21 mg/24 hr Apply 1 Patch as directed every 24 hours. nicotine (NICODERM) 14 mg/24 hr Apply 1 Patch as directed every 24 hours. No smoking with patch. nicotine (NICODERM) 7 mg/24 hr Apply 1 Patch as directed every 24 hours. FAMILY HISTORY Problem Relation Age of Onset other (dementia) Mother other (unknown) Father other (lung cancer) Brother Social History Tobacco Use Smoking status: Current Every Day Smoker Packs/day: 0.75 Years: 40.00 Pack years: 30.00 Types: Cigarettes Smokeless tobacco: Never Used Vaping Use Vaping Use: Never used Substance Use Topics Alcohol use: No Comment: sober since 2011 Drug use: No Types: Cocaine, Marijuana Comment: 2002- quit Review of Systems Constitutional: Negative for appetite change, chills, fatigue and fever. HENT: Negative for congestion, rhinorrhea and sore throat. Eyes: Negative for pain, discharge and itching. Respiratory: Negative for apnea, cough, choking, chest tightness and shortness of breath. Cardiovascular: Negative for chest pain, palpitations and leg swelling. Gastrointestinal: Negative for abdominal pain, anorexia, diarrhea and vomiting. Musculoskeletal: Negative for arthralgias, back pain and joint pain. Skin: Positive for rash. Negative for color change, nail changes and pallor. Allergic/Immunologic: Negative for environmental allergies, food allergies and immunocompromised state. Neurological: Negative for dizziness and facial asymmetry. Hematological: Negative for adenopathy. Does not bruise/bleed easily. Psychiatric/Behavioral: Negative for agitation and behavioral problems. Objective BP 126/72 Pulse 102 Temp 36.6 C (97.8 F) Resp 16 Wt 77.6 kg (171 lb) SpO2 96% BMI 27.16 kg/m Physical Exam Vitals and nursing note reviewed. Constitutional: General: He is not in acute distress. Appearance: Normal appearance. He is not ill-appearing, toxic-appearing or diaphoretic. HENT: Head: Normocephalic and atraumatic. Right Ear: External ear normal. Left Ear: External ear normal. Nose: Nose normal. No congestion or rhinorrhea. Mouth/Throat: Mouth: Mucous membranes are moist. Pharynx: Oropharynx is clear. No oropharyngeal exudate or posterior oropharyngeal erythema. Eyes: General: Right eye: No discharge. Left eye: No discharge. Extraocular Movements: Extraocular movements intact. Conjunctiva/sclera: Conjunctivae normal. Pupils: Pupils are equal, round, and reactive to light. Cardiovascular: Rate and Rhythm: Normal rate and regular rhythm. Pulses: Normal pulses. Heart sounds: Normal heart sounds. No murmur heard. No friction rub. No gallop. Pulmonary: Effort: Pulmonary effort is normal. No respiratory distress. Breath sounds: Normal breath sounds. No stridor. No wheezing, rhonchi or rales. Chest: Chest wall: No tenderness. Abdominal: General: Abdomen is flat. There is no distension. Palpations: Abdomen is soft. There is no mass. Tenderness: There is no abdominal tenderness. There is no guarding or rebound. Hernia: No hernia is present. Musculoskeletal: General: No swelling, tenderness, deformity or signs of injury. Normal range of motion. Cervical back: Normal range of motion and neck supple. No rigidity or tenderness. Right lower leg: No edema. Left lower leg: No edema. Lymphadenopathy: Cervical: No cervical adenopathy. Skin: General: Skin is warm and dry. Capillary Refill: Capillary refill takes less than 2 seconds. Coloration: Skin is not jaundiced or pale. Findings: Rash (bilateral buttocks wtih pink, scaly, pruritic rash. No abscess. No red streaking. No crepitus. ) present. No bruising or lesion. Neurological: General: No focal deficit present. Mental Status: He is alert and oriented to person, place, and time. Cranial Nerves: No cranial nerve deficit. Sensory: No sensory deficit. Motor: No weakness. Coordination: Coordination normal. Gait: Gait normal. Deep Tendon Reflexes: Reflexes normal. Psychiatric: Mood and Affect: Mood normal. Behavior: Behavior normal. Thought Content: Thought content normal. Assessment and Plan ASSESSMENT/PLAN: 1. Rash - ICD9: 782.1, ICD10: R21 X 6 months No red flags No systemic involvement Likely fungal given presentation Will trial Clotrimazole, RX sent in Follow up for recheck if symptoms persist. Sybil Mcmullen APRN.JUDY documented in this encounter [facility] documented as of this encounter (statuses as of 08/27/2021) [facility] History of Past illness Narrative* Problem Noted Date Resolved Date GERD (gastroesophageal reflux disease) 7 12/19/2017 Acute pain of left shoulder 08/28/201501/15 documented as of this encounter (statuses as of 10/03/2021) [facility] History of Past illness Narrative* Problem Noted Date Resolved Date GERD (gastroesophageal reflux disease) 7 12/19/2017 Acute pain of left shoulder 08/28/201501/15 documented as of this encounter (statuses as of 03/20/2022) [address]30-2017 History of Past illness Narrative* Problem Noted Date Resolved Date GERD (gastroesophageal reflux disease) 7 12/19/2017 Acute pain of left shoulder 08/28/201501/15 documented as of this encounter (statuses as of 03/22/2022) [address]30-2017 History of Past illness Narrative* Problem Noted Date Resolved Date GERD (gastroesophageal reflux disease) 7 12/19/2017 Acute pain of left shoulder 08/28/201501/15 documented as of this encounter (statuses as of 03/27/2022) [address]30-2017 History of Past illness Narrative* Problem Noted Date Resolved Date GERD (gastroesophageal reflux disease) 7 12/19/2017 Acute pain of left shoulder 08/28/201501/15 documented as of this encounter (statuses as of 03/30/2022) [address]30-2017 History of Past illness Narrative* Problem Noted Date Resolved Date GERD (gastroesophageal reflux disease) 7 12/19/2017 Acute pain of left shoulder 08/28/201501/15 documented as of this encounter (statuses as of 04/02/2022) [address]30-2017 History of Past illness Narrative* Problem Noted Date Resolved Date GERD (gastroesophageal reflux disease) 7 12/19/2017 Acute pain of left shoulder 08/28/201501/15 documented as of this encounter (statuses as of 05/01/2022) [address]30-2017 History of Past illness Narrative* Problem Noted Date Resolved Date GERD (gastroesophageal reflux disease) 7 12/19/2017 Acute pain of left shoulder 08/28/201501/15 documented as of this encounter (statuses as of 05/29/2022) [address]30-2017 History of Past illness Narrative* Problem Noted Date Resolved Date GERD (gastroesophageal reflux disease) 7 12/19/2017 Acute pain of left shoulder 08/28/201501/15 documented as of this encounter (statuses as of 05/30/2022) [facility] of Past illness Narrative* Problem Noted Date Resolved Date GERD (gastroesophageal reflux disease) 7 12/19/2017 Acute pain of left shoulder 08/28/201501/15 documented as of this encounter (statuses as of 07/23/2022) [facility] Narrative* Problem Noted Date Resolved Date GERD (gastroesophageal reflux disease) 7 12/19/2017 Acute pain of left shoulder 08/28/201501/15 documented as of this encounter (statuses as of 09/09/2022) [facility] Narrative* Problem Noted Date Resolved Date GERD (gastroesophageal reflux disease) 7 12/19/2017 Acute pain of left shoulder 08/28/201501/15 documented as of this encounter (statuses as of 09/19/2022) [facility] of [facility] illness Narrative* Problem Noted Date Diagnosed Date Resolved Date GERD (gastroesophageal reflux disease) 06/13/2016 12/19/2017 Acute pain of left shoulder 08/28/2015 01/24/2017 documented as of this encounter (statuses as of 09/24/2022) [facility]- Primary Rash and other nonspecific [facility] eruption [facility] Diagnosis Tobacco use Tobacco use disorder [facility] Diagnosis Primary hypertension- Primary Unspecified essential hypertension HORTENCIA (obstructive sleep apnea) Obstructive sleep apnea (adult) (pediatric) Depression, unspecified depression type Acute pain of both shoulders Screening for colon cancer Special screening for malignant neoplasms, colon Tobacco use Tobacco use disorder Need for influenza vaccination Need for prophylactic vaccination and inoculation against influenza [facility] Diagnosis Screening for colon cancer Special screening for malignant neoplasms, colon [facility]* Diagnosis Essential hypertension with goal blood pressure less than 140/90 [facility]* Diagnosis Hyperplastic rectal polyp- Primary Anal and rectal polyp Diverticulosis Diverticulosis of colon (without mention of hemorrhage) Hemorrhoids, internal Internal hemorrhoids without mention of complication [facility] Diagnosis Obstructive sleep apnea- Primary Obstructive sleep apnea (adult) (pediatric) documented in this encounter [facility] note* Diagnosis Right otitis media with effusion- Primary Nonsuppurative otitis media, not specified as acute or chronic Scalp pain Headache documented in this encounter [facility] note* Diagnosis Obstructive sleep apnea- Primary Obstructive sleep apnea (adult) (pediatric) Inadequate sleep hygiene Other specific disorder of sleep of nonorganic origin Essential hypertension Unspecified essential hypertension documented in this encounter [facility] note* Diagnosis Rhinosinusitis- Primary Unspecified sinusitis (chronic) Acute cough Tobacco abuse Tobacco use disorder documented in this encounter [facility] note* Diagnosis Acute sinusitis, recurrence not specified, unspecified location- Primary Eye drainage Redness or discharge of eye Floaters in visual field, right documented in this encounter [facility] note* Diagnosis Post-op pain- Primary Other acute postoperative pain documented in this encounter [facility] note* Diagnosis Postoperative follow-up- Primary Follow-up examination, following unspecified surgery documented in this encounter [facility] note* Diagnosis Obstructive sleep apnea- Primary Obstructive sleep apnea (adult) (pediatric) documented in this encounter [facility] for referral (narrative)* Diagnostic Procedure Only (Routine) - Closed Specialty Diagnoses / Procedures Referred By Kana kennedy Referred To Contact XR IMAGING Diagnoses Acute pain of both shoulders Procedures XR SHOULDER GENERAL 3V OR MORE AP/TRUE AP/OTHER LEFT RADEX SHOULDER COMPLETE MINIMUM 2 VIEWS Zoë Joel MD [address] [place] [address] Xr Imaging Referral ID Status Reason Start Date Expiration Date V isits Requested Visits Authorized [id number] Closed Auto-Generate d Referral 03/21/2022 04/20/2023 1 1 * Diagnostic Procedure Only (Routine) - Closed Specialty Diagnoses / Procedures Referred By Kana kennedy Referred To Contact XR IMAGING Diagnoses Acute pain of both shoulders Procedures XR SHOULDER GENERAL 3V OR MORE AP/TRUE AP/OTHER RIGHT RADEX SHOULDER COMPLETE MINIMUM 2 VIEWS Zoë Joel MD [address] [place] [address] Xr Imaging Referral ID Status Reason Start Date Expiration Date V isits Requested Visits Authorized [id number] Closed Auto-Generate d Referral 03/21/2022 04/20/2023 1 1 * Consult, Test, Treat (Routine) - Authorized Specialty Diagnoses / Procedures Referred By Contac t Referred To Contact General Surgery Diagnoses Screening for colon cancer Procedures CONSULT TO GENERAL SURGERY OFFICE/OUTPATIENT NEW HIGH MDM 60-74 MINUTES Zoë Joel MD [address] [place] [address] Referral ID Status Reason Start Date Expiration Date Visits Requested Visits Authorized [id number] Authorized PCP Requested Referral 03/21/2022 03/21/2023 1 1 [facility] for referral (narrative)* Outpatient Procedure (Routine) - Authorized Specialty Diagnoses / Procedures Referred By Contac t Referred To Contact [facility] Diagnoses Screening for colon cancer Procedures COLONOSCOPY SCREENING COLONOSCOPY SCREENING COLONOSCOPY FLX DX W/COLLJ SPEC WHEN Genet Coughlin MD [address] [place] [address] [facility] [address] [place] [address] Referral ID Status Reason Start Date Expiration Date Visits Requested Visits Authorized [id number] Authorized Auto-Generat ed Referral 03/26/2022 03/26/2023 1 1 [facility] for referral (narrative)* Consultation (Routine) - Pending Review Specialty Diagnoses / Procedures Referred By Contac t Referred To Contact Sleep Medicine Diagnoses Obstructive sleep apnea Procedures IN OFFICE/OUTPATIENT NEW HIGH MDM 60-74 MINUTES Helio Quintero MD [address] [place] [address] [facility] [address] [place] [address] Referral ID Status Reason Start Date Expiration Date Visits Requested Visits Authorized [id number] Pending Review Specialty Services Required 07/18/2022 07/18/2023 1 1 [facility] Summary Purpose Family History No Family History Records FoundNo Family History Records FoundNo Family History Records FoundNo Family History Records FoundNo Family History Records Found Advance Directives No Advanced Directives Records FoundDocuments on File Type Date Recorded Patient Hand Patcher Expl anation Advance Directive(s) 12/29/2017 6:54 AM Reason for Referral Specialty Diagnoses / Procedures Referred By Kana kennedy Referred To Contact Sleep Medicine Diagnoses Obstructive sleep apnea Procedures Home sleep test Ghassan Alas MD [address] [facility] [address] [place] [address] Referral ID Status Reason Start Date Expiration Date V isits Requested Visits Authorized [id number] Pending Review 09/04/2022 03/03/2023 1 1 Specialty Diagnoses / Procedures Referred By Kana kennedy Referred To Contact Sleep Medicine Diagnoses Obstructive sleep apnea Procedures Polysomnography Ghassan Alas MD [address] [facility] [address] [place] [address] Referral ID Status Reason Start Date Expiration Date V isits Requested Visits Authorized [id number] Pending Review 12/13/2022 06/11/2023 1 1 Additional Source Comments (unrecognized sect ion and content) No Status Records FoundNo Status Records FoundNo Status Records FoundNo Status Records FoundNo Status Records Found INFORMATION SOURCE (unrecogn ized section and content) DATE CREATED AUTHOR AUTHOR'S ORGANIZ ATION 09/15/2018 [facility] DATE CREATED AUTHOR AUTHOR'S ORGANIZ ATION 04/24/2022 [facility] DATE CREATED AUTHOR AUTHOR'S ORGANIZ ATION 09/24/[address] [facility] DATE CREATED AUTHOR AUTHOR'S ORGANIZ ATION 12/22/2022 [facility] Source Comments (unrecognize d section and content) In the event this informatio n is protected by the Federal Confidentiality of Alcohol and Drug Abuse Patient Records regulations: The Federal rules restrict any use of the information to criminally investigate or prosecute any alcohol or drug abuse patient.[facility] System[facility] the event this information is protected by the Federal Confidentiality of Alcohol and Drug Abuse Patient Records regulations: The Federal rules restrict any use of the information to criminally investigate or prosecute any alcohol or drug abuse patient.[facility] SystemIn the event this information is protected by the Federal Confidentiality of Alcohol and Drug Abuse Patient Records regulations: The Federal rules restrict any use of the information to criminally investigate or prosecute any alcohol or drug abuse patient.[facility] System[facility] the event this information is protected by the Federal Confidentiality of Alcohol and Drug Abuse Patient Records regulations: The Federal rules restrict any use of the information to criminally investigate or prosecute any alcohol or drug abuse patient.[facility] SystemIn the event this information is protected by the Federal Confidentiality of Alcohol and Drug Abuse Patient Records regulations: The Federal rules restrict any use of the information to criminally investigate or prosecute any alcohol or drug abuse patient.[facility] SystemIn the event this information is protected by the Federal Confidentiality of Alcohol and Drug Abuse Patient Records regulations: The Federal rules restrict any use of the information to criminally investigate or prosecute any alcohol or drug abuse patient.[facility] SystemIn the event this information is protected by the Federal Confidentiality of Alcohol and Drug Abuse Patient Records regulations: The Federal rules restrict any use of the information to criminally investigate or prosecute any alcohol or drug abuse patient.[facility] SystemIn the event this information is protected by the Federal Confidentiality of Alcohol and Drug Abuse Patient Records regulations: The Federal rules restrict any use of the information to criminally investigate or prosecute any alcohol or drug abuse patient.[facility] SystemIn the event this information is protected by the Federal Confidentiality of Alcohol and Drug Abuse Patient Records regulations: The Federal rules restrict any use of the information to criminally investigate or prosecute any alcohol or drug abuse patient.[facility] SystemIn the event this information is protected by the Federal Confidentiality of Alcohol and Drug Abuse Patient Records regulations: The Federal rules restrict any use of the information to criminally investigate or prosecute any alcohol or drug abuse patient.[facility] SystemIn the event this information is protected by the Federal Confidentiality of Alcohol and Drug Abuse Patient Records regulations: The Federal rules restrict any use of the information to criminally investigate or prosecute any alcohol or drug abuse patient.[facility] SystemIn the event this information is protected by the Federal Confidentiality of Alcohol and Drug Abuse Patient Records regulations: The Federal rules restrict any use of the information to criminally investigate or prosecute any alcohol or drug abuse patient.[facility] SystemIn the event this information is protected by the Federal Confidentiality of Alcohol and Drug Abuse Patient Records regulations: The Federal rules restrict any use of the information to criminally investigate or prosecute any alcohol or drug abuse patient.[facility] SystemIn the event this information is protected by the Federal Confidentiality of Alcohol and Drug Abuse Patient Records regulations: The Federal rules restrict any use of the information to criminally investigate or prosecute any alcohol or drug abuse patient.[facility] Reason for Visit (unrecogniz ed section and content) Reason Onset Date Comments Refill Request 10/03/2021 Reason Onset Date Comments Refill Request 03/15/2022 Reason Onset Date Comments Pain (Shoulder Pain) Immunizations 03/21/2022 Flu vaccination Reason Comments Results Reason Comments Consult colonoscopy Specialty Diagnoses / Procedures Referred By Kana kennedy Referred To Contact General Surgery Diagnoses Screening for colon cancer Procedures CONSULT TO GENERAL SURGERY OFFICE/OUTPATIENT NEW HIGH MDM 60-74 MINUTES Zoë Joel MD [address] [place] [address] Referral ID Status Reason Start Date Expiration Date V isits Requested Visits Authorized [id number] Closed PCP Requested Referral 03/21/2022 03/21/2023 1 1 Reason Comments Refill Request Reason Comments Follow Up colonoscopy Reason Comments Dizziness Reason Comments New Patient Inspire Reason Comments Ear Pain R ear pain x3 days Reason Comments New Patient Specialty Diagnoses / Procedures Referred By Kana kennedy Referred To Contact Sleep Medicine Diagnoses Obstructive sleep apnea Procedures IN OFFICE/OUTPATIENT [facility] MDM 60-74 MINUTES Helio Quintero MD [address] [facility] [address] [place] [address] [facility] [address] [facility] [address] [place] [address] Referral ID Status Reason Start Date Expiration Date Visits Requested Visits Authorized [id number] Pending Review Specialty Services Required 07/18/2022 07/18/2023 1 1 Reason Onset Date Comments Results 09/16/2022 Reason Onset Date Comments Refill Request 09/18/2022 Reason Comments Eye Problem right eye discharge matting x 3-4 days Reason Onset Date Comments Results 09/16/2022 Surgery Scheduling 09/16/2022 Specialty Diagnoses / Procedures Referred By Contac t Referred To Contact Diagnoses Obstructive sleep apnea (adult) (pediatric) Obstructive sleep apnea (adult) (pediatric) [G47.33] Procedures IN OPEN IMPLANTATION CRANIAL NERVE ELLY & PULSE GEN Hypoglossal nerve stimulator placement (Inspire) Helio Quintero MD [address] [facility] [address] [place] [address] [facility] [address] [place] [address] Referral ID Status Reason Start Date Expiration Date Visits Re quested Visits Authorized [id number] 1 1 Reason Comments Follow-up Post op inspire - so me swelling but no significant changes Reason Comments Follow-up Care Teams (unrecognized sec tion and content) Quality Officer Relationship Specialty Start Date End Date Zoë Joel MD [address] [place], [place] [id number] PCP - General Family Practice 04/09/12 Quality Officer Relationship Specialty Start Date End Date Zoë Joel MD [address] [place], [place] [id number] PCP - General Family Medicine 04/09/12 Quality Officer Relationship Specialty Start Date End Date Zoë Joel MD [address] [place] [address] PCP - General Family Medicine 04/09/12 Quality Officer Relationship Specialty Start Date End Date Zoë Joel MD [address] [place] [address] PCP - General Family Medicine 04/09/12 Quality Officer Relationship Specialty Start Date End Date Zoë Joel MD [address] [place] [address] PCP - General Family Medicine 04/09/12 Quality Officer Relationship Specialty Start Date End Date Zoë Joel MD [address] [place] [address] PCP - General Family Medicine 04/09/12 Quality Officer Relationship Specialty Start Date End Date Zoë Joel MD [address] [place] [address] PCP - General Family Medicine 04/09/12 Quality Officer Relationship Specialty Start Date End Date Zoë Joel MD [address] [place], [place] [address] PCP - General 09/11/18 Quality Officer Relationship Specialty Start Date End Date Zoë Joel MD [address] [place] [address] PCP - General Family Medicine 04/09/12 Quality Officer Relationship Specialty Start Date End Date Zoë Joel MD [address] [place], [place] [id number] PCP - General 09/11/18 Quality Officer Relationship Specialty Start Date End Date Zoë Joel MD [address] [place] [address] PCP - General 09/11/18 Quality Officer Relationship Specialty Start Date End Date Zoë Joel MD [address] [place] [address] PCP - General Family Medicine 04/09/12 Quality Officer Relationship Specialty Start Date End Date Zoë Joel MD [address] [place] [address] PCP - General 09/11/18 Quality Officer Relationship Specialty Start Date End Date Zoë Joel MD [address] [place] [address] PCP - General 09/11/18 Quality Officer Relationship Specialty Start Date End Date Zoë Joel MD [address] [place] [address] PCP - General 09/11/18 Quality Officer Relationship Specialty Start Date End Date Zoë Joel MD [address] [place] [address] PCP - General 09/11/18 Scheduled Active and Recently Administ ered Medications (unrecognized section and content) Continuous Medication Order 11/02/2022 11/03/2022 11/04/2022 lactated Ringer's (LR) infusion 50 mL/hr, IntraVENous, Continuous, Starting on Fri11/04/22 at 0845, Preprocedure, Upon admission to sameday - please start iv if patient does not have iv access. Use 500ml NS for patients on dialysis. 0901 (New Bag - Prov ider: Kely Kaufman RN)1010 (Continued by Anesthesia - Provider: Edmund Sampson APRN - ZURI)1129 (Anesthesia Volume Adjustment - Provider: MAGALI Brewer CRNA) lactated ringers infusion 125 mL/hr, IntraVENous, Continuous, Starting on Fri11/04/22 at 1130, Recovery (only) 1130 (Canceled Entry - Provider: Automatic Discharge Provider - Comment: Automatically canceled at discontinue of medication order) PRN Medication Order 11/02/2022 11/03/2022 11/04/2022 ALPRAZolam (Xanax) disintegrating tablet 0.25 mg (COMPLETED) 0.25 mg, Oral, PRN, anxiety, Starting on Fri11/04/22 at 0843, For 1 dose, Preprocedure, Using dry hands, place tablet on top of tongue and allow to disintegrate. Administration with water is not necessary. 0901 (Given - Provid er: Kely Kaufman RN) diphenhydrAMINE (BENADryl) injection 12.5 mg 12.5 mg, IntraVENous, Once PRN, itching, Starting on Fri11/04/22 at 1129, For 1 dose, Recovery (only) fentaNYL (Sublimaze) injection 25 mcg 25 mcg, IntraVENous, Every 5 min PRN, moderate pain (4-6), Starting on Fri11/04/22 at 1129, For 3 doses, Recovery (only), Phase I and Phase II- Initial therapy for moderate pain (4-6). Restricted to a 90 minute time frame starting when the patient can verbally state their pain score. If after 2 doses the pain score does not decrease by more than one point, then call the provider. If oral meds are utilized, do not return to initial therapy medications. fentaNYL (Sublimaze) injection 50 mcg 50 mcg, IntraVENous, Every 5 min PRN, severe pain (7-10), Starting on Fri11/04/22 at 1129, For 3 doses, Recovery (only), Phase I and Phase II- Initial therapy for severe pain (7-10). Restricted to a 90 minute time frame starting when the patient can verbally state their pain score. If after 2 doses the pain score does not decrease by more than one point, then call the provider. If oral meds are utilized, do not return to initial therapy medications. hydrALAZINE (Apresoline) injection 5 mg(Linked Group 1) 5 mg, IntraVENous, Every 15 min PRN, high blood pressure, for SBP greater than 160 mmHg for 2 consecutive measurements taken from different sites, Starting on Fri11/04/22 at 1129, For 2 doses, Recovery (only), PRN for SBP > 160 for 2 consecutive measurements, and if one of the following conditions is met: 1) If IV labetolol is ineffective. 2) If HR is under 60. 3) If patient has heart block, COPD or asthma. If both labetalol and hydralazine ineffective, notify anesthesia provider. labetalol (Normodyne,Trandate) injection 5 mg(Linked Group 1) 5 mg, IntraVENous, Every 10 min PRN, high blood pressure, for SBP greater than 160 mmHg for 2 consecutive measurements taken from different sites., Starting on Fri11/04/22 at 1129, For 2 doses, Recovery (only), PRN for SBP >160 for 2 consecutive measurements, if HR is 60 or greater. If beta jenni is contraindicated (HR less than 60, heart block, COPD or asthma) use hydralazine IV order. lidocaine-EPINEPHrine (Xylocaine W/EPI) 1 %-1:[id number] injection (CANCELED) As needed, Starting on Fri11/04/22 at 1048, Intraprocedure 1048 (Given - Provid er: Helio Quintero MD) LORazepam (Ativan) injection 0.5 mg 0.5 mg, IntraVENous, Once PRN, for anxiety or muscle spasm., Starting on Fri11/04/22 at 1129, For 1 dose, Recovery (only), For IV doses dilute dose with 1ml NS. ondansetron (Zofran) injection 4 mg 4 mg, IntraVENous, Once PRN, nausea, Starting on Fri11/04/22 at 1129, For 1 dose, Recovery (only), Initial antiemetic therapy. oxyCODONE (Roxicodone) immediate release tablet 10 mg(Linked Group 2) 10 mg, Oral, PRN, severe pain (7-10), Starting on Fri11/04/22 at 1129, For 1 dose, Recovery (only), PHASE II oxyCODONE (Roxicodone) immediate release tablet 5 mg(Linked Group 2) 5 mg, Oral, PRN, moderate pain (4-6), Starting on Fri11/04/22 at 1129, For 1 dose, Recovery (only), PHASE II sodium chloride 0.9 % bolus 500 mL 500 mL, IntraVENous, at 1,000 mL/hr, Administer over 0.5 Hours, PRN, Anti-nausea, Starting on Fri11/04/22 at 1129, Recovery (only), Indications: Anti-nausea sodium chloride 0.9 % infusion 5-250 mL/hr, IntraVENous, PRN, if patient receiving piggyback infusions and maintenance fluids are not ordered OR KVO fluids to protect IV site / prevent frequent line interruptions/ long duration, Starting on Fri11/04/22 at 0843, Preprocedure, For piggyback infusion, administer at same rate as piggyback for a total of 25 mL. Enter 25 mL into dose field and piggyback rate into rate field of order. If piggyback is infusing at a rate less than 100 mL/hr, enter 25 mL into dose field and 100 mL/hr into rate field of order. For KVO fluids, enter rate of 20 mL/hr or less into rate field of order. sodium chloride 0.9 % infusion 5-250 mL/hr, IntraVENous, PRN, if patient receiving piggyback infusions and maintenance fluids are not ordered OR KVO fluids to protect IV site / prevent frequent line interruptions / long duration, Starting on Fri11/04/22 at 0843, Preprocedure, For piggyback infusion, administer at same rate as piggyback for a total of 25 mL. Enter 25 mL into dose field and piggyback rate into rate field of order. If piggyback is infusing at a rate less than 100 mL/hr, enter 25 mL into dose field and 100 mL/hr into rate field of order. For KVO fluids, enter rate of 20 mL/hr or less into rate field of order. sodium chloride 0.9 % infusion 5-250 mL/hr, IntraVENous, PRN, if patient receiving piggyback infusions and maintenance fluids are not ordered OR KVO fluids to protect IV site / prevent frequent line interruptions/ long duration, Starting on Fri11/04/22 at 1129, Recovery (only), For piggyback infusion, administer at same rate as piggyback for a total of 25 mL. Enter 25 mL into dose field and piggyback rate into rate field of order. If piggyback is infusing at a rate less than 100 mL/hr, enter 25 mL into dose field and 100 mL/hr into rate field of order. For KVO fluids, enter rate of 20 mL/hr or less into rate field of order. sodium chloride 0.9 % irrigation solution (CANCELED) As needed, Starting on Fri11/04/22 at 1047, Intraprocedure 1047 (Given - Provid er: Helio Quintero MD) sodium chloride 0.9% (NS) flush 10 mL 10 mL, IntraVENous, PRN, line care, Starting on Fri11/04/22 at 0843, Preprocedure, After every IV line use sodium chloride 0.9% (NS) flush 10 mL 10 mL, IntraVENous, PRN, line care, Starting on Fri11/04/22 at 1129, Recovery (only), After every IV line use sodium chloride 0.9% (NS) flush 5-40 mL 5-40 mL, IntraVENous, PRN, line care, After every IV line use, Starting on Fri11/04/22 at 0843, Preprocedure, For Line Patency: Peripheral IV = 5 mL; Midline or Central Line = 10 mL/lumen. If following IV push medication, administer flush at same rate as the IV push. Flush volume is determined by type of infusion therapy being given. For non-viscous solutions use: Peripheral IV = 5 mL Midline or Central Line = 10 mL/lumen For viscous solutions (i.e. blood components, parenteral nutrition, contrast media, or after obtaining blood sample) use: Peripheral IV = 10 mL Midline or Central Line = 20 mL/lumen Linked Groups Order Group 1: labetalol (Normodyne,Trandate) injection 5 mgJump to med 5 mg, IntraVENous, Every 10 min PRN, high blood pressure, for SBP greater than 160 mmHg for 2 consecutive measurements taken from different sites., Starting on Fri11/04/22 at 1129, For 2 doses, Recovery (only)
PRN for SBP >160 for 2 consecutive measurements, if HR is 60 or greater. If beta jenni is contraindicated (HR less than 60, heart block, COPD or asthma) use hydralazine IV order.
Or hydrALAZINE (Apresoline) injection 5 mgJump to med 5 mg, IntraVENous, Every 15 min PRN, high blood pressure, for SBP greater than 160 mmHg for 2 consecutive measurements taken from different sites, Starting on Fri11/04/22 at 1129, For 2 doses, Recovery (only)
PRN for SBP > 160 for 2 consecutive measurements, and if one of the following conditions is met: 1) If IV labetolol is ineffective. 2) If HR is under 60. 3) If patient has heart block, COPD or asthma. If both labetalol and hydralazine ineffective, notify anesthesia provider.
Group 2: oxyCODONE (Roxicodone) immediate release tablet 5 mgJump to med 5 mg, Oral, PRN, moderate pain (4-6), Starting on Fri11/04/22 at 1129, For 1 dose, Recovery (only)
PHASE II
Or oxyCODONE (Roxicodone) immediate release tablet 10 mgJump to med 10 mg, Oral, PRN, severe pain (7-10), Starting on Fri11/04/22 at 1129, For 1 dose, Recovery (only)
PHASE II
FOR RECORDS PERTAINING TO PATIENTS WHO ARE OR HAVE BEEN ENROLLED IN A CHEMICAL DEPENDENCY/SUBSTANCEABUSE PROGRAM, SOME INFORMATION MAY BE OMITTED. This clinical summary was aggregated from multiple sources. Caution should be exercised in using it in the provision of clinical care. This summary normalizes information from multiple sources, and as a consequence, information in this document may materially change the coding, format and clinical context of patient data. In addition, data may be omitted in some cases. CLINICAL DECISIONS SHOULD BE BASED ON THE PRIMARY CLINICAL RECORDS. [employer] [facility] provides no warranty or guarantee of the accuracy or completeness of information in this document.
[2023-01-15 17:00] LABS: Amphetamine Urine VISTA NEGATIVE (<1000 ng/mL); Barbiturate Urine VISTA NEGATIVE (< 200 ng/mL); Benzodiazepine Urine VISTA NEGATIVE (< 200 ng/mL); Cocaine Urine VISTA NEGATIVE (< 300 ng/mL); Ecstacy Urine VISTA NEGATIVE (< 500 ng/mL); Methadone Urine VISTA NEGATIVE (< 300 ng/mL); PCP Urine VISTA NEGATIVE (< 25 ng/mL); THC Urine VISTA NEGATIVE (< 50 ng/mL); Vista UDS pH Range 6
--- NOTE | 2023-01-15 17:06 | NURSING ---
MED SURG TERELETSKY ETOH ABUSE, ETOH DETOX, HYPONATREMIA
[2023-01-15 17:31] VITALS: BP 122/78; PULSE 81; RESP 18; TEMP 35.9; O2SAT 98
--- NOTE | 2023-01-15 17:39 | PCM.HP.STD ---
HPI - General General Date of Admission: 01/15/23 Date of Service: 01/15/23 Chief Complaint: Desiring services for alcohol detox HPI Narrative WOODROW GIBBONS, is a 67 M who presents to the emergency room at [facility] requesting services for alcohol detox, patient's last drink was earlier today, he states that he has a binge drinker and sometimes drinks as many as 12 beers in 1 day. Patient denies daily excessive drinking. Patient is having some nervousness but otherwise has no tremor, nausea, or muscle pain. Labs showed a normal CBC, sodium was 126, chloride was 91, the alcohol level was 344. Patient will be admitted to [place] [id number] for acute alcohol withdrawal, orders were entered using the alcohol detox order set, BMP will be rechecked tomorrow due to his low sodium. [facility] Medical History Alcohol abuse Alcohol addiction Depression GERD (gastroesophageal reflux disease) HTN (hypertension) Seizures Sleep apnea Smoker Tobacco dependence Home Medications lisinopril 10 mg tablet (Zestril) 10 mg PO DAILY HTN 06/22/16 [History Last Taken 11/16/20 08:00] albuterol sulfate 90 mcg/actuation aerosol inhaler (Ventolin HFA) 1 - 2 puff inhalation Q4H PRN PRN Wheezing #6.7 grams 01/20/22 [Rx Last Taken Unknown] fluoxetine 10 mg capsule 10 mg PO DAILY 01/20/22 [History Last Taken Unknown] fluoxetine 10 mg capsule (Prozac) 20 mg PO DAILY mood 01/20/22 [History Last Taken Unknown] prednisone 50 mg tablet 50 mg PO DAILY #5 tabs 01/20/22 [Rx Last Taken Unknown] Allergy/AdvReac Type Severity Reaction Status Date / Time No Known Allergies Allergy Verified 01/15/23 15:39 Family History Other Dementia Thyroid disorder Social History household members: none housing: apartment Smoking Status: Current every day smoker tobacco type: cigarettes alcohol intake: current alcohol intake frequency: 3 or more drinks per day substance use type: does not use ROS Constitutional Constitutional: Denies anorexia, change in weight, chills, fatigue, fever(s), malaise, night sweats or weakness Eyes Eyes: Denies blurry vision, change in vision, discharge from eye(s) or eye pain Cardiovascular Cardiovascular: Denies chest pain, claudication, dyspnea on exertion, edema, lightheadedness or palpitations Respiratory/Chest Respiratory/Chest: Denies cough, hemoptysis, shortness of breath at rest or shortness of breath with exertion Gastrointestinal Gastrointestinal: Denies abdominal pain, constipation, diarrhea, hematemesis, hematochezia, melena, nausea or vomiting Genitourinary Genitourinary: Denies dysuria, hematuria, urinary frequency, urinary hesitancy, urinary incontinence or urinary urgency Musculoskeletal Musculoskeletal: Denies back pain, joint pain, joint stiffness, joint swelling, myalgias or neck pain Neurologic Neurologic: Denies abnormal gait, abnormal speech, dizziness, focal weakness, headache(s), loss of vision, numbness, other visual disturbances, paresthesias, syncope or tingling Psychiatric Psychiatric: Reports anxiety and depression; Denies cognitive impairment, irritability, mood swings or suicidal ideation Endocrine Endocrinology: Denies change in body appearance, cold intolerance, excessive sweating, heat intolerance, polydipsia or polyuria Hematologic/Lymphatic Hematologic/Lymphatic: Denies none, anemia, easy bleeding, easy bruising or lymphadenopathy Allergic/Immunologic Allergic/Immunologic: Denies rhinitis, urticaria, eczemia or asthma Vital Signs Vital Signs Vital Signs: 01/15/23 15:39 01/15/23 16:23 01/15/23 17:31 Temperature 96.8 F L Temperature Source Temporal Pulse Rate 91 Respiratory Rate 18 Blood Pressure 127/83 H 133/81 H 122/78 H Blood Pressure Mean 97 98 92 Pulse Ox 98 Oxygen Delivery Method Room Air 01/15/23 17:31 Temperature 96.7 F L Temperature Source Pulse Rate 81 Respiratory Rate 18 Blood Pressure 122/78 H Blood Pressure Mean 92 Pulse Ox 98 Oxygen Delivery Method Weight Weight: 68.946 kg Body Mass Index (BMI) 23.8 Physical Exam Const alert, oriented x3, no apparent distress and average body habitus General Appearance: cooperative, well kempt and well developed Orientation / Consciousness: awake, oriented to person, oriented to place and oriented to time HEENT normocephalic, head/scalp atraumatic, hearing grossly normal bilaterally and moist oral mucous membranes Eyes PERRL, EOMs intact bilaterally and conjunctivae normal Neck supple, no JVD, thyroid normal and no carotid bruits General: trachea midline Resp normal respiratory effort, no retractions, no use of accessory muscles and clear to auscultation bilaterally Auscultation: Negative for rales, rhonchi or wheezes Cardio regular rate, regular rhythm, S1 normal heart sound, S2 normal heart sound, no murmurs, no rub and no gallops GI normal to inspection, nondistended, normoactive bowel sounds, soft to palpation, non-tender and non-distended Extremity no clubbing, cyanosis or edema Skin no rashes or lesions noted General Skin Exam: no breakdown Neuro oriented x3, CN's II-XII intact bilaterally, moves all extremities, no focal motor deficits and no sensory deficits noted Sensorium / Orientation: awake, alert, oriented to person, oriented to place and oriented to time Speech: speech normal Psych affect normal Results Lab / Micro Data 01/15/23 16:10 01/15/23 16:10 Labs: Laboratory Results - last 24 hr 01/15/23 16:10: WBC 5.8, RBC 4.39 L, Hgb 14.6, Hct 40.1, MCV 91.3, MCH 33.3 H, MCHC 36.4 H, RDW Std Deviation 49.2 H, RDW Coeff of Hortencia 14.6, Plt Count 240, MPV 8.5, Immature Gran % (Auto) 0.300, Neut % (Auto) 44.9 L, Lymph % (Auto) 44.8 H, [place] % (Auto) 8.8, Eos % (Auto) 0.7, Baso % (Auto) 0.5, Absolute Neuts (auto) 2.6, Absolute Lymphs (auto) 2.60, Nucleated RBC % 0, Sodium 126 L, Potassium 4.0, Chloride 91 L, Carbon Dioxide 26.0, Anion Gap 9, BUN 5 L, Creatinine 0.68 L, Estim Creat Clear Calc 101.26, Est GFR (MDRD) Af Amer 150, Est GFR (MDRD) Non-Af 124, BUN/Creatinine Ratio 7.4 L, Glucose 95, Calcium 8.4 L, Total Bilirubin 0.30, AST 35, ALT 32, Alkaline Phosphatase 34 L, Total Protein 7.3, Albumin 3.3, Globulin 4.0, Albumin/Globulin Ratio 0.8 L, Urine Opiates Screen NEGATIVE, Urine Methadone Screen NEGATIVE, Ur Barbiturates Screen NEGATIVE, Ur Phencyclidine Scrn NEGATIVE, Ur Amphetamines Screen NEGATIVE, MDMA (Ecstasy) Screen NEGATIVE, U Benzodiazepines Scrn NEGATIVE, Urine Cocaine Screen NEGATIVE, U Cannabinoids Screen NEGATIVE, Ur Drug Screen Comment , Ethyl Alcohol 344.0 H* Radiology Impression Chest X-Ray 01/15/23 16:30 IMPRESSION: No acute cardiopulmonary abnormality. Electronically Signed: John Turner MD at 16:42 EDT , Assessment & Plan Assessment/Plan (1) ETOH abuse: PLAN: Plan 1. Incipient alcohol withdrawal-patient will be admitted to [facility], orders were entered using the alcohol detox order set, patient will be seen by addiction oncology social worker #2 hyponatremia secondary to beer potomania-BMP will be rechecked tomorrow, I do not feel the patient needs IV fluids at this time #3 chronic alcoholism-complicates care, medical course, recovery, and prognosis #4 alcohol intoxication-patient's alcohol level was 344 today #5 chronic depression-patient is on Prozac #6 hypertension-patient is on lisinopril Total clinical time spent by myself addressing the patient's medical issues, reviewing all of his data, and collaborating with patient's care team: 55 minutes Charges/Coding Visit Charges Inpatient E&M: 32363 Init Hosp L2
--- OUTSIDE RECORDS SUMMARY | 2023-01-15 18:58 | XMS RPT_ITS | CCD ---
Author Name Unknown Address [facility] [address] [place] [address] Organization [facility] Care Team Providers Care Dispatch Coordinator Name Role Phone Willa TAPIA (PA-C) Unavailable Unavail able Zoë Joel MD Primary Care Provider [phone] Zoë Joel MD Primary Care Provider GENET KEE Referring Unavailable GENET KEE Attending Unavailable GENET KEE Admitting Unavailable ZOË JOEL Primary Care Unavailable Zoë Joel MD Primary Care Provider Zoë Joel MD Primary Care Provider ZOË JOEL Primary Care Unavailable ZOË JOEL Attending Unavailable ZOË JOEL Primary Care Unavailable ZOË JOEL Attending Unavailable ZOË JOEL Primary Care Unavailable SHANTE, ZËO [place] Primary Care Unavailable ZOË JOEL Referring [...] ALAS Attending Unavailable GHASSAN ALAS Referring Unavailable [facility] Primary Care Unavailable HELIO QUINTERO Attending Unavailable [facility] Primary [facility] Unavailable GHASSAN ALAS Attending Unavailable [facility] Unavailable Medications Current Medications Medication Drug Class(es) [...] 167.6 cm Ghassan Alas MD Work Phone: [facility] [employer] 12-11-2022 14:59-0400 Body mass index (BMI) [Ratio] 24.37 kg/m2 Ghassan Alas MD Work Phone: [facility] 12-11-2022 14:59-0400 Body weight 68.49 kg Ghassan Alas MD Work Phone: [facility] 12-11-2022 14:59-0400 Diastolic blood pressure 82 mm[Hg] Ghassan Alas MD Work Phone: [facility] 12-11-2022 14:59-0400 Heart rate 96 /min Ghassan Alas MD Work Phone: [facility] 12-11-2022 14:59-0400 Respiratory rate 16 /min Ghassan Alas MD Work Phone: [facility] [employer] 12-11-2022 14:59-0400 SaO2% (BldA) [Mass fraction] 95 % Ghassan Alas MD Work Phone: [facility] Encounters Encounter Date Encounter Type Care Provider Facility Start: 12-11-2022 End: 12-11-2022 ambulatory GHASSAN ALAS [facility] Start: 12-11-2022 End: 12-11-2022 Office outpatient visit 40 minutes Ghassan Alas MD Work Phone: [facility] Sleep Medicine Procedures Date Procedure Procedure Detail Performing Clinician Start: 12-11-2022 Follow-up visit Follow-up GHASSAN HOWARD Start: 04-22-2022 Colonoscopy Jose howard PA-C Work Phone: Start: 03-21-2022 INFLUENZA VACCINE QUADRIVALENT 6 MO - 64 YRS IM Zoë Joel MD Work Phone: Start: 05-19-2012 Colonoscopy Sybil casarez NURSES' REGISTRY DIRECTOR.LAND SALES AGENT Work Phone: Plan of Treatment Date Care Activity Detail Author Start: 04-22-2032 Screening for malignant neoplasm of colon [facility] Start: 05-30-2027 LIPID SCREEN LIPID SCREEN [facility] Start: 04-22-2027 Colonoscopy COLONOSCOPY [facility] Start: 04-22-2027 COLORECTAL CANCER SCREENING COLORECTAL CANCER SCREENING [facility] Start: 10-21-2025 LIPID SCREEN LIPID SCREEN [facility] Start: 05-29-2025 DIABETES SCREEN DIABETES SCREEN [facility] Start: 02-09-2024 PROSTATE CANCER SCREENING DISCUSSION PROSTATE CANCER SCREENING DISCUSSION [facility] Start: 10-22-2023 DIABETES SCREEN DIABETES SCREEN [facility] Start: 09-24-2023 BP CONTROLLED (<130/80) BP CONTROLLED (<130/80) [facility] in Start: 05-30-2023 ANNUAL PCP TEAM CHRONIC DISEASE VISIT ANNUAL PCP TEAM CHRONIC DISEASE VISIT [facility] Start: 03-21-2023 ANNUAL PCP TEAM CHRONIC DISEASE VISIT ANNUAL PCP TEAM CHRONIC DISEASE VISIT [facility] Start: 03-14-2023 End: 12-14-2023 Polysomnography [facility] Routine Obstructive sleep apnea Expected: 03/14/2023 (Approximate), Expires: 12/14/2023 [facility] Work Phone: Immunizations Immunization Date Immunization Notes Care Provider Cordell arora 03-21-2022 influenza, injectabl e, quadrivalent, contains preservative Zoë Joel MD Work Phone: [facility] 03-21-2022 influenza virus vacc ine, unspecified formulation Ghassan Alas MD Work Phone: [facility] 02-08-2019 influenza, injectabl e, quadrivalent, contains preservative Sybil Benedict NURSES' REGISTRY DIRECTOR.LAND SALES AGENT Work Phone: [facility] 01-24-2017 influenza, injectabl e, quadrivalent, contains preservative Sybil Mcmullen NURSES' REGISTRY DIRECTOR.LAND SALES AGENT Work Phone: [facility] 01-24-2017 pneumococcal polysaccharide vaccine, 23 valent Sybil Mcmullen NURSES' REGISTRY DIRECTOR.LAND SALES AGENT Work Phone: [facility] 06-16-2011 tetanus toxoid, redu barbie diphtheria toxoid, and acellular pertussis vaccine, adsorbed Sybil Benedict [place].LAND SALES AGENT Work Phone: [facility] Payers Date Payer Category Payer Medicare [id number] 2022 Unknown [id number] 2022 Unknown [id number] 2015 Medicaid [employer] [facility] [facility] [id number] 2015-Present [phone] [address] [place] [address] Medicaid [id number] 2015 Medicaid [id number] 2015 Medicaid [id number] Social History Date Type Detail Facility Start: 04-09-2012 End: 10-28-2022 Tobacco smoking status OKIS Smokes tobacco daily [facility] History of tobacco use Cigarette Smoker [facility] Start: 04-09-2012 End: 12-11-2022 Cigarettes smoked current (pack per day) - Reported 0.75 [facility] Start: 04-09-2012 End: 10-28-2022 Tobacco use and exposure Smokeless tobacco non-user [facility] Start: 08-27-2021 End: 09-23-2022 Alcohol intake Current non-drinker of alcohol (finding) [facility] Start: 04-09-2012 History SDOH Alcohol Comment sober since 2011 [facility] Start: 1955 Sex Assigned At Not on file C [facility] Start: 08-17-2021 End: 11-04-2022 Exposure to SARS-CoV-2 (event) Not sure [facility] Work Phone: Start: 03-21-2022 Tobacco smoking stat us NHIS Ex-smoker [facility] History of tobacco use Current smoker [facility] Start: 03-21-2022 Tobacco Comment Currently usin g nicotine patch. [facility] Start: 07-18-2022 Alcohol intake Current drinke r of alcohol (finding) [facility] Start: 09-04-2022 End: 12-11-2022 Alcohol intake Ex-drinker (finding) [facility] Start: 08-05-2022 End: 12-11-2022 Tobacco use panel [facility] Start: 09-04-2022 Alcohol Comment recovering alcoholic [facility] National Score (1-10 0), lower number is lower risk 66 [facility] Medical Equipment Procedure Code Equipment Code Equipment Origin al Text Equipment Identifier Dates Lane Corkscrew Fiberwire 5.5mm 2 Full Thread Peek 14.7mm Suture 2 4 - [id number] Start: 06-21-2016 Lane Corkscrew Fiberwire 5.5mm 2 Full Thread Peek 14.7mm Suture 2 4 - [id number] Start: 06-21-2016 Lane Swivelock 4.75mm Biocomposite Peek 24.5mm Suture Self Punch Vent - [id number] Start: 06-21-2016 Lead Sensing Res p Inspire - [id number] - [id number] Start: 11-04-2022 Generator Pulse Inspire - [id number] - [id number] Start: 11-04-2022 Clinical Notes 06-13-2016 to 12-11-2022 Ghassan Alas MD - 12/11/2022 3:15 PM EDTGhassan Alas MD - 12/11/2022 3:15 PM Waqar Quintero MD - 11/12/2022 1:30 PM EDTOp Note - Helio Quintero MD - 11/04/2022 10:11 AM EDT Note Date & Type Note Facility 12-11-2022 History of Present illness Narrative Images from the original note were not included. [facility] SLEEP MEDICINE FOLLOW UP OFFICE VISIT-SLEEP Date [...] period) Non-work day schedule: same Sleep Metrics: Jarrell Sleepiness Scale: 11 (9 last visit) Past Treatments: Prozac Cpap Inspire - Dr. Quintero 11/04/22. Sleep Studies: Split-night PSG (08/26/17): BMI 29.9 kg. AHI 58.2; SpO2 min 87%; PLM 97.7; PLM-a 17.1. apap 5-20 or cpap 12 cmH2O recommended (AHI 4.8; SpO2 min 91%). Past Medical History Past Medical History: Diagnosis Date Alcohol dependence, uncomplicated ([facility]) 09/11/2018 Depression GERD (gastroesophageal reflux disease) gastritis Hypertension Seizures ([facility]) seizures with withdrawal, last one 2 years [...] 1. 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 documented in this encounter [facility] 11-12-2022 History of Present illness Narrative Assessment [...] Medical History: Diagnosis Date Alcohol dependence, uncomplicated ([facility]) 09/11/2018 Depression GERD (gastroesophageal reflux disease) gastritis Hypertension Seizures ([facility]) seizures with withdrawal, last one 2 years [...] and memory normal. documented in this encounter [facility] 11-04-2022 Note Patient: Woodrow silva Procedure Summary Date: 11/04/22 Room / Location: [facility] [address] [place] [address] Operating Room Anesthesia Start: 1010 Anesthesia Stop: [...] once all PACU criteria has been met. [facility] 11-04-2022 Note Patient: Woodrow silva Procedure Summary Date: 11/04/22 Room / Location: [facility] [address] [place] [address] Operating Room Anesthesia Start: 0 Anesthesia Stop: [...] opportunity for questions and acknowledgement of understanding. [facility] 11-04-2022 Miscellaneous Notes Patient ambulated to bathroom and voided with no difficulties. Discharge instructions reviewed with patient and family. Instructions handed to family. No questions at this time. Family/visitor at bedside with patient. Date: 11/04/2022 Location: [facility] OR Name: Woodrow Alcala, : 1955, Diagnosis Pre-op Diagnosis * Obstructive sleep apnea (adult) (pediatric) [G47.33] Post-op Diagnosis * Obstructive sleep apnea (adult) (pediatric) [G47.33] Procedures Hypoglossal nerve stimulator placement (Inspire) 03370 - AL OPEN IMPLANTATION CRANIAL NERVE ELLY & PULSE GEN Surgeons * Helio Quintero - Primary Procedure Summary Anesthesia: General ASA: III Estimated Blood Loss: Minimal Drains: * None in log * Implants Type Name Action Serial No. Neuro Interventional Implant GENERATOR PULSE INSPIRE - [id number] - [id number] Implanted [id number] Implant LEAD SENSING RESP INSPIRE - [id number] - [id number] Implanted [id number] Neuro Interventional Implant LEAD STIM INSPIRE - [id number] - [id number] Implanted [id number] Staff: Locator Specialist: Franchesca Jones RN Scrub Person: Ernesto Greenberg Offset Lithographic Press Setter Orienting: Marc Medel Findings: hypoglossal nerve placed [...] [G47.33] Procedures Hypoglossal nerve stimulator placement (Inspire) 16346 - AL OPEN IMPLANTATION CRANIAL NERVE ELLY & PULSE GEN Surgeons * Helio Quintero - Primary Procedure Summary Anesthesia: General ASA: III Estimated Blood Loss: Minimal Drains: * None in log * Implants Type Name Action Serial No. Neuro Interventional Implant GENERATOR PULSE INSPIRE - [id number] - [id number] Implanted [id number] Implant LEAD SENSING RESP INSPIRE - [id number] - [id number] Implanted [id number] Neuro Interventional Implant LEAD STIM INSPIRE - [id number] - [id number] Implanted [id number] Staff: Locator Specialist: Franchesca Jones RN Scrub Person: Ernesto Greenberg Offset Lithographic Press Setter Orienting: Marc Medel Findings: hypoglossal nerve placed [...] Vancomycin or flouroquinolone) documented in this encounter [facility] 11-04-2022 Note Formatting of this n ote might be different from the original. Patient ambulated to bathroom and voided with no difficulties. Discharge instructions reviewed with patient and family. Instructions handed to family. No questions at this time. [facility] 11-04-2022 Note Airway Date/Time: 11/04/2022 10:17 AM Urgency: scheduled Airway not difficult General Information and Staff Patient location during procedure: Procedural Resident/EDGE KITTER: MAGALI Brewer CRNA Performed: EDGE KITTER Performed by: MAGALI Brewer CRNA Authorized by: [...] 21 Number of attempts at approach: 1 [facility] 11-04-2022 Note Formatting of this n ote might be different from the original. Family/visitor at bedside with patient. [facility] 11-04-2022 Hospital Discharge instructions Helio Quintero MD - 11/04/2022 11:26 AM EDT [facility] [place] INSPIRE / Hypoglossal Nerve Stimulator Post-Operative Instructions [...] the implant. Your physician will use a coordinate measuring machine programmer to check the device for [...] may also call Inspire at any time [phone] HORTENCIA-HELP Option #3 The battery life on [...] either send Dr. Quintero a message at [email or web address] or call the office at [phone] during business hours. If after hours and there is concern, go to the emergency room. documented in this encounter [facility] 11-04-2022 Note H&P reviewed. The pa tient was examined and there are no changes to the H&P. [facility] 11-04-2022 Note Formatting of this n ote is different from the original. Date: 11/04/2022 Location: [facility] OR Name: Woodrow Alcala, : 1955, Diagnosis Pre-op Diagnosis * Obstructive sleep apnea (adult) (pediatric) [G47.33] Post-op Diagnosis * Obstructive sleep apnea (adult) (pediatric) [G47.33] Procedures Hypoglossal nerve stimulator placement (Inspire) 62292 - AL OPEN IMPLANTATION CRANIAL NERVE ELLY & PULSE GEN Surgeons * Helio Quintero - Primary Procedure Summary Anesthesia: General ASA: III Estimated Blood Loss: Minimal Drains: * None in log * Implants Type Name Action Serial No. Neuro Interventional Implant GENERATOR PULSE INSPIRE - [id number] - [id number] Implanted [id number] Implant LEAD SENSING RESP INSPIRE - [id number] - [id number] Implanted [id number] Neuro Interventional Implant LEAD STIM INSPIRE - [id number] - [id number] Implanted [id number] Staff: Locator Specialist: Franchesca Jones RN Scrub Person: Ernesto Greenberg Offset Lithographic Press Setter Orienting: Marc Medel Findings: hypoglossal nerve placed [...] was obtained in PACU noting no pneumothorax. [facility] 11-04-2022 Note Formatting of this n ote is different from the original. Date: 11/04/2022 Location: [facility] OR Name: Woodrow Alcala, : 1955, Diagnosis Pre-op Diagnosis * Obstructive sleep apnea (adult) (pediatric) [G47.33] Post-op Diagnosis * Obstructive sleep apnea (adult) (pediatric) [G47.33] Procedures Hypoglossal nerve stimulator placement (Inspire) 52324 - AL OPEN IMPLANTATION CRANIAL NERVE ELLY & PULSE GEN Surgeons * Helio Quintero - Primary Procedure Summary Anesthesia: General ASA: III Estimated Blood Loss: Minimal Drains: * None in log * Implants Type Name Action Serial No. Neuro Interventional Implant GENERATOR PULSE INSPIRE - [id number] - [id number] Implanted [id number] Implant LEAD SENSING RESP INSPIRE - [id number] - [id number] Implanted [id number] Neuro Interventional Implant LEAD STIM INSPIRE - [id number] - [id number] Implanted [id number] Staff: Locator Specialist: Franchesca Jones RN Scrub Person: Ernesto Greenberg Offset Lithographic Press Setter Orienting: Marc Medel Findings: hypoglossal nerve placed [...] (two hours if receiving Vancomycin or flouroquinolone) [facility] 11-04-2022 Attending History and physical note H&P reviewed. The patient was examined and there are no changes to the H&P. Source Note - Cheryl Blankenship APRN - [employer]AND SALES AGENT - 10/28/2022 2:00 PM EDT Comprehensive Pre Surgical History and Physical ? Name: Woodrow Alcala : 1955 (Age-67 y.o.) Date of Service: Pt seen/examined on 10/28/2022 Procedure Information Date/Time: 11/04/22 1130 Procedure: Hypoglossal nerve stimulator placement (Inspire) - 120 mins Location: [address] Operating Room Surgeons: Helio Quintero MD [...] pre-operative evaluation prior to . ? Case: [id number] Date/Time: 11/04/22 1130 Procedure: Hypoglossal nerve stimulator placement (Inspire) [50007 CPT(R)] - 120 mins Anesthesia type: General Diagnosis: Obstructive sleep apnea (adult) (pediatric) [G47.33] Pre-op diagnosis: Obstructive sleep apnea (adult) (pediatric) [G47.33] Location: [address] Operating Room Surgeons: Helio Quintero MD From last office visit with Dr. Quintero on 07/18/22: Woodrow Alcala is a 67 y.o. yo male who presents to clinic today for evaluation of sleep apnea. Patient has been ongoing for approximately 5 years he was evaluated by the [facility] he states that I do not have [...] to receive the inspire implant at the [facility] however the day before surgery he was [...] constipation. Patient denies hx of CAD, CHF, KS, TIA/CVA, diabetes, COPD, asthma,DVT/PE. Past Medical History: Past Medical History: 09/11/2018: Alcohol dependence, uncomplicated ([facility]) No date: Depression No date: GERD (gastroesophageal reflux disease) Comment: gastritis No date: Hypertension No date: Seizures ([facility]) Comment: seizures with withdrawal, last one 2 [...] Olivo CNP Date: 10/28/2022 at 2:30 PM [facility] 11-04-2022 History and physical note H&P reviewed. [...] stimulator placement (Inspire) - 120 mins Location: [address] Operating Room Surgeons: Helio Quintero MD [...] pre-operative evaluation prior to . ? Case: [id number] Date/Time: 11/04/22 1130 Procedure: Hypoglossal nerve stimulator placement (Inspire) [92168 CPT(R)] - 120 mins Anesthesia type: General Diagnosis: Obstructive sleep apnea (adult) (pediatric) [G47.33] Pre-op diagnosis: Obstructive sleep apnea (adult) (pediatric) [G47.33] Location: [address] Operating Room Surgeons: Helio Quintero MD From last office visit with Dr. Quintero on 07/18/22: Woodrow Alcala is a 67 y.o. yo male who presents to clinic today for evaluation of sleep apnea. Patient has been ongoing for approximately 5 years he was evaluated by the [facility] he states that I do not have [...] to receive the inspire implant at the [facility] however the day before surgery he was [...] constipation. Patient denies hx of CAD, CHF, KS, TIA/CVA, diabetes, COPD, asthma,DVT/PE. Past Medical History: [...] at 2:30 PM documented in this encounter [facility] 10-28-2022 Note Patient: Woodrow silva Procedure Information Date/Time: 11/04/22 1130 Procedure: Hypoglossal nerve stimulator placement (Inspire) - 120 mins Location: [address] Operating Room Surgeons: Helio Quintero MD [...] found for this or any previous visit. [facility] 10-28-2022 Note Comprehensive Pre Chan rgical History and Physical ? Name: Woodrow Alcala : 1955 (Age-67 y.o.) Date of Service: Pt seen/examined on 10/28/2022 Procedure Information Date/Time: 11/04/22 1130 Procedure: Hypoglossal nerve stimulator placement (Inspire) - 120 mins Location: [address] Operating Room Surgeons: Helio Quintero MD [...] pre-operative evaluation prior to . ? Case: [id number] Date/Time: 11/04/22 1130 Procedure: Hypoglossal nerve stimulator placement (Inspire) [83755 CPT(R)] - 120 mins Anesthesia type: General Diagnosis: Obstructive sleep apnea (adult) (pediatric) [G47.33] Pre-op diagnosis: Obstructive sleep apnea (adult) (pediatric) [G47.33] Location: [address] Operating Room Surgeons: Helio Quintero MD From last office visit with Dr. Quintero on 07/18/22: Woodrow Alcala is a 67 y.o. yo male who presents to clinic today for evaluation of sleep apnea. Patient has been ongoing for approximately 5 years he was evaluated by the [facility] he states that I do not have [...] to receive the inspire implant at the [facility] however the day before surgery he was [...] constipation. Patient denies hx of CAD, CHF, KS, TIA/CVA, diabetes, COPD, asthma,DVT/PE. Past Medical History: Past Medical History: 09/11/2018: Alcohol dependence, uncomplicated (HCC) No date: Depression No date: GERD (gastroesophageal reflux disease) Comment: gastritis No date: Hypertension No date: Seizures (HCC) Comment: seizures with withdrawal, last one 2 years ago Past Surgical History: Past Surgical History: No date: ANKLE SURGERY No date: B (more content not included)... [facility] 10-28-2022 Note Comprehensive Pre Chan rgical History and Physical ? Name: Woodrow Alcala : 1955 (Age-67 y.o.) Date of Service: Pt seen/examined on 10/28/2022 Procedure Information Date/Time: 11/04/22 1130 Procedure: Hypoglossal nerve stimulator placement (Inspire) - 120 mins Location: [address] Operating Room Surgeons: Helio Quintero MD [...] pre-operative evaluation prior to . ? Case: [id number] Date/Time: 11/04/22 1130 Procedure: Hypoglossal nerve stimulator placement (Inspire) [86767 CPT(R)] - 120 mins Anesthesia type: General Diagnosis: Obstructive sleep apnea (adult) (pediatric) [G47.33] Pre-op diagnosis: Obstructive sleep apnea (adult) (pediatric) [G47.33] Location: [address] Operating Room Surgeons: Helio Quintero MD From last office visit with Dr. Quintero on 07/18/22: Woodrow Alcala is a 67 y.o. yo male who presents to clinic today for evaluation of sleep apnea. Patient has been ongoing for approximately 5 years he was evaluated by the [facility] he states that I do not have [...] to receive the inspire implant at the [facility] however the day before surgery he was [...] constipation. Patient denies hx of CAD, CHF, KS, TIA/CVA, diabetes, COPD, asthma,DVT/PE. Past Medical History: Past Medical History: 09/11/2018: Alcohol dependence, uncomplicated (HCC) No date: Depression No date: GERD (gastroesophageal reflux disease) Comment: gastritis No date: Hypertension No date: Seizures (HCC) Comment: seizures with withdrawal, last one 2 years ago Past Surgical History: Past Surgical History: No date: ANKLE SURGERY No date: B (more content not included)... [facility] 10-01-2022 Telephone encounter Note Pt calling back re: completed PSG and DISE, interested in scheduling surgery. Please advise and if needed, complete surgery scheduling sheet. [facility] 10-01-2022 Miscellaneous Notes Pt calling back re: [...] to review results. documented in this encounter [facility] 09-23-2022 Note HNO ID: [id number] Author: Yue Cruz APRN.[employer] Service: ? Author Type: Nurse Practitioner Type: [...] up with ophtha (more content not included)... [facility] 09-23-2022 Instructions Yue Cruz APRN.JUDY - 09/23/2022 [...] 379.24, ICD10: H43.391 - follow up with railroad commissioner if persisting. - Follow-up with your PCP in 3-5 days if symptoms have not improved or sooner if symptoms worsen - Discussed red flags and need for immediate medical evaluation if any occur. - Discussed supportive care treatment with fluids, rest and analgesia. - Discussed expected course of illness Yue Cruz APRN.[employer]ENT documented in this encounter [facility] 09-23-2022 History of Present illness Narrative Subjective [...] 379.24, ICD10: H43.391 - follow up with railroad commissioner if persisting. - Follow-up with your PCP in 3-5 days if symptoms have not improved or sooner if symptoms worsen - Discussed red flags and need for immediate medical evaluation if any occur. - Discussed supportive care treatment with fluids, rest and analgesia. - Discussed expected course of illness Yue Cruz APRN.[place] SALES AGENT documented in this encounter [facility] 09-18-2022 Miscellaneous Notes Patient last visit with PCP 05/29/22 Follow up appointment scheduled none Nicole Chapa Ma Patient has been identified by name [...] Olive Cade Pss documented in this encounter [facility] 09-16-2022 Telephone encounter Note Appt cancelled. [facility] 09-16-2022 Miscellaneous Notes Appt cancelled. Called and spoke with patient. Advised that HST showed he is still within range for Inspire (AHI 51.5; SpO2 avg 92%; minimum was artifact). As he has already had DISE, will forward to Dr. Quintero to move forward with scheduling surgery. Jose, please cancel pt's upcoming appt with me to review results. documented in this encounter [facility] 09-16-2022 Telephone encounter Note Called and spoke with patient. Advised that HST showed he is still within range for Inspire (AHI 51.5; SpO2 avg 92%; minimum was artifact). As he has already had DISE, will forward to Dr. Quintero to move forward with scheduling surgery. Jose, please cancel pt's upcoming appt with me to review results. [facility] 09-09-2022 Note HNO ID: [id number] Author: Sybil Mcmullen APRN.JUDY Service: ? Author Type: Nurse Practitioner Type: Progress Notes Filed: 09/09/2022 10:43 AM Note Text: Patient seen during down time. Please see scanned document. [facility] 09-09-2022 History of Present illness Narrative Patient seen during down time. Please see scanned document. documented in this encounter [facility] 09-04-2022 History of Present illness Narrative Images from the original note were not included. [facility] Sleep Medicine NEW PATIENT OFFICE VISIT-SLEEP MEDICINE [...] mask and nasal pillows. Was moving towards [facility] with [facility] about 5 years ago. Had DISE done [...] behaviors during sleep. 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 He has fatigue. He has not fallen asleep while driving Caffeine: coffee 3-4 cups /day and 2 ann per day Recent weight change: feels like he has gained weight recently Sleep Metrics: Jarrell Sleepiness Scale: 9 Past Treatments: Prozac Sleep Studies: Split-night PSG (08/26/17): BMI 29.9 kg. AHI 58.2; SpO2 min 87%; PLM 97.7; PLM-a 17.1. apap 5-20 or cpap 12 cmH2O recommended (AHI 4.8; SpO2 min 91%). Relevant LABS/Studies: Reviewed outside [facility] labs from 05/29/22 Past Medical History Past Medical History: Diagnosis Date Alcohol dependence, uncomplicated ([facility]) 09/11/2018 Depression GERD (gastroesophageal reflux disease) gastritis Hypertension Seizures ([facility]) seizures with withdrawal, last one 2 years [...] ASSESSMENT/PLAN: Diagnosis Plan 1. Obstructive sleep apnea [facility] Sleep Medicine 2. 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 documented in this encounter [facility] 09-04-2022 Instructions Ghassan Alas MD - 09/04/2022 1:45 PM EDT You can call [phone] to schedule your sleep study directly. The address for picking up and dropping off the home sleep study is listed below. We'll have you follow-up with myself or the sleep nurse practitioner Corrie Escobar approximately 1-2 weeks after your sleep study. [facility] the [facility] [address] [place] [address], [address] [place] [address] Best, Ghassan Alas MD documented in this encounter [facility] 08-05-2022 Note [facility] - Patient Pre-procedure Instructions Sleep Apnea: If yes, please bring CPAP machine May shower/brush teeth. Leave valuables/jewelry at home. No makeup, lotion, powder, deodorant or body sprays. No contact lenses No makeup, contact lenses, piercings, or dark nail north korean No solid food after midnight before procedure. [...] to your arrival time. Please Bring your Intake Worker's license/photo ID, insurance card, eye drops/sunglasses, inhalers if applicable If you have a Medical Power of Furniture Refinisher, living will, or an advanced directive, please bring a copy with you. We are required to resuscitate and transfer you to the hospital along with your directive. [facility] 08-05-2022 Note Patient: Woodrow silva Procedure Summary Date: 08/05/22 Room / Location: [place] [address] / [facility] OR Anesthesia Start: 1147 Anesthesia Stop: 1158 Procedure: Drug induced sleep endoscopy Diagnosis: Obstructive sleep apnea (adult) (pediatric) (15 MINS) Surgeons: Helio Quintero MD Responsible Provider: No Anesthesiologist - [facility]/MD Kurt Anesthesia Type: general, TIVA ASA Status: [...] start time until discharged from PACU (G2148) [facility] Anesthesiology Smoking Abstinence The patient is [...] opportunity for questions and acknowledgement of understanding. [facility] 08-05-2022 Note Patient: Woodrow silva Procedure Summary Date: 08/05/22 Room / Location: [facility] [facility] [address] [place] [address] ASC OR Anesthesia Start: 1147 Anesthesia Stop: [...] once all PACU criteria has been met. [facility] 08-05-2022 Note H&P reviewed. The pa lucy was examined and there are no changes to the H&P. [facility] 08-02-2022 Note Patient: Woodrow silva Procedure Information Date/Time: 08/05/22 1300 Procedure: Drug induced sleep endoscopy - 15 MINS Location: [place] [facility] Surgeons: Helio Quintero MD Relevant Problems No relevant active problems Past Medical History: Past Medical History: 09/11/2018: Alcohol dependence, uncomplicated ([facility]) No date: Depression No date: GERD (gastroesophageal reflux disease) Comment: gastritis No date: Hypertension No date: Seizures ([facility]) Comment: seizures with withdrawal, last one 2 [...] found for this or any previous visit. [facility] 07-22-2022 Note HNO ID: [id number] Author: Yue Cruz APRN.[place] SALES AGENT Service: ? Author Type: Nurse Practitioner Type: [...] Discussed expected cours (more content not included)... [facility] 07-22-2022 Instructions Yue Cruz APRN.[place] SALES AGENT - 07/22/2022 6:10 PM EDT ASSESSMENT/PLAN: 1. [...] Discussed expected course of illness Yue Cruz APRN.[place] SALES AGENT documented in this encounter [facility] 07-22-2022 History of Present illness Narrative Images [...] Yue Cruz APRN.CNP documented in this encounter [facility] 07-18-2022 Note Assessment and Recom mendations: Woodrow [...] 5 years he was evaluated by the [facility] he states that I do not have [...] to receive the inspire implant at the [facility] however the day before surgery he was called and said that his insurance declined it and he was unable to have the procedure. He is here to establish care and to work towards getting the inspire device no previous history of head neck surgery. PMH: Past Medical History: Diagnosis Date Alcohol dependence, uncomplicated ([facility]) 09/11/2018 Depression GERD (gastroesophageal reflux disease) gastritis Hypertension Seizures ([facility]) seizures with withdrawal, last one 2 years [...] vocal cord motion is normal symmetric bilaterally [facility] 07-18-2022 History of Present illness Narrative Assessment [...] 5 years he was evaluated by the [facility] he states that I do not have [...] to receive the inspire implant at the [facility] however the day before surgery he was called and said that his insurance declined it and he was unable to have the procedure. He is here to establish care and to work towards getting the inspire device no previous history of head neck surgery. PMH: Past Medical History: Diagnosis Date Alcohol dependence, uncomplicated ([facility]) 09/11/2018 Depression GERD (gastroesophageal reflux disease) gastritis Hypertension Seizures ([facility]) seizures with withdrawal, last one 2 years [...] normal symmetric bilaterally documented in this encounter [facility] 05-30-2022 Miscellaneous Notes Patient informed and verbalized understanding. Anastasiya Reynoso Let him know his labs are ok. documented in this encounter [facility] 05-29-2022 Note HNO ID: [id number] Author: Zoë Joel MD Service: ? Author [...] joint swelling, deformit (more content not included)... [facility] 05-29-2022 Miscellaneous Notes Patient calling with new [...] No recent illness Protocols used: Dizziness - [id number] documented in this encounter [facility] 04-30-2022 Note HNO ID: [id number] Author: Jose Colin PA-C Service: ? Author Type: Physician Scientific Process Operator Type: Progress Notes Filed: 04/30/2022 4:47 PM Note Text: FOLLOW UP VISIT - ENDOSCOPY NAME: Woodrow Dominguez [facility] NO.: [id number] DATE OF SERVICE: 04/30/2022 : 1955 REFERRING PHYSICIAN: Zoë Joel MD Woodrow is a patient I am following with Dr. Kee for screening colonoscopy. Dr. Kee performed lower endoscopy on 04/22/22 at [facility]. The patient was found to have [...] which included preparing to see the patient, [id number] patient care, completing clinical documentation, obtaining and/or reviewing separately obtained history, counseling and educating the patient/family/caregiver, independently interpreting results (not separately reported), and communicating results to the patient/family/caregiver. Jose Colin PA-C [facility] 04-30-2022 Instructions Jose Colin PA-C - 04/30/2022 11:46 AM EST The following instructions are important for you related to your office visit today with the [facility] General Surgeons. INSTRUCTIONS FOLLOWING A POLYP FOUND [...] you should contact our office immediately @ [phone] and ask to be transferred to the General Surgery department. documented in this encounter [facility] 04-30-2022 History of Present illness Narrative FOLLOW UP VISIT - ENDOSCOPY NAME: Woodrow Alcala [facility] NO.: [id number] DATE OF SERVICE: 04/30/2022 : 1955 REFERRING PHYSICIAN: Zoë Joel MD Woodrow is a patient I am following with Dr. Kee for screening colonoscopy. Dr. Kee performed lower endoscopy on 04/22/22 at [facility]. The patient was found to have [...] which included preparing to see the patient, eqen-we-xbop patient care, completing clinical documentation, obtaining and/or reviewing separately obtained history, counseling and educating the patient/family/caregiver, independently interpreting results (not separately reported), and communicating results to the patient/family/caregiver. Jose Colin PA-C documented in this encounter [facility] 04-22-2022 Note HNO ID: [id number] Author: Ernesto Meléndez RN Service: ? Author Type: Registered Nurse Type: Nursing Progress Note Filed: 04/22/2022 2:22 PM Note Text: Upon discharge patient's abdomen is soft. Patient denies pain. [facility] 04-22-2022 Note HNO ID: [id number] Author: Kimberli Carrillo RN Service: Nursing Author Type: Registered Nurse Type: Nursing Progress Note Filed: 04/22/2022 11:55 AM Note Text: Other: Patient ready for procedure. Patient education completed. [facility] 04-02-2022 Miscellaneous Notes Patient has been identified [...] to pharmacy. No need to notify patient. [facility] documented in this encounter [facility] 03-26-2022 Note HNO ID: [id number] Author: Genet Kee MD Service: ? Author [...] entered by the nurse and reviewed by de Nursing Notes: Bruna Rae RN 03/26/2022 9:55 [...] substance abuse. Endocri (more content not included)... [facility] 03-26-2022 History of Present illness Narrative HISTORY [...] entered by the nurse and reviewed by de Nursing Notes: Bruna Rae RN 03/26/2022 9:55 [...] patient was offered a surgery/procedure at a [facility]. The provider and patient have discussed in [...] patient will be scheduled for colonoscopy at [place] on 04/22/2022. Medical Decision Making: Risk: Low: Low risk from testing/treatment Medical Decision Making Level: 2 - Straightforward Genet Kee MD documented in this encounter [facility] 03-26-2022 Instructions Genet Kee MD - 03/26/2022 [...] If you do not have a responsible auto crane driver (family member or friend) with you [...] exam. 2 02/2019 documented in this encounter [facility] 03-26-2022 Nurse Note REVIEW OF SYSTEMS: General: [...] Bruna Rae RN documented in this encounter [facility] 03-25-2022 Miscellaneous Notes Pt notified of provider's message below. Pt states he will hold off on seeing ORTHO at this time and will give the prednisone some time to work and then he will decide. Gissel Ybarra RN Xrays show degenerative changes. Nothing acute. Recommend he see ortho if pain continues. documented in this encounter [facility] 03-21-2022 Note HNO ID: [id number] Author: Lili Santiago RT(R) Service: Radiology Author [...] RT Cynthia(R) March 21, 2022 10:46 AM [facility] 03-21-2022 Note HNO ID: [id number] Author: Zoë Joel MD Service: ? Author [...] F32.A - stable. (more content not included)... [facility] 03-21-2022 History of Present illness Narrative Patient [...] Zoë Joel MD documented in this encounter [facility] 03-15-2022 Miscellaneous Notes Patient has been identified [...] you. Denise Butler documented in this encounter [facility] 01-17-2022 Note HNO ID: [id number] Author: Elsi Jose APRN.[place] SALES AGENT Service: ? Author Type: Nurse Practitioner Type: [...] Patient agreeable to treatment plan. Elsi Jose APRN.[facility] 10-03-2021 Miscellaneous Notes Patient wants to [...] Marianne Jeffers Pss documented in this encounter [facility] 08-27-2021 Instructions Sybil Mcmullen APRN.[place] SALES AGENT - 08/27/2021 3:44 PM EDT Your exam [...] within one week. documented in this encounter [facility] 08-27-2021 History of Present illness Narrative This note was created using [employer] System[employer]. Subjective Woodrow Alcala is a 66 year [...] or OTC medications. 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 The history is provided by the patient. No foreign language professor was used. Rash This is a recurrent [...] Sybil Mcmullen APRN.JUDY documented in this encounter [facility] documented as of this encounter (statuses as of 08/27/2021) [facility]2017 History of Past illness Narrative* Problem Noted Date Resolved Date GERD (gastroesophageal reflux disease) 7 12/19/2017 Acute pain of left shoulder 08/28/201501/15 documented as of this encounter (statuses as of 10/03/2021) [facility] History of Past illness Narrative* Problem Noted Date Resolved Date GERD (gastroesophageal reflux disease) 7 12/19/2017 Acute pain of left shoulder 08/28/201501/15 documented as of this encounter (statuses as of 03/20/2022) [address] History of Past illness Narrative* Problem Noted Date Resolved Date GERD (gastroesophageal reflux disease) 7 12/19/2017 Acute pain of left shoulder 08/28/201501/15 documented as of this encounter (statuses as of 03/22/2022) [address] History of Past illness Narrative* Problem Noted Date Resolved Date GERD (gastroesophageal reflux disease) 7 12/19/2017 Acute pain of left shoulder 08/28/201501/15 documented as of this encounter (statuses as of 03/27/2022) [address] History of Past illness Narrative* Problem Noted Date Resolved Date GERD (gastroesophageal reflux disease) 7 12/19/2017 Acute pain of left shoulder 08/28/201501/15 documented as of this encounter (statuses as of 03/30/2022) [address] History of Past illness Narrative* Problem Noted Date Resolved Date GERD (gastroesophageal reflux disease) 7 12/19/2017 Acute pain of left shoulder 08/28/201501/15 documented as of this encounter (statuses as of 04/02/2022) [address] History of Past illness Narrative* Problem Noted Date Resolved Date GERD (gastroesophageal reflux disease) 7 12/19/2017 Acute pain of left shoulder 08/28/201501/15 documented as of this encounter (statuses as of 05/01/2022) [address] History of Past illness Narrative* Problem Noted Date Resolved Date GERD (gastroesophageal reflux disease) 7 12/19/2017 Acute pain of left shoulder 08/28/201501/15 documented as of this encounter (statuses as of 05/29/2022) [address] History of Past illness Narrative* Problem Noted Date Resolved Date GERD (gastroesophageal reflux disease) 7 12/19/2017 Acute pain of left shoulder 08/28/201501/15 documented as of this encounter (statuses as of 05/30/2022) [facility] History of Past illness Narrative* Problem Noted Date Resolved Date GERD (gastroesophageal reflux disease) 7 12/19/2017 Acute pain of left shoulder 08/28/201501/15 documented as of this encounter (statuses as of 07/23/2022) [facility] History of Past illness Narrative* Problem Noted Date Resolved Date GERD (gastroesophageal reflux disease) 7 12/19/2017 Acute pain of left shoulder 08/28/201501/15 documented as of this encounter (statuses as of 09/09/2022) [facility] History of Past illness Narrative* Problem Noted Date Resolved Date GERD (gastroesophageal reflux disease) 7 12/19/2017 Acute pain of left shoulder 08/28/201501/15 documented as of this encounter (statuses as of 09/19/2022) [facility] History of Past illness Narrative* Problem Noted Date Diagnosed Date Resolved Date GERD (gastroesophageal reflux disease) 06/13/2016 12/19/2017 Acute pain of left shoulder 08/28/2015 01/24/2017 documented as of this encounter (statuses as of 09/24/2022) [facility] Diagnosis Rash- Primary Rash and other nonspecific skin eruption [facility] Diagnosis Tobacco use Tobacco use disorder [facility] Diagnosis Primary hypertension- Primary Unspecified essential hypertension HORTENCIA (obstructive sleep apnea) Obstructive sleep apnea (adult) (pediatric) Depression, unspecified depression type Acute pain of both shoulders Screening for colon cancer Special screening for malignant neoplasms, colon Tobacco use Tobacco use disorder Need for influenza vaccination Need for prophylactic vaccination and inoculation against influenza [facility] Diagnosis Screening for colon cancer Special screening for malignant neoplasms, colon [facility]* Diagnosis Essential hypertension with goal blood pressure less than 140/90 [facility]* Diagnosis Hyperplastic rectal polyp- Primary Anal and rectal polyp Diverticulosis Diverticulosis of colon (without mention of hemorrhage) Hemorrhoids, internal Internal hemorrhoids without mention of complication [facility] Diagnosis Obstructive sleep apnea- Primary Obstructive sleep apnea (adult) (pediatric) documented in this encounter [facility] note* Diagnosis Right otitis media with effusion- Primary Nonsuppurative otitis media, not specified as acute or chronic Scalp pain Headache documented in this encounter [facility] note* Diagnosis Obstructive sleep apnea- Primary Obstructive sleep apnea (adult) (pediatric) Inadequate sleep hygiene Other specific disorder of sleep of nonorganic origin Essential hypertension Unspecified essential hypertension documented in this encounter [facility] note* Diagnosis Rhinosinusitis- Primary Unspecified sinusitis (chronic) Acute cough Tobacco abuse Tobacco use disorder documented in this encounter [facility] note* Diagnosis Acute sinusitis, recurrence not specified, unspecified location- Primary Eye drainage Redness or discharge of eye Floaters in visual field, right documented in this encounter [facility] note* Diagnosis Post-op pain- Primary Other acute postoperative pain documented in this encounter [facility] note* Diagnosis Postoperative follow-up- Primary Follow-up examination, following unspecified surgery documented in this encounter [facility] note* Diagnosis Obstructive sleep apnea- Primary Obstructive sleep apnea (adult) (pediatric) documented in this encounter [facility] for referral (narrative)* Diagnostic Procedure Only (Routine) - Closed Specialty Diagnoses / Procedures Referred By Kana kennedy Referred To Contact XR IMAGING Diagnoses Acute pain of both shoulders Procedures XR SHOULDER GENERAL 3V OR MORE AP/TRUE AP/OTHER LEFT RADEX SHOULDER COMPLETE MINIMUM 2 VIEWS Zoë Joel MD [address] [place] [address] Xr Imaging Referral ID Status Reason Start Date Expiration Date V isits Requested Visits Authorized [id number] Closed Auto-Generate d Referral 03/21/2022 04/20/2023 1 1 * Diagnostic Procedure Only (Routine) - Closed Specialty Diagnoses / Procedures Referred By Kana kennedy Referred To Contact XR IMAGING Diagnoses Acute pain of both shoulders Procedures XR SHOULDER GENERAL 3V OR MORE AP/TRUE AP/OTHER RIGHT RADEX SHOULDER COMPLETE MINIMUM 2 VIEWS Zoë Joel MD [address] [place] [address] Xr Imaging Referral ID Status Reason Start Date Expiration Date V isits Requested Visits Authorized [id number] Closed Auto-Generate d Referral 03/21/2022 04/20/2023 1 1 * Consult, Test, Treat (Routine) - Authorized Specialty Diagnoses / Procedures Referred By Contac t Referred To Contact General Surgery Diagnoses Screening for colon cancer Procedures CONSULT TO GENERAL SURGERY OFFICE/OUTPATIENT NEW HIGH MDM 60-74 MINUTES Zoë Joel MD [address] [place] [address] Referral ID Status Reason Start Date Expiration Date Visits Requested Visits Authorized [id number] Authorized PCP Requested Referral 03/21/2022 03/21/2023 1 1 [facility] for referral (narrative)* Outpatient Procedure (Routine) - Authorized Specialty Diagnoses / Procedures Referred By Contac t Referred To Contact [facility] Diagnoses Screening for colon cancer Procedures COLONOSCOPY SCREENING COLONOSCOPY SCREENING COLONOSCOPY FLX DX W/COLLJ SPEC WHEN Genet Coughlin MD [address] [place] [address] [facility] [address] [place] [address] Referral ID Status Reason Start Date Expiration Date Visits Requested Visits Authorized [id number] Authorized Auto-Generat ed Referral 03/26/2022 03/26/2023 1 1 [facility] for referral (narrative)* Consultation (Routine) - Pending Review Specialty Diagnoses / Procedures Referred By Contac t Referred To Contact Sleep Medicine Diagnoses Obstructive sleep apnea Procedures AL OFFICE/OUTPATIENT NEW HIGH MDM 60-74 MINUTES Helio Quintero MD [address] [place] [address] [facility] [address] [place] [address] Referral ID Status Reason Start Date Expiration Date Visits Requested Visits Authorized [id number] Pending Review Specialty Services Required 07/18/2022 07/18/2023 1 1 [facility] Summary Purpose Family History No Family History Records FoundNo Family History Records FoundNo Family History Records FoundNo Family History Records FoundNo Family History Records Found Advance Directives No Advanced Directives Records FoundDocuments on File Type Date 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 Advance Directive(s) 12/29/2017 6:54 AM Reason for Referral Specialty Diagnoses / Procedures Referred By Kana kennedy Referred To Contact Sleep Medicine Diagnoses Obstructive sleep apnea Procedures Home sleep test Ghassan Alas MD [address] [facility] [address] [place] [address] Referral ID Status Reason Start Date Expiration Date V isits Requested Visits Authorized [id number] Pending Review 09/04/2022 03/03/2023 1 1 Specialty Diagnoses / Procedures Referred By Kana kennedy Referred To Contact Sleep Medicine Diagnoses Obstructive sleep apnea Procedures Polysomnography Ghassan Alas MD [address] [facility] [address] [place] [address] Referral ID Status Reason Start Date Expiration Date V isits Requested Visits Authorized [id number] Pending Review 12/13/2022 06/11/2023 1 1 Additional Source Comments (unrecognized sect ion and content) No Status Records FoundNo Status Records FoundNo Status Records FoundNo Status Records FoundNo Status Records Found INFORMATION SOURCE (unrecogn ized section and content) DATE CREATED AUTHOR AUTHOR'S ORGANIZ ATION 09/15/2018 [facility] DATE CREATED AUTHOR AUTHOR'S ORGANIZ ATION 04/24/2022 [facility] DATE CREATED AUTHOR AUTHOR'S ORGANIZ ATION 09/24/2022 [facility] DATE CREATED AUTHOR AUTHOR'S ORGANIZ ATION 12/22/2022 [facility] Source Comments (unrecognize d section and content) In the event this informatio n is protected by the Federal Confidentiality of Alcohol and Drug Abuse Patient Records regulations: The Federal rules restrict any use of the information to criminally investigate or prosecute any alcohol or drug abuse patient.[facility] the event this information is protected by the Federal Confidentiality of Alcohol and Drug Abuse Patient Records regulations: The Federal rules restrict any use of the information to criminally investigate or prosecute any alcohol or drug abuse patient.[facility] the event this information is protected by the Federal Confidentiality of Alcohol and Drug Abuse Patient Records regulations: The Federal rules restrict any use of the information to criminally investigate or prosecute any alcohol or drug abuse patient.[facility] the event this information is protected by the Federal Confidentiality of Alcohol and Drug Abuse Patient Records regulations: The Federal rules restrict any use of the information to criminally investigate or prosecute any alcohol or drug abuse patient.[facility] the event this information is protected by the Federal Confidentiality of Alcohol and Drug Abuse Patient Records regulations: The Federal rules restrict any use of the information to criminally investigate or prosecute any alcohol or drug abuse patient.[facility] the event this information is protected by the Federal Confidentiality of Alcohol and Drug Abuse Patient Records regulations: The Federal rules restrict any use of the information to criminally investigate or prosecute any alcohol or drug abuse patient.[facility] the event this information is protected by the Federal Confidentiality of Alcohol and Drug Abuse Patient Records regulations: The Federal rules restrict any use of the information to criminally investigate or prosecute any alcohol or drug abuse patient.[facility] the event this information is protected by the Federal Confidentiality of Alcohol and Drug Abuse Patient Records regulations: The Federal rules restrict any use of the information to criminally investigate or prosecute any alcohol or drug abuse patient.[facility] the event this information is protected by the Federal Confidentiality of Alcohol and Drug Abuse Patient Records regulations: The Federal rules restrict any use of the information to criminally investigate or prosecute any alcohol or drug abuse patient.[facility] the event this information is protected by the Federal Confidentiality of Alcohol and Drug Abuse Patient Records regulations: The Federal rules restrict any use of the information to criminally investigate or prosecute any alcohol or drug abuse patient.[facility] the event this information is protected by the Federal Confidentiality of Alcohol and Drug Abuse Patient Records regulations: The Federal rules restrict any use of the information to criminally investigate or prosecute any alcohol or drug abuse patient.[facility] the event this information is protected by the Federal Confidentiality of Alcohol and Drug Abuse Patient Records regulations: The Federal rules restrict any use of the information to criminally investigate or prosecute any alcohol or drug abuse patient.[facility]In the event this information is protected by the Federal Confidentiality of Alcohol and Drug Abuse Patient Records regulations: The Federal rules restrict any use of the information to criminally investigate or prosecute any alcohol or drug abuse patient.[facility] the event this information is protected by the Federal Confidentiality of Alcohol and Drug Abuse Patient Records regulations: The Federal rules restrict any use of the information to criminally investigate or prosecute any alcohol or drug abuse patient.[facility] Reason for Visit (unrecogniz ed section and [...] HIGH MDM 60-74 MINUTES Zoë Joel MD [address] [place] [address] Referral ID Status Reason Start Date Expiration Date V isits Requested Visits Authorized [id number] Closed PCP Requested Referral 03/21/2022 03/21/2023 1 1 Reason Comments Refill Request Reason Comments Follow Up colonoscopy Reason Comments Dizziness Reason Comments New Patient Inspire Reason Comments Ear Pain R ear pain x3 days Reason Comments New Patient Specialty Diagnoses / Procedures Referred By Kana kennedy Referred To Contact Sleep Medicine Diagnoses Obstructive sleep apnea Procedures AL OFFICE/OUTPATIENT [facility] MDM 60-74 MINUTES Helio Quintero MD [address] [facility] [address] [place] [address] [facility] Sleep [address] [facility] [address] [place] [address] Referral ID Status Reason Start Date Expiration Date Visits Requested Visits Authorized [id number] Pending Review Specialty Services Required 07/18/2022 07/18/2023 [...] Obstructive sleep apnea (adult) (pediatric) [G47.33] Procedures AL OPEN IMPLANTATION CRANIAL NERVE ELLY & PULSE GEN Hypoglossal nerve stimulator placement (Inspire) Helio Quintero MD [address] [facility] [address] [place] [address] [facility] Main Or [address] [place] [address] Referral ID Status Reason Start Date Expiration Date Visits Re quested Visits Authorized [id number] 1 1 Reason Comments Follow-up Post op inspire - so me swelling but no significant changes Reason Comments Follow-up Care Teams (unrecognized sec tion and content) Dispatch Coordinator Relationship Specialty Start Date End Date Zoë Joel MD [address] [place], [place] [id number] PCP - General Family Practice 04/09/12 Dispatch Coordinator Relationship Specialty Start Date End Date Zoë Joel MD [address] [place], [place] [id number] PCP - General Family Medicine 04/09/12 Dispatch Coordinator Relationship Specialty Start Date End Date Zoë Joel MD [address] [place] [address] PCP - General Family Medicine 04/09/12 Dispatch Coordinator Relationship Specialty Start Date End Date Zoë Joel MD [address] [place] [address] PCP - General Family Medicine 04/09/12 Dispatch Coordinator Relationship Specialty Start Date End Date Zoë Joel MD [address] [place] [address] PCP - General Family Medicine 04/09/12 Dispatch Coordinator Relationship Specialty Start Date End Date Zoë Joel MD [address] [place] [address] PCP - General Family Medicine 04/09/12 Dispatch Coordinator Relationship Specialty Start Date End Date Zoë Joel MD [address] [place] [address] PCP - General Family Medicine 04/09/12 Dispatch Coordinator Relationship Specialty Start Date End Date Zoë Joel MD [address] [place], [place] [id number] PCP - General 09/11/18 Dispatch Coordinator Relationship Specialty Start Date End Date Zoë Joel MD [address] [place] [address] PCP - General Family Medicine 04/09/12 Dispatch Coordinator Relationship Specialty Start Date End Date Zoë Joel MD [address] [place], [place] [id number] PCP - General 09/11/18 Dispatch Coordinator Relationship Specialty Start Date End Date Zoë Joel MD [address] [place] [address] PCP - General 09/11/18 Dispatch Coordinator Relationship Specialty Start Date End Date Zoë Joel MD [address] [place] [address] PCP - General Family Medicine 04/09/12 Dispatch Coordinator Relationship Specialty Start Date End Date Zoë Joel MD [address] [place] [address] PCP - General 09/11/18 Dispatch Coordinator Relationship Specialty Start Date End Date Zoë Joel MD [address] [place] [address] PCP - General 09/11/18 Dispatch Coordinator Relationship Specialty Start Date End Date Zoë Joel MD [address] [place] [address] PCP - General 09/11/18 Dispatch Coordinator Relationship Specialty Start Date End Date Zoë Joel MD [address] [place] [address] PCP - General 09/11/18 Scheduled Active and [...] hydralazine IV order. lidocaine-EPINEPHrine (Xylocaine W/EPI) 1 %-1:[id number] injection (CANCELED) As needed, Starting on Fri11/04/22 [...] BE BASED ON THE PRIMARY CLINICAL RECORDS. [facility]. provides no warranty or guarantee of the accuracy or completeness of information in this document.
[2023-01-15 19:25] VITALS: BMI 23.2
[2023-01-15 19:30] VITALS: BP 125/68; PULSE 106; RESP 16; TEMP 36.3; O2SAT 98
[2023-01-15] MEDS: Phenobarbital 32.4 MG Tablet 64.7999999999999972 MG PO (20:21)
[2023-01-15] MEDS: hydrOXYzine PAM 25 MG Capsule 50 MG PO (20:22)
[2023-01-16] MEDS: Phenobarbital 32.4 MG Tablet 64.7999999999999972 MG PO ×6 (01:19→20:17)
[2023-01-16 01:30] VITALS: BP 156/95; PULSE 111; RESP 20; TEMP 36.9; O2SAT 93
[2023-01-16 06:07] VITALS: BP 150/99; PULSE 110; RESP 24; TEMP 37.1; O2SAT 91
[2023-01-16 08:20] VITALS: BP 152/89; PULSE 120; RESP 19; TEMP 37; O2SAT 94
[2023-01-16] MEDS: FLUoxetine 10 MG Capsule 30 MG PO (08:25)
[2023-01-16] MEDS: Folic Acid 1 MG Tablet PO (08:25)
[2023-01-16] MEDS: Thiamine Hydrochloride 100 MG Tablet PO (08:25)
[2023-01-16] MEDS: Lisinopril 10 MG Tablet PO (08:26)
[2023-01-16] MEDS: Flu Vacc QS2023-24(65YR UP)/PF 240 MCG/0.7 ML Syringe IM (08:27)
--- NOTE | 2023-01-16 10:01 | PN.HOSP_ITS ---
Reason for Visit Reason for Visit: Diagnoses Alcohol abuse, uncomplicated (01/15/23) Subjective Subjective Patient is a 67-year-old gentleman with history of chronic alcohol use disorder presented wanting to undergo detox. Objective Data Objective Data Vital Signs: Vital Signs Temp Pulse Resp BP Pulse Ox O2 Del Method 98.6 F 120 H 19 H 152/89 H 94 Room Air 01/16/23 08:20 01/16/23 08:20 01/16/23 08:20 01/16/23 08:20 01/16/23 08:20 01/16/23 08:39 Oxygen Delivery Method Room Air Weight: 65.4 kg Body Mass Index (BMI) 23.2 Intake & Output: Intake and Output for Last 24 Hours 01/14/23 01/15/23 01/16/23 23:59 23:59 23:59 Intake Total 0 / 0 Output Total 0 / 0 Balance 0 / 0 Lab / Micro Data 01/15/23 16:10 01/15/23 16:10 Labs: Laboratory Results - last 24 hr 01/15/23 16:10: WBC 5.8, RBC 4.39 L, Hgb 14.6, Hct 40.1, MCV 91.3, MCH 33.3 H, MCHC 36.4 H, RDW Std Deviation 49.2 H, RDW Coeff of Hortencia 14.6, Plt Count 240, MPV 8.5, Immature Gran % (Auto) 0.300, Neut % (Auto) 44.9 L, Lymph % (Auto) 44.8 H, [place] % (Auto) 8.8, Eos % (Auto) 0.7, Baso % (Auto) 0.5, Absolute Neuts (auto) 2.6, Absolute Lymphs (auto) 2.60, Nucleated RBC % 0, Sodium 126 L, Potassium 4.0, Chloride 91 L, Carbon Dioxide 26.0, Anion Gap 9, BUN 5 L, Creatinine 0.68 L , Estim Creat Clear Calc 101.26, Est GFR (MDRD) Af Amer 150, Est GFR (MDRD) Non- Af 124, BUN/Creatinine Ratio 7.4 L, Glucose 95, Calcium 8.4 L, Total Bilirubin 0.30, AST 35, ALT 32, Alkaline Phosphatase 34 L, Total Protein 7.3, Albumin 3.3, Globulin 4.0, Albumin/Globulin Ratio 0.8 L, Urine Opiates Screen NEGATIVE, Urine Methadone Screen NEGATIVE, Ur Barbiturates Screen NEGATIVE, Ur Phencyclidine Scrn NEGATIVE, Ur Amphetamines Screen NEGATIVE, MDMA (Ecstasy) Screen NEGATIVE, U Benzodiazepines Scrn NEGATIVE, Urine Cocaine Screen NEGATIVE, U Cannabinoids Screen NEGATIVE, Ur Drug Screen Comment , Ethyl Alcohol 344.0 H* Radiography Diagnostic Testing: Radiology Impression Chest X-Ray 01/15/23 16:30 IMPRESSION: No acute cardiopulmonary abnormality. Electronically Signed: John Turner MD at 16:42 EDT , Physical Exam Narrative GENERAL: cooperative HEENT: Atraumatic; normocephalic EYES; Anicteric, Normal Conjunctiva NECK; supple, normal thyroid, RESPIRATORY: Diminished to auscultation CARDIOVASCULAR: Regular S1 S2, GI: soft, normoactive bowel sounds, : No Renal angle tenderness; EXTREMITIES: No edema, no clubbing, MUSCULOSKELETAL: no muscle wasting NEURO: Awake; no lateralizing signs. SKIN: No Rash PSYCH; Flat affect Assessment & Plan Assessment/Plan (1) ETOH abuse: PLAN: Plan Patient is a 67-year-old gentleman with history of chronic alcohol use disorder presented wanting to undergo detox. 1. Acute alcohol withdrawal ? Admitted to regular nursing floor management phenobarb taper in addition to adjuvant treatment for his symptoms 2. Hyponatremia ? Secondary to beer Potomania. BMPs ordered for monitoring 3. Hypertension - Blood pressure controlled, home medications continued with dose adjustment as needed 4. Depression ? Patient is on Prozac 5. DVT prophylaxis ? SC Lovenox Time spent in the patient's overall evaluation,decision-making process, review of diagnostic data, adjustment of management, discussion with other providers, nursing nursing and ancillary staff involved in patient's care documentation, 50 Minutes Advance planning; did discuss with the patient and family regarding advanced directives as well as CODE STATUS. Did explain the various scenarios involved ( FULL CODE, DNR CCA, DNR CCA with no intubation, and DNR CC and what each meant) patient elected remain full code with CPR and intubation if needed. Order was placed. Time spent on discussion 18 minutes. Charges/Coding Visit Charges Inpatient E&M: 85383 Subs Hosp L3 Procedures Hospitalists Procedures: 91514 Advncd Care Plan 30 Min
[2023-01-16 12:22] VITALS: BP 101/82; PULSE 118; RESP 18; TEMP 37.2; O2SAT 96
--- NOTE | 2023-01-16 14:41 | CHAPLAIN ---
Type of Pastoral Visit ___ Initial Visit ___ Follow-up Visit ___ On-call Visit ___ General Patient Visit ___ Spiritual Assessment ___ Family Conference ___ Bereavement ___ Rapid Response ___ Code Blue _x__ Other (describe below) Pastoral Care Referral From ___ Patient ___ Family ___ Nurse ___ Physician ___ Spider Assembler ___ Meat Lugger ___ Other (describe below) Sacrament/Intervention ___ Active listening ___ Anointing ___ Baptist ___ Bereavement ___ Communion ___ Marion exploration ___ ___ Life review ___ Prayer ___ Reconciliation ___ Sacrament of Sick ___ Supportive presence ___ Wedding ___ Other (describe below) Pastoral Comments patient is sleeping
[2023-01-16 16:20] VITALS: BP 129/94; PULSE 117; RESP 18; TEMP 36.9; O2SAT 94
[2023-01-16] MEDS: hydrOXYzine PAM 25 MG Capsule 50 MG PO (20:17)
[2023-01-16] MEDS: traZODone 100 MG Tablet PO (20:18)
[2023-01-16 20:20] VITALS: BP 107/86; PULSE 106; RESP 18; TEMP 36.6; O2SAT 95
[2023-01-17] MEDS: Phenobarbital 32.4 MG Tablet 64.7999999999999972 MG PO ×7 (00:14→23:39)
[2023-01-17] MEDS: hydrOXYzine PAM 25 MG Capsule 50 MG PO ×2 (00:14→04:51)
[2023-01-17 02:20] VITALS: BP 110/82; PULSE 101; RESP 16; TEMP 36.8; O2SAT 96
[2023-01-17 07:22] LABS: Absolute Lymphocyte Count 2.51 X10^3/uL (0.83-4.51); Absolute Neutrophil Count 5.1 X10^3/uL (2.0-7.7); Basophil# 0.03 X10^3/uL; Basophil% 0.3 % (0-1); Eosinophil# 0.31 X10^3/uL; Eosinophils% 3.6 % (0-5); Hematocrit 38.6 % (40-54); Hemoglobin 13.4 g/dL (13.0-16.5); Lymphocyte # 2.51 X10^3/ul (0.83-4.51); Lymphocyte % 29.1 % (19-41); Mean Corp Hgb Conc 34.7 g/dL (32-36); Mean Corpuscular Volume 95.1 fL (80-94); Mean Platelet Vol. 9.4 fl (6.2-12.0); Monocyte# 0.67 X10^3/uL; Monocyte% 7.8 % (0-10); NRBC Flagged by Analyzer 0 % (0-5); Neutrophil # 5.09 X10^3/uL (2.7-7.7); Neutrophil % 58.9 % (47-70); Platelet Count 202 K/mm3 (150-450); RBC Distribution Width SD 53.4 fl (35.1-43.9); Red Blood Count 4.06 M/mm3 (4.6-6.2); White Blood Count 8.6 K/mm3 (4.4-11.0)
--- NOTE | 2023-01-17 07:28 | PCM.PN.HOSP ---
Reason for Visit Reason for Visit: Diagnoses Alcohol abuse, uncomplicated (01/15/23) Subjective Subjective Since seen admitted to tolerating the phenobarb taper. Objective Data Objective Data Vital Signs: Vital Signs Temp Pulse Resp BP Pulse Ox O2 Del Method 98.2 F 101 H 16 110/82 H 96 Room Air 01/17/23 02:20 01/17/23 02:20 01/17/23 02:20 01/17/23 02:20 01/17/23 02:20 01/17/23 03:00 Oxygen Delivery Method Room Air Weight: 65.4 kg Body Mass Index (BMI) 23.2 Intake & Output: Intake and Output for Last 24 Hours 01/15/23 01/16/23 01/17/23 23:59 23:59 23:59 Intake Total 1360 / 1360 Output Total 0 / 0 Balance 1360 / 1360 Lab / Micro Data 01/17/23 06:32 01/17/23 06:32 Labs: Laboratory Results - last 24 hr 01/17/23 06:32: WBC 8.6, RBC 4.06 L, Hgb 13.4, Hct 38.6 L, MCV 95.1 H, MCH 33.0 H, MCHC 34.7, RDW Std Deviation 53.4 H, RDW Coeff of Hortencia 15.0 H, Plt Count 202, MPV 9.4, Immature Gran % (Auto) 0.300, Neut % (Auto) 58.9, Lymph % (Auto) 29.1, [place] % (Auto) 7.8, Eos % (Auto) 3.6, Baso % (Auto) 0.3, Absolute Neuts (auto) 5.1, Absolute Lymphs (auto) 2.51, Nucleated RBC % 0 Physical Exam Narrative GENERAL: cooperative HEENT: Atraumatic; normocephalic EYES; Anicteric, Normal Conjunctiva NECK; supple, normal thyroid, RESPIRATORY: Diminished to auscultation CARDIOVASCULAR: Regular S1 S2, GI: soft, normoactive bowel sounds, : No Renal angle tenderness; EXTREMITIES: No edema, no clubbing, MUSCULOSKELETAL: no muscle wasting NEURO: Awake; no lateralizing signs. SKIN: No Rash PSYCH; Flat affect Assessment & Plan Assessment/Plan (1) ETOH abuse: PLAN: Plan Patient is a 67-year-old gentleman with history of chronic alcohol use disorder presented wanting to undergo detox. 1. Acute alcohol withdrawal ? Admitted to regular nursing floor management phenobarb taper in addition to adjuvant treatment for his symptoms ?01/17/2023 patient has tolerated the phenobarb taper well so far 2. Hyponatremia ? Secondary to beer Potomania. BMPs ordered for monitoring 3. Hypertension - Blood pressure controlled, home medications continued with dose adjustment as needed 4. Depression ? Patient is on Prozac 5. DVT prophylaxis ? SC Lovenox Time spent in the patient's overall evaluation,decision-making process, review of diagnostic data, adjustment of management, discussion with other providers, nursing nursing and ancillary staff involved in patient's care documentation, 35 Minutes Charges/Coding Visit Charges Inpatient E&M: 89565 Subs Hosp L2
[2023-01-17 08:01] LABS: Anion Gap 7 (5-15); BUN 20 mg/dL (7-18); BUN/Creat Ratio 20.8 RATIO (10-20); Calcium,Total 8.7 mg/dL (8.5-10.1); Chloride 98 mmol/L (98-107); Creatinine, Serum 0.96 mg/dL (0.70-1.30); EST Glomerular Filtration Rate 83 mL/min (>60); Est Glom Filt Rate - Afr Amer 101 mL/min (>60); Estimated Creatinine Clearance 69.23 ml/min; Glucose 80 mg/dL (74-106); Magnesium 2.4 mg/dL (1.6-2.6); Phosphorus 4.2 mg/dL (2.5-4.9); Potassium 4.1 mmol/L (3.5-5.1); Sodium Level 132 mmol/L (136-145)
[2023-01-17 08:20] VITALS: BP 128/71; PULSE 100; RESP 18; TEMP 36.9; O2SAT 94
[2023-01-17] MEDS: FLUoxetine 10 MG Capsule 30 MG PO (08:50)
[2023-01-17] MEDS: Thiamine Hydrochloride 100 MG Tablet PO (08:50)
[2023-01-17] MEDS: Lisinopril 10 MG Tablet PO (08:50)
[2023-01-17] MEDS: Folic Acid 1 MG Tablet PO (08:51)
[2023-01-17 15:00] VITALS: BP 112/63; PULSE 68; RESP 18; TEMP 36.8; O2SAT 99
[2023-01-17 21:00] VITALS: BP 106/70; PULSE 91; RESP 18; TEMP 36.6; O2SAT 98
[2023-01-18 03:00] VITALS: BP 137/79; PULSE 87; RESP 18; TEMP 36.6; O2SAT 98
[2023-01-18] MEDS: Phenobarbital 32.4 MG Tablet 64.7999999999999972 MG PO ×2 (03:29→09:25)
--- NOTE | 2023-01-18 07:11 | PN.HOSP_ITS ---
Reason for Visit Reason for Visit: Diagnoses Alcohol abuse, uncomplicated (01/15/23) Subjective Subjective Patient seen clinical condition improved plan is for patient to be assessed for possible discharge Objective Data Objective Data Vital Signs: Vital Signs Temp Pulse Resp BP Pulse Ox O2 Del Method 98 F 87 18 137/79 H 98 Room Air 01/18/23 03:00 01/18/23 03:00 01/18/23 03:00 01/18/23 03:00 01/18/23 03:00 01/18/23 03:00 Oxygen Delivery Method Room Air Weight: 65.4 kg Body Mass Index (BMI) 23.2 Intake & Output: Intake and Output for Last 24 Hours 01/16/23 01/17/23 01/18/23 23:59 23:59 23:59 Intake Total 1360 / 1360 1880 / 1880 400 / 400 Output Total 0 / 0 Balance 1360 / 1360 1880 / 1880 400 / 400 Lab / Micro Data 01/18/23 07:59 01/18/23 07:59 Labs: Laboratory Results - last 24 hr 01/17/23 06:32: WBC 8.6, RBC 4.06 L, Hgb 13.4, Hct 38.6 L, MCV 95.1 H, MCH 33.0 H, MCHC 34.7, RDW Std Deviation 53.4 H, RDW Coeff of Hortencia 15.0 H, Plt Count 202, MPV 9.4, Immature Gran % (Auto) 0.300, Neut % (Auto) 58.9, Lymph % (Auto) 29.1, [place] % (Auto) 7.8, Eos % (Auto) 3.6, Baso % (Auto) 0.3, Absolute Neuts (auto) 5.1, Absolute Lymphs (auto) 2.51, Nucleated RBC % 0, Sodium 132 L, Potassium 4.1, Chloride 98, Carbon Dioxide 27.0, Anion Gap 7, BUN 20 H, Creatinine 0.96, Estim Creat Clear Calc 69.23, Est GFR (MDRD) Af Amer 101, Est GFR (MDRD) Non-Af 83, BUN/Creatinine Ratio 20.8 H, Glucose 80, Calcium 8.7, Phosphorus 4.2, Magnesium 2.4 Physical Exam Narrative GENERAL: cooperative HEENT: Atraumatic; normocephalic EYES; Anicteric, Normal Conjunctiva NECK; supple, normal thyroid, RESPIRATORY: Diminished to auscultation CARDIOVASCULAR: Regular S1 S2, GI: soft, normoactive bowel sounds, : No Renal angle tenderness; EXTREMITIES: No edema, no clubbing, MUSCULOSKELETAL: no muscle wasting NEURO: Awake; no lateralizing signs. SKIN: No Rash PSYCH; Flat affect Assessment & Plan Assessment/Plan (1) ETOH abuse: PLAN: Plan Patient is a 67-year-old gentleman with history of chronic alcohol use disorder presented wanting to undergo detox. 1. Acute alcohol withdrawal ? Admitted to regular nursing floor management phenobarb taper in addition to adjuvant treatment for his symptoms ?01/17/2023 patient has tolerated the phenobarb taper well so far 2. Hyponatremia ? Secondary to beer Potomania. BMPs ordered for monitoring 3. Hypertension - Blood pressure controlled, home medications continued with dose adjustment as needed 4. Depression ? Patient is on Prozac 5. DVT prophylaxis ? SC Lovenox Time spent in the patient's overall evaluation,decision-making process, review of diagnostic data, adjustment of management, discussion with other providers, nursing nursing and ancillary staff involved in patient's care documentation, 35 Minutes Charges/Coding Visit Charges Inpatient E&M: 73280 Subs Hosp L2
[2023-01-18 09:00] VITALS: BP 113/72; PULSE 92; RESP 18; TEMP 36.4; O2SAT 95
[2023-01-18] MEDS: Thiamine Hydrochloride 100 MG Tablet PO (09:00)
[2023-01-18] MEDS: Folic Acid 1 MG Tablet PO (09:00)
[2023-01-18] MEDS: 0.9% Saline Lock 10 ML Syringe IV (09:05)
[2023-01-18] MEDS: FLUoxetine 10 MG Capsule 30 MG PO (09:05)
[2023-01-18] MEDS: Lisinopril 10 MG Tablet PO (09:06)
[2023-01-18] MEDS: Gabapentin 300 MG Capsule PO (09:14)
[2023-01-18] MEDS: LORazepam 1 MG Tablet 2 MG PO (09:15)
[2023-01-18 09:24] LABS: Absolute Lymphocyte Count 1.83 X10^3/uL (0.83-4.51); Absolute Neutrophil Count 4.9 X10^3/uL (2.0-7.7); Basophil# 0.02 X10^3/uL; Basophil% 0.3 % (0-1); Eosinophil# 0.35 X10^3/uL; Eosinophils% 4.6 % (0-5); Hematocrit 37.5 % (40-54); Lymphocyte # 1.83 X10^3/ul (0.83-4.51); Lymphocyte % 24.1 % (19-41); Mean Corp Hgb Conc 34.7 g/dL (32-36); Mean Corpuscular Hgb 33.2 pg (27.0-32.0); Mean Corpuscular Volume 95.7 fL (80-94); Mean Platelet Vol. 9.7 fl (6.2-12.0); Monocyte# 0.49 X10^3/uL; Monocyte% 6.4 % (0-10); NRBC Flagged by Analyzer 0 % (0-5); Neutrophil # 4.88 X10^3/uL (2.7-7.7); Neutrophil % 64.2 % (47-70); Platelet Count 166 K/mm3 (150-450); RBC Distribution Width CV 14.8 % (11.6-14.6); RBC Distribution Width SD 52.3 fl (35.1-43.9); Red Blood Count 3.92 M/mm3 (4.6-6.2); White Blood Count 7.6 K/mm3 (4.4-11.0)
[2023-01-18 09:37] LABS: Anion Gap 8 (5-15); BUN 20 mg/dL (7-18); BUN/Creat Ratio 29.5 RATIO (10-20); Calcium,Total 8.5 mg/dL (8.5-10.1); Chloride 97 mmol/L (98-107); Creatinine, Serum 0.68 mg/dL (0.70-1.30); EST Glomerular Filtration Rate 124 mL/min (>60); Est Glom Filt Rate - Afr Amer 150 mL/min (>60); Estimated Creatinine Clearance 97.73 ml/min; Glucose 89 mg/dL (74-106); Potassium 4.2 mmol/L (3.5-5.1); Sodium Level 129 mmol/L (136-145)
--- NOTE | 2023-01-18 10:04 | PCM.DC.SUM ---
Providers Date of Admission: 01/15/23 Date of Discharge: 01/18/23 Primary Care Physician: Dr. Renan Joel MD Reason For Visit: ALCOHOL DETOX Diagnosis Discharge Diagnosis (1) ETOH abuse: Status: Acute Code(s): F10.10 - Alcohol abuse, uncomplicated Plan Patient is a 67-year-old gentleman with history of chronic alcohol use disorder presented wanting to undergo detox. 1. Acute alcohol withdrawal ? Admitted to regular nursing floor management phenobarb taper in addition to adjuvant treatment for his symptoms ?01/17/2023 patient has tolerated the phenobarb taper well so far ? 01/18/2023 patient is stable for discharge 2. Hyponatremia ? Secondary to beer Potomania. BMPs ordered for monitoring 3. Hypertension - Blood pressure controlled, home medications continued with dose adjustment as needed 4. Depression ? Patient is on Prozac 5. DVT prophylaxis ? SC Lovenox Time spent in the patient's overall evaluation,decision-making process, review of diagnostic data, adjustment of management, discussion with other providers, nursing nursing and ancillary staff involved in patient's care documentation, 35 Minutes Medications at Discharge Home Medications lisinopril 10 mg tablet (Zestril) 10 mg PO DAILY HTN 06/22/16 albuterol sulfate 90 mcg/actuation aerosol inhaler (Ventolin HFA) 1 - 2 puff inhalation Q4H PRN PRN Wheezing #6.7 grams 01/20/22 fluoxetine 10 mg capsule 10 mg PO DAILY Depression 01/20/22 fluoxetine 10 mg capsule (Prozac) 20 mg PO DAILY mood 01/20/22 prednisone 50 mg tablet 50 mg PO DAILY inflammation #5 tabs 01/20/22 Hospital Course Summary of Care Provided Minutes Spent on Discharge: 35 Physical Exam Narrative GENERAL: cooperative HEENT: Atraumatic; normocephalic EYES; Anicteric, Normal Conjunctiva NECK; supple, normal thyroid, RESPIRATORY: Diminished to auscultation CARDIOVASCULAR: Regular S1 S2, GI: soft, normoactive bowel sounds, : No Renal angle tenderness; EXTREMITIES: No edema, no clubbing, MUSCULOSKELETAL: no muscle wasting NEURO: Awake; no lateralizing signs. SKIN: No Rash PSYCH; Flat affect Weight / BMI Weight Weight: 65.4 kg Body Mass Index (BMI) 23.2 ABG / Lab / Microbiology Data 01/18/23 07:59 01/18/23 07:59 Laboratory: Laboratory Results - last 24 hr 01/18/23 07:59: WBC 7.6, RBC 3.92 L, Hgb 13.0, Hct 37.5 L, MCV 95.7 H, MCH 33.2 H, MCHC 34.7, RDW Std Deviation 52.3 H, RDW Coeff of Hortencia 14.8 H, Plt Count 166, MPV 9.7, Immature Gran % (Auto) 0.400, Neut % (Auto) 64.2, Lymph % (Auto) 24.1, [place] % (Auto) 6.4, Eos % (Auto) 4.6, Baso % (Auto) 0.3, Absolute Neuts (auto) 4.9, Absolute Lymphs (auto) 1.83, Nucleated RBC % 0, Sodium 129 L, Potassium 4.2, Chloride 97 L, Carbon Dioxide 24.0, Anion Gap 8, BUN 20 H, Creatinine 0.68 L, Estim Creat Clear Calc 97.73, Est GFR (MDRD) Af Amer 150, Est GFR (MDRD) Non-Af 124, BUN/Creatinine Ratio 29.5 H, Glucose 89, Calcium 8.5 D/C Instructions Discharge Diet: No restrictions Discharge Activity: Return to Normal Activity Call your doctor if you observe: Fever of 101 or Higher, Shortness of breath, Fainting spells and Chest pain Meaningful Use Info Meaningful Use Diagnoses (Choose all that apply): None applicable Discharge Plan Admission Admit Date/Time: 01/15/23 17:36 Attending Provider: Aman Marquez Primary Care Provider: Renan Joel Consulting Providers: Paul Minor Discharge Orders/Prescriptions Prescriptions: Continued lisinopril [Zestril] 10 MG tablet 10 mg PO DAILY fluoxetine 10 mg capsule 10 mg PO DAILY Patient Comments: Take 1 capsule by mouth once daily. In addition to 20 mg a day. fluoxetine [Prozac] 10 mg capsule 20 mg PO DAILY prednisone 50 mg tablet 50 mg PO DAILY Qty: 5 0RF albuterol sulfate [Ventolin HFA] 90 mcg/actuation HFA aerosol inhaler 1 - 2 puff inhalation Q4H PRN PRN (Reason: Wheezing) Qty: 6.7 0RF Referrals / Follow Up: Renan Joel MD [Primary Care Provider] - Within 2 Weeks Disposition Disposition (needs filled in before D/C Order can be placed): Home, Self Care Charges/Coding Visit Charges Inpatient E&M: 09721 Disch Hosp >30min
[2023-01-18 10:16] VITALS: BP 110/71; PULSE 90; RESP 16; TEMP 36.5; O2SAT 98
[2023-01-18 13:30] VITALS: BP 112/74; PULSE 94; RESP 18; TEMP 36.6; O2SAT 96
--- OUTSIDE RECORDS SUMMARY | 2023-04-02 08:28 | XMS RPT_ITS | CCD ---
Author Name Unknown Address [facility] [address] [place] [address] Organization [facility] Care Team Providers Care Manager [place] Name Role Phone Willa TAPIA (PA-C) Unavailable Unavail able Zoë Joel MD Primary Care Provider [phone] Zoë Joel MD Primary Care Provider GENET KEE Referring Unavailable GENET KEE Attending Unavailable GENET KEE Admitting Unavailable ZOË JOEL Primary Care Unavailable Zoë Joel MD Primary Care Provider Zoë Joel MD Primary Care Provider ZOË JOEL Primary Care Unavailable ZOË JOEL Attending Unavailable ZËO JOEL Primary Care Unavailable ZOË JOEL Attending [...] ALAS Attending Unavailable GHASSAN ALAS Referring Unavailable [facility] Primary Care Unavailable HELIO QUINTERO Attending Unavailable [facility] Primary [facility] Unavailable GHASSAN ALAS Attending Unavailable [facility] Unavailable Medications Current Medications Medication Drug [...] 167.6 cm Ghassan Alas MD Work Phone: [facility] [employer] 12-11-2022 14:59-0400 Body mass index (BMI) [Ratio] 24.37 kg/m2 Ghassan Alas MD Work Phone: [facility] [employer] 12-11-2022 14:59-0400 Body weight 68.49 kg Ghassan Alas MD Work Phone: [facility] [employer] 12-11-2022 14:59-0400 Diastolic blood pressure 82 mm[Hg] Ghassan Alas MD Work Phone: [facility] [employer] 12-11-2022 14:59-0400 Heart rate 96 /min Ghassan Alas MD Work Phone: [facility] [employer] 12-11-2022 14:59-0400 Respiratory rate 16 /min Ghassan Alas MD Work Phone: [facility] [employer] 12-11-2022 14:59-0400 SaO2% (BldA) [Mass fraction] 95 % Ghassan Alas MD Work Phone: [facility] Encounters Encounter Date Encounter Type Care Provider Facility Start: 12-11-2022 End: 12-11-2022 ambulatory GHASSAN ALAS [facility] Start: 12-11-2022 End: 12-11-2022 Office outpatient visit 40 minutes Ghassan Alas MD Work Phone: [facility] Sleep Medicine Procedures Date Procedure Procedure Detail Performing Clinician Start: 12-11-2022 Follow-up visit Follow-up GHASSAN HOWARD Start: 04-22-2022 Colonoscopy Jose howard PA-C Work Phone: Start: 03-21-2022 INFLUENZA VACCINE QUADRIVALENT 6 MO - 64 YRS IM Zoë Joel MD Work Phone: Start: 05-19-2012 Colonoscopy Sybil casarez PIPE [employer]ER.CUFF RUNNER Work Phone: Plan of Treatment Date Care Activity Detail Author Start: 04-22-2032 Screening for malignant neoplasm of colon [facility] Start: 05-30-2027 LIPID SCREEN LIPID SCREEN [facility] Start: 04-22-2027 Colonoscopy COLONOSCOPY [facility] Start: 04-22-2027 COLORECTAL CANCER SCREENING COLORECTAL CANCER SCREENING [facility] Start: 10-21-2025 LIPID SCREEN LIPID SCREEN [facility] Start: 05-29-2025 DIABETES SCREEN DIABETES SCREEN [facility] Start: 02-09-2024 PROSTATE CANCER SCREENING DISCUSSION PROSTATE CANCER SCREENING DISCUSSION [facility] Start: 10-22-2023 DIABETES SCREEN DIABETES SCREEN [facility] Start: 09-24-2023 BP CONTROLLED (<130/80) BP CONTROLLED (<130/80) [facility] in Start: 05-30-2023 ANNUAL PCP TEAM CHRONIC DISEASE VISIT ANNUAL PCP TEAM CHRONIC DISEASE VISIT [facility] Start: 03-21-2023 ANNUAL PCP TEAM CHRONIC DISEASE VISIT ANNUAL PCP TEAM CHRONIC DISEASE VISIT [facility] Start: 03-14-2023 End: 12-14-2023 Polysomnography [facility] Routine Obstructive sleep apnea Expected: 03/14/2023 (Approximate), Expires: 12/14/2023 [facility] Work Phone: Immunizations Immunization Date Immunization Notes Care Provider Cordell arora 03-21-2022 influenza, injectabl e, quadrivalent, contains preservative Zoë Joel MD Work Phone: [facility] 03-21-2022 influenza virus vacc ine, unspecified formulation Ghassan Alas MD Work Phone: [facility] 02-08-2019 influenza, injectabl e, quadrivalent, contains preservative Sybil Benedict [employer]NER Work Phone: [facility] 01-24-2017 influenza, injectabl e, quadrivalent, contains preservative Sybil Mcmullen P[employer]CUFF RUNNER Work Phone: [facility] 01-24-2017 pneumococcal polysaccharide vaccine, 23 valent Sybil Mcmullen [employer].CUFF RUNNER Work Phone: [facility] 06-16-2011 tetanus toxoid, redu barbie diphtheria toxoid, and acellular pertussis vaccine, adsorbed Sybil Benedict [place].CUFF [employer]NER Work Phone: [facility] Payers Date Payer Category Payer Medicare [id number] 2022 Unknown [id number] 2022 Unknown [id number] 2015 Medicaid [employer] [facility] [id number] 2015-Present [phone] [address] [place] [address] Medicaid [id number] 2015 Medicaid [id number] 2015 Medicaid [id number] Social History Date Type Detail Facility Start: 04-09-2012 End: 10-28-2022 Tobacco smoking status DEIS Smokes tobacco daily [facility] History of tobacco use Cigarette Smoker [facility] Start: 04-09-2012 End: 12-11-2022 Cigarettes smoked current (pack per day) - Reported 0.75 [facility] Start: 04-09-2012 End: 10-28-2022 Tobacco use and exposure Smokeless tobacco non-user [facility] Start: 08-27-2021 End: 09-23-2022 Alcohol intake Current non-drinker of alcohol (finding) [facility] Start: 04-09-2012 History SDOH Alcohol Comment sober since 2011 [facility] Start: 1955 Sex Assigned At Not on file [facility] Start: 08-17-2021 End: 11-04-2022 Exposure to SARS-CoV-2 (event) Not sure [facility] Work Phone: Start: 03-21-2022 Tobacco smoking stat us NHIS Ex-smoker [facility] History of tobacco use Current smoker [facility] Start: 03-21-2022 Tobacco Comment Currently usin g nicotine patch. [facility] Start: 07-18-2022 Alcohol intake Current drinke r of alcohol (finding) [facility] Start: 09-04-2022 End: 12-11-2022 Alcohol intake Ex-drinker (finding) [facility] Start: 08-05-2022 End: 12-11-2022 Tobacco use panel [facility] Start: 09-04-2022 Alcohol Comment recovering alcoholic [facility] National Score (1-10 0), lower number is lower risk 66 [facility] Medical Equipment Procedure Code Equipment Code Equipment Origin al Text Equipment Identifier Dates [place] Corkscrew Fiberwire 5.5mm 2 Full Thread Peek 14.7mm Suture 2 4 - [id number] Start: 06-21-2016 [place] [employer]w Fiberwire 5.5mm 2 Full Thread Peek 14.7mm Suture 2 4 - [id number] Start: 06-21-2016 [place] Swivelock 4.75mm Biocomposite Peek 24.5mm Suture Self Punch Vent - [id number] Start: 06-21-2016 Lead Sensing Res p Inspire - [id number] Start: 11-04-2022 Generator Pulse Inspire - [id number] - [id number] Start: 11-04-2022 Clinical Notes 06-13-2016 to 12-11-2022 Ghassan Alas MD - 12/11/2022 3:15 PM EDTGhassan Alas MD - 12/11/2022 3:15 PM Waqar Quintero MD - 11/12/2022 1:30 PM EDTOp Note - Helio Quintero MD - 11/04/2022 10:11 AM EDT Note Date & Type Note Facility 12-11-2022 History of Present illness Narrative Images from the original note were not included. [facility] FOLLOW UP OFFICE VISIT-SLEEP Date [...] period) Non-work day schedule: same Sleep Metrics: [place] Sleepiness Scale: 11 (9 last visit) Past Treatments: Prozac Cpap Inspire - Dr. Quintero 11/04/22. Sleep Studies: Split-night PSG (08/26/17): BMI 29.9 kg. AHI 58.2; SpO2 min 87%; PLM 97.7; PLM-a 17.1. apap 5-20 or cpap 12 cmH2O recommended (AHI 4.8; SpO2 min 91%). Past Medical History Past Medical History: Diagnosis Date Alcohol dependence, uncomplicated ([facility]) 09/11/2018 Depression GERD (gastroesophageal reflux disease) gastritis Hypertension Seizures ([facility]) seizures with withdrawal, last one 2 years [...] 1. 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 documented in this encounter [facility] 11-12-2022 History of Present illness Narrative [...] Medical History: Diagnosis Date Alcohol dependence, uncomplicated ([facility]) 09/11/2018 Depression GERD (gastroesophageal reflux disease) gastritis Hypertension Seizures ([facility]) seizures with withdrawal, last one 2 years [...] and memory normal. documented in this encounter [facility] 11-04-2022 Note Patient: Woodrow silva Procedure Summary Date: 11/04/22 Room / Location: [facility] OR [address] [place] [address] Operating Room Anesthesia Start: 1010 Anesthesia Stop: [...] once all PACU criteria has been met. [facility] 11-04-2022 Note Patient: Woodrow silva Procedure Summary Date: 11/04/22 Room / Location: [facility] OR [address] [place] [address] Operating Room Anesthesia Start: 0 Anesthesia Stop: [...] opportunity for questions and acknowledgement of understanding. [facility] 11-04-2022 Miscellaneous Notes Patient ambulated to bathroom and voided with no difficulties. Discharge instructions reviewed with patient and family. Instructions handed to family. No questions at this time. Family/visitor at bedside with patient. Date: 11/04/2022 Location: [facility] OR Name: Woodrow Alcala, : 1955, Diagnosis Pre-op Diagnosis * Obstructive sleep apnea (adult) (pediatric) [G47.33] Post-op Diagnosis * Obstructive sleep apnea (adult) (pediatric) [G47.33] Procedures Hypoglossal nerve stimulator placement (Inspire) 35668 - CT OPEN IMPLANTATION CRANIAL NERVE ELLY & PULSE GEN Surgeons * Helio Quintero - Primary Procedure Summary Anesthesia: General ASA: III Estimated Blood Loss: Minimal Drains: * None in log * Implants Type Name Action Serial No. Neuro Interventional Implant GENERATOR PULSE INSPIRE - [id number] - [id number] Implanted [id number] Implant LEAD SENSING RESP INSPIRE - [id number] - [id number] Implanted [id number] Neuro Interventional Implant LEAD STIM INSPIRE - [id number] - [id number] Implanted [id number] Staff: Statement Distribution Clerk: Franchesca Jones RN Scrub Person: Ernesto Greenberg Community Service Manager Orienting: Marc Medel Findings: hypoglossal nerve placed [...] [G47.33] Procedures Hypoglossal nerve stimulator placement (Inspire) 41823 - CT OPEN IMPLANTATION CRANIAL NERVE ELLY & PULSE GEN Surgeons * Helio Quintero - Primary Procedure Summary Anesthesia: General ASA: III Estimated Blood Loss: Minimal Drains: * None in log * Implants Type Name Action Serial No. Neuro Interventional Implant GENERATOR PULSE INSPIRE - [id number] - [id number] Implanted [id number] Implant LEAD SENSING RESP INSPIRE - [id number] - [id number] Implanted [id number] Neuro Interventional Implant LEAD STIM INSPIRE - [id number] - [id number] Implanted [id number] Staff: Statement Distribution Clerk: Franchesca Jones RN Scrub Person: Ernesto Greenberg Community Service Manager Orienting: Marc Medel Findings: hypoglossal nerve placed [...] Vancomycin or flouroquinolone) documented in this encounter [facility] 11-04-2022 Note Formatting of this n ote might be different from the original. Patient ambulated to bathroom and voided with no difficulties. Discharge instructions reviewed with patient and family. Instructions handed to family. No questions at this time. [facility] 11-04-2022 Note Airway Date/Time: 11/04/2022 10:17 AM Urgency: scheduled Airway not difficult General Information and Staff Patient location during procedure: Procedural Resident/ARMY MANAGER: MAGALI Brewer CRNA Performed: ARMY MANAGER Performed by: MAGALI Brewer CRNA Authorized by: [...] 21 Number of attempts at approach: 1 [facility] 11-04-2022 Note Formatting of this n ote might be different from the original. Family/visitor at bedside with patient. [facility] 11-04-2022 Hospital Discharge instructions Helio Quintero MD - 11/04/2022 11:26 AM EDT [facility] INSPIRE / Hypoglossal Nerve Stimulator Post-Operative Instructions [...] the implant. Your physician will use a junior programmer to check the device for proper [...] may also call Inspire at any time 8-136- HORTENCIA-HELP Option #3 The battery life on [...] either send Dr. Quintero a message at [email or web address] or call the office at [phone] during business hours. If after hours and there is concern, go to the emergency room. documented in this encounter [facility] 11-04-2022 Note H&P reviewed. The pa tient was examined and there are no changes to the H&P. [facility] 11-04-2022 Note Formatting of this n ote is different from the original. Date: 11/04/2022 Location: [facility] OR Name: Woodrow Alcala, : 1955, Diagnosis Pre-op Diagnosis * Obstructive sleep apnea (adult) (pediatric) [G47.33] Post-op Diagnosis * Obstructive sleep apnea (adult) (pediatric) [G47.33] Procedures Hypoglossal nerve stimulator placement (Inspire) 71461 - CT OPEN IMPLANTATION CRANIAL NERVE ELLY & PULSE GEN Surgeons * Helio Quinetro - Primary Procedure Summary Anesthesia: General ASA: III Estimated Blood Loss: Minimal Drains: * None in log * Implants Type Name Action Serial No. Neuro Interventional Implant GENERATOR PULSE INSPIRE - [id number] - [id number] Implanted [id number] Implant LEAD SENSING RESP INSPIRE - [id number] - [id number] Implanted [id number] Neuro Interventional Implant LEAD STIM INSPIRE - [id number] - [id number] Implanted [id number] Staff: Statement Distribution Clerk: Franchesca Jones RN Scrub Person: Ernesto Greenberg Community Service Manager Orienting: Marc Medel Findings: hypoglossal nerve placed [...] was obtained in PACU noting no pneumothorax. [facility] 11-04-2022 Note Formatting of this n ote is different from the original. Date: 11/04/2022 Location: [facility] OR Name: Woodrow Alcala, : 1955, Diagnosis Pre-op Diagnosis * Obstructive sleep apnea (adult) (pediatric) [G47.33] Post-op Diagnosis * Obstructive sleep apnea (adult) (pediatric) [G47.33] Procedures Hypoglossal nerve stimulator placement (Inspire) 01535 - CT OPEN IMPLANTATION CRANIAL NERVE ELLY & PULSE GEN Surgeons * Helio Quintero - Primary Procedure Summary Anesthesia: General ASA: III Estimated Blood Loss: Minimal Drains: * None in log * Implants Type Name Action Serial No. Neuro Interventional Implant GENERATOR PULSE INSPIRE - [id number] - [id number] Implanted [id number] Implant LEAD SENSING RESP INSPIRE - [id number] - [id number] Implanted [id number] Neuro Interventional Implant LEAD STIM INSPIRE - [id number] - [id number] Implanted [id number] Staff: Statement Distribution Clerk: Franchesca Jones RN Scrub Person: Ernesto Greenberg Community Service Manager Orienting: Marc Medel Findings: hypoglossal nerve placed [...] (two hours if receiving Vancomycin or flouroquinolone) [facility] 11-04-2022 Attending History and physical note H&P reviewed. The patient was examined and there are no changes to the H&P. Source Note - Cheryl Blankenship APRN - CUFF RUNNER - 10/28/2022 2:00 PM EDT Comprehensive Pre Surgical History and Physical ? Name: Woodrow Alcala : 1955 (Age-67 y.o.) Date of Service: Pt seen/examined on 10/28/2022 Procedure Information Date/Time: 11/04/22 1130 Procedure: Hypoglossal nerve stimulator placement (Inspire) - 120 mins Location: [address] Operating Room Surgeons: Helio Quintero MD [...] pre-operative evaluation prior to . ? Case: [id number] Date/Time: 11/04/22 1130 Procedure: Hypoglossal nerve stimulator placement (Inspire) [47396 CPT(R)] - 120 mins Anesthesia type: General Diagnosis: Obstructive sleep apnea (adult) (pediatric) [G47.33] Pre-op diagnosis: Obstructive sleep apnea (adult) (pediatric) [G47.33] Location: [address] Operating Room Surgeons: Helio Quintero MD From last office visit with Dr. Quintero on 07/18/22: Woodrow Alcala is a 67 y.o. yo male who presents to clinic today for evaluation of sleep apnea. Patient has been ongoing for approximately 5 years he was evaluated by the [facility] he states that I do not [...] to receive the inspire implant at the [facility] however the day before surgery he [...] constipation. Patient denies hx of CAD, CHF, LA, TIA/CVA, diabetes, COPD, asthma,DVT/PE. Past Medical History: Past Medical History: 09/11/2018: Alcohol dependence, uncomplicated ([facility]) No date: Depression No date: GERD (gastroesophageal reflux disease) Comment: gastritis No date: Hypertension No date: Seizures ([facility]) Comment: seizures with withdrawal, last one 2 [...] Olivo CNP Date: 10/28/2022 at 2:30 PM [facility] 11-04-2022 History and physical note H&P [...] stimulator placement (Inspire) - 120 mins Location: [address] Operating Room Surgeons: Helio Quintero MD [...] pre-operative evaluation prior to . ? Case: [id number] Date/Time: 11/04/22 1130 Procedure: Hypoglossal nerve stimulator placement (Inspire) [36388 CPT(R)] - 120 mins Anesthesia type: General Diagnosis: Obstructive sleep apnea (adult) (pediatric) [G47.33] Pre-op diagnosis: Obstructive sleep apnea (adult) (pediatric) [G47.33] Location: [address] Operating Room Surgeons: Helio Quintero MD From last office visit with Dr. Quintero on 07/18/22: Woodrow Alcala is a 67 y.o. yo male who presents to clinic today for evaluation of sleep apnea. Patient has been ongoing for approximately 5 years he was evaluated by the [facility] he states that I do not [...] to receive the inspire implant at the [facility] however the day before surgery he [...] constipation. Patient denies hx of CAD, CHF, LA, TIA/CVA, diabetes, COPD, asthma,DVT/PE. Past Medical History: [...] at 2:30 PM documented in this encounter [facility] 10-28-2022 Note Patient: Woodrow silva Procedure Information Date/Time: 11/04/22 1130 Procedure: Hypoglossal nerve stimulator placement (Inspire) - 120 mins Location: [address] Operating Room Surgeons: Helio Quintero MD [...] found for this or any previous visit. [facility] 10-28-2022 Note Comprehensive Pre Chan rgical History and Physical ? Name: Woodrow Alcala : 1955 (Age-67 y.o.) Date of Service: Pt seen/examined on 10/28/2022 Procedure Information Date/Time: 11/04/22 1130 Procedure: Hypoglossal nerve stimulator placement (Inspire) - 120 mins Location: [address] Operating Room Surgeons: Helio Quintero MD [...] pre-operative evaluation prior to . ? Case: [id number] Date/Time: 11/04/22 1130 Procedure: Hypoglossal nerve stimulator placement (Inspire) [87461 CPT(R)] - 120 mins Anesthesia type: General Diagnosis: Obstructive sleep apnea (adult) (pediatric) [G47.33] Pre-op diagnosis: Obstructive sleep apnea (adult) (pediatric) [G47.33] Location: [address] Operating Room Surgeons: Helio Quintero MD From last office visit with Dr. Quintero on 07/18/22: Woodrow Alcala is a 67 y.o. yo male who presents to clinic today for evaluation of sleep apnea. Patient has been ongoing for approximately 5 years he was evaluated by the [facility] he states that I do not [...] to receive the inspire implant at the [facility] however the day before surgery he [...] constipation. Patient denies hx of CAD, CHF, LA, TIA/CVA, diabetes, COPD, asthma,DVT/PE. Past Medical History: Past Medical History: 09/11/2018: Alcohol dependence, uncomplicated (HCC) No date: Depression No date: GERD (gastroesophageal reflux disease) Comment: gastritis No date: Hypertension No date: Seizures (HCC) Comment: seizures with withdrawal, last one 2 years ago Past Surgical History: Past Surgical History: No date: ANKLE SURGERY No date: B (more content not included)... [facility] 10-28-2022 Note Comprehensive Pre Chan rgical History and Physical ? Name: Woodrow Alcala : 1955 (Age-67 y.o.) Date of Service: Pt seen/examined on 10/28/2022 Procedure Information Date/Time: 11/04/22 1130 Procedure: Hypoglossal nerve stimulator placement (Inspire) - 120 mins Location: [address] Operating Room Surgeons: Helio Quintero MD [...] pre-operative evaluation prior to . ? Case: [id number] Date/Time: 11/04/22 1130 Procedure: Hypoglossal nerve stimulator placement (Inspire) [78955 CPT(R)] - 120 mins Anesthesia type: General Diagnosis: Obstructive sleep apnea (adult) (pediatric) [G47.33] Pre-op diagnosis: Obstructive sleep apnea (adult) (pediatric) [G47.33] Location: [address] Operating Room Surgeons: Helio Quintero MD From last office visit with Dr. Quintero on 07/18/22: Woodrow Alcala is a 67 y.o. yo male who presents to clinic today for evaluation of sleep apnea. Patient has been ongoing for approximately 5 years he was evaluated by the [facility] he states that I do not [...] to receive the inspire implant at the [facility] however the day before surgery he [...] constipation. Patient denies hx of CAD, CHF, LA, TIA/CVA, diabetes, COPD, asthma,DVT/PE. Past Medical History: Past Medical History: 09/11/2018: Alcohol dependence, uncomplicated (HCC) No date: Depression No date: GERD (gastroesophageal reflux disease) Comment: gastritis No date: Hypertension No date: Seizures (HCC) Comment: seizures with withdrawal, last one 2 years ago Past Surgical History: Past Surgical History: No date: ANKLE SURGERY No date: B (more content not included)... [facility] 10-01-2022 Telephone encounter Note Pt calling back re: completed PSG and DISE, interested in scheduling surgery. Please advise and if needed, complete surgery scheduling sheet. [facility] 10-01-2022 Miscellaneous Notes Pt calling back [...] to review results. documented in this encounter [facility] 09-23-2022 Note HNO ID: [id number] Author: Yue Cruz APRN.CUFF RUNNER Service: ? Author Type: Nurse Practitioner Type: [...] up with ophtha (more content not included)... [facility] 09-23-2022 Instructions Yue Cruz APRN.JUDY - [...] 379.24, ICD10: H43.391 - follow up with gin clerk if persisting. - Follow-up with your PCP in 3-5 days if symptoms have not improved or sooner if symptoms worsen - Discussed red flags and need for immediate medical evaluation if any occur. - Discussed supportive care treatment with fluids, rest and analgesia. - Discussed expected course of illness Yue Cruz APRN.CUFF RUNNER documented in this encounter [facility] 09-23-2022 History of Present illness Narrative Subjective [...] 379.24, ICD10: H43.391 - follow up with gin clerk if persisting. - Follow-up with your PCP in 3-5 days if symptoms have not improved or sooner if symptoms worsen - Discussed red flags and need for immediate medical evaluation if any occur. - Discussed supportive care treatment with fluids, rest and analgesia. - Discussed expected course of illness Yue Cruz APRN.CUFF RUNNER documented in this encounter [facility] 09-18-2022 Miscellaneous Notes Patient last visit with [...] Olive Cade Pss documented in this encounter [facility] 09-16-2022 Telephone encounter Note Appt cancelled. [facility] [employer] 09-16-2022 Miscellaneous Notes Appt cancelled. Called and spoke with patient. Advised that HST showed he is still within range for Inspire (AHI 51.5; SpO2 avg 92%; minimum was artifact). As he has already had DISE, will forward to Dr. Quintero to move forward with scheduling surgery. Jose, please cancel pt's upcoming appt with me to review results. documented in this encounter [facility] 09-16-2022 Telephone encounter Note Called and spoke with patient. Advised that HST showed he is still within range for Inspire (AHI 51.5; SpO2 avg 92%; minimum was artifact). As he has already had DISE, will forward to Dr. Quintero to move forward with scheduling surgery. Jose, please cancel pt's upcoming appt with me to review results. [facility] 09-09-2022 Note HNO ID: [id number] Author: Sybil Mcmullen APRN.JUDY Service: ? Author Type: Nurse Practitioner Type: Progress Notes Filed: 09/09/2022 10:43 AM Note Text: Patient seen during down time. Please see scanned document. [facility] 09-09-2022 History of Present illness Narrative Patient seen during down time. Please see scanned document. documented in this encounter [facility] 09-04-2022 History of Present illness Narrative Images from the original note were not included. [facility] NEW PATIENT OFFICE VISIT-SLEEP MEDICINE [...] mask and nasal pillows. Was moving towards [facility] with [facility] about 5 years ago. Had DISE [...] behaviors during sleep. 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 He has fatigue. He has not fallen asleep while driving Caffeine: coffee 3-4 cups /day and 2 ann per day Recent weight change: feels like he has gained weight recently Sleep Metrics: [place] Sleepiness Scale: 9 Past Treatments: Prozac Sleep Studies: Split-night PSG (08/26/17): BMI 29.9 kg. AHI 58.2; SpO2 min 87%; PLM 97.7; PLM-a 17.1. apap 5-20 or cpap 12 cmH2O recommended (AHI 4.8; SpO2 min 91%). Relevant LABS/Studies: Reviewed outside [facility] labs from 05/29/22 Past Medical History Past Medical History: Diagnosis Date Alcohol dependence, uncomplicated ([facility]) 09/11/2018 Depression GERD (gastroesophageal reflux disease) gastritis Hypertension Seizures ([facility]) seizures with withdrawal, last one 2 years [...] ASSESSMENT/PLAN: Diagnosis Plan 1. Obstructive sleep apnea [facility] Sleep Medicine 2. 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 documented in this encounter [facility] 09-04-2022 Instructions Ghassan Alas MD - 09/04/2022 1:45 PM EDT You can call [phone] to schedule your sleep study directly. The address for picking up and dropping off the home sleep study is listed below. We'll have you follow-up with myself or the sleep nurse practitioner Corrie Escobar approximately 1-2 weeks after your sleep study. [facility] at the [facility] [address] [place] [address], [address] [place] [address] Best, Ghassan Alas MD documented in this encounter [facility] 08-05-2022 Note [facility] - Patient Pre-procedure Instructions Sleep Apnea: If yes, please bring CPAP machine May shower/brush teeth. Leave valuables/jewelry at home. No makeup, lotion, powder, deodorant or body sprays. No contact lenses No makeup, contact lenses, piercings, or dark nail swazi No solid food after midnight before procedure. [...] to your arrival time. Please Bring your Box Machine Operator's license/photo ID, insurance card, eye drops/sunglasses, inhalers if applicable If you have a Medical Power of Software Quality Analyst, living will, or an advanced directive, please bring a copy with you. We are required to resuscitate and transfer you to the hospital along with your directive. [facility] 08-05-2022 Note Patient: Woodrow silva Procedure Summary Date: 08/05/22 Room / Location: [place] [address] / [facility] OR Anesthesia Start: 1147 Anesthesia Stop: 1158 Procedure: Drug induced sleep endoscopy Diagnosis: Obstructive sleep apnea (adult) (pediatric) (15 MINS) Surgeons: Helio Quintero MD Responsible Provider: No Anesthesiologist - [facility]/MD Kurt Anesthesia Type: general, TIVA ASA Status: [...] start time until discharged from PACU ([id number]) [facility] Anesthesiology Smoking Abstinence The patient [...] opportunity for questions and acknowledgement of understanding. [facility] 08-05-2022 Note Patient: Woodrow silva Procedure Summary Date: 08/05/22 Room / Location: [facility] [address] [place] [address] ASC OR Anesthesia Start: 1147 Anesthesia Stop: [...] once all PACU criteria has been met. [facility] 08-05-2022 Note H&P reviewed. The pa lucy was examined and there are no changes to the H&P. [facility] 08-02-2022 Note Patient: Woodrow silva Procedure Information Date/Time: 08/05/22 1300 Procedure: Drug induced sleep endoscopy - 15 MINS Location: [facility] Surgeons: Helio Quintero MD Relevant Problems No relevant active problems Past Medical History: Past Medical History: 09/11/2018: Alcohol dependence, uncomplicated (HCC) No date: Depression No date: GERD (gastroesophageal reflux disease) Comment: gastritis No date: Hypertension No date: Seizures ([facility]) Comment: seizures with withdrawal, last one 2 [...] found for this or any previous visit. [facility] 07-22-2022 Note HNO ID: [id number] Author: Yue Cruz APRN.CUFF RUNNER Service: ? Author Type: Nurse Practitioner Type: [...] Discussed expected cours (more content not included)... [facility] 07-22-2022 Instructions Yue Cruz APRN.CUFF RUNNER - 07/22/2022 6:10 PM EDT ASSESSMENT/PLAN: 1. [...] Discussed expected course of illness Yue Cruz APRN.CUFF RUNNER documented in this encounter [facility] 07-22-2022 History of Present illness Narrative Images [...] Yue Cruz APRN.CNP documented in this encounter [facility] 07-18-2022 Note Assessment and Recom mendations: Woodrow [...] 5 years he was evaluated by the [facility] he states that I do not [...] to receive the inspire implant at the [facility] however the day before surgery he was called and said that his insurance declined it and he was unable to have the procedure. He is here to establish care and to work towards getting the inspire device no previous history of head neck surgery. PMH: Past Medical History: Diagnosis Date Alcohol dependence, uncomplicated ([facility]) 09/11/2018 Depression GERD (gastroesophageal reflux disease) gastritis Hypertension Seizures ([facility]) seizures with withdrawal, last one 2 years [...] vocal cord motion is normal symmetric bilaterally [facility] 07-18-2022 History of Present illness Narrative [...] 5 years he was evaluated by the [facility] he states that I do not [...] to receive the inspire implant at the [facility] however the day before surgery he was called and said that his insurance declined it and he was unable to have the procedure. He is here to establish care and to work towards getting the inspire device no previous history of head neck surgery. PMH: Past Medical History: Diagnosis Date Alcohol dependence, uncomplicated ([facility]) 09/11/2018 Depression GERD (gastroesophageal reflux disease) gastritis Hypertension Seizures ([facility]) seizures with withdrawal, last one 2 years [...] normal symmetric bilaterally documented in this encounter [facility] 05-30-2022 Miscellaneous Notes Patient informed and verbalized understanding. Anastasiya Reynoso Let him know his labs are ok. documented in this encounter [facility] 05-29-2022 Note HNO ID: [id number] Author: Zoë Joel MD Service: ? Author [...] joint swelling, deformit (more content not included)... [facility] 05-29-2022 Miscellaneous Notes Patient calling with [...] No recent illness Protocols used: Dizziness - [id number] documented in this encounter [facility] 04-30-2022 Note HNO ID: [id number] Author: Jose Colin PA-C Service: ? 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 Kee for screening colonoscopy. Dr. Kee performed lower endoscopy on 04/22/22 at [facility]. The patient was found to have [...] which included preparing to see the patient, [id number] patient care, completing clinical documentation, obtaining and/or reviewing separately obtained history, counseling and educating the patient/family/caregiver, independently interpreting results (not separately reported), and communicating results to the patient/family/caregiver. Jose Colin PA-C [facility] 04-30-2022 Instructions Jose Colin PA-C - 04/30/2022 11:46 AM EST The following instructions are important for you related to your office visit today with the [facility] General Surgeons. INSTRUCTIONS FOLLOWING A POLYP [...] you should contact our office immediately @ [phone] and ask to be transferred to the General Surgery department. documented in this encounter [facility] 04-30-2022 History of Present illness Narrative FOLLOW UP VISIT - ENDOSCOPY NAME: Woodrow Alcala [facility] NO.: [id number] DATE OF SERVICE: 04/30/2022 : 1955 REFERRING PHYSICIAN: Zoë Joel MD Woodrow is a patient I am following with Dr. Kee for screening colonoscopy. Dr. Kee performed lower endoscopy on 04/22/22 at [facility]. The patient was found to have [...] which included preparing to see the patient, [id number] patient care, completing clinical documentation, obtaining and/or reviewing separately obtained history, counseling and educating the patient/family/caregiver, independently interpreting results (not separately reported), and communicating results to the patient/family/caregiver. Jose Colin PA-C documented in this encounter [facility] 04-22-2022 Note HNO ID: [id number] Author: Ernesto Meléndez RN Service: ? Author Type: Registered Nurse Type: Nursing Progress Note Filed: 04/22/2022 2:22 PM Note Text: Upon discharge patient's abdomen is soft. Patient denies pain. [facility] 04-22-2022 Note HNO ID: [id number] Author: Kimberli Carrillo RN Service: Nursing Author Type: Registered Nurse Type: Nursing Progress Note Filed: 04/22/2022 11:55 AM Note Text: Other: Patient ready for procedure. Patient education completed. [facility] 04-02-2022 Miscellaneous Notes Patient has [...] to pharmacy. No need to notify patient. [facility] documented in this encounter [facility] 03-26-2022 Note HNO ID: [id number] Author: Genet Kee MD Service: ? Author [...] entered by the nurse and reviewed by nc Nursing Notes: Bruna Rae RN 03/26/2022 9:55 [...] substance abuse. Endocri (more content not included)... [facility] 03-26-2022 History of Present illness Narrative [...] entered by the nurse and reviewed by nc Nursing Notes: Bruna Rae RN 03/26/2022 9:55 [...] patient was offered a surgery/procedure at a [facility]. The provider and patient have discussed [...] patient will be scheduled for colonoscopy at [facility] on 04/22/2022. Medical Decision Making: Risk: Low: Low risk from testing/treatment Medical Decision Making Level: 2 - Straightforward Genet Kee MD documented in this encounter [facility] 03-26-2022 Instructions Genet Kee MD - 03/26/2022 [...] If you do not have a responsible chuck wagon driver (family member or friend) with you [...] exam. 2 02/2019 documented in this encounter [facility] 03-26-2022 Nurse Note REVIEW OF SYSTEMS: General: [...] Bruna Rae RN documented in this encounter [facility] 03-25-2022 Miscellaneous Notes Pt notified of provider's message below. Pt states he will hold off on seeing ORTHO at this time and will give the prednisone some time to work and then he will decide. Gissel Ybarra RN Xrays show degenerative changes. Nothing acute. Recommend he see ortho if pain continues. documented in this encounter [facility] 03-21-2022 Note HNO ID: [id number] Author: Lili Santiago RT(R) Service: Radiology Author [...] RT Cynthia(R) March 21, 2022 10:46 AM [facility] 03-21-2022 Note HNO ID: [id number] Author: Zoë Joel MD Service: ? Author [...] F32.A - stable. (more content not included)... [facility] 03-21-2022 History of Present illness Narrative [...] Zoë Joel MD documented in this encounter [facility] 03-15-2022 Miscellaneous Notes Patient has been identified [...] you. Denise Butler documented in this encounter [facility] 01-17-2022 Note HNO ID: [id number] Author: Elsi Jose APRN.CUFF RUNNER Service: ? Author Type: Nurse Practitioner Type: [...] Patient agreeable to treatment plan. Elsi Jose APRN.[facility] 10-03-2021 Miscellaneous Notes Patient wants to know [...] Marianne Jeffers Pss documented in this encounter [facility] 08-27-2021 Instructions Sybil Mcmullen APRN.CUFF RUNNER - 08/27/2021 3:44 PM EDT Your exam [...] within one week. documented in this encounter [facility] 08-27-2021 History of Present illness Narrative This note was created using [employer]. Subjective Woodrow Alcala is a 66 year [...] or OTC medications. 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 The history is provided by the patient. No sign language translator was used. Rash This is a recurrent [...] Sybil Mcmullen APRN.JUDY documented in this encounter [facility] documented as of this encounter (statuses as of 08/27/2021) [facility] History of Past illness Narrative* Problem Noted Date Resolved Date GERD (gastroesophageal reflux disease) 7 12/19/2017 Acute pain of left shoulder 08/28/201501/15 documented as of this encounter (statuses as of 10/03/2021) [facility] History of Past illness Narrative* Problem Noted Date Resolved Date GERD (gastroesophageal reflux disease) 7 12/19/2017 Acute pain of left shoulder 08/28/201501/15 documented as of this encounter (statuses as of 03/20/2022) [address]-2017 History of Past illness Narrative* Problem Noted Date Resolved Date GERD (gastroesophageal reflux disease) 7 12/19/2017 Acute pain of left shoulder 08/28/201501/15 documented as of this encounter (statuses as of 03/22/2022) [address]2017 History of Past illness Narrative* Problem Noted Date Resolved Date GERD (gastroesophageal reflux disease) 7 12/19/2017 Acute pain of left shoulder 08/28/201501/15 documented as of this encounter (statuses as of 03/27/2022) [address]2017 History of Past illness Narrative* Problem Noted Date Resolved Date GERD (gastroesophageal reflux disease) 7 12/19/2017 Acute pain of left shoulder 08/28/201501/15 documented as of this encounter (statuses as of 03/30/2022) [address]2017 History of Past illness Narrative* Problem Noted Date Resolved Date GERD (gastroesophageal reflux disease) 7 12/19/2017 Acute pain of left shoulder 08/28/201501/15 documented as of this encounter (statuses as of 04/02/2022) [address]2017 History of Past illness Narrative* Problem Noted Date Resolved Date GERD (gastroesophageal reflux disease) 7 12/19/2017 Acute pain of left shoulder 08/28/201501/15 documented as of this encounter (statuses as of 05/01/2022) [address]2017 History of Past illness Narrative* Problem Noted Date Resolved Date GERD (gastroesophageal reflux disease) 7 12/19/2017 Acute pain of left shoulder 08/28/201501/15 documented as of this encounter (statuses as of 05/29/2022) [address]2017 History of Past illness Narrative* Problem Noted Date Resolved Date GERD (gastroesophageal reflux disease) 7 12/19/2017 Acute pain of left shoulder 08/28/201501/15 documented as of this encounter (statuses as of 05/30/2022) [facility] History of Past illness Narrative* Problem Noted Date Resolved Date GERD (gastroesophageal reflux disease) 7 12/19/2017 Acute pain of left shoulder 08/28/201501/15 documented as of this encounter (statuses as of 07/23/2022) [facility] History of Past illness Narrative* Problem Noted Date Resolved Date GERD (gastroesophageal reflux disease) 7 12/19/2017 Acute pain of left shoulder 08/28/201501/15 documented as of this encounter (statuses as of 09/09/2022) [facility] History of Past illness Narrative* Problem Noted Date Resolved Date GERD (gastroesophageal reflux disease) 7 12/19/2017 Acute pain of left shoulder 08/28/201501/15 documented as of this encounter (statuses as of 09/19/2022) [facility] History of Past illness Narrative* Problem Noted Date Diagnosed Date Resolved Date GERD (gastroesophageal reflux disease) 06/13/2016 12/19/2017 Acute pain of left shoulder 08/28/2015 01/24/2017 documented as of this encounter (statuses as of 09/24/2022) [facility] Rash- Primary Rash and other nonspecific skin eruption [facility] Tobacco use Tobacco use disorder [facility] Diagnosis Primary hypertension- Primary Unspecified essential hypertension HORTENCIA (obstructive sleep apnea) Obstructive sleep apnea (adult) (pediatric) Depression, unspecified depression type Acute pain of both shoulders Screening for colon cancer Special screening for malignant neoplasms, colon Tobacco use Tobacco use disorder Need for influenza vaccination Need for prophylactic vaccination and inoculation against influenza [facility] Diagnosis Screening for colon cancer Special screening for malignant neoplasms, colon [facility] Diagnosis Essential hypertension with goal blood pressure less than 140/90 [facility] Diagnosis Hyperplastic rectal polyp- Primary Anal and rectal polyp Diverticulosis Diverticulosis of colon (without mention of hemorrhage) Hemorrhoids, internal Internal hemorrhoids without mention of complication [facility]* Diagnosis Obstructive sleep apnea- Primary Obstructive sleep apnea (adult) (pediatric) documented in this encounter [facility] note* Diagnosis Right otitis media with effusion- Primary Nonsuppurative otitis media, not specified as acute or chronic Scalp pain Headache documented in this encounter [facility] note* Diagnosis Obstructive sleep apnea- Primary Obstructive sleep apnea (adult) (pediatric) Inadequate sleep hygiene Other specific disorder of sleep of nonorganic origin Essential hypertension Unspecified essential hypertension documented in this encounter [facility] note* Diagnosis Rhinosinusitis- Primary Unspecified sinusitis (chronic) Acute cough Tobacco abuse Tobacco use disorder documented in this encounter [facility] note* Diagnosis Acute sinusitis, recurrence not specified, unspecified location- Primary Eye drainage Redness or discharge of eye Floaters in visual field, right documented in this encounter [facility] note* Diagnosis Post-op pain- Primary Other acute postoperative pain documented in this encounter [facility] note* Diagnosis Postoperative follow-up- Primary Follow-up examination, following unspecified surgery documented in this encounter [facility] note* Diagnosis Obstructive sleep apnea- Primary Obstructive sleep apnea (adult) (pediatric) documented in this encounter [facility] for referral (narrative)* Diagnostic Procedure Only (Routine) - Closed Specialty Diagnoses / Procedures Referred By Kana kennedy Referred To Contact XR IMAGING Diagnoses Acute pain of both shoulders Procedures XR SHOULDER GENERAL 3V OR MORE AP/TRUE AP/OTHER LEFT RADEX SHOULDER COMPLETE MINIMUM 2 VIEWS Zëo Joel MD [address] [place] [address] Xr Imaging Referral ID Status Reason Start Date Expiration Date V isits Requested Visits Authorized [id number] Closed Auto-Generate d Referral 03/21/2022 04/20/2023 1 1 * Diagnostic Procedure Only (Routine) - Closed Specialty Diagnoses / Procedures Referred By Kana kennedy Referred To Contact XR IMAGING Diagnoses Acute pain of both shoulders Procedures XR SHOULDER GENERAL 3V OR MORE AP/TRUE AP/OTHER RIGHT RADEX SHOULDER COMPLETE MINIMUM 2 VIEWS Zoë Joel MD [address] [place] [address] Xr Imaging Referral ID Status Reason Start Date Expiration Date V isits Requested Visits Authorized [id number] Closed Auto-Generate d Referral 03/21/2022 04/20/2023 1 1 * Consult, Test, Treat (Routine) - Authorized Specialty Diagnoses / Procedures Referred By Contac t Referred To Contact General Surgery Diagnoses Screening for colon cancer Procedures CONSULT TO GENERAL SURGERY OFFICE/OUTPATIENT NEW HIGH MDM 60-74 MINUTES Zoë Joel MD [address] [place] [address] Referral ID Status Reason Start Date Expiration Date Visits Requested Visits Authorized [id number] Authorized PCP Requested Referral 03/21/2022 03/21/2023 1 1 [facility] for referral (narrative)* Outpatient Procedure (Routine) - Authorized Specialty Diagnoses / Procedures Referred By Contac t Referred To Contact [facility] Diagnoses Screening for colon cancer Procedures COLONOSCOPY SCREENING COLONOSCOPY SCREENING COLONOSCOPY FLX DX W/COLLJ SPEC WHEN Genet Coughlin MD [address] [place] [address] [facility] [address] [place] [address] Referral ID Status Reason Start Date Expiration Date Visits Requested Visits Authorized [id number] Authorized Auto-Generat ed Referral 03/26/2022 03/26/2023 1 1 [facility] for referral (narrative)* Consultation (Routine) - Pending Review Specialty Diagnoses / Procedures Referred By Contac t Referred To Contact Sleep Medicine Diagnoses Obstructive sleep apnea Procedures CT OFFICE/OUTPATIENT NEW HIGH MDM 60-74 MINUTES Helio Quintero MD [address] [place] [address] [facility] [address] [place] [address] Referral ID Status Reason Start Date Expiration Date Visits Requested Visits Authorized [id number] Pending Review Specialty Services Required 07/18/2022 07/18/2023 1 1 [facility] Summary Purpose Family History No Family History Records FoundNo Family History Records FoundNo Family History Records FoundNo Family History Records FoundNo Family History Records Found Advance Directives No Advanced Directives Records FoundDocuments on File Type Date Recorded 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 Advance Directive(s) 12/29/2017 6:54 AM Reason for Referral Specialty Diagnoses / Procedures Referred By Kana kennedy Referred To Contact Sleep Medicine Diagnoses Obstructive sleep apnea Procedures Home sleep test Ghassan Alas MD [address] [facility] [address] [place] [address] Referral ID Status Reason Start Date Expiration Date V isits Requested Visits Authorized [id number] Pending Review 09/04/2022 03/03/2023 1 1 Specialty Diagnoses / Procedures Referred By Kana kennedy Referred To Contact Sleep Medicine Diagnoses Obstructive sleep apnea Procedures Polysomnography Ghassan Alas MD [address] [facility] [address] [place] [address] Referral ID Status Reason Start Date Expiration Date V isits Requested Visits Authorized [id number] Pending Review 12/13/2022 06/11/2023 1 1 Additional Source Comments (unrecognized sect ion and content) No Status Records FoundNo Status Records FoundNo Status Records FoundNo Status Records FoundNo Status Records Found INFORMATION SOURCE (unrecogn ized section and content) DATE CREATED AUTHOR AUTHOR'S ORGANIZ ATION 09/15/2018 [facility] DATE CREATED AUTHOR AUTHOR'S ORGANIZ ATION 04/24/2022 [facility] DATE CREATED AUTHOR AUTHOR'S ORGANIZ ATION 09/24/2022 [facility] DATE CREATED AUTHOR AUTHOR'S ORGANIZ ATION 12/22/2022 [employer] [facility] Source Comments (unrecognize d section and content) In the event this informatio n is protected by the Federal Confidentiality of Alcohol and Drug Abuse Patient Records regulations: The Federal rules restrict any use of the information to criminally investigate or prosecute any alcohol or drug abuse patient.[facility] the event this information is protected by the Federal Confidentiality of Alcohol and Drug Abuse Patient Records regulations: The Federal rules restrict any use of the information to criminally investigate or prosecute any alcohol or drug abuse patient.[facility] the event this information is protected by the Federal Confidentiality of Alcohol and Drug Abuse Patient Records regulations: The Federal rules restrict any use of the information to criminally investigate or prosecute any alcohol or drug abuse patient.[facility] the event this information is protected by the Federal Confidentiality of Alcohol and Drug Abuse Patient Records regulations: The Federal rules restrict any use of the information to criminally investigate or prosecute any alcohol or drug abuse patient.[facility] DaytonIn the event this information is protected by the Federal Confidentiality of Alcohol and Drug Abuse Patient Records regulations: The Federal rules restrict any use of the information to criminally investigate or prosecute any alcohol or drug abuse patient.[facility]In the event this information is protected by the Federal Confidentiality of Alcohol and Drug Abuse Patient Records regulations: The Federal rules restrict any use of the information to criminally investigate or prosecute any alcohol or drug abuse patient.[facility] DaytonIn the event this information is protected by the Federal Confidentiality of Alcohol and Drug Abuse Patient Records regulations: The Federal rules restrict any use of the information to criminally investigate or prosecute any alcohol or drug abuse patient.[facility] DaytonIn the event this information is protected by the Federal Confidentiality of Alcohol and Drug Abuse Patient Records regulations: The Federal rules restrict any use of the information to criminally investigate or prosecute any alcohol or drug abuse patient.[facility]In the event this information is protected by the Federal Confidentiality of Alcohol and Drug Abuse Patient Records regulations: The Federal rules restrict any use of the information to criminally investigate or prosecute any alcohol or drug abuse patient.[facility] DaytonIn the event this information is protected by the Federal Confidentiality of Alcohol and Drug Abuse Patient Records regulations: The Federal rules restrict any use of the information to criminally investigate or prosecute any alcohol or drug abuse patient.[facility] DaytonIn the event this information is protected by the Federal Confidentiality of Alcohol and Drug Abuse Patient Records regulations: The Federal rules restrict any use of the information to criminally investigate or prosecute any alcohol or drug abuse patient.[facility] DaytonIn the event this information is protected by the Federal Confidentiality of Alcohol and Drug Abuse Patient Records regulations: The Federal rules restrict any use of the information to criminally investigate or prosecute any alcohol or drug abuse patient.[facility] DaytonIn the event this information is protected by the Federal Confidentiality of Alcohol and Drug Abuse Patient Records regulations: The Federal rules restrict any use of the information to criminally investigate or prosecute any alcohol or drug abuse patient.[facility] DaytonIn the event this information is protected by the Federal Confidentiality of Alcohol and Drug Abuse Patient Records regulations: The Federal rules restrict any use of the information to criminally investigate or prosecute any alcohol or drug abuse patient.[facility] Reason for Visit (unrecogniz ed section and [...] HIGH MDM 60-74 MINUTES Zoë Joel MD [address] [place] [address] Referral ID Status Reason Start Date Expiration Date V isits Requested Visits Authorized [id number] Closed PCP Requested Referral 03/21/2022 03/21/2023 1 1 Reason Comments Refill Request Reason Comments Follow Up colonoscopy Reason Comments Dizziness Reason Comments New Patient Inspire Reason Comments Ear Pain R ear pain x3 days Reason Comments New Patient Specialty Diagnoses / Procedures Referred By Kana kennedy Referred To Contact Sleep Medicine Diagnoses Obstructive sleep apnea Procedures CT OFFICE/OUTPATIENT [facility] MDM 60-74 MINUTES Helio Quintero MD [address] [facility] [address] [place] [address] [facility] Sleep [address] [facility] [address] [place] [address] Referral ID Status Reason Start Date Expiration Date Visits Requested Visits Authorized [id number] Pending Review Specialty Services Required 07/18/2022 07/18/2023 [...] Obstructive sleep apnea (adult) (pediatric) [G47.33] Procedures CT OPEN IMPLANTATION CRANIAL NERVE ELLY & PULSE GEN Hypoglossal nerve stimulator placement (Inspire) Helio Quintero MD [address] [facility] [address] [place] [address] [facility] [address] [place] [address] Referral ID Status Reason Start Date Expiration Date Visits Re quested Visits Authorized [id number] 1 1 Reason Comments Follow-up Post op inspire - so me swelling but no significant changes Reason Comments Follow-up Care Teams (unrecognized sec tion and content) Manager [employer] Relationship Specialty Start Date End Date Zoë Joel MD [address] [place], [place] [id number] PCP - General Family Practice 04/09/12 [employer] Relationship Specialty Start Date End Date Zoë Joel MD [address] [place], [place] [id number] PCP - General Family Medicine 04/09/12 [employer] Relationship Specialty Start Date End Date Zoë Joel MD [address] [place] [address] PCP - General Family Medicine 04/09/12 Manager [employer] Relationship Specialty Start Date End Date Zoë Joel MD [address] [place] [address] PCP - General Family Medicine 04/09/12 Manager [employer] Relationship Specialty Start Date End Date Zoë Joel MD [address] [place] [address] PCP - General Family Medicine 04/09/12 Manager [employer] Relationship Specialty Start Date End Date Zoë Joel MD [address] [place] [address] PCP - General Family Medicine 04/09/12 [employer] Relationship Specialty Start Date End Date Zoë Joel MD [address] [place] [address] PCP - General Family Medicine 04/09/12 Manager [employer] Relationship Specialty Start Date End Date Zoë Joel MD [address] [place], [place] [id number] PCP - General 09/11/18 [employer] Relationship Specialty Start Date End Date Zoë Joel MD [address] [place] [address] PCP - General Family Medicine 04/09/12 Manager [employer] Relationship Specialty Start Date End Date Zoë Joel MD [address] [place], [place] [id number] PCP - General 09/11/18 Manager [employer] Relationship Specialty Start Date End Date Zoë Joel MD [address] [place] [address] PCP - General 09/11/18 Manager [employer] Relationship Specialty Start Date End Date Zoë Joel MD [address] [place] [address] PCP - General Family Medicine 04/09/12 Manager [employer] Relationship Specialty Start Date End Date Zoë Joel MD [address] [place] [address] PCP - General 09/11/18 Manager [employer] Relationship Specialty Start Date End Date Zoë Joel MD [address] [place] [address] PCP - General 09/11/18 Manager [employer] Relationship Specialty Start Date End Date Zoë Joel MD [address] [place] [address] PCP - General 09/11/18 Manager [employer] Relationship Specialty Start Date End Date Zoë Joel MD [address] [place] [address] PCP - General 09/11/18 Scheduled Active and [...] hydralazine IV order. lidocaine-EPINEPHrine (Xylocaine W/EPI) 1 %-1:[id number] injection (CANCELED) As needed, Starting on Fri11/04/22 [...] BE BASED ON THE PRIMARY CLINICAL RECORDS. [email or web address] [facility]. provides no warranty or guarantee of the accuracy or completeness of information in this document.
== END 2023-01-18 13:44 | disposition home or self-care (01) | DRG 897 ==
LOC: ED 17:06 → PCU 01-16 00:58
PROVIDERS: Physician Assistant; Admitting Provider Internal Medicine; Emergency Provider Emergency Medicine; PCP Family Medicine; Visit Provider Internal Medicine
DX: F10.229 Alcohol dependence with intoxication, unspecified (principal); F10.239 Alcohol dependence with withdrawal, unspecified; E87.1 Hypo-osmolality and hyponatremia; I10 Essential (primary) hypertension; F32.A Depression, unspecified; F17.210 Nicotine dependence, cigarettes, uncomplicated; Z66 Do not resuscitate; Y90.8 Blood alcohol level of 240 mg/100 ml or more; K21.9 Gastro-esophageal reflux disease without esophagitis; Z79.899 Other long term (current) drug therapy; Z23 Encounter for immunization
CPT/HCPCS: 36415; 71045; 80048; 80053; 80307; 80320; 83735; 84100; 85025; 97802; 99221; 99284; G0008; 90662; A4216; G0378; G0480

== ENCOUNTER 2023-09-22 19:31 | Inpatient (IN) | payer MEDICARE, MEDICAID, SELFPAY ==
[2023-09-22] VITALS (9 sets, daily range): BP systolic 116–158; BP diastolic 70–99; PULSE 83–94; RESP 15–26; TEMP 36.4–36.8; O2SAT 96–100; BMI 23.7; BMI 23.1
--- NOTE | 2023-09-22 19:54 | EDS_ITS ---
HPI History of Present Illness Chief Complaint: Substance Abuse Informant: patient Onset/Context/Timing Onset: Today Context: Gradual Onset Timing: Continuous Worsened by: Nothing Relieved by: Nothing Associated Symptoms Associated Symptoms: Positive for diarrhea*; Negative for vomiting*, fever*, rash*, seizure, tremor, palpatations, change in mental status, suicidal ideation or homicidal ideation Narrative Narrative: Patient presents requesting detox from alcohol. Patient states he drinks 18-24 beers per day. Patient states his last drink was approximately 30 minutes prior to arrival. Patient states he has been through detox multiple times. Patient states his most recent detox was approximately 2 years ago and was here. Patient states he fell recently and hit his head and left ribs. Patient denies any loss of consciousness. Patient denies any seizures or tremors. Patient denies any palpitations. Patient denies any suicidal or homicidal ideations. [facility] Medical History (Updated 09/22/23 @ 20:[address] 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 Smoker Sleep apnea Smoker Sleep apnea Seizures GERD (gastroesophageal reflux disease) Alcohol addiction Alcohol abuse Tobacco dependence Depression HTN (hypertension) Home Medications ?Medication ?Instructions ?Recorded ?Last Taken ?Type lisinopril 10 mg tablet (Zestril) 10 mg PO DAILY HTN 06/22/16 11/16/20 08:00 History albuterol sulfate 90 mcg/actuation 1 - 2 puff inhalation Q4H PRN PRN 01/20/22 Unknown Rx aerosol inhaler (Ventolin HFA) Wheezing #6.7 grams fluoxetine 10 mg capsule 10 mg PO DAILY Depression 01/20/22 Unknown History fluoxetine 20 mg capsule 20 mg PO DAILY 09/22/23 Unknown History Allergy/AdvReac Type Severity Reaction Status Date / Time No Known Allergies Allergy Verified 09/22/23 19:35 Family History Other Dementia Thyroid disorder Surgical History (Updated 09/22/23 @ 20:[address] Blake Washington DO) History of thoracic surgery Social History household members: none housing: apartment Smoking Status: Current every day smoker tobacco type: cigarettes alcohol intake: current alcohol intake frequency: 3 or more drinks per day substance use type: does not use ROS ROS ED Constitutional Constitutional ED: Denies chills or fever(s) Eyes Eyes: Denies blurry vision or change in vision ENT ENT ED: Denies rhinorrhea or sore throat Cardiovascular Cardiovascular: Reports chest pain; Denies palpitations Respiratory/Chest Respiratory/Chest: Denies cough or dyspnea Gastrointestinal Gastrointestinal: Denies nausea or vomiting Genitourinary Genitourinary ED: Denies dysuria or hematuria Musculoskeletal Musculoskeletal: Denies back pain or neck pain Integumentary Denies abscess or rash Neurologic Neurologic: Denies headache(s) or weakness Allergic/Immunologic Allergic/Immunologic ED: Denies mouth swelling or urticaria EXAM Physical Exam Const Vital Signs: 09/22/23 19:33 09/22/23 19:47 09/22/23 19:56 Temperature 98.2 F 97.6 F L Temperature Source Temporal Pulse Rate 94 94 83 Respiratory Rate 16 26 H 20 H Blood Pressure 158/99 H 132/86 H 123/70 H Blood Pressure Mean 118 101 87 Blood Pressure Source Monitor Pulse Ox 98 99 96 Oxygen Delivery Method Room Air Room Air 09/22/23 20:32 09/22/23 21:00 Temperature Temperature Source Pulse Rate 86 85 Respiratory Rate 22 H 16 Blood Pressure 124/78 H 117/84 H Blood Pressure Mean 93 95 Blood Pressure Source Pulse Ox 100 99 Oxygen Delivery Method Room Air Room Air Positive well nourished and well developed General Appearance ED: well developed and NAD HEENT Reports moist mucous membranes Neck supple and no JVD Chest Wall Chest Narrative: There is tenderness over the left lateral ribs. There is no bony crepitance or step-off noted. There is no subcutaneous emphysema noted. There is no edema or ecchymosis noted. Resp normal respiratory effort and clear to auscultation bilaterally Cardio regular rate and regular rhythm GI soft to palpation, non-tender and non-distended Extremity General Extremety ED: Negative for tenderness Neuro oriented x3, CN's II-XII intact bilaterally and no sensory deficits noted Karina Coma Scale: document GCS findings Spontaneous Obeys Commands Oriented 15 Sensorium / Orientation: alert Speech: speech normal Motor Exam: strength 5/5 throughout Psych mental status grossly normal Skin Skin Narrative: There are superficial abrasions over the left periorbital area. There is no active bleeding noted. These appear to be 1 to 2 days old. There is no surrounding erythema or warmth noted. MDM MDM MDM Narrative Medical decision making narrative: Medical screening labs will be obtained. CBC will be obtained to assess for leukocytosis and anemia. Comprehensive metabolic profile will be obtained to assess for hepatic function, renal function, and electrolyte abnormality. Lipase will be obtained to assess for pancreatitis. Urinalysis will be obtained to assess for urinary tract infection and hematuria. Serum alcohol level will be obtained to assess for alcohol intoxication. Urine tox screen will be obtained to assess for substance abuse. CT scan of the brain will be obtained to assess for intracranial bleeding from his recent fall. X-rays of the left ribs will be obtained to assess for left rib fracture and pneumothorax. Lab Data Attestation: I reviewed the patient's lab results. Lab results narrative: CBC was reviewed and was within normal limits. Comprehensive metabolic profile was reviewed. Sodium was slightly low at 128 and chloride was 92. AST was slightly elevated at 106 and ALT was 77. Alkaline phosphatase was normal. Bilirubin was normal. Lipase was reviewed and was within normal limits. Urinalysis was reviewed. There is no evidence of urinary tract infection or hematuria. Urine tox screen was reviewed and was negative. Serum alcohol level was reviewed and was elevated at 241. Labs: Laboratory Results - last 24 hr 09/22/23 09/22/23 19:53 20:31 WBC 9.2 RBC 3.94 L Hgb 13.3 Hct 37.1 L MCV 94.2 H MCH 33.8 H MCHC 35.8 RDW Std Deviation 49.7 H RDW Coeff of Hortencia 14.3 Plt Count 220 MPV 8.6 Immature Gran % (Auto) 0.300 Neut % (Auto) 64.4 Lymph % (Auto) 26.4 Howell % (Auto) 7.2 Eos % (Auto) 1.3 Baso % (Auto) 0.4 Absolute Neuts (auto) 5.9 Absolute Lymphs (auto) 2.42 Nucleated RBC % 0 Sodium 128 L Potassium 3.8 Chloride 92 L Carbon Dioxide 27.0 Anion Gap 9 BUN 5 L Creatinine 0.83 Estim Creat Clear Calc 79.00 Est GFR (MDRD) Af Amer 119 Est GFR (MDRD) Non-Af 98 BUN/Creatinine Ratio 6.0 L Glucose 87 Calcium 8.8 Total Bilirubin 0.80 AST 106 H ALT 77 H Alkaline Phosphatase 51 Total Protein 7.7 Albumin 3.4 Globulin 4.3 H Albumin/Globulin Ratio 0.8 L Lipase 70 Urine Color Yellow Urine Clarity Clear Urine pH 7.0 Ur Specific [place] 1.005 Urine Protein Negative Urine Glucose (UA) Normal Urine Ketones Negative Urine Occult Blood Negative Urine Nitrite Negative Urine Bilirubin Negative Urine Urobilinogen Normal Ur Leukocyte Esterase Negative Urine RBC 0 SEEN Urine WBC 0 SEEN Ur Squamous Epith Cells 0 SEEN Urine Bacteria 0 SEEN Urine Mucus 0 SEEN Urine Opiates Screen NEGATIVE Urine Methadone Screen NEGATIVE Ur Barbiturates Screen NEGATIVE Ur Phencyclidine Scrn NEGATIVE Ur Amphetamines Screen NEGATIVE MDMA (Ecstasy) Screen NEGATIVE U Benzodiazepines Scrn NEGATIVE Urine Cocaine Screen NEGATIVE U Cannabinoids Screen NEGATIVE Ur Drug Screen Comment Ethyl Alcohol 241.0 Radiography Diagnostic Testing: Clinical Impression(s) from Imaging Studies Brain CT 09/22/23 20:23 IMPRESSION: Mild mucosal thickening in the paranasal sinuses. Correlate for associated symptoms. Otherwise, no acute pathology. Electronically Signed: Sanjay Abdullahi ShawneeedieDO sam at 21:04 EDT , Ribs w/Chest X-Ray 09/22/23 21:00 IMPRESSION: Possible nondisplaced fracture of the left eighth anterior rib. Correlate for location of pain. No additional acute findings. Electronically Signed: Sanjay RiddleJohan Washington DO at 21:28 EDT , CT scan of the brain was obtained. There is no acute intracranial abnormality. This was interpreted by the radiologist and was also independently reviewed by myself. X-rays of the left ribs were obtained. There are 5 views. On my independent interpretation, there is no acute fracture. There is no pneumothorax. Radiologist also interpreted the x-rays and noted a possible nondisplaced fracture of the left eighth anterior rib. He agrees that there is no pneumothorax. Treatment and Re-Evaluation Narrative: Patient was given a nicotine patch. Case was discussed with the hospitalist. He will admit the patient to his service. Patient understood and was agreeable with the plan. All questions were answered. Discharge Plan Dx/Rx/DC Orders Clinical Impression: Alcohol withdrawal, Closed head injury, Chest wall contusion Disposition Disposition: Acute Care Hospital [facility]
--- NOTE | 2023-09-22 20:23 | CT_ITS ---
EXAM: CT HEAD WITHOUT INTRAVENOUS CONTRAST CLINICAL INDICATION: Head injury pain. TECHNIQUE: Multiple axial images were obtained of the head without intravenous contrast. This CT exam was performed using one or more of the following dose reduction techniques: automated exposure control, adjustment of the mA and/or kV according to patient size, and/or use of iterative reconstruction technique. COMPARISON: No relevant prior studies available. FINDINGS: BRAIN AND EXTRA-AXIAL SPACES: No significant abnormality. No intra- or extra-axial hemorrhage. No evidence of acute infarct. No intracranial mass or mass effect. There is preservation of the colmenares/white matter interface. Ventricles are appropriate for age. Basal cisterns are patent. BONES/JOINTS: No significant abnormality. No discrete lytic or blastic abnormalities. SINUSES: Mild mucosal thickening in the paranasal sinuses. MASTOID AIR CELLS: No significant effusion. ORBITS: No acute findings. CT/Brain/Head without Contrast IMPRESSION: Mild mucosal thickening in the paranasal sinuses. Correlate for associated symptoms. Otherwise, no acute pathology. Electronically Signed: Sanjay Washington DO at 21:04 EDT ,
[2023-09-22 20:42] LABS: Absolute Lymphocyte Count 2.42 X10^3/uL (0.83-4.51); Absolute Neutrophil Count 5.9 X10^3/uL (2.0-7.7); Basophil# 0.04 X10^3/uL; Basophil% 0.4 % (0-1); Eosinophil# 0.12 X10^3/uL; Eosinophils% 1.3 % (0-5); Hematocrit 37.1 % (40-54); Hemoglobin 13.3 g/dL (13.0-16.5); Lymphocyte # 2.42 X10^3/ul (0.83-4.51); Lymphocyte % 26.4 % (19-41); Mean Corp Hgb Conc 35.8 g/dL (32-36); Mean Corpuscular Hgb 33.8 pg (27.0-32.0); Mean Corpuscular Volume 94.2 fL (80-94); Mean Platelet Vol. 8.6 fl (6.2-12.0); Monocyte# 0.66 X10^3/uL; Monocyte% 7.2 % (0-10); NRBC Flagged by Analyzer 0 % (0-5); Neutrophil # 5.88 X10^3/uL (2.7-7.7); Neutrophil % 64.4 % (47-70); Platelet Count 220 K/mm3 (150-450); RBC Distribution Width CV 14.3 % (11.6-14.6); RBC Distribution Width SD 49.7 fl (35.1-43.9); Red Blood Count 3.94 M/mm3 (4.6-6.2); White Blood Count 9.2 K/mm3 (4.4-11.0)
[2023-09-22 20:51] LABS: Bacteria 0 SEEN /hpf (None Seen); Mucous, Urine 0 SEEN /hpf (<or=2+); Red Blood Cells-Urine 0 SEEN /hpf (0-5); Squamous Epithelial Cells - UA 0 SEEN /hpf (0-5); White Blood Cells 0 SEEN /hpf (0-5)
[2023-09-22 20:59] LABS: ALB/GLOB Ratio 0.8 RATIO (0.9-2.4); AST(SGOT) 106 U/L (15-37); Alanine Aminotransfer ALT/SGPT 77 U/L (16-61); Albumin, Serum 3.4 g/dL (3.2-5.0); Alkaline Phosphatase 51 U/L (45-117); Anion Gap 9 (5-15); BUN 5 mg/dL (7-18); Calcium,Total 8.8 mg/dL (8.5-10.1); Chloride 92 mmol/L (98-107); Creatinine, Serum 0.83 mg/dL (0.70-1.30); EST Glomerular Filtration Rate 98 mL/min (>60); Est Glom Filt Rate - Afr Amer 119 mL/min (>60); Globulin 4.3 g/dL (2.2-4.2); Glucose 87 mg/dL (74-106); Lipase 70 U/L (13-75); Potassium 3.8 mmol/L (3.5-5.1); Protein, Total 7.7 g/dL (6.4-8.2); Sodium Level 128 mmol/L (136-145)
--- NOTE | 2023-09-22 21:00 | RAD_ITS ---
EXAM: XR LEFT RIBS AND AP CHEST, 3 OR MORE VIEWS CLINICAL INDICATION: Fall pain. TECHNIQUE: Frontal and oblique views of the left ribs and frontal view of the chest. COMPARISON: Chest radiograph, 01/15/2023. FINDINGS: LUNGS AND PLEURAL SPACES: No significant abnormality. No consolidation or edema. No pneumothorax. No effusion. HEART: No significant abnormality. Cardiac silhouette not enlarged. MEDIASTINUM: Central airways and mediastinal contour are unremarkable. BONES/JOINTS: Possible nondisplaced fracture of the left eighth anterior rib. Degenerative changes in the spine. Postoperative changes of the left shoulder. TUBES, LINES AND DEVICES: Right-sided neural stimulator. RAD/Ribs Uni Min 3V w/PA Chest IMPRESSION: Possible nondisplaced fracture of the left eighth anterior rib. Correlate for location of pain. No additional acute findings. Electronically Signed: Sanjay Washington DO at 21:28 EDT ,
[2023-09-22 21:14] LABS: Amphetamine Urine VISTA NEGATIVE (<1000 ng/mL); Barbiturate Urine VISTA NEGATIVE (< 200 ng/mL); Benzodiazepine Urine VISTA NEGATIVE (< 200 ng/mL); Cocaine Urine VISTA NEGATIVE (< 300 ng/mL); Ecstacy Urine VISTA NEGATIVE (< 500 ng/mL); Methadone Urine VISTA NEGATIVE (< 300 ng/mL); PCP Urine VISTA NEGATIVE (< 25 ng/mL); THC Urine VISTA NEGATIVE (< 50 ng/mL); Vista UDS pH Range 6
[2023-09-22 21:16] LABS: Color, Urine Yellow (Yellow); Glucose, Dipstick Normal (Normal); Ketone-Dipstick Negative (Negative); Leukocyte Esterase-Dipstick Negative /ul (Negative); Nitrite-Dipstick Negative (Negative); Occult Blood-Urine Negative /ul (Negative); Protein-Dipstick Negative (Negative); Specific Gravity, Urine 1.005 (1.002-1.030); Urine Bilirubin Dipstick Negative (Negative); Urine Clarity Clear (Clear); Urine Urobilinogen Normal (Normal)
--- NOTE | 2023-09-22 22:13 | HP.PCM_ITS ---
[facility] - General General Date of Admission: 09/22/23 Date of Service: 09/22/23 Chief Complaint: Alcohol withdrawal HPI Narrative WOODROW GIBBONS, is a 68 M who presents to the emergency room requesting alcohol withdrawal support. Patient has a long history of alcoholism greater than 50 years drinking 18-24 beers daily routinely. Patient tells me he drank about 9 beers earlier today but wants to stop drinking. He had a fall injuring his head and left rib cage area today. X-ray was positive for fracture of the eighth rib laterally and CT scan of the head was negative. Patient does complain of high anxiety levels and shakiness and knows he needs support to go through withdrawal. He will be admitted to the general medical floor and placed on the CIWA protocol. [facility] Medical History (Updated 09/22/23 @ 20:[address] 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 Smoker Sleep apnea Smoker Sleep apnea Seizures GERD (gastroesophageal reflux disease) Alcohol addiction Alcohol abuse Tobacco dependence Depression HTN (hypertension) Home Medications ?Medication ?Instructions ?Recorded ?Last Taken ?Type lisinopril 10 mg tablet (Zestril) 10 mg PO DAILY HTN 06/22/16 11/16/20 08:00 History albuterol sulfate 90 mcg/actuation 1 - 2 puff inhalation Q4H PRN PRN 01/20/22 Unknown Rx aerosol inhaler (Ventolin HFA) Wheezing #6.7 grams fluoxetine 10 mg capsule 10 mg PO DAILY Depression 01/20/22 Unknown History fluoxetine 20 mg capsule 20 mg PO DAILY 09/22/23 Unknown History Allergy/AdvReac Type Severity Reaction Status Date / Time No Known Allergies Allergy Verified 09/22/23 19:35 Family History Other Dementia Thyroid disorder Surgical History (Updated 09/22/23 @ 20:[address] Woodrow Washington DO) History of thoracic surgery Social History household members: none housing: apartment Smoking Status: Current every day smoker tobacco type: cigarettes alcohol intake: current alcohol intake frequency: 3 or more drinks per day substance use type: does not use ROS Constitutional Constitutional: Denies chills or fever(s) Eyes Eyes: Denies blurry vision ENT HEENT: Denies abnormal hearing Cardiovascular Cardiovascular: Reports chest pain Respiratory/Chest Respiratory/Chest: Denies shortness of breath at rest Gastrointestinal Gastrointestinal: Denies abdominal pain Genitourinary Genitourinary: Denies dysuria Musculoskeletal Musculoskeletal: Denies back pain Integumentary Integumentary: Denies dry skin Neurologic Neurologic: Reports tremor(s); Denies abnormal speech or confusion Psychiatric Psychiatric: Reports anxiety Vital Signs Vital Signs Vital Signs: 09/22/23 19:33 09/22/23 19:47 09/22/23 19:56 Temperature 98.2 F 97.6 F L Temperature Source Temporal Pulse Rate 94 94 83 Respiratory Rate 16 26 H 20 H Blood Pressure 158/99 H 132/86 H 123/70 H Blood Pressure Mean 118 101 87 Blood Pressure Source Monitor Pulse Ox 98 99 96 Oxygen Delivery Method Room Air Room Air 09/22/23 20:32 09/22/23 21:00 09/22/23 22:00 Temperature Temperature Source Pulse Rate 86 85 84 Respiratory Rate 22 H 16 16 Blood Pressure 124/78 H 117/84 H 142/78 H Blood Pressure Mean 93 95 99 Blood Pressure Source Pulse Ox 100 99 97 Oxygen Delivery Method Room Air Room Air Room Air Weight Weight: 147 lb Body Mass Index (BMI) 23.7 Physical Exam Const oriented x3 Constitutional Narrative: left lateral 8th rib tender General Appearance: cooperative HEENT normocephalic Eyes PERRL and EOMs intact bilaterally Neck no lymphadenopathy Lymph Lymphatic: no lymphadenopathy noted Resp normal respiratory effort, normal air movement and clear to auscultation bilaterally Cardio regular rate, regular rhythm, S1 normal heart sound, S2 normal heart sound and no murmurs GI normal to inspection, nondistended, normoactive bowel sounds Extremity no clubbing, cyanosis or edema Skin General Skin Exam: no breakdown Neuro no focal motor deficits and no sensory deficits noted Psych Attitude: agitated Mood & Affect: anxious Results Lab / Micro Data 09/22/23 20:31 09/22/23 20:31 Labs: Laboratory Results - last 24 hr 09/22/23 19:53: Urine Color Yellow, Urine Clarity Clear, Urine pH 7.0, Ur Specific Ary 1.005, Urine Protein Negative, Urine Glucose (UA) Normal, Urine Ketones Negative, Urine Occult Blood Negative, Urine Nitrite Negative, Urine Bilirubin Negative, Urine Urobilinogen Normal, Ur Leukocyte Esterase Negative, Urine RBC 0 SEEN, Urine WBC 0 SEEN, Ur Squamous Epith Cells 0 SEEN, Urine Bacteria 0 SEEN, Urine Mucus 0 SEEN, Urine Opiates Screen NEGATIVE, Urine Methadone Screen NEGATIVE, Ur Barbiturates Screen NEGATIVE, Ur Phencyclidine Scrn NEGATIVE, Ur Amphetamines Screen NEGATIVE, MDMA (Ecstasy) Screen NEGATIVE, U Benzodiazepines Scrn NEGATIVE, Urine Cocaine Screen NEGATIVE, U Cannabinoids Screen NEGATIVE, Ur Drug Screen Comment 09/22/23 20:31: WBC 9.2, RBC 3.94 L, Hgb 13.3, Hct 37.1 L, MCV 94.2 H, MCH 33.8 H, MCHC 35.8, RDW Std Deviation 49.7 H, RDW Coeff of Hortencia 14.3, Plt Count 220, MPV 8.6, Immature Gran % (Auto) 0.300, Neut % (Auto) 64.4, Lymph % (Auto) 26.4, Dickinson % (Auto) 7.2, Eos % (Auto) 1.3, Baso % (Auto) 0.4, Absolute Neuts (auto) 5.9, Absolute Lymphs (auto) 2.42, Nucleated RBC % 0, Sodium 128 L, Potassium 3.8, Chloride 92 L, Carbon Dioxide 27.0, Anion Gap 9, BUN 5 L, Creatinine 0.83, Estim Creat Clear Calc 79.00, Est GFR (MDRD) Af Amer 119, Est GFR (MDRD) Non-Af 98, BUN/Creatinine Ratio 6.0 L, Glucose 87, Calcium 8.8, Total Bilirubin 0.80, A ST 106 H, ALT 77 H, Alkaline Phosphatase 51, Total Protein 7.7, Albumin 3.4, G lobulin 4.3 H, Albumin/Globulin Ratio 0.8 L, Lipase 70, Ethyl Alcohol 241.0 Imaging Radiology Impression Brain CT 09/22/23 20:23 IMPRESSION: Mild mucosal thickening in the paranasal sinuses. Correlate for associated symptoms. Otherwise, no acute pathology. Electronically Signed: Sanjay Washington DO at 21:04 EDT , Ribs w/Chest X-Ray 09/22/23 21:00 IMPRESSION: Possible nondisplaced fracture of the left eighth anterior rib. Correlate for location of pain. No additional acute findings. Electronically Signed: Sanjay Washington DO at 21:28 EDT , Assessment & Plan Assessment/Plan (1) Chest wall contusion: (2) Closed head injury: (3) Alcohol withdrawal: PLAN: Plan 1 chronic alcoholism requesting alcohol withdrawal support?admit patient to general medical floor, place patient on CIWA protocol, consult case management for discharge planning and additional support with alcohol addiction 2. Closed head injury?negative for fracture or other findings on CT 3. Chest wall contusion with eighth rib fracture on x-ray will monitor as patient will be already on benzodiazepine medication for active withdrawal support which also acts as a muscle relaxer and will help with rib discomfort 4. DVT prophylaxis?patient is ambulatory and low risk at this time Charges/Coding Visit Charges Inpatient E&M: 31639 Init Hosp L2
[2023-09-22] MEDS: LORazepam 1 MG Tablet 2 MG PO (23:04)
[2023-09-23] VITALS (8 sets, daily range): BP systolic 105–141; BP diastolic 69–97; PULSE 80–105; RESP 15–18; TEMP 36.5–37.2; O2SAT 93–96
[2023-09-23] MEDS: LORazepam 1 MG Tablet 2 MG PO (04:41)
--- NOTE | 2023-09-23 07:15 | PN.HOSP_ITS ---
Reason for Visit Reason for Visit: Diagnoses Alcohol use, unspecified with withdrawal, unspecified (09/22/23) Unspecified injury of head, initial encounter (09/22/23) Contusion of unspecified front wall of thorax, initial encounter (09/22/23) Subjective Subjective Feels weak. No new complaints. Objective Data Objective Data Vital Signs: Vital Signs Temp Pulse Resp BP Pulse Ox O2 Del Method 37.2 C 91 16 120/78 94 Room Air 09/23/23 04:37 09/23/23 04:37 09/23/23 04:37 09/23/23 04:37 09/23/23 04:37 09/23/23 04:37 Oxygen Delivery Method Room Air Weight: 65 kg Body Mass Index (BMI) 23.1 Intake & Output: Intake and Output for Last 24 Hours 09/21/23 09/22/23 09/23/23 23:59 23:59 23:59 Intake Total 200 / 200 Balance 200 / 200 Lab / Micro Data 09/22/23 20:31 09/22/23 20:31 Labs: Laboratory Results - last 24 hr 09/22/23 19:53: Urine Color Yellow, Urine Clarity Clear, Urine pH 7.0, Ur Specific Walton 1.005, Urine Protein Negative, Urine Glucose (UA) Normal, Urine Ketones Negative, Urine Occult Blood Negative, Urine Nitrite Negative, Urine Bilirubin Negative, Urine Urobilinogen Normal, Ur Leukocyte Esterase Negative, Urine RBC 0 SEEN, Urine WBC 0 SEEN, Ur Squamous Epith Cells 0 SEEN, Urine Bacteria 0 SEEN, Urine Mucus 0 SEEN, Urine Opiates Screen NEGATIVE, Urine Methadone Screen NEGATIVE, Ur Barbiturates Screen NEGATIVE, Ur Phencyclidine Scrn NEGATIVE, Ur Amphetamines Screen NEGATIVE, MDMA (Ecstasy) Screen NEGATIVE, U Benzodiazepines Scrn NEGATIVE, Urine Cocaine Screen NEGATIVE, U Cannabinoids Screen NEGATIVE, Ur Drug Screen Comment 09/22/23 20:31: WBC 9.2, RBC 3.94 L, Hgb 13.3, Hct 37.1 L, MCV 94.2 H, MCH 33.8 H, MCHC 35.8, RDW Std Deviation 49.7 H, RDW Coeff of Hortencia 14.3, Plt Count 220, MPV 8.6, Immature Gran % (Auto) 0.300, Neut % (Auto) 64.4, Lymph % (Auto) 26.4, Esmeralda % (Auto) 7.2, Eos % (Auto) 1.3, Baso % (Auto) 0.4, Absolute Neuts (auto) 5.9, Absolute Lymphs (auto) 2.42, Nucleated RBC % 0, Sodium 128 L, Potassium 3.8, Chloride 92 L, Carbon Dioxide 27.0, Anion Gap 9, BUN 5 L, Creatinine 0.83, Estim Creat Clear Calc 79.00, Est GFR (MDRD) Af Amer 119, Est GFR (MDRD) Non-Af 98, BUN/Creatinine Ratio 6.0 L, Glucose 87, Calcium 8.8, Total Bilirubin 0.80, A ST 106 H, ALT 77 H, Alkaline Phosphatase 51, Total Protein 7.7, Albumin 3.4, G lobulin 4.3 H, Albumin/Globulin Ratio 0.8 L, Lipase 70, Ethyl Alcohol 241.0 Radiography Diagnostic Testing: Radiology Impression Brain CT 09/22/23 20:23 IMPRESSION: Mild mucosal thickening in the paranasal sinuses. Correlate for associated symptoms. Otherwise, no acute pathology. Electronically Signed: Sanjay Washington DO at 21:04 EDT , Ribs w/Chest X-Ray 09/22/23 21:00 IMPRESSION: Possible nondisplaced fracture of the left eighth anterior rib. Correlate for location of pain. No additional acute findings. Electronically Signed: Sanjay Washington DO at 21:28 EDT , Physical Exam Const alert and no apparent distress HEENT head/scalp atraumatic and moist oral mucous membranes Resp normal respiratory effort, no retractions, no use of accessory muscles and clear to auscultation bilaterally Cardio regular rate, regular rhythm, S1 normal heart sound and S2 normal heart sound GI normal to inspection, nondistended, normoactive bowel sounds, soft to palpation, non-tender and non-distended Extremity normal to inspection and full ROM Neuro Sensorium / Orientation: awake and alert Assessment & Plan Assessment/Plan (1) Chest wall contusion: (2) Closed head injury: (3) Alcohol withdrawal: PLAN: Plan Alcohol withdrawal * chronic alcoholism * thiamine and folate * change lorazepam to phenobarbital * [employer] to see and address outpt mgmt. Fall * likely from intoxication * sustained 8th rib fxr. * head CT negative. VTE prophylaxis: low risk. Charges/Coding Visit Charges Inpatient E&M: 02897 Subs Hosp L1
[2023-09-23] MEDS: Phenobarbital 32.4 MG Tablet 64.8 MG PO ×4 (08:31→20:30)
[2023-09-23] MEDS: Folic Acid 1 MG Tablet PO (08:31)
[2023-09-23] MEDS: Thiamine Hydrochloride 100 MG Tablet PO (08:31)
[2023-09-23] MEDS: FLUoxetine 10 MG Capsule 30 MG PO (10:31)
[2023-09-23] MEDS: Lisinopril 10 MG Tablet PO (10:31)
[2023-09-23] MEDS: Ketorolac 30 MG/ML Syringe IV (11:28)
[2023-09-23] MEDS: Guaifenesin/Codeine 5 ML WCH UDC PO ×2 (11:29→20:30)
[2023-09-23] MEDS: 0.9% Saline Lock 10 ML Syringe IV (11:29)
--- NOTE | 2023-09-23 12:42 | ADDICTION ---
Met with Pt to complete RAMP assessments. Pt identifies his alcohol dependence. TW and Pt will go over his d/c planning tomorrow when pt is more alert.
[2023-09-23] MEDS: Acetaminophen 500 MG Tablet 1000 MG PO ×2 (12:54→21:05)
[2023-09-23] MEDS: hydrOXYzine PAM 25 MG Capsule 50 MG PO (20:30)
[2023-09-23] MEDS: traZODone 100 MG Tablet PO (20:30)
[2023-09-24] VITALS (7 sets, daily range): BP systolic 101–142; BP diastolic 65–82; PULSE 75–88; RESP 16–18; TEMP 36.5–36.7; O2SAT 94–98
[2023-09-24] MEDS: Phenobarbital 32.4 MG Tablet 64.8 MG PO ×6 (00:32→19:53)
[2023-09-24] MEDS: Acetaminophen 500 MG Tablet 1000 MG PO ×3 (05:19→21:14)
--- NOTE | 2023-09-24 07:41 | PN.HOSP_ITS ---
Reason for Visit Reason for Visit: Diagnoses Alcohol use, unspecified with withdrawal, unspecified (09/23/23) Unspecified injury of head, initial encounter (09/23/23) Contusion of unspecified front wall of thorax, initial encounter (09/23/23) Subjective Subjective Feels well. Non-toxic. Objective Data Objective Data Vital Signs: Vital Signs Temp Pulse Resp BP Pulse Ox O2 Del Method FiO2 36.6 C 84 16 106/68 94 Room Air 92 09/24/23 04:00 09/24/23 04:00 09/24/23 04:00 09/24/23 04:00 09/24/23 04:00 09/24/23 04:00 09/23/23 16:56 Oxygen Delivery Method Room Air Weight: 65 kg Body Mass Index (BMI) 23.1 Intake & Output: Intake and Output for Last 24 Hours 09/22/23 09/23/23 09/24/23 23:59 23:59 23:59 Intake Total 1200 / 1200 Balance 1200 / 1200 Lab / Micro Data 09/22/23 20:31 09/22/23 20:31 Labs: Laboratory Results - last 24 hr 09/23/23 08:53: Phenobarbital Cancelled Physical Exam Const alert and no apparent distress HEENT head/scalp atraumatic and moist oral mucous membranes Assessment & Plan Assessment/Plan (1) Chest wall contusion: (2) Closed head injury: (3) Alcohol withdrawal: PLAN: Plan Alcohol withdrawal * chronic alcoholism * thiamine and folate * phenobarbital taper * [employer] saw. Pt plans to follow up with AA and may consider outpt therapy, but cannot commit at this time as he has to take care of his sister. Fall * likely from intoxication * sustained 8th rib fxr. * head CT negative. VTE prophylaxis: low risk. Charges/Coding Visit Charges Inpatient E&M: 37700 Subs Hosp L1
[2023-09-24] MEDS: Folic Acid 1 MG Tablet PO (07:53)
[2023-09-24] MEDS: Thiamine Hydrochloride 100 MG Tablet PO (07:53)
[2023-09-24] MEDS: FLUoxetine 10 MG Capsule 30 MG PO (07:53)
--- NOTE | 2023-09-24 10:25 | ADDICTION ---
Met w/pt to discuss d/c planning. Pt reports that he plans to follow up with AA meetings and possibly outpatient tx. He reports that he has to take care of his sister and cannot attend any extensive tx.
[2023-09-24] MEDS: Nicotine Polacrilex 2 MG GUM PO (21:13)
[2023-09-24] MEDS: Guaifenesin/Codeine 5 ML WCH UDC PO (21:23)
[2023-09-25] MEDS: Phenobarbital 32.4 MG Tablet 64.8 MG PO ×4 (00:19→13:35)
[2023-09-25 00:21] VITALS: BP 147/77; PULSE 80; RESP 16; TEMP 36.4; O2SAT 99
[2023-09-25] MEDS: Acetaminophen 500 MG Tablet 1000 MG PO ×2 (04:59→13:36)
[2023-09-25 05:00] VITALS: BP 143/87; PULSE 72; RESP 16; TEMP 36.4; O2SAT 96
[2023-09-25] MEDS: Lisinopril 10 MG Tablet PO (09:59)
[2023-09-25] MEDS: FLUoxetine 10 MG Capsule 30 MG PO (09:59)
[2023-09-25] MEDS: Folic Acid 1 MG Tablet PO (09:59)
[2023-09-25] MEDS: Nicotine Polacrilex 2 MG GUM PO (10:00)
[2023-09-25] MEDS: Thiamine Hydrochloride 100 MG Tablet PO (10:00)
--- NOTE | 2023-09-25 10:13 | DS.PCM_ITS ---
Providers Date of Admission: 09/23/23 Primary Care Physician: Dr. Renan Joel MD Reason For Visit: ALCOHOL WITHDRAWAL Diagnosis Discharge Diagnosis (1) Chest wall contusion: Status: Acute Code(s): S20.219A - Contusion of unspecified front wall of thorax, initial encounter (2) Closed head injury: Status: Acute Code(s): S09.90XA - Unspecified injury of head, initial encounter (3) Alcohol withdrawal: Status: Acute Code(s): F10.939 - Alcohol use, unspecified with withdrawal, unspecified Plan Alcohol withdrawal * chronic alcoholism * thiamine and folate * phenobarbital taper * [employer] saw. Pt plans to follow up with AA and may consider outpt therapy, but cannot commit at this time as he has to take care of his sister. Fall * likely from intoxication * sustained 8th rib fxr. * head CT negative. VTE prophylaxis: low risk. Medications at Discharge Home Medications lisinopril 10 mg tablet (Zestril) 10 mg PO DAILY HTN 06/22/16 albuterol sulfate 90 mcg/actuation aerosol inhaler (Ventolin HFA) 1 - 2 puff inhalation Q4H PRN PRN Wheezing #6.7 grams 01/20/22 fluoxetine 10 mg capsule 10 mg PO DAILY Depression 01/20/22 fluoxetine 20 mg capsule 20 mg PO DAILY depression 09/22/23 multivitamin 1 tab PO DAILY #30 tabs 09/25/23 Hospital Course Operations None Procedures None Summary of Care Provided Minutes Spent on Discharge: 28 Hospital Course: Patient fell and sustained a rib fracture. He was intoxicated. Patient then decided he wanted to get sober. Patient previously been sober but had resumed drinking at about 4 years ago. Previously had been involved actively in AA. Patient with history started on lorazepam but switched over to phenobarbital. His course was uncomplicated. Patient was seen by addiction medicine but the patient would wish to continue to follow-up with AA. Patient has recent moved up here to floor to help take care of his sister. Physical Exam Const alert and no apparent distress General Appearance: cooperative and comfortable Weight / BMI Weight Weight: 65 kg Body Mass Index (BMI) 23.1 ABG / Lab / Microbiology Data 09/22/23 20:31 09/22/23 20:31 D/C Instructions Discharge Diet: No restrictions Meaningful Use Info Meaningful Use Meaningful Use Diagnoses (Choose all that apply): None applicable Ischemic Stroke Statin Dosing Therapy Reference: STATIN DOSE THERAPY REFERENCE: * Patients > 75 years receive moderate or high dose statin therapy. * Patients 75 years or YOUNGER should receive HIGH intensity statin dose unless contraindicated. You will be required to document reason for non-treatment if statin daily dose does not meet guidelines. HIGH DOSE STATIN THERAPY DAILY Atorvastatin > than or = to 40 mg Rosuvastatin > than or = to 20 mg Amlodipine + Atorvastatin > than or = to 2.5/40 mg Ezetimibe + Simvastatin 10/80 mg Simvastatin 80mg Discharge Plan Admission Admit Date/Time: 09/23/23 11:46 Primary Reason for Your Visit: Alcohol withdrawal Attending Provider: Blake Friedman Primary Care Provider: Renan Joel Consulting Providers: Curt lA Instructions Additional Instructions / Restrictions: Please follow-up with alcoholic Anonymous Discharge Orders/Prescriptions Prescriptions: New multivitamin Tablet 1 tab PO DAILY Qty: 30 0RF Continued lisinopril [Zestril] 10 MG tablet 10 mg PO DAILY fluoxetine 10 mg capsule 10 mg PO DAILY Patient Comments: Take 1 capsule by mouth once daily. In addition to 20 mg a day. albuterol sulfate [Ventolin HFA] 90 mcg/actuation HFA aerosol inhaler 1 - 2 puff inhalation Q4H PRN PRN (Reason: Wheezing) Qty: 6.7 0RF fluoxetine 20 mg capsule 20 mg PO DAILY Referrals / Follow Up: Renan Joel MD [Primary Care Provider] - Disposition Disposition (needs filled in before D/C Order can be placed): Home, Self Care
[2023-09-25 11:00] VITALS: BP 122/88; PULSE 70; RESP 12; TEMP 36.9; O2SAT 98
== END 2023-09-25 13:53 | disposition home or self-care (01) | DRG 897 ==
LOC: ED 21:13 → MS3 22:13
PROVIDERS: Admitting Provider Family Medicine; Emergency Provider Emergency Medicine; PCP Family Medicine
DX: F10.239 Alcohol dependence with withdrawal, unspecified (principal); S22.32XA Fracture of one rib, left side, initial encounter for closed fracture; F17.210 Nicotine dependence, cigarettes, uncomplicated; I10 Essential (primary) hypertension; S00.212A Abrasion of left eyelid and periocular area, initial encounter; W19.XXXA Unspecified fall, initial encounter; Y90.8 Blood alcohol level of 240 mg/100 ml or more; Z79.899 Other long term (current) drug therapy
CPT/HCPCS: 70450; 71101; 80053; 80307; 81001; 82077; 83690; 85025; 99284; A4216

== ENCOUNTER 2023-10-24 17:00 | Inpatient (IN) | payer MEDICARE, MEDICAID, SELFPAY ==
[2023-10-24 17:01] VITALS: BP 123/78; BP 131/80; PULSE 84; PULSE 95; RESP 14; RESP 16; TEMP 35.6; TEMP 36.7; O2SAT 97; BMI 23.6
--- NOTE | 2023-10-24 18:14 | EX.ED.DYSGE1 ---
HPI History of Present Illness Chief Complaint: ETOH Intox Informant: patient Narrative Narrative: Presents requesting alcohol detox. He drinks 8, 16 ounce beers a day. He has had 8 total today last drink 2 hours ago. He wakes up with morning tremors. He is alcohol withdrawal seizures years ago. Denies recreational drug use. Denies history of cirrhosis. Denies abdominal pain. Note he was admitted last month, he states was given phenobarbital however he states he was not weaned down. He went home and had the cravings started drinking again. Denies suicidal homicidal ideations. Prior similar symptoms: Yes [facility] Medical History (Updated 10/24/23 @ 22:[address] 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 Smoker Sleep apnea Smoker Sleep apnea Seizures GERD (gastroesophageal reflux disease) Alcohol addiction Alcohol abuse Tobacco dependence Depression HTN (hypertension) Home Medications ?Medication ?Instructions ?Recorded ?Last Taken ?Type lisinopril 10 mg tablet (Zestril) 10 mg PO DAILY HTN 06/22/16 10/23/23 History fluoxetine 10 mg capsule 10 mg PO DAILY Depression 01/20/22 10/23/23 History fluoxetine 20 mg capsule 20 mg PO DAILY depression 09/22/23 10/23/23 History multivitamin 1 tab PO DAILY #30 tabs 09/25/23 Unknown Rx bupropion HCl 150 mg tablet,12 hr 150 mg PO BID 10/24/23 Unknown History sustained-release sildenafil 100 mg tablet 100 mg PO PRN PRN erectile 10/24/23 Unknown History dysfunction Allergy/AdvReac Type Severity Reaction Status Date / Time No Known Allergies Allergy Verified 10/24/23 17:01 Family History Other Dementia Thyroid disorder Surgical History History of thoracic surgery Social History household members: none housing: apartment Smoking Status: Current every day smoker tobacco type: cigarettes alcohol intake: current alcohol intake frequency: 3 or more drinks per day substance use type: does not use ROS ROS ED Constitutional Constitutional ED: Denies chills, fever(s) or sweats Eyes Eyes: Denies change in vision ENT ENT ED: Denies dysphagia or sore throat Cardiovascular Cardiovascular: Denies chest pain, leg edema, palpitations or racing heartbeat Respiratory/Chest Respiratory/Chest: Denies cough, dyspnea or dyspnea on exertion Gastrointestinal Gastrointestinal: Denies abdominal pain, diarrhea, nausea or vomiting Genitourinary Genitourinary ED: Denies dysuria, hematuria or urinary frequency Musculoskeletal Musculoskeletal: Denies back pain, extremity pain or neck pain Integumentary Denies rash or wounds Neurologic Neurologic: Denies headache(s), paresthesias or weakness EXAM Physical Exam Const Vital Signs: 10/24/23 17:01 10/24/23 17:01 Temperature 96.1 F L 98.0 F Temperature Source Temporal Oral Pulse Rate 95 84 Respiratory Rate 14 16 Blood Pressure 131/80 H 123/78 H Blood Pressure Mean 97 93 Blood Pressure Source Monitor Blood Pressure Location Right Arm Pulse Ox 97 97 Oxygen Delivery Method Room Air Room Air Positive well nourished and well developed Constitutional Narrative: Cooperative, answering questions appropriately. Nontoxic. General Appearance ED: well developed and NAD HEENT Reports moist mucous membranes normocephalic and atraumatic Eyes EOMs intact bilaterally and conjunctivae normal General Eye ED: Yes normal appearance of both eyes Neck no lymphadenopathy and supple General: Negative for tenderness Chest Wall Chest: Negative for tenderness Resp normal respiratory effort and normal air movement Effort and Inspection: symmetric chest movement; Negative for respiratory distress Cardio regular rate, regular rhythm and no murmurs Peripheral Pulses: pulses 2+ throughout GI normal to inspection, nondistended, normoactive bowel sounds and non-tender Palpation: Negative for guarding or rebound tenderness present Back/Spine no CVA tenderness and no thoracic nor lumbar tenderness Extremity normal to inspection General Extremety ED: Negative for edema or tenderness General Extremity: Negative for edema Neuro oriented x3 and no sensory deficits noted Sensorium / Orientation: awake and alert Skin no rashes or lesions noted and no wounds MDM MDM MDM Narrative Medical decision making narrative: Interventions / MDM: Differential diagnosis: Alcohol dependence, alcohol withdrawal Diagnosis considered but do not suspect: N/A My EKG interpretation: N/A Imaging independently reviewed and interpreted by myself: N/A External documents reviewed: N/A Test considered but not ordered:N/A ED course: Vital stable nontoxic. Clinically not intoxicated. Requesting detox. I did send for labs, alcohol levels, toxicology screen. I will speak with hospitalist for plan admission for assistance with detox. Re-evaluation: stable Disposition discussed with patient/family/significant other: Patient Case discussed with consulting clinician: Hospitalist This note was generated with [employer] dictation software. It may contain incorrect words, spelling, and punctuation that were not noted in checking the note before signing. Lab Data Attestation: I reviewed the patient's lab results. Labs: Laboratory Results - last 24 hr 10/24/23 18:27 WBC 8.1 RBC 3.98 L Hgb 13.5 Hct 37.9 L MCV 95.2 H MCH 33.9 H MCHC 35.6 RDW Std Deviation 46.0 H RDW Coeff of Hortencia 13.2 Plt Count 218 MPV 8.8 Immature Gran % (Auto) 0.400 Neut % (Auto) 47.2 Lymph % (Auto) 42.9 H Stokes % (Auto) 7.7 Eos % (Auto) 1.2 Baso % (Auto) 0.6 Absolute Neuts (auto) 3.8 Absolute Lymphs (auto) 3.49 Nucleated RBC % 0 Sodium 124 L Potassium 3.7 Chloride 89 L Carbon Dioxide 28.0 Anion Gap 7 BUN 4 L Creatinine 0.71 Estim Creat Clear Calc 81.97 Est GFR (MDRD) Af Amer 143 Est GFR (MDRD) Non-Af 118 BUN/Creatinine Ratio 5.6 L Glucose 65 L Calcium 8.7 Total Bilirubin 0.60 AST 34 ALT 43 Alkaline Phosphatase 42 L Total Protein 8.3 H Albumin 3.6 Globulin 4.7 H Albumin/Globulin Ratio 0.8 L Ethyl Alcohol 280.0 Discharge Plan Dx/Rx/DC Orders Clinical Impression: Alcohol dependence, Alcohol withdrawal Disposition Disposition: Acute Care Hospital [facility] Discharge Date/Time: 10/24/23 18:53
--- NOTE | 2023-10-24 18:26 | PCM.HP.STD ---
HPI - General General Date of Admission: 10/24/23 Date of Service: 10/24/23 Chief Complaint: Alcohol detox HPI Narrative WOODROW GIBBONS, is a 68 M who presented to [facility] ED on 10/24/2023 for alcohol detox. Patient was recently hospitalized here from 09/21 through 09/24 for alcohol detox. Completed majority of phenobarbital taper and plan per patient at that time was to follow-up with AA and consider outpatient therapy. Was noted that patient said he could not commit to outpatient therapy because yesterday care of her sister. Patient reported to ED physician today that he still had alcohol cravings on discharge and was concerned he did not get enough of the phenobarbital here. He came in requesting detox again. Reports drinking 8 to 12 16 ounce beers daily. Last drink was 2 hours prior to arrival. Alcohol level 280 in the ED. Notably was 241 in the ED on previous admission. Hospitalist was contacted for admission for alcohol detox. I saw patient at the bedside in the ED. Patient had bloodshot eyes and appeared acutely intoxicated. Had slowed responses and some slurring of speech. I did note to him that the phenobarbital taper was given to control his alcohol withdrawal symptoms but was not expected to decrease his alcohol craving. Noted that addiction medicine would see him again here but that he should consider either inpatient therapy or intensive outpatient therapy if he is serious about quitting alcohol use. Patient said he would consider this. He denied any acute pain or discomfort. No other acute concerns at this time. [facility] Medical History (Updated 10/24/23 @ 22:[address] 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 Smoker Sleep apnea Smoker Sleep apnea Seizures GERD (gastroesophageal reflux disease) Alcohol addiction Alcohol abuse Tobacco dependence Depression HTN (hypertension) Home Medications ?Medication ?Instructions ?Recorded ?Last Taken ?Type lisinopril 10 mg tablet (Zestril) 10 mg PO DAILY HTN 06/22/16 10/23/23 History fluoxetine 10 mg capsule 10 mg PO DAILY Depression 01/20/22 10/23/23 History fluoxetine 20 mg capsule 20 mg PO DAILY depression 09/22/23 10/23/23 History multivitamin 1 tab PO DAILY #30 tabs 09/25/23 Unknown Rx bupropion HCl 150 mg tablet,12 hr 150 mg PO BID 10/24/23 Unknown History sustained-release sildenafil 100 mg tablet 100 mg PO PRN PRN erectile 10/24/23 Unknown History dysfunction Allergy/AdvReac Type Severity Reaction Status Date / Time No Known Allergies Allergy Verified 10/24/23 17:01 Family History Other Dementia Thyroid disorder Surgical History History of thoracic surgery Social History household members: none housing: apartment Smoking Status: Current every day smoker tobacco type: cigarettes alcohol intake: current alcohol intake frequency: 3 or more drinks per day substance use type: does not use ROS Constitutional Constitutional: Denies chills, fatigue, fever(s) or weakness Eyes Eyes: Denies change in vision Cardiovascular Cardiovascular: Denies chest pain Respiratory/Chest Respiratory/Chest: Denies shortness of breath at rest Gastrointestinal Gastrointestinal: Denies abdominal pain Musculoskeletal Musculoskeletal: Denies arthralgias or myalgias Neurologic Neurologic: Denies dizziness, focal weakness or headache(s) Vital Signs Vital Signs Vital Signs: 10/24/23 17:01 10/24/23 17:01 Temperature 96.1 F L 98.0 F Temperature Source Temporal Oral Pulse Rate 95 84 Respiratory Rate 14 16 Blood Pressure 131/80 H 123/78 H Blood Pressure Mean 97 93 Blood Pressure Source Monitor Blood Pressure Location Right Arm Pulse Ox 97 97 Oxygen Delivery Method Room Air Room Air Weight Weight: 66.5 kg Body Mass Index (BMI) 23.6 Physical Exam Const alert, no apparent distress and average body habitus Constitutional Narrative: Elderly male, acutely intoxicated, otherwise sitting up comfortably in bed, in no acute distress. General Appearance: cooperative and comfortable HEENT normocephalic, head/scalp atraumatic, hearing grossly normal bilaterally and nasal mucous membranes and turbinates normal Eyes PERRL, EOMs intact bilaterally and conjunctivae normal Neck full ROM Chest inspection of chest normal Resp normal respiratory effort, normal air movement, no use of accessory muscles and clear to auscultation bilaterally Cardio regular rate, regular rhythm, no murmurs and peripheral pulses 2+ throughout GI normal to inspection, nondistended, normoactive bowel sounds, soft to palpation, non-tender and non-distended Back/Spine normal ROM Extremity normal to inspection, full ROM and no pedal edema Skin no rashes or lesions noted Neuro moves all extremities and no focal motor deficits Results Lab / Micro Data 10/24/23 18:27 10/24/23 18:27 Assessment & Plan Assessment/Plan (1) Alcohol abuse: (2) Alcohol intoxication: (3) Desire for detoxification: (4) Hyponatremia: PLAN: Plan Patient is a 68-year-old male who presented to [facility] ED on 10/24/2023 for alcohol detox. 1. Alcohol abuse with acute intoxication, desire for detoxification ? Admit under inpatient status to [facility]. Case management and addiction medicine consulted. Will treat with phenobarbital taper and as needed medications per alcohol withdrawal order set. Folate, thiamine and multivitamin ordered. 2. Acute on chronic hyponatremia ? Sodium 124 on admit. Chloride 89. Sodium was 128 on previous admission in September and ranged from 129-132 during hospitalization in January 2023. High suspicion for beer potomania given heavy beer intake and likely poor food intake. Urine sodium, urine osmolality and serum osmolality ordered. Will give 1 L normal saline now. Follow-up a.m. BMP. Patient is on fluoxetine which could potentially be contributing to hyponatremia, but would need to taper off this medication to discontinue safely if needed. Will continue for now and see how sodium trends after fluid resuscitation. 3. Anxiety/depression ? Continue home fluoxetine 30 mg daily and bupropion 150 mg twice daily. 4. Hypertension ? Will hold home lisinopril for now, restart as needed. DVT prophylaxis: Lovenox CODE STATUS: Full code, unverified Expected disposition: TBD Total clinical time spent by myself addressing the patient's medical issues, reviewing all the data, and collaborating with patient's care team: 55 minutes. Charges/Coding Visit Charges Inpatient E&M: 50177 Init Hosp L2
[2023-10-24 18:32] VITALS: BP 129/81; PULSE 83; RESP 16; TEMP 36.8; O2SAT 93
[2023-10-24 18:36] LABS: Absolute Lymphocyte Count 3.49 X10^3/uL (0.83-4.51); Absolute Neutrophil Count 3.8 X10^3/uL (2.0-7.7); Basophil# 0.05 X10^3/uL; Basophil% 0.6 % (0-1); Eosinophils% 1.2 % (0-5); Hematocrit 37.9 % (40-54); Hemoglobin 13.5 g/dL (13.0-16.5); Lymphocyte # 3.49 X10^3/ul (0.83-4.51); Lymphocyte % 42.9 % (19-41); Mean Corp Hgb Conc 35.6 g/dL (32-36); Mean Corpuscular Hgb 33.9 pg (27.0-32.0); Mean Corpuscular Volume 95.2 fL (80-94); Mean Platelet Vol. 8.8 fl (6.2-12.0); Monocyte# 0.63 X10^3/uL; Monocyte% 7.7 % (0-10); NRBC Flagged by Analyzer 0 % (0-5); Neutrophil # 3.83 X10^3/uL (2.7-7.7); Neutrophil % 47.2 % (47-70); Platelet Count 218 K/mm3 (150-450); RBC Distribution Width CV 13.2 % (11.6-14.6); Red Blood Count 3.98 M/mm3 (4.6-6.2); White Blood Count 8.1 K/mm3 (4.4-11.0)
[2023-10-24 18:54] LABS: ALB/GLOB Ratio 0.8 RATIO (0.9-2.4); AST(SGOT) 34 U/L (15-37); Alanine Aminotransfer ALT/SGPT 43 U/L (16-61); Albumin, Serum 3.6 g/dL (3.2-5.0); Alkaline Phosphatase 42 U/L (45-117); Anion Gap 7 (5-15); BUN 4 mg/dL (7-18); BUN/Creat Ratio 5.6 RATIO (10-20); Calcium,Total 8.7 mg/dL (8.5-10.1); Chloride 89 mmol/L (98-107); Creatinine, Serum 0.71 mg/dL (0.70-1.30); EST Glomerular Filtration Rate 118 mL/min (>60); Est Glom Filt Rate - Afr Amer 143 mL/min (>60); Estimated Creatinine Clearance 81.97 ml/min; Globulin 4.7 g/dL (2.2-4.2); Glucose 65 mg/dL (74-106); Potassium 3.7 mmol/L (3.5-5.1); Protein, Total 8.3 g/dL (6.4-8.2); Sodium Level 124 mmol/L (136-145)
[2023-10-24 19:07] LABS: Amphetamine Urine VISTA NEGATIVE (<1000 ng/mL); Barbiturate Urine VISTA NEGATIVE (< 200 ng/mL); Benzodiazepine Urine VISTA NEGATIVE (< 200 ng/mL); Cocaine Urine VISTA NEGATIVE (< 300 ng/mL); Ecstacy Urine VISTA NEGATIVE (< 500 ng/mL); Methadone Urine VISTA NEGATIVE (< 300 ng/mL); PCP Urine VISTA NEGATIVE (< 25 ng/mL); THC Urine VISTA NEGATIVE (< 50 ng/mL)
[2023-10-24 20:01] VITALS: BP 105/73; PULSE 99; RESP 18; TEMP 36.6; O2SAT 100
[2023-10-24 20:06] VITALS: BMI 23.6
[2023-10-24 21:04] VITALS: O2SAT 96
[2023-10-24] MEDS: buPROPion (SR) 150 MG Tablet.SA PO (21:08)
[2023-10-24] MEDS: Phenobarbital 32.4 MG Tablet 64.8 MG PO (21:08)
[2023-10-24 22:34] LABS: Urine Sodium 16 mmol/L (Not Establ.)
[2023-10-24 22:39] LABS: Osmolality, Urine 114 mOsm/KG
[2023-10-24 22:40] LABS: Osmolality, Serum 319 mOsm/KG (280-301)
[2023-10-24 22:43] LABS: Magnesium 2.2 mg/dL (1.6-2.6); Phosphorus 3.6 mg/dL (2.5-4.9)
[2023-10-25] VITALS (8 sets, daily range): BP systolic 106–170; BP diastolic 73–107; PULSE 78–101; RESP 18; TEMP 36.5–36.8; O2SAT 95–99
[2023-10-25] MEDS: Phenobarbital 32.4 MG Tablet 64.8 MG PO ×7 (00:14→23:52)
[2023-10-25] MEDS: 0.9% Normal Saline (1000mL) 1,000 ML 250 ML IV (00:14)
[2023-10-25] MEDS: 0.9% Saline Lock 10 ML Syringe IV (00:15)
[2023-10-25 00:42] LABS: Vista UDS pH Range 4
[2023-10-25 07:04] LABS: Hematocrit 35.2 % (40-54); Hemoglobin 12.4 g/dL (13.0-16.5); Mean Corp Hgb Conc 35.2 g/dL (32-36); Mean Corpuscular Volume 96.4 fL (80-94); Mean Platelet Vol. 8.8 fl (6.2-12.0); Platelet Count 217 K/mm3 (150-450); RBC Distribution Width CV 13.4 % (11.6-14.6); RBC Distribution Width SD 47.8 fl (35.1-43.9); Red Blood Count 3.65 M/mm3 (4.6-6.2); White Blood Count 5.1 K/mm3 (4.4-11.0)
[2023-10-25 07:32] LABS: Anion Gap 5 (5-15); BUN 6 mg/dL (7-18); BUN/Creat Ratio 8.2 RATIO (10-20); Calcium,Total 8.2 mg/dL (8.5-10.1); Chloride 102 mmol/L (98-107); Creatinine, Serum 0.74 mg/dL (0.70-1.30); EST Glomerular Filtration Rate 113 mL/min (>60); Est Glom Filt Rate - Afr Amer 137 mL/min (>60); Estimated Creatinine Clearance 81.97 ml/min; Glucose 85 mg/dL (74-106); Potassium 4.6 mmol/L (3.5-5.1); Sodium Level 133 mmol/L (136-145)
[2023-10-25] MEDS: Folic Acid 1 MG Tablet PO (08:04)
[2023-10-25] MEDS: Multivitamins,Therapeutic Tablet 1 TABLET PO (08:04)
[2023-10-25] MEDS: buPROPion (SR) 150 MG Tablet.SA PO ×2 (08:04→21:41)
[2023-10-25] MEDS: FLUoxetine 20 MG Capsule PO (08:04)
[2023-10-25] MEDS: FLUoxetine 10 MG Capsule PO (08:04)
[2023-10-25] MEDS: Thiamine Hydrochloride 100 MG Tablet PO (08:04)
--- NOTE | 2023-10-25 10:26 | PN_ITS ---
Subjective Subjective Patient seen and examined. He had no active complaints and denied any symptoms of withdrawal. Review of systems is otherwise negative. Objective Data Objective Data Vital Signs: Vital Signs Temp Pulse Resp BP Pulse Ox O2 Del Method 97.9 F 88 18 159/107 H 96 Room Air 10/25/23 08:00 10/25/23 08:00 10/25/23 08:00 10/25/23 08:00 10/25/23 08:00 10/25/23 08:00 Oxygen Delivery Method Room Air Weight: 146 lb 9.718 oz Body Mass Index (BMI) 23.6 Intake & Output: Intake and Output for Last 24 Hours 10/23/23 10/24/23 10/25/23 23:59 23:59 23:59 Intake Total 1999 Balance 1999 Lab / Micro Data 10/25/23 06:50 10/25/23 06:50 Labs: Laboratory Results - last 24 hr 10/24/23 18:27: WBC 8.1, RBC 3.98 L, Hgb 13.5, Hct 37.9 L, MCV 95.2 H, MCH 33.9 H, MCHC 35.6, RDW Std Deviation 46.0 H, RDW Coeff of Hortencia 13.2, Plt Count 218, MPV 8.8, Immature Gran % (Auto) 0.400, Neut % (Auto) 47.2, Lymph % (Auto) 42.9 H , [place] % (Auto) 7.7, Eos % (Auto) 1.2, Baso % (Auto) 0.6, Absolute Neuts (auto) 3.8, Absolute Lymphs (auto) 3.49, Nucleated RBC % 0, Sodium 124 L, Potassium 3.7, Chloride 89 L, Carbon Dioxide 28.0, Anion Gap 7, BUN 4 L, Creatinine 0.71, Estim Creat Clear Calc 81.97, Est GFR (MDRD) Af Amer 143, Est GFR (MDRD) Non-Af 118, BUN/Creatinine Ratio 5.6 L, Glucose 65 L, Serum Osmolality 319 H, Calcium 8.7, Phosphorus 3.6, Magnesium 2.2, Total Bilirubin 0.60, AST 34, ALT 43, A lkaline Phosphatase 42 L, Total Protein 8.3 H, Albumin 3.6, Globulin 4.7 H, A lbumin/Globulin Ratio 0.8 L, Ethyl Alcohol 280.0 10/24/23 18:28: Urine Osmolality 114, Ur Random Sodium 16, Urine Opiates Screen NEGATIVE, Urine Methadone Screen NEGATIVE, Ur Barbiturates Screen NEGATIVE, Ur Phencyclidine Scrn NEGATIVE, Ur Amphetamines Screen NEGATIVE, MDMA (Ecstasy) Screen NEGATIVE, U Benzodiazepines Scrn NEGATIVE, Urine Cocaine Screen NEGATIVE, U Cannabinoids Screen NEGATIVE, Ur Drug Screen Comment 10/25/23 06:50: WBC 5.1, RBC 3.65 L, Hgb 12.4 L, Hct 35.2 L, MCV 96.4 H, MCH 34.0 H, MCHC 35.2, RDW Std Deviation 47.8 H, RDW Coeff of Hortencia 13.4, Plt Count 217, MPV 8.8, Sodium 133 L, Potassium 4.6, Chloride 102, Carbon Dioxide 26.0, Anion Gap 5, BUN 6 L, Creatinine 0.74, Estim Creat Clear Calc 81.97, Est GFR (MDRD) Af Amer 137, Est GFR (MDRD) Non-Af 113, BUN/Creatinine Ratio 8.2 L, Glucose 85, Calcium 8.2 L Physical Exam Const alert, oriented x3, no apparent distress and well nourished General Appearance: cooperative and well developed HEENT normocephalic, head/scalp atraumatic, moist oral mucous membranes and oropharynx normal Eyes PERRL and EOMs intact bilaterally Neck no lymphadenopathy, supple and no JVD Lymph Lymphatic: no lymphadenopathy noted and no lymphedema noted Resp normal respiratory effort, normal air movement and clear to auscultation bilaterally Cardio regular rate, regular rhythm, S1 normal heart sound, S2 normal heart sound and no murmurs GI normal to inspection, nondistended, normoactive bowel sounds, soft to palpation, non-tender and non-distended Extremity normal capillary refill, no clubbing, cyanosis or edema and no calf tenderness General Extremity: no tenderness to palpation of joints or extremities Skin General Skin Exam: no breakdown Neuro CN's II-XII intact bilaterally, no focal motor deficits, no sensory deficits noted and deep tendon reflexes 2+ bilaterally Motor Exam: strength 5/5 throughout Psych thought process normal and cooperative Appearance: appropriate Assessment & Plan Assessment/Plan (1) Alcohol intoxication: (2) Alcohol withdrawal: PLAN: Plan #Acute alcohol withdrawal * currently on alcohol withdrawal protocol with phenobarbital * on thiamine, folic acid and multivite * adjunctive meds for symptomatic relief * monitor CIWA score * # Acute on chronic hyponatremia: Sodium was 124 on admission and is now 133. He does have chronic hyponatremia. Improving. Will continue to monitor #Anxiety and depression; on fluoxetine and bupropion. #Hypertension: on lisinopril. Will resume DVT prophylaxis: lovenox. Charges/Coding Visit Charges Inpatient E&M: 21799 Subs Hosp L2
[2023-10-25] MEDS: Enoxaparin 40 MG/0.4 ML Syringe SC (11:04)
--- NOTE | 2023-10-25 11:18 | ADDICTION ---
This typewriter mechanic met with PT to conduct ASAM, MSE, AUDIT assessments and to plan for d/c. PT A+Ox4 and participated actively. All assessments completed and placed in PT's chart. PT plans to f/u with outpatient services (IOP) at [facility] ([place], [place]) for follow-up KELLY Tx services. PT denies interest in residential Tx at this time.
[2023-10-25] MEDS: Lisinopril 10 MG Tablet PO (11:59)
[2023-10-26 05:10] VITALS: BP 121/87; PULSE 87; RESP 18; TEMP 36.4; O2SAT 100
[2023-10-26] MEDS: Phenobarbital 32.4 MG Tablet 64.8 MG PO ×5 (05:13→21:46)
[2023-10-26 07:32] VITALS: O2SAT 96
[2023-10-26 08:50] VITALS: BP 126/71; PULSE 75; RESP 18; TEMP 36.5; O2SAT 99
[2023-10-26] MEDS: FLUoxetine 10 MG Capsule PO (08:52)
[2023-10-26] MEDS: FLUoxetine 20 MG Capsule PO (08:52)
[2023-10-26] MEDS: Folic Acid 1 MG Tablet PO (08:52)
[2023-10-26] MEDS: Multivitamins,Therapeutic Tablet 1 TABLET PO (08:52)
[2023-10-26] MEDS: buPROPion (SR) 150 MG Tablet.SA PO ×2 (08:52→21:46)
[2023-10-26] MEDS: Thiamine Hydrochloride 100 MG Tablet PO (08:52)
[2023-10-26] MEDS: Lisinopril 10 MG Tablet PO (08:54)
--- NOTE | 2023-10-26 09:14 | PN_ITS ---
Subjective Subjective Patient seen and examined. He had no complaints and had an uneventful night. Review of systems otherwise negative. He has remained hemodynamically stable. Objective Data Objective Data Vital Signs: Vital Signs Temp Pulse Resp BP Pulse Ox O2 Del Method 97.5 F L 87 18 121/87 H 96 Room Air 10/26/23 05:10 10/26/23 05:10 10/26/23 05:10 10/26/23 05:10 10/26/23 07:32 10/26/23 07:32 Oxygen Delivery Method Room Air Weight: 146 lb 9.718 oz Body Mass Index (BMI) 23.6 Intake & Output: Intake and Output for Last 24 Hours 10/24/23 10/25/23 10/26/23 23:59 23:59 23:59 Intake Total 1999 800 / 800 Balance 1999 800 / 800 Lab / Micro Data 10/25/23 06:50 10/25/23 06:50 Physical Exam Const alert, oriented x3, no apparent distress, average body habitus and well nourished General Appearance: cooperative, comfortable and well developed HEENT normocephalic, head/scalp atraumatic, hearing grossly normal bilaterally, nasal mucous membranes and turbinates normal, moist oral mucous membranes and oropharynx normal Eyes PERRL, EOMs intact bilaterally and conjunctivae normal Neck full ROM, no lymphadenopathy, supple and no JVD Lymph Lymphatic: no lymphadenopathy noted and no lymphedema noted Chest inspection of chest normal Resp normal respiratory effort, normal air movement, no use of accessory muscles and clear to auscultation bilaterally Cardio regular rate, regular rhythm, S1 normal heart sound, S2 normal heart sound, no murmurs and peripheral pulses 2+ throughout GI normal to inspection, nondistended, normoactive bowel sounds, soft to palpation, non-tender and non-distended Back/Spine normal ROM Extremity normal to inspection, full ROM, normal capillary refill, no clubbing, cyanosis or edema, no calf tenderness and no pedal edema General Extremity: no tenderness to palpation of joints or extremities Skin no rashes or lesions noted General Skin Exam: no breakdown Neuro CN's II-XII intact bilaterally, moves all extremities, no focal motor deficits, no sensory deficits noted and deep tendon reflexes 2+ bilaterally Motor Exam: strength 5/5 throughout Psych thought process normal and cooperative Appearance: appropriate Assessment & Plan Assessment/Plan (1) Alcohol intoxication: (2) Alcohol withdrawal: PLAN: Plan #Acute alcohol withdrawal * currently on alcohol withdrawal protocol with phenobarbital * on thiamine, folic acid and multivite * adjunctive meds for symptomatic relief * monitor CIWA score * # Acute on chronic hyponatremia: Sodium was 124 on admission and is now 133. He does have chronic hyponatremia. Improving. Will continue to monitor #Anxiety and depression; on fluoxetine and bupropion. #Hypertension: on lisinopril. Will resume DVT prophylaxis: lovenox. Disposition: For DC tomorrow. Charges/Coding Visit Charges Inpatient E&M: 18296 Subs Hosp L2
[2023-10-26 12:00] VITALS: BP 143/89; PULSE 85; RESP 18; TEMP 36.7; O2SAT 100
[2023-10-26 16:00] VITALS: BP 111/79; PULSE 81; RESP 18; TEMP 36.8; O2SAT 98
[2023-10-26 21:43] VITALS: BP 133/83; PULSE 77; RESP 18; TEMP 36.6; O2SAT 97
[2023-10-26] MEDS: 0.9% Saline Lock 10 ML Syringe IV (21:47)
[2023-10-27 01:35] VITALS: BP 147/99; PULSE 81; RESP 18; TEMP 36.7; O2SAT 97
[2023-10-27] MEDS: Phenobarbital 32.4 MG Tablet 64.8 MG PO (01:38)
[2023-10-27 05:51] VITALS: BP 144/93; PULSE 75; RESP 16; TEMP 36.2; O2SAT 100
[2023-10-27] MEDS: Multivitamins,Therapeutic Tablet 1 TABLET PO (09:17)
[2023-10-27] MEDS: buPROPion (SR) 150 MG Tablet.SA PO (09:17)
[2023-10-27] MEDS: Thiamine Hydrochloride 100 MG Tablet PO (09:18)
[2023-10-27] MEDS: FLUoxetine 20 MG Capsule PO (09:18)
[2023-10-27] MEDS: Folic Acid 1 MG Tablet PO (09:18)
[2023-10-27] MEDS: FLUoxetine 10 MG Capsule PO (09:18)
[2023-10-27] MEDS: Lisinopril 10 MG Tablet PO (09:25)
[2023-10-27 09:51] VITALS: BP 144/78; PULSE 72; RESP 14; TEMP 36.6; O2SAT 100
--- NOTE | 2023-10-27 10:52 | DS.PCM_ITS ---
Providers Date of Admission: 10/24/23 Date of Discharge: 10/27/23 Primary Care Physician: Dr. Renan Joel MD Reason For Visit: ALCOHOL DETOX Diagnosis Discharge Diagnosis (1) Alcohol intoxication: Status: Acute Code(s): F10.929 - Alcohol use, unspecified with intoxication, unspecified (2) Alcohol withdrawal: Status: Acute Code(s): F10.939 - Alcohol use, unspecified with withdrawal, unspecified Medications at Discharge Home Medications lisinopril 10 mg tablet (Zestril) 10 mg PO DAILY HTN 06/22/16 fluoxetine 10 mg capsule 10 mg PO DAILY Depression 01/20/22 fluoxetine 20 mg capsule 20 mg PO DAILY depression 09/22/23 multivitamin 1 tab PO DAILY #30 tabs 09/25/23 bupropion HCl 150 mg tablet,12 hr sustained-release 150 mg PO BID 10/24/23 sildenafil 100 mg tablet 100 mg PO PRN PRN erectile dysfunction 10/24/23 Hospital Course Operations None Procedures None Summary of Care Provided Minutes Spent on Discharge: 25 Hospital Course: Patient is a 68-year-old male who presented to [facility] ED on 10/24/2023 for alcohol detox. Hospital course as noted below. Patient discharged home in stable condition on 10/26 with plan for intensive outpatient therapy. 1. Alcohol abuse with acute intoxication, desire for detoxification ? Reported drinking 8 to 12 16 ounce beers daily. Last drink was 2 hours prior to arrival to the ED, alcohol level 280 on admit. Treated with phenobarbital taper and as needed medications per alcohol withdrawal order set while here with good symptom control. Case management and addiction medicine followed, patient planning for intensive outpatient therapy at [facility] in [place] on discharge. 2. Hyponatremia, improved ? Sodium 124 on admit. Significantly improved to 133 on hospital day 2 after IV fluid resuscitation. Baseline sodium 129-133. Suspect mild acute worsening was due to beer potomania. No further treatment needed. 3. Anxiety/depression ? Continue home fluoxetine 30 mg daily. 4. Hypertension ? Continue home lisinopril. 5. Tobacco abuse ? Was prescribed bupropion 150 mg twice daily shortly before this admission, had not started taking this yet as he was not ready to quit. Encouraged starting the bupropion and encouraged smoking cessation on discharge. Total clinical time spent by myself addressing the patient's medical issues, reviewing all the data, and collaborating with patient's care team: 25 minutes. Physical Exam Const alert, oriented x3, no apparent distress and average body habitus General Appearance: cooperative and comfortable HEENT normocephalic, head/scalp atraumatic, hearing grossly normal bilaterally, nasal mucous membranes and turbinates normal and moist oral mucous membranes Eyes PERRL, EOMs intact bilaterally and conjunctivae normal Neck full ROM Chest inspection of chest normal Resp normal respiratory effort, normal air movement, no use of accessory muscles and clear to auscultation bilaterally Cardio regular rate, regular rhythm, no murmurs and peripheral pulses 2+ throughout GI normal to inspection, nondistended, normoactive bowel sounds, soft to palpation, non-tender and non-distended Back/Spine normal ROM Extremity normal to inspection, full ROM and no pedal edema Skin no rashes or lesions noted Neuro moves all extremities and no focal motor deficits Speech: speech normal Psych mental status grossly normal Weight / BMI Weight Weight: 66.5 kg Body Mass Index (BMI) 23.6 ABG / Lab / Microbiology Data 10/25/23 06:50 10/25/23 06:50 Meaningful Use Info Meaningful Use Meaningful Use Diagnoses (Choose all that apply): None applicable Ischemic Stroke Statin Dosing Therapy Reference: STATIN DOSE THERAPY REFERENCE: * Patients > 75 years receive moderate or high dose statin therapy. * Patients 75 years or YOUNGER should receive HIGH intensity statin dose unless contraindicated. You will be required to document reason for non-treatment if statin daily dose does not meet guidelines. HIGH DOSE STATIN THERAPY DAILY Atorvastatin > than or = to 40 mg Rosuvastatin > than or = to 20 mg Amlodipine + Atorvastatin > than or = to 2.5/40 mg Ezetimibe + Simvastatin 10/80 mg Simvastatin 80mg Discharge Plan Admission Admit Date/Time: 10/24/23 18:28 Primary Reason for Your Visit: alcohol detox Attending Provider: Giuseppe Werner Primary Care Provider: Renan Joel Consulting Providers: Giuseppe Werner; Moraima Mejia Discharge Orders/Prescriptions Prescriptions: Continued lisinopril [Zestril] 10 MG tablet 10 mg PO DAILY fluoxetine 10 mg capsule 10 mg PO DAILY Patient Comments: Take 1 capsule by mouth once daily. In addition to 20 mg a day. fluoxetine 20 mg capsule 20 mg PO DAILY multivitamin Tablet 1 tab PO DAILY Qty: 30 0RF Patient Comments: PT STATES HE TAKE THIS WHEN HE REMEMBERS. bupropion HCl 150 mg tablet sustained-release 12 hr 150 mg PO BID Patient Comments: PT HASNT TAKEN YET, PT STATES THIS IS TO QUIT SMOKING AND HE ISNT THERE YET. sildenafil 100 mg tablet 100 mg PO PRN PRN (Reason: erectile dysfunction) Referrals / Follow Up: Renan Joel MD [Primary Care Provider] - Disposition Disposition (needs filled in before D/C Order can be placed): Home, Self Care Charges/Coding Visit Charges Inpatient E&M: 72461 Disch Hosp
--- NOTE | 2023-10-27 10:52 | PCM.DC ---
Discharge Instructions Diet Discharge Diet: No restrictions Activity Discharge Activity: No Restrictions Follow Up Care Test Results: Test results from this visit will be discussed in further detail at your follow-up appointment, if applicable. Discharge Plan Admission Admit Date/Time: 10/24/23 18:28 Primary Reason for Your Visit: alcohol detox Attending Provider: Giuseppe Werner Primary Care Provider: Renan Joel Consulting Providers: Giuseppe Werner; Moraima Mejia Discharge Orders/Prescriptions Prescriptions: Continued lisinopril [Zestril] 10 MG tablet 10 mg PO DAILY fluoxetine 10 mg capsule 10 mg PO DAILY Patient Comments: Take 1 capsule by mouth once daily. In addition to 20 mg a day. fluoxetine 20 mg capsule 20 mg PO DAILY multivitamin Tablet 1 tab PO DAILY Qty: 30 0RF Patient Comments: PT STATES HE TAKE THIS WHEN HE REMEMBERS. bupropion HCl 150 mg tablet sustained-release 12 hr 150 mg PO BID Patient Comments: PT HASNT TAKEN YET, PT STATES THIS IS TO QUIT SMOKING AND HE ISNT THERE YET. sildenafil 100 mg tablet 100 mg PO PRN PRN (Reason: erectile dysfunction) Referrals / Follow Up: eRnan Joel MD [Primary Care Provider] - Disposition Disposition (needs filled in before D/C Order can be placed): Home, Self Care
[2023-10-27 11:14] VITALS: BP 150/78; PULSE 70; RESP 14; TEMP 36.8; O2SAT 94
== END 2023-10-27 11:40 | disposition home or self-care (01) | DRG 897 ==
LOC: ED 18:26 → MS3 18:55
PROVIDERS: Admitting Provider Hospitalist; Emergency Provider Emergency Medicine; PCP Family Medicine; Visit Provider Hospitalist
DX: F10.139 Alcohol abuse with withdrawal, unspecified (principal); E87.1 Hypo-osmolality and hyponatremia; I10 Essential (primary) hypertension; F32.A Depression, unspecified; F10.129 Alcohol abuse with intoxication, unspecified; F17.210 Nicotine dependence, cigarettes, uncomplicated; F41.9 Anxiety disorder, unspecified; Y90.8 Blood alcohol level of 240 mg/100 ml or more; Z79.899 Other long term (current) drug therapy
CPT/HCPCS: 36415; 80048; 80053; 80307; 82077; 83735; 83930; 83935; 84100; 84300; 85025; 85027; 94668; 99285; J7030; A4216

== ENCOUNTER 2024-02-29 14:17 | Inpatient (IN) | payer MEDICARE, SELFPAY ==
[2024-02-29] VITALS (7 sets, daily range): BP systolic 108–165; BP diastolic 65–95; PULSE 78–103; RESP 16–18; TEMP 36.6–36.8; O2SAT 96–99; BMI 24.3
--- NOTE | 2024-02-29 14:28 | EDS_ITS ---
HPI History of Present Illness Chief Complaint: Substance Abuse Detail of Chief Complaint: Requesting detox from alcohol Informant: patient Narrative Narrative: Patient presents to the emergency department stating he would like detox from a lcohol. Patient states that has been drinking for over 50 years. Used to drink heavier than he drinks now but he is down to about a sixpack per day. His last drink was about an hour ago. Patient has been through detox programs in the past. History of seizures from withdrawal but not for many years at which time he had been drinking much more heavily. He has history of hypertension. Denies recent illness. He said no vomiting or diarrhea. Denies feeling suicidal or homicidal. [facility] Medical History (Updated 02/29/24 @ 14:[address] 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 Smoker Sleep apnea Smoker Sleep apnea Seizures GERD (gastroesophageal reflux disease) Alcohol addiction Alcohol abuse Tobacco dependence Depression HTN (hypertension) Home Medications ?Medication ?Instructions ?Recorded ?Last Taken ?Type lisinopril 10 mg tablet (Zestril) 10 mg PO DAILY HTN 06/22/16 10/23/23 History fluoxetine 10 mg capsule 10 mg PO DAILY Depression 01/20/22 10/23/23 History fluoxetine 20 mg capsule 20 mg PO DAILY depression 09/22/23 10/23/23 History sildenafil 100 mg tablet 100 mg PO PRN PRN erectile 10/24/23 Unknown History dysfunction Allergy/AdvReac Type Severity Reaction Status Date / Time No Known Allergies Allergy Verified 02/29/24 14:18 Family History Other Dementia Thyroid disorder Surgical History History of thoracic surgery Social History household members: none housing: apartment Smoking Status: Current every day smoker tobacco type: cigarettes alcohol intake: current alcohol intake frequency: 3 or more drinks per day substance use type: does not use ROS ROS ED Review of Systems ROS Unobtainable: other Constitutional Constitutional ED: Reports lethargy; Denies chills, fever(s), sweats or weight loss Eyes Eyes: Denies blurry vision, change in vision or diplopia ENT ENT ED: Denies rhinorrhea or sore throat Cardiovascular Cardiovascular: Denies chest pain, orthopnea or racing heartbeat Respiratory/Chest Respiratory/Chest: Denies cough, dyspnea, dyspnea on exertion, orthopnea or sputum Gastrointestinal Gastrointestinal: Denies abdominal pain, diarrhea, nausea or vomiting Genitourinary Genitourinary ED: Denies dysuria, hematuria or urinary frequency Musculoskeletal Musculoskeletal: Denies arthralgias, back pain, myalgias or neck pain Integumentary Denies abscess, Abrasions or rash Neurologic Neurologic: Denies headache(s) or weakness Psychiatric Psychiatric: Denies anxiety, depression or suicidal thoughts Endocrine Endocrinology: Denies polydipsia, polyphagia or polyuria Hematologic/Lymphatic Hematologic/Lymphatic: Denies easy bleeding, easy bruising or lymphadenopathy Allergic/Immunologic Allergic/Immunologic ED: Denies mouth swelling, tongue swelling or urticaria EXAM Physical Exam Const Vital Signs: 02/29/24 14:17 Temperature 98.2 F Temperature Source Oral Pulse Rate 91 Respiratory Rate 16 Blood Pressure 137/91 H Blood Pressure Mean 106 Pulse Ox 99 Oxygen Delivery Method Room Air Positive well nourished and well developed General Appearance ED: well developed and NAD HEENT Reports TM's clear and moist mucous membranes normocephalic and atraumatic; Negative for trauma or tenderness Tympanic Membrane ED: Yes TM's clear Eyes PERRL and EOMs intact bilaterally General Eye ED: Negative for pale conjunctiva or scleral icterus Neck no lymphadenopathy, supple and no JVD General: Negative for tenderness Chest Wall inspection of chest normal and palpation of chest normal Chest: Negative for tenderness Resp normal respiratory effort and clear to auscultation bilaterally Effort and Inspection: Negative for respiratory distress or pain with movement Auscultation: Negative for rhonchi, wheezes or diminished lung sounds Cardio regular rate, regular rhythm, S1 normal heart sound, S2 normal heart sound and no murmurs Peripheral Pulses: pulses 2+ throughout GI normal to inspection, nondistended, normoactive bowel sounds, soft to palpation, non-tender, non-distended and no masses Back/Spine no CVA tenderness and no thoracic nor lumbar tenderness Extremity normal to inspection General Extremety ED: Negative for edema General Extremity: Negative for edema Neuro oriented x3, CN's II-XII intact bilaterally, no sensory deficits noted and gait normal Sensorium / Orientation: awake, alert, oriented to person, oriented to place and oriented to time Motor Exam: strength 5/5 throughout and strength abnormal Psych mental status grossly normal Skin no rashes or lesions noted and no wounds MDM MDM MDM Narrative Medical decision making narrative: Patient with history of alcohol abuse requesting detox from alcohol. IV line established. He had a CBC with differential that showed a white count of 8.9 with hemoglobin 12.7 platelet count 234. Chemistries and LFTs pending. He will have a urine drug screen pending and alcohol level. Clinically he looks well. Will discuss with hospitalist to evaluate for admission for alcohol withdrawal and detox. Lab Data Attestation: I reviewed the patient's lab results. Labs: Laboratory Results - last 24 hr 02/29/24 14:37 WBC 8.9 RBC 3.83 L Hgb 12.7 L Hct 35.9 L MCV 93.7 MCH 33.2 H MCHC 35.4 RDW Std Deviation 50.6 H RDW Coeff of Hortencia 14.6 Plt Count 234 MPV 8.7 Immature Gran % (Auto) 0.200 Neut % (Auto) 54.5 Lymph % (Auto) 35.5 [place] % (Auto) 7.9 Eos % (Auto) 1.5 Baso % (Auto) 0.4 Absolute Neuts (auto) 4.9 Absolute Lymphs (auto) 3.17 Nucleated RBC % 0 Discharge Plan Triage Chief Complaint: Substance Abuse ED Provider: Sherman Wilkes Dx/Rx/DC Orders Clinical Impression: Alcohol abuse, Admitted to alcohol detoxification center, History of hyperte nsion Prescriptions: No Action lisinopril [Zestril] 10 MG tablet 10 mg PO DAILY fluoxetine 10 mg capsule 10 mg PO DAILY Patient Comments: Take 1 capsule by mouth once daily. In addition to 20 mg a day. fluoxetine 20 mg capsule 20 mg PO DAILY sildenafil 100 mg tablet 100 mg PO PRN PRN (Reason: erectile dysfunction) Primary Care Provider: Renan Joel Referrals: Renan Joel MD [Primary Care Provider] - Print Language: Sinhala Disposition Disposition: Acute Care Hospital [facility]
[2024-02-29 14:43] LABS: Absolute Lymphocyte Count 3.17 X10^3/uL (0.83-4.51); Absolute Neutrophil Count 4.9 X10^3/uL (2.0-7.7); Basophil# 0.04 X10^3/uL; Basophil% 0.4 % (0-1); Eosinophil# 0.13 X10^3/uL; Eosinophils% 1.5 % (0-5); Hematocrit 35.9 % (40-54); Hemoglobin 12.7 g/dL (13.0-16.5); Lymphocyte # 3.17 X10^3/ul (0.83-4.51); Lymphocyte % 35.5 % (19-41); Mean Corp Hgb Conc 35.4 g/dL (32-36); Mean Corpuscular Hgb 33.2 pg (27.0-32.0); Mean Corpuscular Volume 93.7 fL (80-94); Mean Platelet Vol. 8.7 fl (6.2-12.0); Monocyte# 0.71 X10^3/uL; Monocyte% 7.9 % (0-10); NRBC Flagged by Analyzer 0 % (0-5); Neutrophil # 4.87 X10^3/uL (2.7-7.7); Neutrophil % 54.5 % (47-70); Platelet Count 234 K/mm3 (150-450); RBC Distribution Width CV 14.6 % (11.6-14.6); RBC Distribution Width SD 50.6 fl (35.1-43.9); Red Blood Count 3.83 M/mm3 (4.6-6.2); White Blood Count 8.9 K/mm3 (4.4-11.0)
[2024-02-29 14:59] LABS: ALB/GLOB Ratio 0.8 RATIO (0.9-2.4); AST(SGOT) 16 U/L (15-37); Alanine Aminotransfer ALT/SGPT 18 U/L (16-61); Albumin, Serum 3.4 g/dL (3.2-5.0); Alkaline Phosphatase 40 U/L (45-117); Anion Gap 8 (5-15); BUN 6 mg/dL (7-18); BUN/Creat Ratio 8.8 RATIO (10-20); Calcium,Total 8.1 mg/dL (8.5-10.1); Chloride 91 mmol/L (98-107); Creatinine, Serum 0.68 mg/dL (0.70-1.30); EST Glomerular Filtration Rate 123 mL/min (>60); Est Glom Filt Rate - Afr Amer 149 mL/min (>60); Estimated Creatinine Clearance 81.97 ml/min; Globulin 4.3 g/dL (2.2-4.2); Glucose 74 mg/dL (74-106); Potassium 3.8 mmol/L (3.5-5.1); Protein, Total 7.7 g/dL (6.4-8.2); Sodium Level 125 mmol/L (136-145)
[2024-02-29 15:46] LABS: Amphetamine Urine VISTA NEGATIVE (<1000 ng/mL); Barbiturate Urine VISTA NEGATIVE (< 200 ng/mL); Benzodiazepine Urine VISTA NEGATIVE (< 200 ng/mL); Cocaine Urine VISTA NEGATIVE (< 300 ng/mL); Ecstacy Urine VISTA NEGATIVE (< 500 ng/mL); Methadone Urine VISTA NEGATIVE (< 300 ng/mL); PCP Urine VISTA NEGATIVE (< 25 ng/mL); THC Urine VISTA NEGATIVE (< 50 ng/mL); Vista UDS pH Range 6
--- NOTE | 2024-02-29 15:59 | HP.PCM.HOS_ITS ---
HPI - General General Date of Admission: 02/29/24 Date of Service: 02/29/24 Chief Complaint: Alcohol substance use disorder-requesting treatment HPI Narrative WOODROW GIBBONS, is a 68 M who presents to the emergency room at [facility] requesting services for alcohol use disorder. Patient has been cutting down on the amount of beer he drinks a day and is currently drinking about a sixpack, he is drink much more on a daily basis until recently. Patient is having some nervousness and tremors, he states that he has been through detox before and at one time had seizures during the detox hospitalization. Patient denies use of any other drugs, medical problems include high blood pressure and chronic depression. Labs were obtained on the patient, white blood cell count was normal at 8.9, hemoglobin was 12.7, sodium was low at 125, chloride was 91, liver enzymes were unremarkable, talk screen was negative, alcohol level was 270. Patient will be admitted to [place] [address], orders were entered using addiction order set and the alcohol detox order set. Patient will be seen by addiction administrator social welfare tomorrow. [facility] Medical History (Updated 02/29/24 @ 14:[address] 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 Smoker Sleep apnea Smoker Sleep apnea Seizures GERD (gastroesophageal reflux disease) Alcohol addiction Alcohol abuse Tobacco dependence Depression HTN (hypertension) Home Medications ?Medication ?Instructions ?Recorded ?Last Taken ?Type lisinopril 10 mg tablet (Zestril) 10 mg PO DAILY HTN 06/22/16 02/29/24 History fluoxetine 10 mg capsule 10 mg PO DAILY Depression 01/20/22 02/29/24 History fluoxetine 20 mg capsule 20 mg PO DAILY depression 09/22/23 02/29/24 History sildenafil 100 mg tablet 100 mg PO PRN PRN erectile 10/24/23 Unknown History dysfunction Allergy/AdvReac Type Severity Reaction Status Date / Time No Known Allergies Allergy Verified 02/29/24 14:18 Family History Other Dementia Thyroid disorder Surgical History History of thoracic surgery Social History household members: none housing: apartment Smoking Status: Current every day smoker tobacco type: cigarettes alcohol intake: current alcohol intake frequency: 3 or more drinks per day substance use type: does not use ROS Constitutional Constitutional: Denies anorexia, change in weight, fever(s), night sweats or weakness Eyes Eyes: Denies blurry vision, change in vision, discharge from eye(s) or eye pain Cardiovascular Cardiovascular: Denies chest pain, claudication, edema or palpitations Respiratory/Chest Respiratory/Chest: Denies cough, hemoptysis, shortness of breath at rest or shortness of breath with exertion Gastrointestinal Gastrointestinal: Denies abdominal pain, constipation, diarrhea, hematemesis, hematochezia, melena, nausea or vomiting Genitourinary Genitourinary: Denies dysuria, hematuria, urinary frequency, urinary hesitancy, urinary incontinence or urinary urgency Musculoskeletal Musculoskeletal: Denies back pain, joint pain, joint stiffness, joint swelling, myalgias or neck pain Neurologic Neurologic: Reports tremor(s); Denies abnormal gait, abnormal speech, dizziness, focal weakness, headache(s), loss of vision, numbness, other visual disturbances, paresthesias, syncope or tingling Psychiatric Psychiatric: Reports anxiety; Denies cognitive impairment, depression, irritability, mood swings or suicidal ideation Endocrine Endocrinology: Denies change in body appearance, cold intolerance, excessive sweating, heat intolerance, polydipsia or polyuria Hematologic/Lymphatic Hematologic/Lymphatic: Denies none, anemia, easy bleeding, easy bruising or lymphadenopathy Allergic/Immunologic Allergic/Immunologic: Denies rhinitis, urticaria, eczemia or asthma Vital Signs Vital Signs Vital Signs: 02/29/24 14:17 02/29/24 15:41 Temperature 98.2 F 97.8 F Temperature Source Oral Pulse Rate 91 86 Respiratory Rate 16 16 Blood Pressure 137/91 H 128/65 H Blood Pressure Mean 106 86 Pulse Ox 99 99 Oxygen Delivery Method Room Air Weight Weight: 68.549 kg Body Mass Index (BMI) 24.3 Physical Exam Const alert and oriented x3 Constitutional Narrative: Patient has mild nervousness during the exam General Appearance: cooperative, well kempt and well developed Orientation / Consciousness: awake, oriented to person, oriented to place and oriented to time HEENT normocephalic, head/scalp atraumatic, hearing grossly normal bilaterally and moist oral mucous membranes Eyes PERRL, EOMs intact bilaterally and conjunctivae normal Neck supple, no JVD, thyroid normal and no carotid bruits General: trachea midline Resp normal respiratory effort, no retractions, no use of accessory muscles and clear to auscultation bilaterally Auscultation: Negative for rales, rhonchi or wheezes Cardio regular rate, regular rhythm, S1 normal heart sound, S2 normal heart sound, no murmurs, no rub and no gallops GI normal to inspection, nondistended, normoactive bowel sounds, soft to palpation, non-tender and non-distended Extremity no clubbing, cyanosis or edema Skin no rashes or lesions noted General Skin Exam: no breakdown Neuro oriented x3, CN's II-XII intact bilaterally, moves all extremities, no focal motor deficits and no sensory deficits noted Sensorium / Orientation: awake and alert Speech: speech normal Psych Psych Narrative: Patient is mildly anxious Results Lab / Micro Data 02/29/24 14:37 02/29/24 14:37 Labs: Laboratory Results - last 24 hr 02/29/24 14:37: WBC 8.9, RBC 3.83 L, Hgb 12.7 L, Hct 35.9 L, MCV 93.7, MCH 33.2 H, MCHC 35.4, RDW Std Deviation 50.6 H, RDW Coeff of Hortencia 14.6, Plt Count 234, MPV 8.7, Immature Gran % (Auto) 0.200, Neut % (Auto) 54.5, Lymph % (Auto) 35.5, [place] % (Auto) 7.9, Eos % (Auto) 1.5, Baso % (Auto) 0.4, Absolute Neuts (auto) 4.9, Absolute Lymphs (auto) 3.17, Nucleated RBC % 0, Sodium 125 L, Potassium 3.8, Chloride 91 L, Carbon Dioxide 26.0, Anion Gap 8, BUN 6 L, Creatinine 0.68 L , Estim Creat Clear Calc 81.97, Est GFR (MDRD) Af Amer 149, Est GFR (MDRD) Non- Af 123, BUN/Creatinine Ratio 8.8 L, Glucose 74, Calcium 8.1 L, Total Bilirubin 0.30, AST 16, ALT 18, Alkaline Phosphatase 40 L, Total Protein 7.7, Albumin 3.4, Globulin 4.3 H, Albumin/Globulin Ratio 0.8 L, Ethyl Alcohol 270.0 12/15/24 15:25: Urine Opiates Screen NEGATIVE, Urine Methadone Screen NEGATIVE, Ur Barbiturates Screen NEGATIVE, Ur Phencyclidine Scrn NEGATIVE, Ur Amphetamines Screen NEGATIVE, MDMA (Ecstasy) Screen NEGATIVE, U Benzodiazepines Scrn NEGATIVE, Urine Cocaine Screen NEGATIVE, U Cannabinoids Screen NEGATIVE, Ur Drug Screen Comment Assessment & Plan Assessment/Plan (1) Alcohol abuse: PLAN: Plan 1. Chronic alcohol use disorder-patient will be admitted to [place] [address], orders were entered using the alcohol detox order set in the addiction order sets. Patient will be seen by addiction administrator social welfare tomorrow #2 alcohol intoxication #3 essential hypertension-patient will remain on lisinopril #4 chronic depression-patient will remain on Prozac #5 hyponatremia-secondary to beer consumption, BMP will be rechecked tomorrow Total clinical time spent by myself addressing the patient's medical issues, reviewing all of his data, and collaborating with the patient's care team: 55 minutes Charges/Coding Visit Charges Inpatient E&M: 53394 Init Hosp L2
[2024-02-29] MEDS: Acetaminophen 500 MG Tablet PO (16:49)
[2024-02-29] MEDS: hydrOXYzine PAM 25 MG Capsule 50 MG PO (16:49)
[2024-02-29] MEDS: Phenobarbital 32.4 MG Tablet 64.8 MG PO ×2 (16:49→19:54)
[2024-03-01] MEDS: Phenobarbital 32.4 MG Tablet 64.8 MG PO ×6 (00:06→21:07)
[2024-03-01 02:13] VITALS: BP 127/83; PULSE 88; RESP 16; TEMP 36.6; O2SAT 96
[2024-03-01 07:17] LABS: Anion Gap 4 (5-15); BUN 12 mg/dL (7-18); BUN/Creat Ratio 14.8 RATIO (10-20); Calcium,Total 8.9 mg/dL (8.5-10.1); Chloride 100 mmol/L (98-107); Creatinine, Serum 0.81 mg/dL (0.70-1.30); EST Glomerular Filtration Rate 101 mL/min (>60); Est Glom Filt Rate - Afr Amer 122 mL/min (>60); Estimated Creatinine Clearance 80.95 ml/min; Glucose 97 mg/dL (74-106); Potassium 4.6 mmol/L (3.5-5.1); Sodium Level 132 mmol/L (136-145)
[2024-03-01 07:37] VITALS: BP 158/98; PULSE 78; RESP 18; TEMP 36.6; O2SAT 94
[2024-03-01] MEDS: FLUoxetine 10 MG Capsule PO (07:45)
[2024-03-01] MEDS: Thiamine Hydrochloride 100 MG Tablet PO (07:45)
[2024-03-01] MEDS: Folic Acid 1 MG Tablet PO (07:45)
[2024-03-01] MEDS: Lisinopril 10 MG Tablet PO (07:45)
[2024-03-01] MEDS: FLUoxetine 20 MG Capsule PO (07:45)
--- NOTE | 2024-03-01 10:24 | ADDICTION ---
Met with pt to complete RAMP assessments. This is pt's 8th time in detox. Pt reported that he has been drinking for about 50 years but has cut back to a 6-pack. He reports the past couple of weeks he has been drinking heavier. Pt reports that he is willing to follow up with outpatient treatment. Pt has reported this during previous admissions, however, he has had no follow-up. Pt does not report a need for transportation post discharge.
--- NOTE | 2024-03-01 11:41 | PN_ITS ---
Subjective Subjective Patient seen and examined. He had no active complaints. He denied symptoms of withdrawal. Review of systems is otherwise negative. Objective Data Objective Data Vital Signs: Vital Signs Temp Pulse Resp BP Pulse Ox O2 Del Method 97.9 F 78 18 158/98 H 94 Room Air 03/01/24 07:37 03/01/24 07:37 03/01/24 07:37 03/01/24 07:37 03/01/24 07:37 03/01/24 07:37 Oxygen Delivery Method Room Air Weight: 151 lb 2 oz Body Mass Index (BMI) 24.3 Intake & Output: Intake and Output for Last 24 Hours 02/28/24 02/29/24 03/01/24 23:59 23:59 23:59 Intake Total 600 / 600 800 / 800 Balance 600 / 600 800 / 800 Lab / Micro Data 02/29/24 14:37 03/01/24 06:35 Labs: Laboratory Results - last 24 hr 02/29/24 14:37: WBC 8.9, RBC 3.83 L, Hgb 12.7 L, Hct 35.9 L, MCV 93.7, MCH 33.2 H, MCHC 35.4, RDW Std Deviation 50.6 H, RDW Coeff of Hortencia 14.6, Plt Count 234, MPV 8.7, Immature Gran % (Auto) 0.200, Neut % (Auto) 54.5, Lymph % (Auto) 35.5, [place] % (Auto) 7.9, Eos % (Auto) 1.5, Baso % (Auto) 0.4, Absolute Neuts (auto) 4.9, Absolute Lymphs (auto) 3.17, Nucleated RBC % 0, Sodium 125 L, Potassium 3.8, Chloride 91 L, Carbon Dioxide 26.0, Anion Gap 8, BUN 6 L, Creatinine 0.68 L , Estim Creat Clear Calc 81.97, Est GFR (MDRD) Af Amer 149, Est GFR (MDRD) Non- Af 123, BUN/Creatinine Ratio 8.8 L, Glucose 74, Calcium 8.1 L, Total Bilirubin 0.30, AST 16, ALT 18, Alkaline Phosphatase 40 L, Total Protein 7.7, Albumin 3.4, Globulin 4.3 H, Albumin/Globulin Ratio 0.8 L, Ethyl Alcohol 270.0 02/29/24 15:25: Urine Opiates Screen NEGATIVE, Urine Methadone Screen NEGATIVE, Ur Barbiturates Screen NEGATIVE, Ur Phencyclidine Scrn NEGATIVE, Ur Amphetamines Screen NEGATIVE, MDMA (Ecstasy) Screen NEGATIVE, U Benzodiazepines Scrn NEGATIVE, Urine Cocaine Screen NEGATIVE, U Cannabinoids Screen NEGATIVE, Ur Drug Screen Comment 03/01/24 06:35: Sodium 132 L, Potassium 4.6, Chloride 100, Carbon Dioxide 27.0, Anion Gap 4 L, BUN 12, Creatinine 0.81, Estim Creat Clear Calc 80.95, Est GFR (MDRD) Af Amer 122, Est GFR (MDRD) Non-Af 101, BUN/Creatinine Ratio 14.8, Glucose 97, Calcium 8.9 Physical Exam Const alert, oriented x3, no apparent distress and well nourished General Appearance: cooperative and well developed HEENT normocephalic, head/scalp atraumatic and moist oral mucous membranes Eyes PERRL and EOMs intact bilaterally Neck no lymphadenopathy, supple and no JVD Lymph Lymphatic: no lymphadenopathy noted and no lymphedema noted Resp normal respiratory effort, normal air movement and clear to auscultation bilaterally Cardio regular rate, regular rhythm, S1 normal heart sound, S2 normal heart sound and no murmurs GI normal to inspection, nondistended, normoactive bowel sounds, soft to palpation, non-tender and non-distended Extremity normal capillary refill, no clubbing, cyanosis or edema and no calf tenderness General Extremity: no tenderness to palpation of joints or extremities Skin General Skin Exam: no breakdown Neuro CN's II-XII intact bilaterally, no focal motor deficits and no sensory deficits noted Motor Exam: strength 5/5 throughout and general weakness Psych thought process normal and cooperative Appearance: appropriate Assessment & Plan Assessment/Plan (1) Alcohol abuse: (2) Admitted to alcohol detoxification center: PLAN: Plan #Acute alcohol withdrawal * on alcohol withdrawal protocol with phenobarbital * on thiamine, folic acid and multivite * urine tox was negative, and showed serum alcohol level of 270. * monitor CIWA score * #Hyponatremia * sodium is 132 today, was 125 yesterday. * likely due to low sodium. * Will monitor * #Hypertension: on lisinopril #Depression; on fluoxetine DVT prophylaxis: low risk, encourage ambulation. Charges/Coding Visit Charges Inpatient E&M: 48009 Subs Hosp L2
[2024-03-01 13:14] VITALS: BP 115/80; PULSE 96; RESP 16; TEMP 36.7; O2SAT 92
[2024-03-01 16:10] VITALS: BP 124/91; PULSE 83; RESP 16; TEMP 36.5; O2SAT 93
[2024-03-01 20:00] VITALS: BP 117/92; PULSE 79; RESP 16; TEMP 36.6; O2SAT 92
[2024-03-02] MEDS: Phenobarbital 32.4 MG Tablet 64.8 MG PO ×7 (00:45→23:53)
[2024-03-02 04:15] VITALS: BP 148/75; PULSE 74; RESP 16; TEMP 36.4; O2SAT 98
[2024-03-02 08:00] VITALS: BP 156/97; PULSE 82; RESP 12; TEMP 36.6; O2SAT 94
[2024-03-02] MEDS: Thiamine Hydrochloride 100 MG Tablet PO (08:30)
[2024-03-02] MEDS: FLUoxetine 20 MG Capsule PO (08:30)
[2024-03-02] MEDS: FLUoxetine 10 MG Capsule PO (08:30)
[2024-03-02] MEDS: Folic Acid 1 MG Tablet PO (08:30)
[2024-03-02] MEDS: Lisinopril 10 MG Tablet PO (08:31)
--- NOTE | 2024-03-02 10:48 | PN_ITS ---
Subjective Subjective Patient seen and examined. He had no complaints and felt well. Review of systems is otherwise negative. Review of systems is otherwise negative. Objective Data Objective Data Vital Signs: Vital Signs Temp Pulse Resp BP Pulse Ox O2 Del Method 97.9 F 82 12 156/97 H 94 Room Air 03/02/24 08:00 03/02/24 08:00 03/02/24 08:00 03/02/24 08:00 03/02/24 08:00 03/02/24 08:00 Oxygen Delivery Method Room Air Weight: 151 lb 2 oz Body Mass Index (BMI) 24.3 Intake & Output: Intake and Output for Last 24 Hours 02/29/24 03/01/24 03/02/24 23:59 23:59 23:59 Intake Total 600 / 600 1550 / 1550 Balance 600 / 600 1550 / 1550 Lab / Micro Data 02/29/24 14:37 03/01/24 06:35 Physical Exam Const alert, oriented x3, no apparent distress and well nourished General Appearance: cooperative, well kempt and well developed Orientation / Consciousness: awake, oriented to person, oriented to place and oriented to time HEENT normocephalic, head/scalp atraumatic, hearing grossly normal bilaterally and moist oral mucous membranes Eyes PERRL, EOMs intact bilaterally and conjunctivae normal Neck no lymphadenopathy, supple, no JVD, thyroid normal and no carotid bruits General: trachea midline Lymph Lymphatic: no lymphadenopathy noted and no lymphedema noted Resp normal respiratory effort, normal air movement, no retractions, no use of accessory muscles and clear to auscultation bilaterally Cardio regular rate, regular rhythm, S1 normal heart sound, S2 normal heart sound, no murmurs, no rub and no gallops GI normal to inspection, nondistended, normoactive bowel sounds, soft to palpation, non-tender and non-distended Extremity normal capillary refill, no clubbing, cyanosis or edema and no calf tenderness General Extremity: no tenderness to palpation of joints or extremities Skin no rashes or lesions noted General Skin Exam: no breakdown Neuro oriented x3, CN's II-XII intact bilaterally, moves all extremities, no focal motor deficits and no sensory deficits noted Sensorium / Orientation: awake and alert Speech: speech normal Motor Exam: strength 5/5 throughout and general weakness Psych thought process normal and cooperative Appearance: appropriate Assessment & Plan Assessment/Plan (1) Alcohol abuse: (2) Admitted to alcohol detoxification center: PLAN: Plan #Acute alcohol withdrawal * on alcohol withdrawal protocol with phenobarbital * on thiamine, folic acid and multivite * urine tox was negative, and showed serum alcohol level of 270. * monitor CIWA score * #Hyponatremia * improving. This is chronic. Will monit * likely due to chronic alcohol abuse. * Will monitor * #Hypertension: on lisinopril #Depression; on fluoxetine DVT prophylaxis: low risk, encourage ambulation. Charges/Coding Visit Charges Inpatient E&M: 20032 Subs Hosp L2
[2024-03-02 16:00] VITALS: BP 148/97; PULSE 90; RESP 14; TEMP 36.6; O2SAT 98
[2024-03-02 20:00] VITALS: BP 141/85; PULSE 83; RESP 16; TEMP 36.5; O2SAT 98
[2024-03-03 03:00] VITALS: BP 151/73; PULSE 66; RESP 17; TEMP 36.4; O2SAT 97
[2024-03-03] MEDS: Phenobarbital 32.4 MG Tablet 64.8 MG PO (05:48)
[2024-03-03] MEDS: Folic Acid 1 MG Tablet PO (07:47)
[2024-03-03] MEDS: Thiamine Hydrochloride 100 MG Tablet PO (07:47)
[2024-03-03] MEDS: Lisinopril 10 MG Tablet PO (07:47)
[2024-03-03] MEDS: FLUoxetine 20 MG Capsule PO (07:47)
[2024-03-03] MEDS: FLUoxetine 10 MG Capsule PO (07:47)
[2024-03-03 08:00] VITALS: BP 156/98; PULSE 74; RESP 14; TEMP 36.6; O2SAT 98
--- NOTE | 2024-03-03 11:16 | DCINST_ITS ---
Discharge Instructions Diet Discharge Diet: Low fat / Low cholesterol DC O2, CPAP, BIPAP needs Additional Home O2 Discharge instructions: No Dressing / Incision Discharge Activity: Return to Normal Activity Weight Bearing Status: Weight bearing as tolerated Dressing / Incision Call your doctor if you observe: Fever of 101 or Higher, Shortness of breath, Dizziness, Swelling in the ankles and Chest pain Follow Up Care Test Results: Test results from this visit will be discussed in further detail at your follow- up appointment, if applicable. Discharge Plan Admission Admit Date/Time: 02/29/24 15:25 Primary Reason for Your Visit: acute alcohol withdrawal Attending Provider: Moraima Mejia Primary Care Provider: Renan Joel Consulting Providers: Paul Minor Instructions Patient Instructions: Alcohol Withdrawal: What to Expect Discharge Orders/Prescriptions Prescriptions: Continued lisinopril [Zestril] 10 MG tablet 10 mg PO DAILY fluoxetine 10 mg capsule 10 mg PO DAILY Patient Comments: Take 1 capsule by mouth once daily. In addition to 20 mg a day. fluoxetine 20 mg capsule 20 mg PO DAILY sildenafil 100 mg tablet 100 mg PO PRN PRN (Reason: erectile dysfunction) Referrals / Follow Up: Renan Joel MD [Primary Care Provider] - Within 1 Week Disposition Disposition (needs filled in before D/C Order can be placed): Home, Self Care
--- NOTE | 2024-03-03 11:17 | DS.PCM_ITS ---
Providers Date of Admission: 02/29/24 Date of Discharge: 03/03/24 Primary Care Physician: Dr. Renan Joel MD Reason For Visit: ALCOHOL SUBSTANCE USE DISORDER Diagnosis Discharge Diagnosis (1) Alcohol abuse: Status: Acute Code(s): F10.10 - Alcohol abuse, uncomplicated (2) Admitted to alcohol detoxification center: Status: Acute Plan #Acute alcohol withdrawal * on alcohol withdrawal protocol with phenobarbital * on thiamine, folic acid and multivite * urine tox was negative, and showed serum alcohol level of 270. * monitor CIWA score * #Hyponatremia * improving. This is chronic. Will monit * likely due to chronic alcohol abuse. * Will monitor * #Hypertension: on lisinopril #Depression; on fluoxetine DVT prophylaxis: low risk, encourage ambulation. Medications at Discharge Home Medications lisinopril 10 mg tablet (Zestril) 10 mg PO DAILY HTN 06/22/16 fluoxetine 10 mg capsule 10 mg PO DAILY Depression 01/20/22 fluoxetine 20 mg capsule 20 mg PO DAILY depression 09/22/23 sildenafil 100 mg tablet 100 mg PO PRN PRN erectile dysfunction 10/24/23 Hospital Course Operations None Procedures None Summary of Care Provided Minutes Spent on Discharge: 47 Hospital Course: Patient is a 68 y/o male with a PMH as outlined who was admitted via the ED on 02/29/2024 with a complaint of alcohol withdrawal. He has been drinking for about 50 years and says he had cut down to a six pack of beer daily. He admitted to nervousness, tremors and shakes. Review of systems was otherwise negative. Labs were significant for sodium of 125 and serum alcohol level was 270. URine tox was negative. HE was admitted and managed for acute alcohol withdrawal. He was placed on alcohol withdrawal protocol with phenobarbital. He tolerated the 3 day detox process and did well. He remained stable and was discharged home on 03/03/2024. He is to follow up with his PCP within 1-2 weeks. Patient seen and examined prior to discharge. He had no active complaints and review of systems was otherwise negative. Labs and vitals reviewed. Home meds reviewed and reconciled. Physical Exam Const alert, oriented x3, no apparent distress and well nourished General Appearance: cooperative, comfortable, well kempt and well developed Orientation / Consciousness: awake, oriented to person, oriented to place and oriented to time Exam Limitations: no limitations HEENT normocephalic, head/scalp atraumatic, hearing grossly normal bilaterally and moist oral mucous membranes Mouth: oral and palatal mucosa normal Eyes PERRL, EOMs intact bilaterally and conjunctivae normal Neck no lymphadenopathy, supple, no JVD, thyroid normal and no carotid bruits General: trachea midline Lymph Lymphatic: no lymphadenopathy noted and no lymphedema noted Resp normal respiratory effort, normal air movement, no retractions, no use of accessory muscles and clear to auscultation bilaterally Cardio regular rate, regular rhythm, S1 normal heart sound, S2 normal heart sound, no murmurs, no rub and no gallops GI normal to inspection, nondistended, normoactive bowel sounds, soft to palpation, non-tender and non-distended Extremity normal to inspection, full ROM, normal capillary refill, no clubbing, cyanosis or edema and no calf tenderness General Extremity: no tenderness to palpation of joints or extremities Skin no rashes or lesions noted General Skin Exam: no breakdown Neuro oriented x3, CN's II-XII intact bilaterally, moves all extremities, no focal motor deficits and no sensory deficits noted Sensorium / Orientation: awake and alert Speech: speech normal Motor Exam: strength 5/5 throughout and general weakness Psych thought process normal and cooperative Appearance: appropriate Weight / BMI Weight Weight: 151 lb 2 oz Body Mass Index (BMI) 24.3 ABG / Lab / Microbiology Data 02/29/24 14:37 03/01/24 06:35 D/C Instructions Discharge Diet: Low fat / Low cholesterol Discharge Activity: Return to Normal Activity Weight Bearing Status: Weight bearing as tolerated Call your doctor if you observe: Fever of 101 or Higher, Shortness of breath, Dizziness, Swelling in the ankles and Chest pain DC O2, CPAP, BIPAP Needs Additional Home O2 Discharge instructions: No DC home with Oxygen: No Meaningful Use Info Meaningful Use Meaningful Use Diagnoses (Choose all that apply): None applicable Ischemic Stroke Statin Dosing Therapy Reference: STATIN DOSE THERAPY REFERENCE: * Patients > 75 years receive moderate or high dose statin therapy. * Patients 75 years or YOUNGER should receive HIGH intensity statin dose unless contraindicated. You will be required to document reason for non-treatment if statin daily dose does not meet guidelines. HIGH DOSE STATIN THERAPY DAILY Atorvastatin > than or = to 40 mg Rosuvastatin > than or = to 20 mg Amlodipine + Atorvastatin > than or = to 2.5/40 mg Ezetimibe + Simvastatin 10/80 mg Simvastatin 80mg Discharge Plan Admission Admit Date/Time: 02/29/24 15:25 Primary Reason for Your Visit: acute alcohol withdrawal Attending Provider: Moraima Mejia Primary Care Provider: Renan Joel Consulting Providers: Paul Minor Instructions Patient Instructions: Alcohol Withdrawal: What to Expect Discharge Orders/Prescriptions Prescriptions: Continued lisinopril [Zestril] 10 MG tablet 10 mg PO DAILY fluoxetine 10 mg capsule 10 mg PO DAILY Patient Comments: Take 1 capsule by mouth once daily. In addition to 20 mg a day. fluoxetine 20 mg capsule 20 mg PO DAILY sildenafil 100 mg tablet 100 mg PO PRN PRN (Reason: erectile dysfunction) Referrals / Follow Up: Renan Joel MD [Primary Care Provider] - Within 1 Week Disposition Disposition (needs filled in before D/C Order can be placed): Home, Self Care Charges/Coding Visit Charges Inpatient E&M: 40044 Disch Hosp >30min
--- NOTE | 2024-03-03 14:19 | CHAPLAIN ---
Type of Pastoral Visit _x__ Initial Visit ___ Follow-up Visit ___ On-call Visit ___ General Patient Visit ___ Spiritual Assessment ___ Family Conference ___ Bereavement ___ Rapid Response ___ Code Blue ___ Other (describe below) Pastoral Care Referral From _x__ Patient ___ Family ___ Nurse ___ Physician ___ Pigment Processor ___ Tool And Die Technician ___ Other (describe below) Sacrament/Intervention _x__ Active listening ___ Anointing ___ Orthodoxy ___ Bereavement ___ Communion _x__ [place] exploration ___ _x__ Life review _x__ Prayer ___ Reconciliation ___ Sacrament of Sick _x__ Supportive presence ___ Wedding ___ Other (describe below) Pastoral Comments this skate hop was welcomed into this room as patient is waiting for discharge; pt is walking around in the room; pt states that he has been in the hospital and has not had much of time to talk with anyone; pt is welcoming and begins to talk about his past relationship to God and involvement with yazdanism; pt admits that he has wondered away from God and the yazdanism; pt speaks of his struggle with alcohol and how it could kill him or limit his activities; pt says that he has had good intentions in the past but has not been disciplined enough before; pt speaks of having this good conversation and being so thankful that you are here; prayer and presence welcomed and given
== END 2024-03-03 13:14 | disposition home or self-care (01) | DRG 897 ==
LOC: ED 14:50 → MS3 15:29
PROVIDERS: Admitting Provider Internal Medicine; Emergency Provider Emergency Medicine; PCP Family Medicine; Visit Provider Student in an Organized Health Care Education/Training Program
DX: F10.239 Alcohol dependence with withdrawal, unspecified (principal); E87.1 Hypo-osmolality and hyponatremia; I10 Essential (primary) hypertension; F32.A Depression, unspecified; F10.229 Alcohol dependence with intoxication, unspecified; F17.210 Nicotine dependence, cigarettes, uncomplicated; Y90.8 Blood alcohol level of 240 mg/100 ml or more
CPT/HCPCS: 36415; 80048; 80053; 80307; 82077; 85025; 99284; 99406; A4216

== ENCOUNTER 2024-07-07 12:58 | Inpatient (IN) | payer MEDICARE, MEDICAID, SELFPAY ==
[2024-07-07 12:59] VITALS: BP 90/64; PULSE 9; RESP 18; TEMP 36.6; O2SAT 98
[2024-07-07 13:00] VITALS: BMI 25.4
--- NOTE | 2024-07-07 13:25 | EX.ED.SAOD ---
HPI History of Present Illness Chief Complaint: Substance Abuse Detail of Chief Complaint: Requesting detox from alcohol Informant: patient Narrative Narrative: Patient presents the emergency department complaint of wanting detox from alcohol. Patient states that he has history of alcoholism. He typically drinks beer and currently is still drinking about 12 pack a day. His last drink was a few hours ago. Patient has had detox in the past and he thinks his last detox was about 4 months ago after which time he was clean for about a month. Patient denies nausea vomiting or diarrhea. He denies abdominal pain. He denies illness otherwise. Denies feeling suicidal or homicidal. 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 Smoker Sleep apnea Smoker Sleep apnea Seizures GERD (gastroesophageal reflux disease) Alcohol addiction Alcohol abuse Tobacco dependence Depression HTN (hypertension) Home Medications ?Medication ?Instructions ?Recorded ?Last Taken ?Type lisinopril 10 mg tablet (Zestril) 10 mg PO DAILY HTN 06/22/16 02/29/24 History fluoxetine 10 mg capsule 10 mg PO DAILY Depression 01/20/22 02/29/24 History fluoxetine 20 mg capsule 20 mg PO DAILY depression 09/22/23 02/29/24 History sildenafil 100 mg tablet 100 mg PO PRN PRN erectile 10/24/23 Unknown History dysfunction Allergy/AdvReac Type Severity Reaction Status Date / Time No Known Allergies Allergy Verified 07/07/24 13:00 Family History Other Dementia Thyroid disorder Surgical History History of thoracic surgery Social History household members: none housing: apartment Smoking Status: Current every day smoker tobacco type: cigarettes alcohol intake: current alcohol intake frequency: 3 or more drinks per day substance use type: does not use ROS ROS ED ROS Narrative Requesting detox from alcohol. Review of Systems ROS Unobtainable: other Constitutional Constitutional ED: Reports lethargy; Denies chills, fever(s), sweats or weight loss Eyes Eyes: Denies blurry vision, change in vision or diplopia ENT ENT ED: Denies rhinorrhea or sore throat Cardiovascular Cardiovascular: Denies chest pain, orthopnea or racing heartbeat Respiratory/Chest Respiratory/Chest: Denies cough, dyspnea, dyspnea on exertion, orthopnea or sputum Gastrointestinal Gastrointestinal: Denies abdominal pain, diarrhea, nausea or vomiting Genitourinary Genitourinary ED: Denies dysuria, hematuria or urinary frequency Musculoskeletal Musculoskeletal: Denies arthralgias, back pain, myalgias or neck pain Integumentary Denies abscess, Abrasions or rash Neurologic Neurologic: Denies headache(s) or weakness Psychiatric Psychiatric: Denies anxiety, depression or suicidal thoughts Endocrine Endocrinology: Denies polydipsia, polyphagia or polyuria Hematologic/Lymphatic Hematologic/Lymphatic: Denies easy bleeding, easy bruising or lymphadenopathy Allergic/Immunologic Allergic/Immunologic ED: Denies mouth swelling, tongue swelling or urticaria EXAM Physical Exam Const Vital Signs: 07/07/24 12:59 Temperature 98 F Temperature Source Oral Pulse Rate 9 L Respiratory Rate 18 Blood Pressure 90/64 Blood Pressure Mean 72 Pulse Ox 98 Oxygen Delivery Method Room Air Positive well nourished and well developed General Appearance ED: well developed and NAD HEENT Reports TM's clear and moist mucous membranes normocephalic and atraumatic; Negative for trauma or tenderness Tympanic Membrane ED: Yes TM's clear Eyes PERRL and EOMs intact bilaterally General Eye ED: Negative for pale conjunctiva or scleral icterus Neck no lymphadenopathy, supple and no JVD General: Negative for tenderness Chest Wall inspection of chest normal and palpation of chest normal Chest: Negative for tenderness Resp normal respiratory effort and clear to auscultation bilaterally Effort and Inspection: Negative for respiratory distress or pain with movement Auscultation: Negative for rhonchi, wheezes or diminished lung sounds Cardio regular rate, regular rhythm, S1 normal heart sound, S2 normal heart sound and no murmurs Peripheral Pulses: pulses 2+ throughout GI normal to inspection, nondistended, normoactive bowel sounds, soft to palpation, non-tender, non-distended and no masses Back/Spine no CVA tenderness and no thoracic nor lumbar tenderness Extremity normal to inspection General Extremety ED: Negative for edema General Extremity: Negative for edema Neuro oriented x3, CN's II-XII intact bilaterally, no sensory deficits noted and gait normal Sensorium / Orientation: awake, alert, oriented to person, oriented to place and oriented to time Motor Exam: strength 5/5 throughout and strength abnormal Psych mental status grossly normal Skin no rashes or lesions noted and no wounds MDM MDM MDM Narrative Medical decision making narrative: Patient presents requesting detox from alcohol. Clinically looks well. CBC with differential, 6.4 with hemoglobin 13 and platelet count of 319. Alcohol and tox screen ordered and pending. LFTs pending. Will discuss case with hospitalist to evaluate patient for admission. Chemistries do show hyponatremia with sodium of 121 as well as potassium 4.1 and chloride of 88. Alcohol was 250. Lab Data Attestation: I reviewed the patient's lab results. Labs: Laboratory Results - last 24 hr 07/07/24 13:36 WBC 6.4 RBC 3.76 L Hgb 13.0 Hct 35.6 L MCV 94.7 H MCH 34.6 H MCHC 36.5 H RDW Std Deviation 47.7 H RDW Coeff of Hortencia 13.9 Plt Count 319 MPV 8.0 Immature Gran % (Auto) 0.300 Neut % (Auto) 53.0 Lymph % (Auto) 35.4 [place] % (Auto) 9.8 Eos % (Auto) 0.9 Baso % (Auto) 0.6 Absolute Neuts (auto) 3.4 Absolute Lymphs (auto) 2.28 Nucleated RBC % 0 Sodium 121 L Potassium 4.1 Chloride 88 L Carbon Dioxide 20.6 L Anion Gap 12 BUN 6 Creatinine 0.66 L Estim Creat Clear Calc 80.86 Est GFR (MDRD) Non-Af 103 BUN/Creatinine Ratio 9.6 L Glucose 88 Calcium 8.6 Total Bilirubin 0.39 AST 23 ALT 29 Alkaline Phosphatase 33 L Total Protein 7.4 Albumin 3.9 Globulin 3.5 Albumin/Globulin Ratio 1.1 Ethyl Alcohol 250.0 H Discharge Plan Dx/Rx/DC Orders Clinical Impression: Alcohol abuse, Admitted to alcohol detoxification center Disposition Disposition: Acute Care Hospital [facility]
[2024-07-07] MEDS: 0.9% Normal Saline (1000mL) 1,000 ML 150 ML IV (13:37)
[2024-07-07 13:47] LABS: Absolute Lymphocyte Count 2.28 X10^3/uL (0.83-4.51); Absolute Neutrophil Count 3.4 X10^3/uL (2.0-7.7); Basophil# 0.04 X10^3/uL; Basophil% 0.6 % (0-1); Eosinophil# 0.06 X10^3/uL; Eosinophils% 0.9 % (0-5); Hematocrit 35.6 % (40-54); Lymphocyte # 2.28 X10^3/ul (0.83-4.51); Lymphocyte % 35.4 % (19-41); Mean Corp Hgb Conc 36.5 g/dL (32-36); Mean Corpuscular Hgb 34.6 pg (27.0-32.0); Mean Corpuscular Volume 94.7 fL (80-94); Monocyte# 0.63 X10^3/uL; Monocyte% 9.8 % (0-10); NRBC Flagged by Analyzer 0 % (0-5); Neutrophil # 3.41 X10^3/uL (2.7-7.7); Platelet Count 319 K/mm3 (150-450); RBC Distribution Width CV 13.9 % (11.6-14.6); RBC Distribution Width SD 47.7 fl (35.1-43.9); Red Blood Count 3.76 M/mm3 (4.6-6.2); White Blood Count 6.4 K/mm3 (4.4-11.0)
[2024-07-07 14:13] LABS: ALB/GLOB Ratio 1.1 RATIO (0.9-2.4); AST(SGOT) 23 U/L (<=37); Alanine Aminotransfer ALT/SGPT 29 U/L (<=46); Albumin, Serum 3.9 g/dL (3.4-4.8); Alkaline Phosphatase 33 U/L (40-129); Anion Gap 12 (5-15); BUN 6 mg/dL (4-19); BUN/Creat Ratio 9.6 RATIO (10-20); Calcium,Total 8.6 mg/dL (7.6-11.0); Carbon Dioxide 20.6 mmol/L (21.0-32.0); Chloride 88 mmol/L (98-108); Creatinine, Serum 0.66 mg/dL (0.70-1.20); EST Glomerular Filtration Rate 103 (>60); Estimated Creatinine Clearance 80.86 ml/min (50-250); Globulin 3.5 g/dL (2.2-4.2); Glucose 88 mg/dL (70-99); Potassium 4.1 mmol/L (3.3-5.1); Protein, Total 7.4 g/dL (5.9-8.4); Sodium Level 121 mmol/L (133-145); Total Bilirubin 0.39 mg/dL (0.00-1.30)
[2024-07-07 14:22] LABS: Amphetamine Urine NEGATIVE (<1000 ng/mL); Barbiturate Urine NEGATIVE (< 200 ng/mL); Benzodiazepine Urine NEGATIVE (< 200 ng/mL); Buprenorphine Urine NEGATIVE (< 200 ng/mL); Cocaine Urine NEGATIVE (< 300 ng/mL); Fentanyl, Urine NEGATIVE; Methadone Urine NEGATIVE (< 300 ng/mL); Opiates Urine NEGATIVE (< 300 ng/mL); Oxycodone, Urine NEGATIVE (< 100 ng/mL); PCP Urine NEGATIVE (< 25 ng/mL); THC Urine NEGATIVE (< 50 ng/mL)
--- NOTE | 2024-07-07 15:08 | PCM.HP.STD ---
HPI - General General Date of Admission: 07/07/24 Date of Service: 07/07/24 Chief Complaint: Alcohol detox HPI Narrative WOODROW GIBBONS, is a Patient is a 69-year-old male with history of alcohol use disorder, hypertension, tobacco use, depression who presented [facility] ED 07/07/2024 requesting detox from alcohol. Typically drinks beer and drinks about 12 pack a day with his last drink couple of hours ago. Has had detox in the past with his last detox 4 months ago after which time he did not drink for about a month and then resumed drinking. In the ED blood pressure record is 90/64, patient afebrile, saturating well on room air. CBC with white blood cell count, hemoglobin, platelets within normal limits. Hospitalist contacted for admission. Patient evaluated at bedside, reports he drinks less now than he used to and in the past when he drank even heavier he thinks he may have had a withdrawal seizure but is very remote and cannot be more specific, has had no DTs, seizures, hallucinations with recent attempts to quit drinking, presently is having no withdrawal symptoms but drank shortly before coming to the ED. [facility] Medical History Alcohol abuse Alcohol abuse Alcohol addiction Alcohol dependence Depression Desire for detoxification GERD (gastroesophageal reflux disease) HTN (hypertension) Seizures Sleep apnea Sleep apnea Smoker Smoker Tobacco dependence Vision loss of left eye Vision loss of right eye Home Medications ?Medication ?Instructions ?Recorded ?Last Taken ?Type lisinopril 10 mg tablet (Zestril) 10 mg PO DAILY HTN 06/22/16 02/29/24 History fluoxetine 10 mg capsule 10 mg PO DAILY Depression 01/20/22 02/29/24 History fluoxetine 20 mg capsule 20 mg PO DAILY depression 09/22/23 02/29/24 History sildenafil 100 mg tablet 100 mg PO PRN PRN erectile 10/24/23 Unknown History dysfunction Allergy/AdvReac Type Severity Reaction Status Date / Time No Known Allergies Allergy Verified 07/07/24 13:00 Family History Other Dementia Thyroid disorder Surgical History History of thoracic surgery Social History household members: none housing: apartment Smoking Status: Current every day smoker tobacco type: cigarettes alcohol intake: current alcohol intake frequency: 3 or more drinks per day substance use type: does not use ROS ROS Narrative General: Denies fever/chills HENT: Denies headache, denies stuffy nose, denies sore throat EYES: Denies changes in vision Resp: Denies cough, denies shortness of breath Cardiac: Denies chest pain GI: Little bit of stomach upset, denies changes in bowel, denies nausea/vomiting : Denies changes in urination Extremity: Denies swelling MSK: Denies weakness Neuro: Denies any numbness/tingling Heme: Denies any bleeding or bruising Skin: Denies rashes Psychiatric: No complaints voiced Vital Signs Vital Signs Vital Signs: 07/07/24 12:59 Temperature 98 F Temperature Source Oral Pulse Rate 9 L Respiratory Rate 18 Blood Pressure 90/64 Blood Pressure Mean 72 Pulse Ox 98 Oxygen Delivery Method Room Air Weight Weight: 71.7 kg Body Mass Index (BMI) 25.4 Physical Exam Narrative General: Alert, oriented, no apparent distress HEENT: Atraumatic, normocephalic Eyes: Anicteric, normal conjunctiva, extraocular movements grossly intact Neck: Supple Respiratory: Clear to auscultation bilaterally, normal respiratory effort Cardiovascular: Regular rate and rhythm GI: Soft, nontender, nondistended Extremities: No edema Musculoskeletal: Moving all extremities Neuro: No overt focal neurological deficits Skin: No rashes appreciated Psych: Cooperative Results Lab / Micro Data 07/07/24 13:36 07/07/24 13:36 Labs: Laboratory Results - last 24 hr 07/07/24 13:36: WBC 6.4, RBC 3.76 L, Hgb 13.0, Hct 35.6 L, MCV 94.7 H, MCH 34.6 H, MCHC 36.5 H, RDW Std Deviation 47.7 H, RDW Coeff of Hortencia 13.9, Plt Count 319, MPV 8.0, Immature Gran % (Auto) 0.300, Neut % (Auto) 53.0, Lymph % (Auto) 35.4, [place] % (Auto) 9.8, Eos % (Auto) 0.9, Baso % (Auto) 0.6, Absolute Neuts (auto) 3.4, Absolute Lymphs (auto) 2.28, Nucleated RBC % 0, Sodium 121 L, Potassium 4.1, Chloride 88 L, Carbon Dioxide 20.6 L, Anion Gap 12, BUN 6, Creatinine 0.66 L, Estim Creat Clear Calc 80.86, Est GFR (MDRD) Non-Af 103, BUN/Creatinine Ratio 9.6 L, Glucose 88, Calcium 8.6, Total Bilirubin 0.39, AST 23, ALT 29, Alkaline Phosphatase 33 L, Total Protein 7.4, Albumin 3.9, Globulin 3.5, Albumin/Globulin Ratio 1.1, Ethyl Alcohol 250.0 H 07/07/24 13:50: Urine Opiates Screen NEGATIVE, U Buprenorphine Qual NEGATIVE, Ur Oxycodone Screen NEGATIVE, Urine Methadone Screen NEGATIVE, Urine Fentanyl Screen NEGATIVE, Ur Barbiturates Screen NEGATIVE, Ur Phencyclidine Scrn NEGATIVE, Ur Amphetamines Screen NEGATIVE, U Benzodiazepines Scrn NEGATIVE, Urine Cocaine Screen NEGATIVE, U Cannabinoids Screen NEGATIVE Assessment & Plan Assessment/Plan (1) Alcohol abuse: PLAN: Plan #Alcohol use disorder - We will begin CIWA every 4 for 24 hours, then every 6 for 24 hours, then every 12 until discharge -Will begin phenobarbital taper -Gabapentin 300 mg every 8 as needed -Will start Bentyl and hydroxyzine as needed as well as loperamide as needed -Trazodone 100 mg p.o. nightly as needed sleep -Begin thiamine and folic acid supplementation -Zofran as needed for nausea -Case management consult to assist with discharge planning -EtOH 250 -UDS negative # Chronic hyponatremia - Patient vacillates widely but is chronically hyponatremic going all the way back to 2018 - Suspect this may be alcohol related and likely has poor p.o. intake as well - Patient being hydrated with normal saline in the ED - If sodium does not improve in the a.m. may need further workup and evaluation #Tobacco use -Advise cessation -Nicotine replacement available if desired #Hypertension - Awaiting home med rec confirmation, patient hypertensive and still taking his lisinopril can resume this but may not need to short-term given patient will be on multiple medications for withdrawal #DVT ppx: Low risk, ambulatory Selena Cade MD Time spent in the patient's overall evaluation, decision-making process, review of diagnostic data, adjustment of management, discussion with other providers, nursing and ancillary staff involved in patient's care documentation, 57 Minutes Charges/Coding Visit Charges Inpatient E&M: 77224 Init Hosp L2
[2024-07-07 15:12] VITALS: BP 95/62; PULSE 67; RESP 16; O2SAT 99
[2024-07-07 16:14] LABS: Prothrombin Time (Protime)PT. 12.9 SECONDS (11.7-14.9)
[2024-07-07 17:00] VITALS: BP 142/88; PULSE 86; RESP 14; O2SAT 98
[2024-07-07 18:02] VITALS: BP 97/65; PULSE 96; RESP 20; TEMP 36.7; O2SAT 94; BMI 23.8
[2024-07-07] MEDS: Phenobarbital 32.4 MG Tablet PO (18:32)
[2024-07-07] MEDS: Acetaminophen 325 MG Tablet 650 MG PO (19:57)
[2024-07-07] MEDS: 0.9% Saline Lock 10 ML Syringe IV (19:58)
[2024-07-07 23:00] VITALS: BP 132/90; PULSE 89; RESP 18; TEMP 36.8; O2SAT 96
[2024-07-08] VITALS (7 sets, daily range): BP systolic 96–169; BP diastolic 73–93; PULSE 66–108; RESP 16–18; TEMP 36.2–37; O2SAT 90–98
[2024-07-08] MEDS: Dicyclomine 10 MG Capsule 20 MG PO ×2 (00:01→18:07)
[2024-07-08] MEDS: traZODone 100 MG Tablet PO ×2 (00:01→22:28)
[2024-07-08] MEDS: Phenobarbital 32.4 MG Tablet PO ×7 (00:01→22:42)
[2024-07-08] MEDS: hydrOXYzine PAM 25 MG Capsule 50 MG PO ×2 (00:01→17:43)
[2024-07-08] MEDS: Acetaminophen 325 MG Tablet 650 MG PO ×2 (03:14→14:36)
--- NOTE | 2024-07-08 07:22 | PN.HOSP_ITS ---
Reason for Visit Reason for Visit: Alcohol detox Subjective Subjective Patient states he is feeling much better than yesterday. Last drink was about 24 hours ago. Denies any specific complaints at this time. Objective Data Objective Data Vital Signs: Vital Signs Temp Pulse Resp BP Pulse Ox O2 Del Method 97.7 F L 82 17 137/80 H 98 Room Air 07/08/24 06:40 07/08/24 06:40 07/08/24 06:40 07/08/24 06:40 07/08/24 06:40 07/08/24 06:40 Oxygen Delivery Method Room Air Weight: 67 kg Body Mass Index (BMI) 23.8 Intake & Output: Intake and Output for Last 24 Hours 07/06/24 07/07/24 07/08/24 23:59 23:59 23:59 Intake Total 925 / 1165 240 / 240 Balance 925 / 1165 240 / 240 Lab / Micro Data 07/07/24 13:36 07/08/24 06:50 Labs: Laboratory Results - last 24 hr 07/07/24 13:35: PT 12.9, INR 1.0 07/07/24 13:36: WBC 6.4, RBC 3.76 L, Hgb 13.0, Hct 35.6 L, MCV 94.7 H, MCH 34.6 H, MCHC 36.5 H, RDW Std Deviation 47.7 H, RDW Coeff of Hortencia 13.9, Plt Count 319, MPV 8.0, Immature Gran % (Auto) 0.300, Neut % (Auto) 53.0, Lymph % (Auto) 35.4, [place] % (Auto) 9.8, Eos % (Auto) 0.9, Baso % (Auto) 0.6, Absolute Neuts (auto) 3.4, Absolute Lymphs (auto) 2.28, Nucleated RBC % 0, Sodium 121 L, Potassium 4.1, Chloride 88 L, Carbon Dioxide 20.6 L, Anion Gap 12, BUN 6, Creatinine 0.66 L, Estim Creat Clear Calc 80.86, Est GFR (MDRD) Non-Af 103, BUN/Creatinine Ratio 9.6 L, Glucose 88, Calcium 8.6, Total Bilirubin 0.39, AST 23, ALT 29, Alkaline Phosphatase 33 L, Total Protein 7.4, Albumin 3.9, Globulin 3.5, Albumin/Globulin Ratio 1.1, Ethyl Alcohol 250.0 H 07/07/24 13:50: Urine Opiates Screen NEGATIVE, U Buprenorphine Qual NEGATIVE, Ur Oxycodone Screen NEGATIVE, Urine Methadone Screen NEGATIVE, Urine Fentanyl Screen NEGATIVE, Ur Barbiturates Screen NEGATIVE, Ur Phencyclidine Scrn NEGATIVE, Ur Amphetamines Screen NEGATIVE, U Benzodiazepines Scrn NEGATIVE, Urine Cocaine Screen NEGATIVE, U Cannabinoids Screen NEGATIVE Physical Exam Const alert, oriented x3, no apparent distress, average body habitus and well nourished; Negative for healthy appearing Constitutional Narrative: Upper middle-aged, white male, lying in bed, appears comfortable, nontoxic HEENT head/scalp atraumatic and moist oral mucous membranes Head and Scalp: normocephalic Resp normal respiratory effort, no retractions and no use of accessory muscles Resp Narrative: Diffusely diminished with few scattered end expiratory wheezes Auscultation: wheezes; Negative for rhonchi Cardio regular rate, regular rhythm, S1 normal heart sound, S2 normal heart sound, no murmurs, no rub, no gallops and no clicks GI normal to inspection, nondistended, normoactive bowel sounds, soft to palpation and non-tender Extremity no clubbing, cyanosis or edema Extremity Narrative: Pedal and radial pulses are 2+ Neuro oriented x3 and moves all extremities Speech: speech normal Psych affect normal Psych Narrative: Very pleasant, interacts appropriately Assessment & Plan Assessment/Plan (1) Acute hyponatremia: (2) Alcohol abuse: PLAN: Plan Alcohol abuse with pending withdrawal - Last drink was at 10 AM on 07/07/2024 - Continue CIWA - Continue phenobarbital taper - Continue supportive medication on a as needed basis - Continue thiamine - Continue folic acid supplementation - EtOH on admission was 250 - UDS was negative - 180 consultation for assistance with discharge planning Acute on chronic hyponatremia - Likely related to decreased solute intake - Trending up - 121 on presentation now up to 129 with no intervention - Repeat BMP in a.m. Essential hypertension - Restart home lisinopril Depression - Restart home fluoxetine Tobacco abuse - Nicotine patch available if needed - Recommend cessation - Suspect patient has baseline COPD but needs outpatient PFTs Erectile dysfunction - Patient is on sildenafil at home restart at discharge if verified DVT prophylaxis - Low risk - Early and frequent ambulation CODE STATUS - Full code Charges/Coding Visit Charges Inpatient E&M: 96096 Subs Hosp L2
[2024-07-08 08:10] LABS: Anion Gap 9 (5-15); BUN 11 mg/dL (4-19); BUN/Creat Ratio 14.3 RATIO (10-20); Calcium,Total 8.6 mg/dL (7.6-11.0); Carbon Dioxide 23.3 mmol/L (21.0-32.0); Chloride 95 mmol/L (98-108); Creatinine, Serum 0.74 mg/dL (0.70-1.20); EST Glomerular Filtration Rate 99 (>60); Estimated Creatinine Clearance 80.86 ml/min (50-250); Glucose 85 mg/dL (70-99); Potassium 4.6 mmol/L (3.3-5.1); Sodium Level 127 mmol/L (133-145)
--- NOTE | 2024-07-08 09:33 | ADDICTION ---
Addendum entered by Franci Faith 07/08/24 10:08: Went back in to discuss Vivitrol with pt. He meets criteria for the shot. He also reported that he would like inpatient treatment. Clinician will contact [facility] to set up a screen for admission. Original Note: This documentation writer met with PT to complete ASAM, MSE and AUDIT assessments and to plan for d/c. All assessments completed. [facility]. Pt has a hx of no to minimal follow up post discharge. No transportation needs identified.
[2024-07-08] MEDS: Folic Acid 1 MG Tablet PO (10:17)
[2024-07-08] MEDS: Thiamine Hydrochloride 100 MG Tablet PO (10:17)
[2024-07-08] MEDS: Lidocaine 2% Viscous15 ML UDC 15 ML PO (14:37)
[2024-07-08] MEDS: Mag Hydrox/Al Hydrox/Simeth 30 ML UDC PO (14:37)
--- NOTE | 2024-07-08 15:13 | CHAPLAIN ---
Type of Pastoral Visit ___ Initial Visit ___ Follow-up Visit ___ On-call Visit ___ General Patient Visit ___ Spiritual Assessment ___ Family Conference ___ Bereavement ___ Rapid Response ___ Code Blue _x__ Other (describe below) Pastoral Care Referral From _x__ Patient ___ Family ___ Nurse ___ Physician ___ Refractory Technician ___ Drop Forger Helper ___ Other (describe below) Sacrament/Intervention ___ Active listening ___ Anointing ___ Christianity ___ Bereavement ___ Communion ___ Marion exploration ___ ___ Life review ___ Prayer ___ Reconciliation ___ Sacrament of Sick ___ Supportive presence ___ Wedding ___ Other (describe below) Pastoral Comments patient is trying to rest and yet is awake; pt says that he feels like he needs to sleep mostly right now but would like this chief radiology to try again another time, maybe tomorrow, to talk with him and visit
[2024-07-08] MEDS: Loperamide 2 MG Capsule PO (18:07)
[2024-07-08] MEDS: Ondansetron 8 MG Tablet PO (18:08)
[2024-07-08] MEDS: 0.9% Saline Lock 10 ML Syringe IV (22:28)
[2024-07-09] VITALS (8 sets, daily range): BP systolic 102–159; BP diastolic 74–92; PULSE 73–106; RESP 16–18; TEMP 36.4–36.6; O2SAT 93–97
[2024-07-09] MEDS: Phenobarbital 32.4 MG Tablet PO ×6 (02:28→22:05)
[2024-07-09 07:32] LABS: Anion Gap 9 (5-15); BUN 14 mg/dL (4-19); BUN/Creat Ratio 15.4 RATIO (10-20); Calcium,Total 8.9 mg/dL (7.6-11.0); Carbon Dioxide 24.3 mmol/L (21.0-32.0); Chloride 99 mmol/L (98-108); Creatinine, Serum 0.88 mg/dL (0.70-1.20); EST Glomerular Filtration Rate 94 (>60); Estimated Creatinine Clearance 73.51 ml/min (50-250); Glucose 95 mg/dL (70-99); Potassium 4.5 mmol/L (3.3-5.1); Sodium Level 131 mmol/L (133-145)
--- NOTE | 2024-07-09 07:51 | PCM.PN.HOSP ---
Reason for Visit Reason for Visit: Alcohol detox Subjective Subjective Patient states she is doing much better today than yesterday Objective Data Objective Data Vital Signs: Vital Signs Temp Pulse Resp BP Pulse Ox O2 Del Method 97.6 F L 106 H 16 143/91 H 93 Room Air 07/09/24 02:01 07/09/24 07:41 07/09/24 06:01 07/09/24 06:01 07/09/24 06:01 07/09/24 06:01 Oxygen Delivery Method Room Air Weight: 67 kg Body Mass Index (BMI) 23.8 Intake & Output: Intake and Output for Last 24 Hours 07/07/24 07/08/24 07/09/24 23:59 23:59 23:59 Intake Total 925 / 1165 555 / 675 360 / 360 Balance 925 / 1165 555 / 675 360 / 360 Lab / Micro Data 07/07/24 13:36 07/09/24 06:33 Labs: Laboratory Results - last 24 hr 07/08/24 06:50: Sodium 127 L, Potassium 4.6, Chloride 95 L, Carbon Dioxide 23.3, Anion Gap 9, BUN 11, Creatinine 0.74, Estim Creat Clear Calc 80.86, Est GFR (MDRD) Non-Af 99, BUN/Creatinine Ratio 14.3, Glucose 85, Calcium 8.6 07/09/24 06:33: Sodium 131 L, Potassium 4.5, Chloride 99, Carbon Dioxide 24.3, Anion Gap 9, BUN 14, Creatinine 0.88, Estim Creat Clear Calc 73.51, Est GFR (MDRD) Non-Af 94, BUN/Creatinine Ratio 15.4, Glucose 95, Calcium 8.9 Physical Exam Const alert, oriented x3, no apparent distress, average body habitus and well nourished; Negative for healthy appearing Constitutional Narrative: Upper middle-aged, white male, lying in bed, appears comfortable, nontoxic HEENT head/scalp atraumatic and moist oral mucous membranes HEENT Narrative: Mallampati 2, no thrush Psych affect normal Psych Narrative: Very pleasant, interacts appropriately Assessment & Plan Assessment/Plan (1) Acute hyponatremia: (2) Alcohol abuse: PLAN: Plan Alcohol abuse with pending withdrawal - Last drink was at 10 AM on 07/07/2024 - Continue CIWA - Continue phenobarbital taper - Continue supportive medication on a as needed basis - Continue thiamine - Continue folic acid supplementation - EtOH on admission was 250 - UDS was negative - 180 has evaluated the patient and plan is for inpatient with Vivitrol at discharge Acute on chronic hyponatremia - Likely related to decreased solute intake - Trending up - 121 on presentation now up to 131 Essential hypertension -Continue lisinopril Depression -Continue fluoxetine Tobacco abuse - Nicotine patch available if needed - Recommend cessation - Suspect patient has baseline COPD but needs outpatient PFTs Erectile dysfunction - Patient is on sildenafil at home restart at discharge if verified DVT prophylaxis - Low risk - Early and frequent ambulation CODE STATUS - Full code Charges/Coding Visit Charges Inpatient E&M: 98268 Subs Hosp L1
[2024-07-09] MEDS: FLUoxetine 10 MG Capsule PO (08:03)
[2024-07-09] MEDS: Lisinopril 10 MG Tablet PO (08:03)
[2024-07-09] MEDS: Folic Acid 1 MG Tablet PO (08:03)
[2024-07-09] MEDS: Thiamine Hydrochloride 100 MG Tablet PO (08:03)
[2024-07-09] MEDS: FLUoxetine 20 MG Capsule PO (08:03)
--- NOTE | 2024-07-09 12:57 | CHAPLAIN ---
Type of Pastoral Visit _x__ Initial Visit ___ Follow-up Visit ___ On-call Visit ___ General Patient Visit ___ Spiritual Assessment ___ Family Conference ___ Bereavement ___ Rapid Response ___ Code Blue ___ Other (describe below) Pastoral Care Referral From _x__ Patient ___ Family ___ Nurse ___ Physician ___ Senior Telecommunications Technician ___ Advertising Sales Associate ___ Other (describe below) Sacrament/Intervention _x__ Active listening ___ Anointing ___ Yazidism ___ Bereavement ___ Communion _x__ Marion exploration ___ _x__ Life review _x__ Prayer ___ Reconciliation ___ Sacrament of Sick _x__ Supportive presence ___ Wedding ___ Other (describe below) Pastoral Comments patient is feeling much better than yesterday and is eager to talk with this chair car driver; pt has been seen before and admits that his struggle with alcohol abuse has been a years long benson; pt identifies self as a spiritual man but sometimes I get away from prayer and God; pt admits to having allowed thoughts of I can handle this to get the best of him time and again; pt says that he will go to residential treatment to really apply it this time; pt asked about finding a orthodox for help; pt talks about his living situation which is uncertain right now and is a cause for some worry about me leaving here; prayer and presence welcomed and acknowledged as important to patient
[2024-07-09] MEDS: Acetaminophen 325 MG Tablet 650 MG PO (14:11)
[2024-07-09] MEDS: Dicyclomine 10 MG Capsule 20 MG PO (18:04)
[2024-07-09] MEDS: Senna/Docusate Sodium 1 Tablet 2 TABLET PO (18:04)
[2024-07-09] MEDS: traZODone 100 MG Tablet PO (22:05)
[2024-07-09] MEDS: 0.9% Saline Lock 10 ML Syringe IV (22:05)
[2024-07-10] VITALS (8 sets, daily range): BP systolic 96–147; BP diastolic 58–87; PULSE 66–94; RESP 16–18; TEMP 36.2–36.6; O2SAT 95–978
[2024-07-10] MEDS: Phenobarbital 32.4 MG Tablet PO ×4 (02:18→20:12)
[2024-07-10] MEDS: FLUoxetine 20 MG Capsule PO (08:07)
[2024-07-10] MEDS: Pantoprazole Sodium 40 MG Tablet PO (08:07)
[2024-07-10] MEDS: Thiamine Hydrochloride 100 MG Tablet PO (08:08)
[2024-07-10] MEDS: Folic Acid 1 MG Tablet PO (08:08)
[2024-07-10] MEDS: FLUoxetine 10 MG Capsule PO (08:08)
--- NOTE | 2024-07-10 14:28 | PCM.PN.HOSP ---
Reason for Visit Reason for Visit: Alcohol detox Subjective Subjective Patient states overall he is feeling much better. CIWA is 0. States he still little fatigued and feels little anxious. Would like to get a shower and go home tomorrow if he is feeling better. Currently about 48 hours out from his last drink Objective Data Objective Data Vital Signs: Vital Signs Temp Pulse Resp BP Pulse Ox O2 Del Method 97.8 F 92 18 122/73 H 978 Room Air 07/10/24 13:35 07/10/24 13:35 07/10/24 13:35 07/10/24 13:35 07/10/24 13:35 07/10/24 13:35 Oxygen Delivery Method Room Air Weight: 67 kg Body Mass Index (BMI) 23.8 Intake & Output: Intake and Output for Last 24 Hours 07/08/24 07/09/24 07/10/24 23:59 23:59 23:59 Intake Total 555 / 675 360 / 600 360 / 360 Balance 555 / 675 360 / 600 360 / 360 Lab / Micro Data 07/07/24 13:36 07/09/24 06:33 Physical Exam Const alert, oriented x3, no apparent distress, average body habitus and well nourished; Negative for healthy appearing Constitutional Narrative: Upper middle-aged, white male, sitting up in the edge of the bed eating breakfast, appears comfortable, nontoxic HEENT head/scalp atraumatic and moist oral mucous membranes HEENT Narrative: No thrush Psych affect normal Psych Narrative: Very pleasant, interacts appropriately Assessment & Plan Assessment/Plan (1) Acute hyponatremia: (2) Alcohol abuse: PLAN: Plan Alcohol abuse with pending withdrawal - Last drink was at 10 AM on 07/07/2024 - Continue CIWA - Continue phenobarbital taper - Continue supportive medication on a as needed basis - Continue thiamine - Continue folic acid supplementation - EtOH on admission was 250 - UDS was negative - 180 has evaluated and initially patient was to go to inpatient however unable to still get Vivitrol and follow-up as an outpatient discharge Acute on chronic hyponatremia -Resolved Essential hypertension -Continue lisinopril - Blood pressure is overall well-controlled on lisinopril Depression -Continue fluoxetine Tobacco abuse - Nicotine patch available if needed - Recommend cessation - Suspect patient has baseline COPD but needs outpatient PFTs Erectile dysfunction - Patient is on sildenafil at home restart at discharge if verified DVT prophylaxis - Low risk - Early and frequent ambulation CODE STATUS - Full code Charges/Coding Visit Charges Inpatient E&M: 04787 Subs Hosp L1
[2024-07-10] MEDS: traZODone 100 MG Tablet PO (20:12)
[2024-07-10] MEDS: 0.9% Saline Lock 10 ML Syringe IV (20:12)
[2024-07-11 02:00] VITALS: BP 140/85; PULSE 78; RESP 16; TEMP 36.5; O2SAT 97
[2024-07-11] MEDS: Phenobarbital 32.4 MG Tablet PO ×2 (02:19→09:09)
--- NOTE | 2024-07-11 07:32 | PCM.DC.SUM ---
Providers Date of Admission: 07/07/24 Date of Discharge: 07/11/24 Primary Care Physician: Dr. Renan Joel MD Reason For Visit: REQUESTING DETOX Diagnosis Discharge Diagnosis (1) Acute hyponatremia: Status: Resolved Code(s): E87.1 - Hypo-osmolality and hyponatremia (2) Alcohol abuse: Status: Acute Code(s): F10.10 - Alcohol abuse, uncomplicated Medications at Discharge Home Medications lisinopril 10 mg tablet (Zestril) 10 mg PO DAILY HTN 06/22/16 fluoxetine 10 mg capsule 10 mg PO DAILY Depression 01/20/22 fluoxetine 20 mg capsule 20 mg PO DAILY depression 09/22/23 sildenafil 100 mg tablet 100 mg PO PRN PRN erectile dysfunction 10/24/23 esomeprazole magnesium 40 mg capsule,delayed release (Nexium) 40 mg PO DAILY reflux 07/09/24 Hospital Course Operations None Procedures None Summary of Care Provided Minutes Spent on Discharge: 25 Hospital Course: Mr. Alcala is a 69-year-old white male who presented to the emergency department at [facility] on 07/07/2024 with a chief complaint of alcohol abuse requesting detox. Patient reported he drinks beer and drinks about a 12 pack a day with his last drink being a couple hours prior to presentation. Patient reported he had been detoxed about 4 months ago and he did not drink for about a month then resume drinking. He has been through detox several times previously as well. Vital signs on presentation showed temperature of 98, heart rate was 98, respiratory rate was 18, blood pressure was 90/64 and pulse ox was 98% on room air. CBC showed an elevated MCV but was otherwise unremarkable. Coags were normal. Chemistry panel showed hyponatremia with a sodium of 121. This corrected slowly with time and on 04/10/2024 was up to 131. Suspect this is decreased solute intake with possible beer potomania. Renal function was normal. Liver functions were unremarkable. Urine drug screen was negative. Ethyl alcohol level on presentation was 250. Patient was admitted to telemetry due to his marked hyponatremia and placed on a phenobarbital taper along with supportive medications for symptom management. As noted, his sodium slowly improved. He did quite well with the phenobarbital taper and had an overall uneventful detox. He was seen by 180 and the overall plan is for inpatient management however he stated he needed to go home first to get things situated and then would follow-up with 180. He was a candidate for Vivitrol and this was given prior to discharge on 07/11/2024. He was instructed to follow-up at 180 as previously instructed by liaison at their last conversation. He was discharged home in stable condition on 07/11/2024. Discharge diagnoses: Alcohol abuse with pending withdrawal Acute hyponatremia Essential hypertension Depression History of chronic hyponatremia Erectile dysfunction Tobacco use Physical Exam Const alert, oriented x3, no apparent distress, average body habitus, no limitations and well nourished; Negative for healthy appearing Constitutional Narrative: Upper middle-aged, white male, walking around room, nursing at bedside, appears comfortable, nontoxic General Appearance: cooperative, comfortable, well kempt and well developed Exam Limitations: no limitations HEENT normocephalic, head/scalp atraumatic and moist oral mucous membranes HEENT Narrative: Dentition is fair, Mallampati 2, no thrush Resp normal respiratory effort, no retractions, no use of accessory muscles and clear to auscultation bilaterally Resp Narrative: Diffusely diminished but clear Auscultation: wheezes; Negative for rhonchi Cardio regular rate, regular rhythm, S1 normal heart sound, S2 normal heart sound, no murmurs, no rub, no gallops and no clicks GI normal to inspection, nondistended, normoactive bowel sounds, soft to palpation and non-tender Extremity no clubbing, cyanosis or edema Extremity Narrative: Pedal and radial pulses are 2+ Neuro oriented x3, moves all extremities, no focal motor deficits and no sensory deficits noted Neuro Narrative: Ambulating independently with normal gait pattern around the room Speech: speech normal Psych affect normal Psych Narrative: Very pleasant, interacts appropriately Weight / BMI Weight Weight: 67 kg Body Mass Index (BMI) 23.8 ABG / Lab / Microbiology Data 07/07/24 13:36 07/09/24 06:33 D/C Instructions Discharge Diet: Low fat / Low cholesterol Discharge Activity: Return to Normal Activity DC O2, CPAP, BIPAP Needs Home O2 Discharge instructions: No Meaningful Use Info Meaningful Use Meaningful Use Diagnoses (Choose all that apply): None applicable Ischemic Stroke Statin Dosing Therapy Reference: STATIN DOSE THERAPY REFERENCE: * Patients > 75 years receive moderate or high dose statin therapy. * Patients 75 years or YOUNGER should receive HIGH intensity statin dose unless contraindicated. You will be required to document reason for non-treatment if statin daily dose does not meet guidelines. HIGH DOSE STATIN THERAPY DAILY Atorvastatin > than or = to 40 mg Rosuvastatin > than or = to 20 mg Amlodipine + Atorvastatin > than or = to 2.5/40 mg Ezetimibe + Simvastatin 10/80 mg Simvastatin 80mg Discharge Plan Admission Admit Date/Time: 07/07/24 15:08 Primary Reason for Your Visit: Alcohol detox Attending Provider: Marcy Marquez Primary Care Provider: Renan Joel Consulting Providers: Selena Cade Instructions Additional Instructions / Restrictions: 1. Please follow-up with 180 as directed Discharge Orders/Prescriptions Prescriptions: Continued lisinopril [Zestril] 10 MG tablet 10 mg PO DAILY fluoxetine 10 mg capsule 10 mg PO DAILY Patient Comments: Take 1 capsule by mouth once daily. In addition to 20 mg a day. fluoxetine 20 mg capsule 20 mg PO DAILY sildenafil 100 mg tablet 100 mg PO PRN PRN (Reason: erectile dysfunction) esomeprazole magnesium [Nexium] 40 mg capsule,delayed release(DR/EC) 40 mg PO DAILY Referrals / Follow Up: Renan Joel MD [Primary Care Provider] - In 1 Week Disposition Disposition (needs filled in before D/C Order can be placed): Home, Self Care Charges/Coding Visit Charges Inpatient E&M: 36423 Disch Hosp
[2024-07-11 08:00] VITALS: BP 127/80; PULSE 86; RESP 15; TEMP 36.4; O2SAT 97
[2024-07-11] MEDS: FLUoxetine 10 MG Capsule PO (09:08)
[2024-07-11] MEDS: Folic Acid 1 MG Tablet PO (09:09)
[2024-07-11] MEDS: Lisinopril 10 MG Tablet PO (09:09)
[2024-07-11] MEDS: Pantoprazole Sodium 40 MG Tablet PO (09:09)
[2024-07-11] MEDS: Thiamine Hydrochloride 100 MG Tablet PO (09:09)
[2024-07-11] MEDS: FLUoxetine 20 MG Capsule PO (09:09)
[2024-07-11] MEDS: Naltrexone Microspheres 380 MG SYRINGE IM (09:10)
[2024-07-11] MEDS: Vivitrol ID Card 1 EACH MC (09:12)
[2024-07-11] MEDS: Vivitrol Administration Needles 1 EACH MC (09:12)
== END 2024-07-11 11:41 | disposition home or self-care (01) | DRG 897 ==
LOC: ED 13:59 → PCU 17:42
PROVIDERS: Admitting Provider Internal Medicine; Emergency Provider Emergency Medicine; PCP Family Medicine; Visit Provider Internal Medicine
DX: F10.139 Alcohol abuse with withdrawal, unspecified (principal); E87.1 Hypo-osmolality and hyponatremia; I10 Essential (primary) hypertension; F32.A Depression, unspecified; F17.210 Nicotine dependence, cigarettes, uncomplicated; N52.9 Male erectile dysfunction, unspecified; Z79.899 Other long term (current) drug therapy; Y90.8 Blood alcohol level of 240 mg/100 ml or more
CPT/HCPCS: 36415; 80048; 80053; 80307; 82077; 85025; 85610; 99284; 99406; A4216